=== PATIENT | female | born 1945 | race Hispanic/Latino ===

== ENCOUNTER 2017-07-01 13:34 | Inpatient (IN) | payer BC, MEDICARE ==
--- NOTE | 2017-07-01 13:55 | ED PDOC ---
Arrival/HPI - General Chief Complaint: Shortness Of Breath Time Seen by Provider: 07/01/17 13:47 Historian: Patient - History of Present Illness Narrative History of Present Illness (Text): 07/01/17 13:45 Iman Mckinney is a 71 year old female who presents to the emergency department sent in by PMD Dr. Fraser after abnormal EKG reading. Patient reports that she went to her PMD because she has had a cold with productive cough and congestion x 1 week. At her PMD's office, her EKG reading was afib at 150 BPM and she was sent to Emergency department (EKG sent with patient shows afib at 150bpm). Patient notes having intermittent episodes of palpitations for many months. She had follow up with Dr. Guzman and had normal stress. She notes being scheduled for echocardiogram but never got it done. No other complaints were made. On plavix every other day PMD: Dr. Fraser Time/Duration: 1 week Symptom Onset: Sudden Symptom Course: Unchanged, Intermittent Past Medical History - Provider Review Nursing Documentation Reviewed: Yes - Infectious Disease Hx of Infectious Diseases: None - Reproductive Menopause: Yes - Cardiac Hx Pacemaker: No - Neurological Hx Paralysis: No - Hematological/Oncological Hx Blood Transfusions: No Hx Blood Transfusion Reaction: No - Musculoskeletal/Rheumatological Hx Musculoskeletal Disorders: Yes - Psychiatric Hx Emotional Abuse: No Hx Physical Abuse: No Hx Substance Use: No - Anesthesia Hx Anesthesia Reactions: Yes (HOARSE VOICE X 2 WEEKS) - Suicidal Assessment Feels Threatened In Home Enviroment: No Family/Social History - Physician Review Nursing Documentation Reviewed: Yes Family/Social History: Unknown Family HX Smoking Status: Unknown If Ever Smoked Hx Alcohol Use: No Hx Substance Use: No Allergies/Home Meds Allergies/Adverse Reactions: Allergies Penicillins Allergy (Severe, Verified 07/01/17 13:52) RASH aspirin Allergy (Verified 07/01/17 13:52) DIARRHEA propoxyphene [From Darvon] Allergy (Verified 07/01/17 13:52) RASH DARVON Allergy (Severe, Uncoded 09/17/12 09:49) "TOTALLY OUT OF IT" Home Medications: Home Meds Medication Instructions Recorded Confirmed Clopidogrel [Plavix] 75 mg PO Q48H 01/03/12 07/01/17 Sucralfate [Carafate] 1 gm PO TID PRN 01/03/12 07/01/17 Clonazepam [Klonopin] 0.5 mg PO DAILY 07/01/17 07/01/17 Dexlansoprazole [Dexilant] 60 mg PO DAILY 07/01/17 07/01/17 Gabapentin [Neurontin] 100 mg PO HS 07/01/17 07/01/17 Levothyroxine [Synthroid] 0.088 mg PO DAILY 07/01/17 07/01/17 buPROPion SR [Wellbutrin SR] 150 mg PO DAILY 07/01/17 07/01/17 cycloSPORINE [Restasis] 1 drop PO BID 07/01/17 07/01/17 traMADol [Ultram] 50 mg PO PRN PRN 07/01/17 07/01/17 Review of Systems - Review of Systems Constitutional: absent: Fevers ENT: Sinus Congestion Respiratory: Cough. absent: SOB Cardiovascular: Palpitations. absent: Chest Pain Gastrointestinal: absent: Abdominal Pain, Diarrhea, Nausea, Vomiting Genitourinary Female: absent: Dysuria, Frequency Musculoskeletal: absent: Back Pain Skin: absent: Rash Neurological: absent: Headache, Dizziness Endocrine: absent: Diaphoresis Hemo/Lymphatic: absent: Easy Bleeding Physical Exam Vital Signs Reviewed: Yes Vital Signs Temp Pulse Resp BP Pulse Ox 07/01/17 17:11 88 18 102/77 92 L 07/01/17 16:41 146/69 07/01/17 15:02 22 93 L 07/01/17 13:50 98.2 F 100 H 18 133/74 99 Temperature: Afebrile Blood Pressure: Normal Pulse: Tachycardic Respiratory Rate: Normal Appearance: Positive for: Well-Appearing, Non-Toxic, Comfortable Pain Distress: None Mental Status: Positive for: Alert and Oriented X 3 - Systems Exam Head: Present: Atraumatic, Normocephalic Pupils: Present: PERRL Extroacular Muscles: Present: EOMI Conjunctiva: Present: Normal Neck: Present: Normal Range of Motion Respiratory/Chest: Present: Wheezes (bilateral wheezing). No: Clear to Auscultation, Respiratory Distress, Accessory Muscle Use, Rales, Rhonchi Cardiovascular: Present: Tachycardic. No: Regular Rate and Rhythm, Murmurs Abdomen: Present: Normal Bowel Sounds. No: Tenderness, Distention, Peritoneal Signs, Rebound, Guarding Upper Extremity: Present: Normal Inspection, Normal ROM, NORMAL PULSES, Neurovascularly Intact. No: Cyanosis, Edema, Tenderness, Swelling, Erythema Lower Extremity: Present: Normal Inspection, NORMAL PULSES, Normal ROM, Capillary Refill < 2 s. No: Edema, CALF TENDERNESS, Cyanosis, Tenderness, Swelling, Erythema, Deformity Neurological: Present: GCS=15, CN II-XII Intact, Speech Normal Skin: Present: Warm, Dry, Normal Color. No: Rashes Psychiatric: Present: Alert, Oriented x 3, Normal Insight, Normal Concentration Medical Decision Making ED Course and Treatment: 07/01/17 Impression: 71 year old female with bilateral wheezing in lungs and tachycardia. Plan: -- Reassess and disposition Progress Notes: 07/01/17 14:01 EKG on arrival shows sinus tachycardia at 107bpm with LAD. No acute ST changes. EKG from Dr. Fraser shows atrial fibrillation at 150bpm. 07/01/17 14:27 Allergic to aspirin 07/01/17 15:57 Chest PA and lateral cxray FINDINGS: LUNGS: Mild vascular and interstitial congestion PLEURA: No significant pleural effusion identified. No pneumothorax apparent. CARDIOVASCULAR: Normal. OSSEOUS STRUCTURES: No significant abnormalities. VISUALIZED UPPER ABDOMEN: Normal. OTHER FINDINGS: None. 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 Guzman. Dr. Burnett to admit for new onset afib. Lasix ordered due to vascular congestion. Nebulizer given due to wheezing. - Lab Interpretations Lab Results: 07/01/17 14:10 07/01/17 14:10 Lab Results 07/01/17 14:10: NT-Pro-B Natriuret Pep 421 07/01/17 14:10: WBC 8.3, RBC 4.74, Hgb 12.4, Hct 40.5, MCV 85.4, MCH 26.2, MCHC 30.6 L, RDW 16.0 H, Plt Count 351, MPV 9.6, Gran % 68.5 H, Lymph % (Auto) 16.4 L , Bland % (Auto) 12.5 H, Eos % (Auto) 2.2, Baso % (Auto) 0.4, Gran # 5.70, Lymph # 1.4, Bland # 1.0 H, Eos # 0.2, Baso # 0.03 07/01/17 14:10: Sodium 142, Potassium 4.1, Chloride 102, Carbon Dioxide 32, Anion Gap 12, BUN 21, Creatinine 1.1, Est GFR ( Amer) 59, Est GFR (Non- Af Amer) 49, Random Glucose 92, Calcium 9.3, Phosphorus 3.5, Magnesium 2.1, Total Bilirubin 0.7, AST 60 H, ALT 52, Alkaline Phosphatase 108, Total Creatine Kinase 129, Troponin I 0.03, Total Protein 7.2, Albumin 3.7, Globulin 3.5, Albumin/Globulin Ratio 1.1 07/01/17 14:10: PT 13.6 H, INR 1.24 H, APTT 61.1 H - RAD Interpretation Radiology Orders: 07/01/17 13:58 CHEST TWO VIEWS (PA/LAT) [RAD] Stat - Medication Orders Current Medication Orders: Albuterol/Ipratropium (Duoneb 3 Mg/0.5 Mg (3 Ml) Ud) 3 ml IH [id number] COLT Aspirin (Aspirin Chewable) 81 mg PO DAILY COLT Bupropion HCl (Wellbutrin Sr 150 Mg) 150 mg PO DAILY COLT Clonazepam (Klonopin) 0.5 mg PO DAILY COLT PRN Reason: Protocol Clopidogrel Bisulfate (Plavix) 75 mg PO Q48H COLT Furosemide (Lasix) 40 mg IVP Q12 COLT Gabapentin (Neurontin) 100 mg PO HS COLT PRN Reason: Protocol Levothyroxine Sodium (Synthroid) 88 mcg PO DAILY COLT Pantoprazole Sodium (Protonix Ec Tab) 40 mg PO ACB COLT Sucralfate (Carafate Tab) 1 gm PO TID PRN PRN Reason: GI DISTRESS Discontinued Medications Albuterol/Ipratropium (Duoneb 3 Mg/0.5 Mg (3 Ml) Ud) 3 ml IH STAT STA Stop: 07/01/17 14:01 Last Admin: 07/01/17 14:24 Dose: 3 ml Aspirin (Aspirin Chewable) 324 mg PO STAT STA Stop: 07/01/17 14:01 Last Admin: 07/01/17 14:25 Dose: Not Given Non-Admin Reason: Allergy Furosemide (Lasix) 20 mg IVP STAT STA Stop: 07/01/17 15:58 Last Admin: 07/01/17 16:41 Dose: 20 mg MAR Blood Pressure Document 07/01/17 16:41 [facility] (Rec: 07/01/17 16:41 [facility]-[id number]) Blood Pressure Blood Pressure (100/60-150/90) 146/69 IVP Administration Document 07/01/17 16:41 [facility] (Rec: 07/01/17 16:41 [facility]-[id number]) Charges for Administration # of IVP Administrations 1 - Scribe Statement The provider has reviewed the documentation as recorded by the Tatyanaibe Sharlene West Provider Scribe Attestation: All medical record entries made by the Scribe were at my direction and personally dictated by me. I have reviewed the chart and agree that the record accurately reflects my personal performance of the history, physical exam, medical decision making, and the department course for this patient. I have also personally directed, reviewed, and agree with the discharge instructions and disposition. Disposition/Present on Arrival - Present on Arrival Any Indicators Present on Arrival: No History of DVT/PE: No History of Uncontrolled Diabetes: No Urinary Catheter: No History of Decub. Ulcer: No History Surgical Site Infection Following: None - Disposition Have Diagnosis and Disposition been Completed?: Yes Diagnosis: New onset atrial fibrillation Disposition: HOSPITALIZED Disposition Time: 16:00 Patient Plan: Admission Patient Problems: Current Active Problems Problem Status Onset New onset atrial fibrillation Acute Condition: FAIR
[2017-07-01] MEDS ORDERED: Albuterol-Ipratrop 3 mg / 0.5 (3 ml) UD IH STA (14:00)
[2017-07-01 14:27] LABS: BASO # 0.03 K/mm3 (0.0-2.0); BASO % 0.4 % (0.0-3.0); EOS # 0.2 (0.0-0.7); EOS % 2.2 % (1.5-5.0); GRAN # 5.7 (1.4-6.5); GRAN % 68.5 % (50.0-68.0); HEMATOCRIT 40.5 % (36.0-48.0); LYMPH # 1.4 (1.2-3.4); LYMPH % 16.4 % (22.0-35.0); MEAN CELL VOLUME 85.4 fl (80.0-105.0); MEAN CORPUSCULAR HEMOGLOBIN 26.2 pg (25.0-35.0); MEAN CORPUSCULAR HGB CONC 30.6 g/dl (31.0-37.0); MEAN PLATELET VOLUME 9.6 fl (7.0-11.0); MONO % 12.5 % (1.0-6.0); WHITE BLOOD COUNT 8.3 10^3/ul (4.5-11.0)
[2017-07-01 14:36] LABS: ALB/GLOB RATIO 1.1 (1.1-1.8); BILIRUBIN,TOTAL 0.7 mg/dL (0.2-1.3); CALCIUM 9.3 mg/dL (8.4-10.5); MAGNESIUM 2.1 mg/dL (1.7-2.2); PHOSPHOROUS 3.5 mg/dL (2.5-4.5); POTASSIUM 4.1 mmol/L (3.6-5.0); TOTAL PROTEIN 7.2 g/dL (5.8-8.3)
[2017-07-01 14:47] LABS: TROPONIN I 0.03 ng/mL
[2017-07-01 14:49] LABS: INR 1.24 (0.93-1.08); PARTIAL THROMBOPLASTIN TIME 61.1 Seconds (25.1-36.5)
--- NOTE | 2017-07-01 15:57 | RAD ---
HISTORY: cough, chest pain COMPARISON: No prior. TECHNIQUE: Chest PA and lateral FINDINGS: LUNGS: Mild vascular and interstitial congestion PLEURA: No significant pleural effusion identified. No pneumothorax apparent. CARDIOVASCULAR: Normal. OSSEOUS STRUCTURES: No significant abnormalities. VISUALIZED UPPER ABDOMEN: Normal. OTHER FINDINGS: None. IMPRESSION: Mild vascular and interstitial congestion
[2017-07-01] MEDS ORDERED: SUCRALFATE 1 GM PO PRN (17:09)
--- NOTE | 2017-07-01 18:56 | CARD ---
APPROVED REPORT EKG Measurement Heart [id number] [id number] <Conclusion> Sinus tachycardia with fusion complexes Left axis deviation Septal infarct, age undetermined Abnormal ECG
[2017-07-01] MEDS: Albuterol-Ipratrop 3 mg / 0.5 (3 ml) UD IH SCH (21:00)
[2017-07-01 22:59] VITALS: BMI 37.5
[2017-07-01] MEDS ORDERED: Pneumococcal 23-Valent Vaccine IM ONE (22:59)
[2017-07-01] MEDS ORDERED: Influenza Vaccine 60 mcg/0.5 mL SYR (4YR UP) IM ONE (22:59)
[2017-07-02] MEDS: Albuterol-Ipratrop 3 mg / 0.5 (3 ml) UD IH SCH ×4 (02:03→19:45)
[2017-07-02 06:58] LABS: BLOOD UREA NITROGEN 20 mg/dL (7-21); CALCIUM 8.8 mg/dL (8.4-10.5); CARBON DIOXIDE 35 mmol/L (21-33); CHLORIDE 102 mmol/L (98-107); CHOLESTEROL 150 mg/dL (130-200); GFR AFRICAN-AMERICAN 53; GLUCOSE,RANDOM 98 mg/dL (70-110); SODIUM 144 mmol/L (132-148)
[2017-07-02 07:01] LABS: HEMATOCRIT 39.7 % (36.0-48.0); MEAN CELL VOLUME 86.9 fl (80.0-105.0); MEAN CORPUSCULAR HEMOGLOBIN 25.6 pg (25.0-35.0); MEAN CORPUSCULAR HGB CONC 29.5 g/dl (31.0-37.0); MEAN PLATELET VOLUME 9.2 fl (7.0-11.0); RED CELL DISTRIBUTION WIDTH 16.2 % (11.5-14.5); WHITE BLOOD COUNT 6.4 10^3/ul (4.5-11.0)
[2017-07-02] MEDS: Levothyroxine 88 MCG TAB PO SCH (07:01)
[2017-07-02 07:09] LABS: TROPONIN I 0.03 ng/mL
--- NOTE | 2017-07-02 08:21 | HP ---
CHIEF COMPLAINT: Shortness of breath, palpitations. HISTORY OF PRESENT ILLNESS: Ms. Iman Mckinney is a 71-year-old female that came to the Emergency Department send by her primary doctor, Dr. Fraser after abnormal EKG reading. The patient report that she went to see primary care physician because she has had cold with productive cough and congestion one week ago. At her PMD office, her EKG reading was atrial fibrillation at the rate of 150 bpm and she was sent to the Emergency Department. EKG came with the patient showed atrial fibrillation at the rate of 150. The patient noticed having intermittent episode of palpitation for many months. She had followup with Dr. Hanson and had a normal stress test. She noticed that being scheduled for echocardiography, but never got it done. No other complaints were at the time of admission. I saw the patient in the telemetry, still complaining about coughing and shortness of breath. PAST MEDICAL HISTORY: As above. History of abnormal EKG, history of bronchitis. FAMILY HISTORY: Father and mother noncontributory. SOCIAL HISTORY: No smoking. No drugs. No ethanol. ALLERGIES: THE PATIENT IS ALLERGIC TO PENICILLIN, ASPIRIN, AND DARVON. MEDICATIONS: Plavix, Carafate, Klonopin, DEXILANT, Neurontin, Synthroid, Wellbutrin, eyedrops, tramadol. REVIEW OF SYSTEMS: The patient is examined at bedside in the telemetry, complaining about shortness of breath, palpitation, and coughing. No nausea, vomiting, or diarrhea. No fever. No chills. No headache. No dizziness. No swelling of the leg. No diaphoresis. No easy bleeding. No back pain. No dysuria or frequency. No abdominal pain, diarrhea, hematuria, or hematochezia. PHYSICAL EXAMINATION VITAL SIGNS: Temperature 98.2, pulse 100, respiratory 18, blood pressure 134/74, pulse oximetry 99. HEENT: Head: Normocephalic and atraumatic. Eyes: PERRLA. Extraocular muscles intact. Conjunctivae clear. Nose patent. Mucous membrane moist. NECK: Supple. No carotid bruits, JVD, or thyromegaly. HEART: S1 and S2 positive. CHEST: Bilaterally symmetrical. Lungs are clear to auscultation. ABDOMEN: Soft. Bowel sounds positive. No organomegaly. EXTREMITIES: No edema, no cyanosis. NEUROLOGIC: The patient is awake and alert. Moving all 4 extremities. No focal deficit. LABORATORY DATA: White blood cell count is 8.3, hemoglobin 12.4, hematocrit 40.5, platelets 361. Sodium 142, potassium 4.1, BUN 30, creatinine 1.1, glucose 92. ASSESSMENT AND PLAN: Ms. Iman Mckinney is a 71-year-old lady with history of hypothyroidism, came with new onset atrial fibrillation, history of depression . gerd , dyspepsia , ch. neck pain , came with new onset at . fib . i admitted the pt . cardiology consult called . looks like pt had bronchitis , started on doxy . r/o pul . congestion , will f/u gi dvt prophylaxis, Lucy Burnett MD MTDD
[2017-07-02] MEDS: Pantoprazole 40 mg EC Tab PO SCH (08:32)
[2017-07-02] MEDS: buPROPion SR 150 MG TABLET PO SCH (09:12)
[2017-07-02] MEDS ORDERED: Non Formulary Medication (Dexlansoprazole [Dexilant] 60 MG) PO SCH (10:00)
[2017-07-02] MEDS ORDERED: Enoxaparin 40 mg Syringe SC SCH (12:00)
--- NOTE | 2017-07-02 12:15 | CARD ---
APPROVED REPORT EXAM: Two-dimensional and M-mode echocardiogram with Doppler and color Doppler. INDICATION Atrial Fibrillation 2D DIMENSIONS Left Atrium (2D)4.3 (1.6-4.0cm)IVSd1.4 (0.7-1.1cm) LVDd4.0 (3.9-5.9cm)LVOT Diameter1.9 (1.8-2.4cm) PWd1.3 (0.7-1.1cm)LVDs2.8 (2.5-4.0cm) FS (%) 31.1 %LVEF (%)59.3 (>50%) M-Mode DIMENSIONS Aortic Root3.10 (2.2-3.7cm)Aortic Cusp Exc.1.00 (1.5-2.0cm) Aortic Valve AoV Peak Xqlobwdv275.0cm/sAoV VTI64.4cmAO Peak GR.32mmHg LVOT Peak Bnfyjlfe392.0cm/sLVOT VTI29.60cmAO Mean GR.18mmHg LIANNA (VMAX)1.15as0OQQ (VTI)1.31cm2 Mitral Valve MV E Oblywryc66.2cm/sMV A Xdihiztw590.0cm/sE/A ratio0.8 TDI Lateral E' Peak V8.77cm/sMedial E' Peak V6.82cm/sE/Lateral E'10.6 E/Medial E'13.7 Pulmonary Valve PV Peak Veehgwtu542.0cm/sPV Peak Grad.4mmHg Tricuspid Valve TR Peak Ypkbemgq717hn/sRAP NLOGTKON82okAbDW Peak Gr.29mmHg URQY43ubTv LEFT VENTRICLE The left ventricle is normal size. There is mild concentric left ventricular hypertrophy. The left ventricular function is normal. The left ventricular ejection fraction is within the normal range. There is normal LV segmental wall motion. RIGHT VENTRICLE The right ventricle is normal size. The right ventricular systolic function is normal. ATRIA The left atrium is mildly dilated. The right atrium size is normal. The interatrial septum is intact with no evidence for an atrial septal defect. AORTIC VALVE The aortic valve is moderately calcified. There is mild valvular aortic stenosis. MITRAL VALVE The mitral valve is normal in structure. Mitral regurgitation is mild. TRICUSPID VALVE The tricuspid valve is normal in structure. PULMONIC VALVE The pulmonary valve is normal in structure. GREAT VESSELS The aortic root is normal in size. The IVC is normal in size and collapses >50% with inspiration. PERICARDIAL EFFUSION There is no pleural effusion. There is no pericardial effusion. <Conclusion> Dilated LA. Mild concentric LVH. Normal LV size and systolic function. Mild . Mild MR.
[2017-07-02 13:43] LABS: FOLATE > 20.0 ng/mL
--- NOTE | 2017-07-02 23:41 | CON ---
DATE: 07/02/2017 REQUESTING PHYSICIAN: Lucy Burnett MD REASON FOR CONSULTATION: Atrial fibrillation. HISTORY OF PRESENT ILLNESS: The patient is a 71-year-old woman known to me with a history of hypertension and valvular heart disease, who was seen in her primary care physician's office earlier today. She complained of four to five days of exertional dyspnea and palpitations. She is found to be in atrial fibrillation with a rapid ventricular response. She has also had symptoms of bronchitis for the past several days. She denies any chest pain. She has had a productive cough. PAST MEDICAL HISTORY: Notable to problems mentioned above. She does have a history of gastroesophageal reflux disease, hypothyroidism, and anxiety disorder. MEDICATIONS: Her medications at home included Plavix, Carafate, Klonopin, DEXILANT, Neurontin, Synthroid, Wellbutrin, Restasis eye drops, and Ultram. ALLERGIES: SHE HAS HAD REACTION TO PENICILLIN IN THE PAST. SHE HAS ALSO HAD REACTION TO ASPIRIN AND DARVON. SOCIAL HISTORY: She does not smoke or drink. She is and lives with her . FAMILY HISTORY: Unremarkable for premature heart disease. REVIEW OF SYSTEMS: A 10-point review of systems is notable mainly for problems as mentioned above. PHYSICAL EXAMINATION GENERAL: She is an overweight middle-aged woman. VITAL SIGNS: Her blood pressure is 160/82, pulse of 78 in sinus, respirations are 16. She is currently afebrile. HEENT: Normocephalic atraumatic. NECK: Supple. No JVD noted. CHEST: Bilateral coarse rhonchi and scattered wheezing heard. No rales noted. HEART: PMI displaced laterally with systolic murmur at the base and left sternal border. ABDOMEN: Soft and nontender. Obese with normoactive bowel sounds. EXTREMITIES: No clubbing, cyanosis, or edema. SKIN: Warm and dry. PSYCHIATRIC: Normal mood and affect. NEUROLOGIC: Alert and oriented x3. No gross motor or sensory is appreciated. DIAGNOSTIC DATA: White count is 8.3, hemoglobin and hematocrit 12.4, and 40.5, with a platelet count of 351,000. PT/PTT 13.6 and 61.1. Potassium 4.1, BUN and creatinine 21 and 1.1. Two sets of cardiac enzymes are negative. BNP is 421. Electrocardiogram reveal sinus rhythm with nonspecific ST-T abnormalities. Chest x-ray reveals normal cardiac silhouette with possible mild increased interstitial markings. IMPRESSION: 1. Paroxysmal atrial fibrillation currently in sinus rhythm likely secondary to recent acute bronchitis and underlying valvular heart disease. 2. Probable mild aortic stenosis. 3. Elevated PTT, etiology uncertain. 4. Mildly decompensating congestive heart failure acute likely secondary to respiratory stress of illness and underlying valvular heart disease. RECOMMENDATIONS: Bronchodilator therapy, should continue for now, as she has some active wheezing, beta misha therapy will be avoided. Low dose diltiazem will be added for heart rate control should atrial fibrillation recur. Repeat PTT is pending. She was started on Lovenox and this will be withheld for now. Given her recent atrial fibrillation, which appeared to be of at least several days in duration, short course of anticoagulant therapy would be advisable. If she has no recurrence of atrial fibrillation consideration be given to discontinuation of this at some point in time. While on anticoagulant therapy, Plavix will be withheld as well. Thank you for this consultation. We will be happy to follow along for rest of the hospital course. Her echocardiogram will be reviewed and further recommendations made as needed. Jose Enrique Hanson MD
[2017-07-03] MEDS: Albuterol-Ipratrop 3 mg / 0.5 (3 ml) UD IH SCH ×4 (01:37→19:46)
--- NOTE | 2017-07-03 03:38 | CON ---
DATE: 07/02/2017 REFERRING PHYSICIAN: Lucy Burnett MD REASON FOR CONSULTATION: New onset of atrial fibrillation with rapid ventricular response may have sleep apnea syndrome, cough and shortness of breath. HISTORY OF PRESENT ILLNESS: This is a 71-year-old female with past medical history significant for hypothyroid, been on Plavix, also has a history of GERD, chronic pain syndrome, depression, seen at the PMD office and found to have a fair which is no new onset with rapid ventricular response. The patient had palpitation and some shortness of breath, came to emergency room where she is admitted on telemetry. Does not know if she snores, daytime sleepy and tired, has some rhinitis and cough. No sputum production. No hemoptysis and no hematemesis, hematuria or diarrhea reported. In the past, has a stress test done which was according to the patient been negative. PAST MEDICAL HISTORY: Hypothyroid, gastritis, anxiety/depression, and chronic pain syndrome. ALLERGIES: TO PENICILLIN, ASPIRIN AND DARVON. FAMILY HISTORY: Significant cardiopulmonary disease reported. MEDICATIONS: She is on Carafate 1 g three times a day p.r.n., doxycycline 100 mg twice a day, DuoNeb q. 6 hours., Eliquis 5 mg twice a day, Klonopin 0.5 mg daily, Lasix 40 mg twice a day, gabapentin 100 mg at bedtime, Protonix 40 mg daily, Synthroid 88 mcg daily, Tylenol p.r.n. and Wellbutrin SR 150 mg daily will. REVIEW OF SYSTEMS: No headache. Has some rhinitis, postnasal drip, cough, and clear sputum production. Palpitation is better. No nausea. History of gastroesophageal reflux disease. No abdominal pain. No dysuria. No leg pain or leg swelling. Does have a history of sleepiness and tiredness during the daytime. Does not know if snores. PHYSICAL EXAMINATION: GENERAL: No acute distress. VITAL SIGNS: Temperature is 98, heart rate is 80, respiratory rate is 20, blood pressure is 132/64, and pulse oximetry is 97% on nasal cannula. HEENT: Moist mucous membranes. Crowded airway. Mallampati score is 4. NECK: Supple. JVD. LUNGS: Has a few scattered rhonchi. HEART: Irregularly irregular. GASTROINTESTINAL: Abdomen is soft and nontender. No organomegaly. EXTREMITIES: No edema. NEUROLOGIC: Awake and alert. Follows simple command. LABORATORY DATA: Shows hemoglobin of 11.7, hematocrit of 39.7, WBC of 6.4, and platelets of 319. INR is 1.24 and PTT is 61. Sodium is 144, potassium is 4.0, chloride is 102, bicarbonate is 35, BUN is 20, creatinine is 1.2, glucose is 98, and hemoglobin A1c is 6.7. Iron is 36 and total iron binding capacity is 255. AST is 60, ALT is 52, and alkaline phosphatase is 108. Troponin is less than 0.03. Albumin is 3.7, cholesterol is 150, and triglycerides of 121. Folate more than 20 and vitamin B12 is 696. TSH is 2.72. DIAGNOSTIC DATA: Echocardiogram shows mild pulmonary hypertension, PA pressure of 39, mild valvular heart disease. IMPRESSION AND PLAN: New onset of atrial fibrillation with rapid ventricular response, hypothyroid, gastritis, depression, and may have a sleep apnea syndrome. Spoke to the patient in detail about sleep apnea syndrome and its relation to cardiac arrhythmia. Keep head elevated to 45 degrees. Gastric prophylaxis and sequential compression device to lower extremity. Continue anticoagulation. May start beta-misha. Outpatient sleep study and pulmonary function tests. Continue doxycycline and nebulizer treatment. Thank you and we will follow with you. Natali Masterson MD
[2017-07-03] MEDS ORDERED: Lidocaine 2% Inj (20ml) ONE (06:28)
[2017-07-03] MEDS ORDERED: Iodixanol 320 MG/ML 200 ML BOTTLE IV ONE (06:29)
[2017-07-03] MEDS ORDERED: Nitroglycerin 50mg in D5W 0 MG/0 ML BOTTLE IV ONE (06:29)
[2017-07-03] MEDS ORDERED: Heparin 0 ML IV ONE (06:29)
[2017-07-03] MEDS ORDERED: Iodixanol 320 MG/ML 100 ML BOTTLE IV ONE (06:29)
[2017-07-03 06:57] LABS: BILIRUBIN,TOTAL 0.8 mg/dL (0.2-1.3); CALCIUM 8.6 mg/dL (8.4-10.5); POTASSIUM 3.9 mmol/L (3.6-5.0); TOTAL PROTEIN 7.3 g/dL (5.8-8.3)
[2017-07-03] MEDS: Levothyroxine 88 MCG TAB PO SCH (07:49)
[2017-07-03] MEDS: Pantoprazole 40 mg EC Tab PO SCH (07:49)
[2017-07-03] MEDS: buPROPion SR 150 MG TABLET PO SCH (09:55)
--- NOTE | 2017-07-03 11:59 | PN ---
DATE: 07/02/2017 SUBJECTIVE: The patient is a 71-year-old female. The patient was see and examined at the bedside, looking comfortable, still coughing, and having shortness of breath with cough. No fever and no chills. was sitting on the bedside. The patient was going for echocardiography. REVIEW OF SYSTEMS: No nausea, vomiting or diarrhea. No fever and no chills. No hematuria or hematochezia. PHYSICAL EXAMINATION: VITAL SIGNS: Temperature of 98.5, pulse of 78, blood pressure of 159/83, respiratory rate of 16, and oxygenation of 97%. HEENT: Head is normocephalic and atraumatic. Eyes, PERRLA. Extraocular muscles intact. Conjunctivae are clear. Nose is patent. Mucous membranes are moist. NECK: Supple. No carotid bruits. No JVD or thyromegaly. CHEST: Bilaterally symmetrical. HEART: S1 and S2 positive. LUNGS: Clear to auscultation. ABDOMEN: Soft. Bowel sounds present. No organomegaly. EXTREMITIES: No edema. No cyanosis. NEUROLOGICAL: The patient is awake and alert. Moving all 4 extremities. No focal deficit. LABORATORY DATA: White blood cell is 6.4, hemoglobin is 11.7, hematocrit is 39.7, and platelets are 319. Sodium is 144, potassium is 4.0, BUN is 20, and creatinine is 1.2. Glucose is 98. Iron is 36. MEDICATIONS: Carafate, doxycycline, Klonopin, Lasix, Neurontin, Plavix, Wellbutrin, Tylenol, and Synthroid. ASSESSMENT AND PLAN: Ms. Iman Dior is a 71-year-old lady with abnormal liver function test and iron deficiency anemia who came with shortness of breath and palpitation. The patient has abnormal electrocardiogram done in her primary care physician, with heart rate of 150. The patient has history of hypothyroidism, atrial fibrillation, depression, gastroesophageal reflux disease, dyspepsia, neck pain, rule out bronchitis, and rule out congestive heart failure. The patient's correction officer head is Dr. Gustafson and pulmonary consult called. The patient underwent echocardiography, we will wait for the result. Results are pending. We will continue aspirin, sucralfate, and doxycycline started. The patient was taking Klonopin, I will continue that and Lasix. Continue Plavix, pantoprazole for gastrointestinal prophylaxis. levothyroxine for hypothyroidism. Gastrointestinal and deep venous thrombosis prophylaxis. Repeat laboratories. We will follow up. Lucy Burnett MD
[2017-07-03] MEDS: Potassium Chloride 10 mEq ER Tab PO SCH (12:30)
--- NOTE | 2017-07-03 17:09 | PN ---
SUBJECTIVE: The patient was seen and examined at the bedside, looking comfortable. No nausea, vomiting or diarrhea. No hematuria or hematochezia. No swelling of the legs. No chest pain, no palpitation. No headache, no dizziness. Cough is getting better. Shortness of breath is getting better. PHYSICAL EXAMINATION: VITAL SIGNS: Temperature of 97.9, pulse of 87, blood pressure of 126/57, respiratory rate 20. HEENT: Head is normocephalic and atraumatic. Eyes, PERRLA. Extraocular muscles intact. Conjunctivae are clear. Nose is patent. Mucous membranes are moist. NECK: Supple. No carotid bruits. No JVD or thyromegaly. CHEST: Bilaterally symmetrical. HEART: S1 and S2 positive. LUNGS: Clear to auscultation. ABDOMEN: Soft. Bowel sounds positive. No organomegaly. EXTREMITIES: No edema. No cyanosis. NEUROLOGIC: The patient is awake and alert. Moving all 4 extremities. No focal deficit. MEDICATIONS: Sucralfate, doxycycline, albuterol, DuoNeb, Eliquis, potassium, gabapentin, Protonix, levofloxacin, Tylenol, and Wellbutrin. LABORATORY DATA: We do not have CBC today but sodium is 141, potassium is 3.9, BUN is 21, and creatinine 1.1. AST 54, ALT 59. ASSESSMENT AND PLAN: Ms. Hank Valerio is a 71-year-old lady with uncontrolled diabetes mellitus, hemoglobin A1c is 6.7, iron deficiency, abnormal liver function test, anemia, obesity, hypothyroidism, gastritis, anxiety, depression, chronic pain syndrome, new-onset atrial fibrillation with rapid ventricular response, sleep apnea syndrome. Length of time discussion with the patient's and the patient's daughter. Started on beta-blockers, GI and DVT prophylaxis, and repeat labs. We will follow. Lucy Burnett MD
--- NOTE | 2017-07-03 19:36 | PN ---
DATE: 07/03/2017 SUBJECTIVE: The patient is seen lying in bed on telemetry. She continues to have intermittent wheezing and dyspnea. She remains in sinus rhythm. Her current medications include Carafate, doxycycline, DuoNeb inhaler, Eliquis 5 mg b.i.d., Klonopin, potassium, Lasix 40 mg daily, Neurontin, Protonix, Singulair, Synthroid and Wellbutrin. OBJECTIVE: GENERAL: She is a overweight middle-aged woman. VITAL SIGNS: Blood pressure 126/66 with pulse of 86 and sinus respirations are 14. She is currently afebrile. HEENT: No JVD. CHEST: Reveals bilateral scattered rhonchi with scattered wheezing noted. HEART: PMI is displaced laterally as a systolic murmur noted at the base vein to the carotids. . No is planned. EXTREMITIES: Revealed no edema. DIAGNOSTIC DATA: Potassium is 3.9, BUN and creatinine 21 and 1.1. AST and ALT are 54 and 59, repeat PTT is 75.1. IMPRESSION: 1. Paroxysmal atrial fibrillation remains in sinus rhythm. 2. Acute bronchitis slow to improve. 3. Mild aortic stenosis. 4. Elevated PTT. RECOMMENDATIONS: Diltiazem will be continued for now. The patient remains on Eliquis given her recent episodes of atrial fibrillation; however, if she does have an elevated PTT, which needs to be evaluated. Hematologic evaluation would be advised a factor deficiency or Willebrand factor may be playing a role. As long there is no contraindication to Eliquis use of this should be continued for the next several weeks. If she has no evidence of recurrent atrial fibrillation at that time, this can be discontinued. We will continue to follow and make further recommendations as appropriate. Jose Enrique Hanson MD
--- NOTE | 2017-07-03 19:56 | PN ---
PULMONARY PROGRESS NOTE DATE: 07/03/2017 REFERRING PHYSICIAN: Dr. Burnett. SUBJECTIVE: She is lying in the bed. Head at 45 degrees. Has little bleed from the nose. Getting humidified O2. No headache. No chest pain. No nausea. No vomiting. No diarrhea. No leg pain or leg swelling. OBJECTIVE: GENERAL: In no acute distress. VITAL SIGNS: Temperature is 98, heart rate is 87, respiratory rate is 20, blood pressure is 126/67, and pulse ox is 92% on 3 L nasal cannula. HEENT: Moist mucous membranes. Crowded airway. Mallampati score is 4. NECK: Supple. No JVD. LUNGS: Has fair air flow with few rhonchi. HEART: Irregularly irregular. ABDOMEN: Soft and nontender. No organomegaly. EXTREMITIES: No edema. NEUROLOGIC: Awake and alert. Follow simple commands. MEDICATIONS: She is on Carafate 1 g t.i.d., doxycycline 100 mg twice a day, DuoNeb q. 6 hours, Eliquis 5 mg twice a day, Klonopin 0.5 mg daily, potassium 10 mEq daily, Lasix 40 mg twice a day, Neurontin 200 mg h.s., Protonix 40 mg daily, Singulair 10 mg daily, Synthroid 88 mcg a.c.b., Tylenol p.r.n. basis, and Wellbutrin SR 150 mg daily. LABORATORY DATA: Shows PTT today is 75, sodium 141, potassium 3.9, chloride 98, bicarbonate 37, BUN 21, creatinine 1.1, glucose 103, calcium is 8.6, iron is 36, AST 54, ALT 59, alkaline phosphatase is 100, albumin is 3.7, and TSH 2.72. ASSESSMENT AND PLAN: Atrial fibrillation with rapid ventricular response, hypothyroid, gastritis, depression, may have a sleep apnea syndrome. Has echocardiogram done which shows right ventricular systolic pressure of 39, left atrium is enlarged, mild concentric left ventricular hypertrophy. May use supplemental oxygen through the mouth if there is nasal dryness and continue humidification. Cardiology followup. Gastric prophylaxis. Sequential compression devices to lower extremities. On anticoagulation. Sleep apnea precaution. Outpatient sleep study. Out of bed to chair. Thank you and we will follow with you. Natali Masterson MD [facility] # [id number]
[2017-07-04] MEDS: Albuterol-Ipratrop 3 mg / 0.5 (3 ml) UD IH SCH ×4 (01:27→20:55)
[2017-07-04] MEDS: Pantoprazole 40 mg EC Tab PO SCH (08:05)
[2017-07-04] MEDS: Levothyroxine 88 MCG TAB PO SCH (08:05)
[2017-07-04] MEDS: Potassium Chloride 10 mEq ER Tab PO SCH (08:05)
[2017-07-04] MEDS: buPROPion SR 150 MG TABLET PO SCH (09:43)
--- NOTE | 2017-07-04 12:31 | PN ---
DATE: 07/04/2017 PULMONARY PROGRESS NOTE REFERRING PHYSICIAN: Lucy Burnett MD SUBJECTIVE: The patient is sitting side of the bed, going to the bathroom. Night was unremarkable. Had some cough and sputum production. No nausea and no vomiting. No diarrhea. No leg pain or leg swelling. OBJECTIVE: GENERAL: In no acute distress. VITAL SIGNS: Temperature is 98, heart rate is 77, respiratory rate is 20, blood pressure is 159/79, and pulse oximetry is 92% on 3 liters nasal cannula. HEENT: Moist mucous membranes. Crowded airway. Mallampati score of 4. NECK: Supple. No JVD. LUNGS: Scattered rhonchi. HEART: Irregularly irregular. ABDOMEN: Soft and nontender. No organomegaly. EXTREMITIES: There is no edema. NEUROLOGIC: Awake, alert, and follow simple commands. LABORATORY DATA: Reviewed. Sodium of 141 yesterday. MEDICATIONS: She is on Carafate 1 g three times a day p.r.n., doxycycline 100 mg twice a day, DuoNeb q. 6 hours, Eliquis 5 mg twice a day, Klonopin 0.5 mg daily, also on potassium 10 mEq daily, Lasix 40 mg twice a day, Neurontin 100 mg at bedtime, Protonix 40 mg daily, Singulair 10 mg daily, Synthroid 88 mcg daily, Tylenol p.r.n. basis, and Wellbutrin SR 150 mg daily. IMPRESSION AND PLAN: Atrial fibrillation with rapid ventricular response, hypothyroid, gastritis, depression, may have component of sleep apnea syndrome, presently has sinusitis and acute bronchitis. From pulmonary point of view, she is doing okay. She does have mild pulmonary hypertension and mild concentric left ventricular hypertrophy. We will add Solu-Medrol 20 mg q. 8 hours. Continue doxycycline, anticoagulation, and sleep apnea precaution. Keep head at 45 degrees. Avoid sedation. Thank you and we will follow with you. Natali Masterson MD
[2017-07-04] MEDS: MethylPREDNISolone 40 mg Vial IVP SCH ×2 (13:38→22:10)
--- NOTE | 2017-07-04 19:12 | PN ---
DATE: SUBJECTIVE: The patient is a 71-year-old female. The patient was seen and examined at the bedside. is sitting at the bedside also. Looking comfortable. No nausea, vomiting, or diarrhea. No hematuria or hematochezia. No swelling of the legs. No chest pain. No palpitation. No headache. No dizziness. PHYSICAL EXAMINATION: VITAL SIGNS: Temperature is 98, heart rate is 77, respiratory rate is 20, blood pressure is 150/70, and pulse oximetry is 92% on 3 L nasal cannula. HEENT: Head; normocephalic, atraumatic. Eyes; PERRLA. Extraocular muscles are intact. Conjunctivae clear. Nose patent. Mucous membranes moist. NECK: Supple. No carotid bruits. No JVD or thyromegaly. CHEST: Bilaterally symmetrical. HEART: S1 and S2 positive. LUNGS: Clear to auscultation. ABDOMEN: Soft. Bowel sounds present. No organomegaly. EXTREMITIES: No edema. No cyanosis. NEUROLOGIC: The patient is awake and alert, moving all 4 extremities. No focal deficits. MEDICATIONS: Carafate, doxycycline, albuterol, Eliquis, Klonopin, potassium, Lasix, Neurontin, Protonix, Singulair, Solu-Medrol, levothyroxine, Tylenol, and Wellbutrin. LABORATORY DATA: We do not have recent labs today, but reviewed old labs. ASSESSMENT AND PLAN: Ms. Iman Mckinney is a 71-year-old lady with uncontrolled diabetes mellitus, hemoglobin A1c 6.7, iron deficiency, abnormal liver function test, anemia. Seen by Dr. Masterson, marketing associate, critical care, sleep specialist. Atrial fibrillation with rapid ventricular response. Hypothyroidism, gastritis, depression, sleep apnea syndrome, sinusitis, acute bronchitis, pulmonary hypertension, mild concentric left ventricular hypertrophy. Dr. Masterosn added Solu-Medrol. Continue doxycycline, anticoagulation, sleep apnea precautions, sedation, physical therapy. Discussion done with the patient's , physical therapy, nursing staff, Dr. Masterson. Continue present treatment. Repeat labs. We will follow up. Lucy Burnett MD [facility] # [id number] MTDD
[2017-07-05] MEDS: Albuterol-Ipratrop 3 mg / 0.5 (3 ml) UD IH SCH ×3 (02:05→13:39)
[2017-07-05 06:21] LABS: HEMATOCRIT 42.5 % (36.0-48.0); MEAN CELL VOLUME 85.9 fl (80.0-105.0); MEAN CORPUSCULAR HEMOGLOBIN 25.9 pg (25.0-35.0); MEAN CORPUSCULAR HGB CONC 30.1 g/dl (31.0-37.0); MEAN PLATELET VOLUME 9.1 fl (7.0-11.0); RED CELL DISTRIBUTION WIDTH 15.7 % (11.5-14.5); WHITE BLOOD COUNT 10.1 10^3/ul (4.5-11.0)
[2017-07-05 06:45] VITALS: O2SAT 92
--- NOTE | 2017-07-05 06:55 | CP.PCM.CON ---
History of Present Illness - History of Present Illness History of Present Illness: Heme/Onc consult note for Dr Beltre's service Reason for consult: High APTT Patient is a 71 y/o Female with pmh of hypothyroidism, h/o left breast cancer s/ p lumpectomy, morbidly obese, diabetes, iron deficiency anemia whom went to her PMD's office complaining of flue like symptoms, and was found to have new onset afib on ekg. Upon obtaining blood work, patient was found to have elevated APTT and Dr Beltre is being consulted to evaluate. Patient interviewing patient, patient denies history of any bleeding or clotting disorders. States she was placed on plavix for few months by a neurologist for possible TIA however the plavix was recently discontinued. Patient denies history of autoimmune or cancers. Denies history of DVT or PEs. Patient denies history of gi bleeding, black tarry stool. Denies history of hepatitis or alcohol. Patient is complaining of left sided chest pain, non radiating constant, pressure like, reproducible which she contributes to constant cough. ROS: Denies dizziness, headache, fatigue. Admits to occasional sob, chest pain, denies palpitations Denies abdominal pain, n/v/d, or dyurea. Admits to cough Denies easy bleeding or bruising. Denies history of blood clots. PMH: hypothyroidism, morbidly obese, diabetes, iron deficiency anemia, left breast cancer s/p lumpectomy PSH: D&C , lumpectomy, appendectomy FMH: denies family of coagulopathies, denies history of cancers. Social: lives with , denies tobacco, or illicit drug use. Allergy: penicillins, asa, egg, darvon, propoxyphene. Home medications: plavix, synthroid, dexilant, wellbutrin, klonopin, restasis, carafate, ultram, neurontin. Review of Systems - Review of Systems All systems: reviewed and no additional remarkable complaints except Review of Systems: As per HPI. Past Patient History - Infectious Disease Hx of Infectious Diseases: None - Past Social History Smoking Status: Former Smoker Alcohol: None Drugs: Denies Home Situation {Lives}: With Family - CARDIAC Hx Cardiac Disorders: Yes Hx Cardia Arrhythmia: Yes (NEW ONSET AFIB 07-01-17) Hx Pacemaker: No - PULMONARY Hx Respiratory Disorders: Yes (USED TO SMOKE 10 CIG A DAY. QUIT 2001) - NEUROLOGICAL Hx Neurological Disorder: No - HEENT Hx HEENT Problems: Yes Hx Cataracts: Yes (BILATERAL SX) - RENAL Hx Chronic Kidney Disease: Yes Hx Kidney Stones: Yes - ENDOCRINE/METABOLIC Hx Endocrine Disorders: No - HEMATOLOGICAL/ONCOLOGICAL Hx Blood Disorders: No - INTEGUMENTARY Hx Dermatological Problems: No - MUSCULOSKELETAL/RHEUMATOLOGICAL Hx Musculoskeletal Disorders: Yes (TMJ,ROTATOR CUFF SX,) Hx Falls: No - GASTROINTESTINAL Hx Gastrointestinal Disorders: Yes (LAP APPENDECTOMY) Hx Gastroesophageal Reflux: Yes - GENITOURINARY/GYNECOLOGICAL Hx Genitourinary Disorders: Yes (LEFT BREAST MASTECTOMY.L BREAST CA.) Other/Comment: HAS PAP SMEAR DONE -PRE-CANCEROUS CELLS IN HER UTERUS.NEED FUP. 07-01-17 - PSYCHIATRIC Hx Psychophysiologic Disorder: Yes Hx Anxiety: Yes Hx Depression: Yes Hx Emotional Abuse: No Hx Physical Abuse: No Hx Substance Use: No - SURGICAL HISTORY Hx Surgeries: Yes (LAPAROTOMY/APPENDECTOMY 2001) Other/Comment: LEFT BREAST MASTECTOOMY,CATARACT AMEYA SX. - ANESTHESIA Hx Anesthesia Reactions: Yes (HOARSE VOICE X 2 WEEKS) Meds Allergies/Adverse Reactions: Allergies Allergy/AdvReac Type Severity Reaction Status Date / Time Penicillins Allergy Severe RASH Verified 07/01/17 21:13 aspirin Allergy DIARRHEA Verified 07/01/17 21:13 Egg Derived Allergy RASH Verified 07/01/17 23:02 propoxyphene [From Darvon] Allergy RASH Verified 07/01/17 21:13 DARVON Allergy Severe "TOTALLY Uncoded 07/01/17 21:13 OUT OF IT" - Medications Medications: Current Medications Acetaminophen (Tylenol 325mg Tab) 650 mg PO TID PRN PRN Reason: pain Albuterol/Ipratropium (Duoneb 3 Mg/0.5 Mg (3 Ml) Ud) 3 ml IH [id number] [facility] Last Admin: 07/05/17 02:05 Dose: Not Given Apixaban (Eliquis) 5 mg PO BID [facility] PRN Reason: Protocol Last Admin: 07/04/17 18:20 Dose: 5 mg Bupropion HCl (Wellbutrin Sr 150 Mg) 150 mg PO DAILY [facility] Last Admin: 07/04/17 09:43 Dose: 150 mg Clonazepam (Klonopin) 0.5 mg PO DAILY [facility] PRN Reason: Protocol Last Admin: 07/04/17 09:43 Dose: 0.5 mg Doxycycline Hyclate (Doryx) 100 mg PO BID COLT PRN Reason: Protocol Last Admin: 07/04/17 18:20 Dose: 100 mg Furosemide (Lasix) 40 mg IVP 0600,1800 [facility] Last Admin: 07/05/17 05:50 Dose: 40 mg Gabapentin (Neurontin) 100 mg PO HS [facility] PRN Reason: Protocol Last Admin: 07/04/17 22:10 Dose: 100 mg Levothyroxine Sodium (Synthroid) 88 mcg PO ACB [facility] Last Admin: 07/04/17 08:05 Dose: 88 mcg Methylprednisolone (Solu-Medrol) 30 mg IVP Q12 [facility] Last Admin: 07/04/17 22:10 Dose: 30 mg Montelukast Sodium (Singulair) 10 mg PO HS [facility] Last Admin: 07/04/17 22:11 Dose: 10 mg Pantoprazole Sodium (Protonix Ec Tab) 40 mg PO ACB [facility] Last Admin: 07/04/17 08:05 Dose: 40 mg Potassium Chloride (Klor-Con 10) 10 meq PO BRK [facility] Last Admin: 07/04/17 08:05 Dose: 10 meq Sucralfate (Carafate Tab) 1 gm PO TID PRN PRN Reason: GI DISTRESS Last Admin: 07/02/17 17:45 Dose: 1 gm Physical Exam - Constitutional Appears: No Acute Distress, Chronically Ill - Head Exam Head Exam: ATRAUMATIC, NORMAL INSPECTION, NORMOCEPHALIC - Eye Exam Eye Exam: EOMI, Normal appearance, PERRL - ENT Exam ENT Exam: Mucous Membranes Moist - Neck Exam Neck exam: Positive for: Normal Inspection - Respiratory Exam Respiratory Exam: Clear to Auscultation Bilateral, NORMAL BREATHING PATTERN. absent: Rales, Rhonchi, Wheezes, Respiratory Distress, Stridor - Cardiovascular Exam Cardiovascular Exam: Irregular Rhythm, +S1, +S2 - GI/Abdominal Exam GI & Abdominal Exam: Normal Bowel Sounds, Soft. absent: Distended, Firm, Guarding, Rigid, Tenderness Additional comments: Obese abdomen. - Extremities Exam Extremities exam: Positive for: pedal edema, tenderness - Back Exam Back exam: NORMAL INSPECTION - Neurological Exam Neurological exam: Alert, Oriented x3 Additional comments: waxing and waning mental status. - Psychiatric Exam Psychiatric exam: Normal Affect, Normal Mood - Skin Skin Exam: Dry, Intact, Warm Additional comments: No petechial rash. Results - Vital Signs Recent Vital Signs: Last Vital Signs Temp 98.0 F 07/05/17 06:00 Pulse 80 07/05/17 06:00 Resp 20 07/05/17 06:00 BP 120/68 07/05/17 06:00 Pulse Ox 92 L 07/05/17 06:00 - Labs Result Diagrams: 07/05/17 05:15 07/05/17 05:15 Labs: Laboratory Results - last 24 hr 07/04/17 07/05/17 18:46 05:15 WBC 10.1 D RBC 4.95 Hgb 12.8 Hct 42.5 MCV 85.9 MCH 25.9 MCHC 30.1 L RDW 15.7 H Plt Count 346 MPV 9.1 APTT 85.4 H Assessment & Plan - Assessment and Plan (Free Text) Assessment: 71 y/o Female with pmh of hypothyroidism, morbidly obese, left breast cancer s/ p lumpectomy, diabetes, iron deficiency anemia whom went to her PMD's office complaining of flue like symptoms, and was found to have new onset afib on ekg. Heme/onc is being consulted for elevated APPT. Upon reviewing patient's medical record, patient has baseline of mildly elevated APTT which goes back to 2011. Patient received a dose of Lovenox on admission, and patient is currently on eliquis. One possibility of APPT trending up is the fact that since patient already has baseline elevated APTT, adding eliquis contributed to worsening APTT. In addition, PT and APTT has been showed to be elevated with factor Xa inhibitors. Will obtain antiphospholipid antibodies and DRVVT assay to assess for falsely elevated APTT. Will also send for factor VIII activity to assess for acquired hemophilia. PT appears somewhat normal, thus less likely liver disease. Can continue with eliquis since patient needs anticoagulation for afib and no active bleeding. Patient seen, examined and case discussed with Dr Beltre. - Date & Time Date: 07/05/17 Time: 07:30
[2017-07-05] MEDS: Potassium Chloride 10 mEq ER Tab PO SCH (07:33)
[2017-07-05] MEDS: Pantoprazole 40 mg EC Tab PO SCH (07:33)
[2017-07-05] MEDS: Levothyroxine 88 MCG TAB PO SCH (07:33)
[2017-07-05 08:37] LABS: BILIRUBIN,TOTAL 0.8 mg/dL (0.2-1.3); CALCIUM 9.4 mg/dL (8.4-10.5); POTASSIUM 4.2 mmol/L (3.6-5.0); TOTAL PROTEIN 7.9 g/dL (5.8-8.3)
[2017-07-05] MEDS: MethylPREDNISolone 40 mg Vial IVP SCH (10:58)
[2017-07-05] MEDS: buPROPion SR 150 MG TABLET PO SCH (11:38)
[2017-07-05 11:52] VITALS: BP 131/66; RESP 16; TEMP 98.7
[2017-07-05 14:59] VITALS: PULSE 84
--- NOTE | 2017-07-05 17:28 | CARD ---
APPROVED REPORT EKG Measurement Heart [id number] <Conclusion> Normal sinus rhythm Normal ECG
--- NOTE | 2017-07-06 22:29 | DS ---
CHIEF COMPLAINT: Shortness of breath, palpitations. HISTORY OF PRESENT ILLNESS: Ms. Iman Mckinney is a 71-year-old female came to the Emergency Room of [facility] on 07/01/2017 from primary care, Dr. Fraser, after abnormal EKG reading. The patient reported that she went to see primary care physician because she has cold with productive cough and congestion 1 week ago. At her PMD office, EKG reading was atrial fibrillation at the rate of 150 bpm and she was sent to the emergency room. Emergency room doctor found that patient had atrial fibrillation at the rate of 150, patient having episodes of palpitation. Her bookstore clerk is Dr. Hanson who did a stress test and told her stress test is negative and scheduled echocardiography, but never done. We admitted the patient and called consult with Dr. Hanson, seen by Dr. Masterson for bronchitis and shortness of breath and congestion. Given Lasix, improved. Transferred to Transitional Care Unit for rehab and continuity of care. PAST MEDICAL HISTORY: Abnormal EKG, history of bronchitis, obesity. FAMILY HISTORY: Family history of father and mother noncontributory. HABITS: No smoking. No drugs. No ethanol. ALLERGIES: THE PATIENT IS ALLERGIC TO PENICILLIN, ASPIRIN, AND DARVON. HOME MEDICATIONS: Reviewed by me. REVIEW OF SYSTEMS: Patient was seen and examined on the bedside, looking comfortable. was sitting on the bedside also. No nausea, vomiting, or diarrhea. No hematuria or hematochezia. Swelling of the leg is getting better. No headache. No dizziness. PHYSICAL EXAMINATION: VITAL SIGNS: Temperature 98.7, pulse 84, respiratory rate 16, blood pressure 131/66. HEENT: Head: Normocephalic and atraumatic. Eyes: PERRLA. Extraocular muscles intact. Conjunctivae clear. Nose patent. Mucous membrane moist. NECK: Supple. No carotid bruits, JVD, or thyromegaly. CHEST: Bilaterally symmetrical. HEART: S1 and S2 positive. LUNGS: Clear to auscultation. ABDOMEN: Soft. Bowel sounds positive. EXTREMITIES: No edema, no cyanosis. NEUROLOGIC: Awake, alert. Moving all 4 extremities. No focal deficit. MEDICATIONS: Carafate, doxycycline, DuoNeb, Eliquis, Klonopin, K-Zoey, Lasix, gabapentin, Protonix, Singulair, Solu-Medrol, Synthroid, Tylenol, Wellbutrin. LABORATORY DATA: White blood cell is 10.1, hemoglobin 12.8, hematocrit 42.5, platelets 346. Sodium 142, potassium 4.2, BUN 27, creatinine 1.1, glucose 156, hemoglobin A1c 6.4, AST 61, ALT 60. ASSESSMENT AND PLAN: Ms. Iman Mckinney is a 71-year-old lady with history of anemia, hyperchloremia, hyperglycemia, hemoglobin A1c 6.7, abnormal liver function test. for hepatitis is negative. Patient's APTT was high. Hematology consult called and seen by the welding machine operator arc. Patient has history of hypothyroidism, obesity, iron deficiency, left breast cancer status post lumpectomy, appendectomy, new-onset atrial fibrillation. Patient received dose of Lovenox on admission, currently is on Eliquis. One possibility of APPT trending up is the fact that since the patient already has baseline elevated APTT high, adding Eliquis is contributing to worsening of APTT. PT and APTT has been shown to be elevated with factor Xa inhibitors. Blood workup ordered by the Hematology. Obtain antiphospholipid antibodies and dilute Elia's viper venom time assay to assess for fast elevated APTT. hemophilia. Lucy Burnett MD
== END 2017-07-05 16:39 | DRG 309 ==
LOC: ED 13:34 → ERH 15:58 → 2RSO 18:00
PROVIDERS: ADMIT Internal Medicine; ATTEND Internal Medicine
DX: I48.0 Paroxysmal atrial fibrillation (principal); I13.0 Hypertensive heart and chronic kidney disease with heart failure and stage 1 through stage 4 chronic kidney disease, or unspecified chronic kidney disease; E11.22 Type 2 diabetes mellitus with diabetic chronic kidney disease; E11.65 Type 2 diabetes mellitus with hyperglycemia; I27.20 Pulmonary hypertension, unspecified; E66.01 Morbid (severe) obesity due to excess calories; I38 Endocarditis, valve unspecified; I50.9 Heart failure, unspecified; I35.0 Nonrheumatic aortic (valve) stenosis; J20.9 Acute bronchitis, unspecified; D50.9 Iron deficiency anemia, unspecified; E03.9 Hypothyroidism, unspecified; F41.9 Anxiety disorder, unspecified; F32.89 Other specified depressive episodes; G47.30 Sleep apnea, unspecified; G89.4 Chronic pain syndrome; K21.9 Gastro-esophageal reflux disease without esophagitis; K29.70 Gastritis, unspecified, without bleeding; N18.9 Chronic kidney disease, unspecified; R79.1 Abnormal coagulation profile; Z79.01 Long term (current) use of anticoagulants; Z79.899 Other long term (current) drug therapy; Z85.3 Personal history of malignant neoplasm of breast; Z87.442 Personal history of urinary calculi; Z87.891 Personal history of nicotine dependence; Z90.12 Acquired absence of left breast and nipple; Z90.49 Acquired absence of other specified parts of digestive tract; Z98.42 Cataract extraction status, left eye; Z98.41 Cataract extraction status, right eye; Z88.5 Allergy status to narcotic agent; Z88.0 Allergy status to penicillin; Z88.8 Allergy status to other drugs, medicaments and biological substances; Z88.6 Allergy status to analgesic agent; Z91.012 Allergy to eggs

== ENCOUNTER 2017-07-05 16:14 | Inpatient (IN) | payer BC, OTHER ==
[2017-07-05 16:51] VITALS: BMI 36.6
[2017-07-05] MEDS: MethylPREDNISolone 40 mg Vial IVP SCH (18:57)
[2017-07-05] MEDS: Albuterol-Ipratrop 3 mg / 0.5 (3 ml) UD IH SCH (20:46)
[2017-07-05] MEDS ORDERED: Influenza Vaccine 60 mcg/0.5 mL SYR (4YR UP) IM ONE (21:31)
[2017-07-05] MEDS ORDERED: Pneumococcal 23-Valent Vaccine IM ONE (21:31)
[2017-07-05] MEDS ORDERED: MethylPREDNISolone 40 mg Vial IVP SCH (22:00)
[2017-07-06] MEDS: Albuterol-Ipratrop 3 mg / 0.5 (3 ml) UD IH SCH ×4 (01:53→20:08)
--- NOTE | 2017-07-06 03:40 | CON ---
DATE: 07/05/2017 REFERRING PHYSICIAN: Lucy Burnett MD REASON FOR CONSULTATION: Cough, shortness of breath. HISTORY OF PRESENT ILLNESS: This is a 71-year-old female with new onset of atrial fibrillation, may have a component of sleep apnea syndrome, hypothyroid, gastritis, anxiety disorder, chronic pain syndrome, was admitted to acute side of the hospital, started on anticoagulation and beta blockers, also developed symptom of rhinitis, postnasal drip, cough and shortness of breath, started steroids yesterday, feels little better, presently transferred to [facility] for continued care. She is lying in the bed, head at 45 degrees, complaining of cough and shortness of breath. No nausea, no vomiting. PAST MEDICAL HISTORY: New onset of atrial fibrillation, hypothyroid, gastritis, anxiety disorder, and chronic pain syndrome. ALLERGIES: ASPIRIN AND DARVON. ALSO ALLERGIC TO PENICILLIN. FAMILY HISTORY: No significant cardiopulmonary disease reported. MEDICATIONS: She is on Carafate 1 g 3 times a day p.r.n., doxycycline 100 mg twice a day, DuoNeb q. 6 hours, Eliquis 5 mg twice a day, Klonopin 0.5 mg daily, potassium 10 mEq daily, Lasix 40 mg twice a day, gabapentin 100 mg at bedtime, Protonix 40 mg daily, Singulair 10 mg daily, Solu-Medrol 30 mg q. 12 hours, Synthroid 88 mcg daily, Tylenol p.r.n., and Wellbutrin SR 150 mg daily. REVIEW OF SYSTEMS: No headache. Has rhinitis, cough, and shortness of breath. No chest pain. No nausea, no vomiting, no diarrhea, no dysuria. Does have leg swelling. PHYSICAL EXAMINATION: GENERAL: Lying in the bed, no acute distress. VITAL SIGNS: Temperature is 99, heart rate 85, respiratory rate is 16, blood pressure 118/67, pulse ox 92% on nasal cannula. HEENT: Moist mucous membranes. Crowded airway. Mallampati score is 4. NECK: Supple. No JVD. LUNGS: Has few scattered rhonchi and few wheezing. HEART: S1 and S2. ABDOMEN: Soft, nontender, no organomegaly. EXTREMITIES: edema. NEUROLOGICAL: Awake, alert, follows simple commands. LABORATORY DATA: Shows hemoglobin 12.8, hematocrit 42.8, WBC 10.1, platelet is 346. PTT yesterday was 85. Sodium 142, potassium 4.2, chloride 95, bicarbonate 36, BUN 27, creatinine 1.1, glucose 156, calcium 9.4, AST 61, ALT 60, and alk phos is 123. Troponin less than 0.01. EKG shows normal sinus rhythm, rate is 94. IMPRESSION AND PLAN: Atrial fibrillation with rapid ventricular response on admission, presently in sinus rhythm, hypothyroid, gastritis, depression, may have sleep apnea syndrome, acute bronchitis with sinusitis. Continue antibiotics, inhaled and IV bronchodilator, anticoagulation, gastric prophylaxis. Also mild pulmonary hypertension with left ventricular hypertrophy, will benefit as outpatient from sleep study, weight loss, continue therapy. Thank you, and we will follow with you. Natali Masterson MD
[2017-07-06] MEDS: Pantoprazole 40 mg EC Tab PO SCH (06:01)
[2017-07-06] MEDS: Levothyroxine 88 MCG TAB PO SCH (06:01)
[2017-07-06] MEDS: MethylPREDNISolone 40 mg Vial IVP SCH ×2 (06:03→17:50)
[2017-07-06 07:46] LABS: BASO # 0.02 K/mm3 (0.0-2.0); BASO % 0.1 % (0.0-3.0); EOS % 0.1 % (1.5-5.0); GRAN # 15.11 (1.4-6.5); GRAN % 86.8 % (50.0-68.0); HEMATOCRIT 42.6 % (36.0-48.0); LYMPH # 1.4 (1.2-3.4); LYMPH % 8.1 % (22.0-35.0); MEAN CELL VOLUME 85.5 fl (80.0-105.0); MEAN CORPUSCULAR HEMOGLOBIN 25.7 pg (25.0-35.0); MEAN PLATELET VOLUME 9.5 fl (7.0-11.0); MONO # 0.9 (0.1-0.6); MONO % 4.9 % (1.0-6.0); RED CELL DISTRIBUTION WIDTH 15.8 % (11.5-14.5); WHITE BLOOD COUNT 17.4 10^3/ul (4.5-11.0)
[2017-07-06] MEDS: Potassium Chloride 10 mEq ER Tab PO SCH (07:52)
[2017-07-06 08:17] LABS: ALB/GLOB RATIO 1.1 (1.1-1.8); BILIRUBIN,TOTAL 0.6 mg/dL (0.2-1.3); CALCIUM 9.4 mg/dL (8.4-10.5); POTASSIUM 4.1 mmol/L (3.6-5.0); TOTAL PROTEIN 7.9 g/dL (5.8-8.3)
[2017-07-06] MEDS: buPROPion SR 150 MG TABLET PO SCH (11:00)
--- NOTE | 2017-07-06 14:26 | PN ---
DATE: 07/06/2017 SUBJECTIVE: The patient is seen lying in bed in Transitional Care Unit. She remains unhappy. She states that her exertional dyspnea persists and she still has a cough. CURRENT MEDICATIONS: Include Carafate, doxycycline, DuoNeb inhaler, Eliquis 5 mg b.i.d., Klonopin, Lasix 40 mg b.i.d., potassium 10 mEq daily, Neurontin, Protonix, Singulair, Solu-Medrol 30 mg b.i.d., Synthroid, and Wellbutrin. PHYSICAL EXAMINATION: GENERAL: She is an anxious-appearing middle-aged woman. VITAL SIGNS: Her blood pressure is 132/72 with a pulse of 80, respirations are 14. She is afebrile. HEENT: No JVD. CHEST: Bilateral scattered rhonchi with less wheezing noted. HEART: PMI displaced laterally with systolic murmur at the base. ABDOMEN: Soft and nontender with normoactive bowel sounds. EXTREMITIES: A 1+ leg edema. DIAGNOSTIC DATA: Potassium is 4.1, BUN and creatinine 37 and 1.3. White count is 17.4, hemoglobin and hematocrit 12.8 and 42.6 with platelet count of 403,000. AST and ALT of 53 and 87. IMPRESSION: 1. Recent acute tracheobronchitis, slowly improved. 2. Mild aortic stenosis. 3. Paroxysmal atrial fibrillation, currently appears to be in sinus rhythm, maintained on diltiazem and Eliquis. 4. Elevated PTT, workup in progress. RECOMMENDATIONS: Her current cardiac medications should continue. Anticoagulation will be continued for now. If she has no evidence of recurrence of atrial fibrillation, consideration can be given to discontinue this in a later date. Continued aggressive respiratory treatment is recommended. We will continue to follow and make further recommendations as appropriate. Jose Enrique Hanson MD
--- NOTE | 2017-07-07 00:28 | PN ---
DATE: 07/06/2017 SUBJECTIVE: She is lying in the bed, head at 45 degrees. Night was unremarkable. Feels little better. Decreased cough, decreased shortness of breath. No nausea, vomiting, or diarrhea. No leg pain or swelling. OBJECTIVE: GENERAL: No acute distress. VITAL SIGNS: Temperature 98, heart rate is 91, respiratory rate is 15, blood pressure 124/73, pulse ox 96% on 3 liters nasal cannula. HEENT: Moist mucous membrane. Crowded airway. NECK: Supple. No JVD. LUNGS: Scattered rhonchi and a few wheezing. Heart: S1 and S2. ABDOMEN: Soft, nontender. No organomegaly. EXTREMITIES: There is no edema. NEUROLOGIC: Awake and alert. Follows simple command. MEDICATIONS: She is on Carafate 1 g three times a day p.r.n., doxycycline 100 mg twice a day, albuterol q.6 hours, Eliquis 5 mg twice a day, clonazepam 0.5 mg daily, potassium 10 mEq daily, Lasix 40 mg twice a day, Neurontin is 100 mg at bedtime, Protonix 40 mg daily, Singulair 10 mg daily, Solu-Medrol 30 mg q.12 hours., Synthroid 88 mcg daily, Tylenol p.r.n., Wellbutrin SR 150 mg daily. LABORATORY DATA: Shows hemoglobin 12.8, hematocrit 42.6, WBC 17,000, platelet is 403. Sodium 140, potassium 4.1, chloride 93, bicarbonate 37, BUN 37, creatinine 1.3, glucose 127, calcium is 9.4, AST 53, ALT 87, albumin is 4.1. IMPRESSION AND PLAN: Atrial fibrillation with rapid ventricular response on admission, hypothyroid, gastritis, depression, may have sleep apnea syndrome, acute bronchitis, sinusitis, activities of daily living dysfunction, may have a component of sleep apnea syndrome. Pulmonary point of view, she is doing okay. Continue intravenous and inhaled bronchodilator, antibiotics, diuretics, anticoagulation, gastric prophylaxis. She will benefit from outpatient sleep study and pulmonary function test. Thank you and we will follow with you. Natali Masterson MD
[2017-07-07] MEDS: Albuterol-Ipratrop 3 mg / 0.5 (3 ml) UD IH SCH ×4 (01:55→19:38)
--- NOTE | 2017-07-07 02:49 | HP ---
CHIEF COMPLAINT: Coughing and shortness of breath. HISTORY OF PRESENT ILLNESS: Ms. Iman Mckinney is a 71-year-old female with a new onset of atrial fibrillation, may be component of sleep apnea syndrome, hypothyroidism, gastritis, anxiety disorder, chronic pain syndrome, obesity, was admitted in the [facility] on the acute side for coughing, shortness of breath, bronchitis, got antibiotics, was seen by the exterior work helper, transferred to TCU for continuity of care and for deconditioning because the patient is not able to do her ADL. Now, she is getting physical therapy, antibiotics. She is sitting on the chair comfortably. Family was around, all questions answered. PAST MEDICAL HISTORY: New-onset atrial fibrillation, hypothyroidism, gastritis, anxiety disorder, chronic pain syndrome, and obesity. ALLERGIES: THE PATIENT IS ALLERGIC TO DARVON, ALSO ALLERGIC TO PENICILLIN. FAMILY HISTORY: Father and mother, noncontributory. HABITS: No smoking. No drugs. No ethanol. HOME MEDICATIONS: Reviewed by me. REVIEW OF SYSTEMS: The patient was seen and examined at the bedside, sitting on the chair, looking comfortable. Daughter and son-in-law were at the bedside. Length of time discussion done, all questions answered. Feeling a little bit better fatigue and tired. Cough is better. Shortness of breath is better, No fevers. No chills. PHYSICAL EXAMINATION: VITAL SIGNS: Temperature 98.8, pulse 91, blood pressure 124/73, respiratory rate 15. HEENT: Head, normocephalic, atraumatic. Eyes; PERRLA. Extraocular muscles are intact. Conjunctivae are clear. Nose is patent. Mucous membranes are moist. NECK: Supple. No carotid bruits. No JVD or thyromegaly. CHEST: Bilaterally symmetrical. HEART: S1 and S2 positive. LUNGS: Clear to auscultation. ABDOMEN: Soft. Bowel sounds present. No organomegaly. EXTREMITIES: No edema and no cyanosis. NEUROLOGIC: Awake and alert. Moving all four extremities. No focal deficits. MEDICATIONS: Carafate, doxycycline, Eliquis, clonazepam, potassium , Lasix, Neurontin, Protonix, Singulair, Solu-Medrol, and levothyroxine. LABORATORY DATA: White blood cells 17.4, hemoglobin 12.8, hematocrit 42.6, platelets 403. Sodium 140, potassium 4.1, BUN 37, creatinine 1.3, glucose 127. AST 53, ALT 87. ASSESSMENT AND PLAN: Ms. Iman Mckinney is a 71-year-old lady with hyperchloremia, renal insufficiency, hyperglycemia, abnormal liver function tests, leukocytosis, obesity, hypothyroidism, history of new onset atrial fibrillation, gastritis, anxiety disorder, chronic pain syndrome, now has sinus rhythm, sleep apnea syndrome, bronchitis with sinusitis, getting antibiotics. We will continue antibiotics and inhaled and IV bronchodilators. Gastric and deep venous thrombosis prophylaxis. Mild pulmonary hypertension with left ventricular hypertrophy. According to sleep specialist will get benefit of sleep study. Seen by exterior work helper and by human resources assistant, Jose Enrique Hanson. Tracheobronchitis is slowly improving, mild aortic stenosis. Elevated PTT, workup is in the progress. Customer Equipment Engineer is on the case. Continue cardiac medications, anticoagulation. Getting blood thinner. We will follow up. Physical therapy. Lucy Burnett MD MTDD
[2017-07-07] MEDS: MethylPREDNISolone 40 mg Vial IVP SCH ×2 (05:33→17:48)
[2017-07-07] MEDS: Pantoprazole 40 mg EC Tab PO SCH (05:34)
[2017-07-07] MEDS: Levothyroxine 88 MCG TAB PO SCH (05:34)
[2017-07-07] MEDS: Potassium Chloride 10 mEq ER Tab PO SCH (07:57)
[2017-07-07] MEDS: buPROPion SR 150 MG TABLET PO SCH (10:01)
--- NOTE | 2017-07-08 01:03 | PN ---
PULMONARY PROGRESS NOTE DATE: 07/07/2017 REFERRING PHYSICIAN: Lucy Burnett MD SUBJECTIVE: She is out of bed to chair. Family at the bedside. Feels better today. Decreased cough. Decreased shortness breath. No nausea. No vomiting. No diarrhea. No leg pain or leg swelling. OBJECTIVE: GENERAL: In no acute distress. VITAL SIGNS: Temperature is 98, heart is 80, respiratory rate is 16, blood pressure 129/68, pulse ox 91%, 2 liters nasal cannula. HEENT: Moist mucous membrane. Crowded airway. Mallampati score is IV. NECK: Supple. No JVD. LUNGS: Has a few scattered rhonchi and wheezing. HEART: S1 and S2. ABDOMEN: Soft, nontender, no organomegaly. EXTREMITIES: No edema. NEUROLOGICALLY: Awake, alert and follows simple command. MEDICATIONS: She is on Carafate 1 g p.o. three times a day, doxycycline 100 mg twice a day, DuoNeb q. 6 hours, Eliquis 5 mg twice a day, Klonopin 0.5 mg daily, potassium 10 mEq daily, Lasix 40 mg twice a day, Neurontin 10 mg at bedtime, Protonix 40 mg daily, Singulair 10 mg daily, Solu-Medrol 30 mg twice a day, levothyroxine 88 mcg daily, Tylenol p.r.n. basis, Wellbutrin 50 mg daily. LABORATORY DATA: Reviewed and noted. No new lab is available since yesterday. IMPRESSION AND PLAN: Atrial fibrillation with rapid ventricular response, hypothyroid, gastritis, depression, may have sleep apnea syndrome, acute bronchitis, sinusitis, activities of daily living dysfunction. Spoke to family at bedside. All the questions answered. Continue IV and inhaled bronchodilator, gastric prophylaxis, anticoagulation, deep venous thrombosis prophylaxis. Fall precaution, sleep apnea precaution, avoid sedation. Outpatient sleep study and PFT. Thank you and we will follow with you. Natali Masterson MD
[2017-07-08] MEDS: Albuterol-Ipratrop 3 mg / 0.5 (3 ml) UD IH SCH ×4 (01:22→20:05)
[2017-07-08] MEDS: Levothyroxine 88 MCG TAB PO SCH (05:14)
[2017-07-08] MEDS: Pantoprazole 40 mg EC Tab PO SCH (05:14)
[2017-07-08] MEDS: MethylPREDNISolone 40 mg Vial IVP SCH ×2 (05:14→18:05)
--- NOTE | 2017-07-08 05:18 | PN ---
DATE: 07/07/2017 SUBJECTIVE: The patient is examined at the bedside on 07/07/2017. The patient is looking comfortable. Her is sitting at the bedside. Night was unremarkable. Cough and shortness of breath is better. Swelling of the leg is better. No nausea, vomiting, or diarrhea. As per nursing staff, the patient has expressed some depression, wants to see a psychiatrist, and preferred to see Dr. Brewer, but the patient is now depressed, asking for somebody else. PHYSICAL EXAMINATION: VITAL SIGNS: Temperature 98, heart rate 91, respiratory rate 15, blood pressure 124/73, and pulse oximetry 96% on 3 liters nasal cannula. HEENT: Head: Normocephalic, atraumatic. Eyes: PERRLA. Extraocular movements are intact. Conjunctivae clear. Nose patent. Mucous membranes are moist. NECK: Supple. No carotid bruits, JVD, or thyromegaly. CHEST: Bilaterally symmetrical. HEART: S1 and S2 positive. LUNGS: Clear to auscultation. ABDOMEN: Soft. Bowel sounds are present. No organomegaly. EXTREMITIES: No edema. No cyanosis. NEUROLOGIC: The patient is awake and alert. Moving all four extremities. No focal deficits. MEDICATIONS: Carafate, doxycycline, atenolol, Eliquis, clonazepam, potassium, Lasix, Neurontin, Protonix, Singulair, Solu-Medrol, Synthroid, Tylenol, and Wellbutrin. LABORATORY DATA: Hemoglobin 12.8, hematocrit 32.6, white blood cells 17,000, and platelets 403. Sodium 140, potassium 4.1, BUN 7, and creatinine 1.3. AST 53, ALT 87. ASSESSMENT AND PLAN: Mrs. Iman Mckinney is a 71-year-old lady with atrial fibrillation with rapid ventricular response on admission, hypothyroidism, gastritis, and depression, may have sleep apnea syndrome, acute bronchitis, sinusitis, cannot do her activities of daily living; that is why transferred to Transitional Care Unit. Maybe component of sleep apnea syndrome. Now the patient is depressed as per ns . Called Psychiatric consult with Dr. Cinda Brewer. Physical Therapy. We will follow. Lucy Lex, MD [facility] # [id number] MTDD
[2017-07-08] MEDS: Potassium Chloride 10 mEq ER Tab PO SCH (08:23)
[2017-07-08] MEDS: buPROPion SR 150 MG TABLET PO SCH (10:29)
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
--- NOTE | 2017-07-08 18:00 | CP.PCM.PN ---
<Ermelinda Diaz - Last Filed: 07/09/17 02:13> Subjective - Date & Time of Evaluation Date of Evaluation: 07/08/17 Time of Evaluation: 10:30 - Subjective Subjective: 71 yr female w/ afib w. RVR, hypothyroidism, gastritis, depression, acute bronchitis, sinusitis. She is in TRCU for afib, IV steroid titration, and PT. She is seen at OOB to chair with bilateral lower extremities elevated. She denies any headaches, vision changes, dizziness/lightheadedness, numbness/ tingling, SOB, chest pain, diarrhea, constipation or urinary frequency. No distress noted. Objective - Vital Signs/Intake and Output Vital Signs (last 24 hours): Temp Pulse Resp BP Pulse Ox 98.3 F 86 20 103/64 93 L 07/08/17 16:56 07/08/17 16:56 07/08/17 16:56 07/08/17 16:56 07/08/17 16:56 Intake and Output: 07/08/17 07/08/17 06:59 18:59 Intake Total 420 Balance 420 - Medications Medications: Current Medications Acetaminophen (Tylenol 325mg Tab) 650 mg PO TID PRN; Protocol PRN Reason: Pain, moderate (4-7) Albuterol/Ipratropium (Duoneb 3 Mg/0.5 Mg (3 Ml) Ud) 3 ml IH [id number] COLT PRN Reason: Protocol Last Admin: 07/08/17 13:29 Dose: 3 ml Apixaban (Eliquis) 5 mg PO BID COLT PRN Reason: Protocol Last Admin: 07/08/17 10:30 Dose: 5 mg Bupropion HCl (Wellbutrin Sr 150 Mg) 150 mg PO DAILY COLT PRN Reason: Protocol Last Admin: 07/08/17 10:29 Dose: 150 mg Clonazepam (Klonopin) 0.5 mg PO DAILY COLT PRN Reason: Protocol Last Admin: 07/08/17 10:29 Dose: 0.5 mg Doxycycline Hyclate (Doryx) 100 mg PO BID COLT PRN Reason: Protocol Last Admin: 07/08/17 10:30 Dose: 100 mg Furosemide (Lasix) 40 mg IVP 0600,1800 COLT PRN Reason: Protocol Last Admin: 07/08/17 05:13 Dose: 40 mg Gabapentin (Neurontin) 100 mg PO HS COLT PRN Reason: Protocol Last Admin: 07/07/17 21:27 Dose: 100 mg Levothyroxine Sodium (Synthroid) 88 mcg PO 0600 COLT PRN Reason: Protocol Last Admin: 07/08/17 05:14 Dose: 88 mcg Methylprednisolone (Solu-Medrol) 30 mg IVP 0600,1800 COLT PRN Reason: Protocol Last Admin: 07/08/17 05:14 Dose: 30 mg Montelukast Sodium (Singulair) 10 mg PO HS COLT PRN Reason: Protocol Last Admin: 07/07/17 21:27 Dose: 10 mg Pantoprazole Sodium (Protonix Ec Tab) 40 mg PO 0600 COLT PRN Reason: Protocol Last Admin: 07/08/17 05:14 Dose: 40 mg Potassium Chloride (Klor-Con 10) 10 meq PO 0800 COLT PRN Reason: Protocol Last Admin: 07/08/17 08:23 Dose: 10 meq Sucralfate (Carafate Tab) 1 gm PO TID PRN; Protocol PRN Reason: GI distress - Labs Labs: 07/06/17 07:10 07/06/17 07:10 - Constitutional Appears: Well - Head Exam Head Exam: ATRAUMATIC, NORMAL INSPECTION, NORMOCEPHALIC - Eye Exam Eye Exam: EOMI, Normal appearance, PERRL Pupil Exam: NORMAL ACCOMODATION, PERRL - ENT Exam ENT Exam: Mucous Membranes Moist, Normal Exam - Neck Exam Neck Exam: Full ROM, Normal Inspection. absent: Lymphadenopathy - Respiratory Exam Respiratory Exam: Decreased Breath Sounds, Clear to Ausculation Bilateral, NORMAL BREATHING PATTERN - Cardiovascular Exam Cardiovascular Exam: REGULAR RHYTHM, +S1, +S2, Murmur - GI/Abdominal Exam GI & Abdominal Exam: Soft, Normal Bowel Sounds. absent: Tenderness - Extremities Exam Extremities Exam: Full ROM, Normal Capillary Refill, Normal Inspection. absent : Joint Swelling, Pedal Edema - Back Exam Back Exam: NORMAL INSPECTION - Neurological Exam Neurological Exam: Alert, Awake, CN II-XII Intact, Normal Gait, Oriented x3 - Psychiatric Exam Psychiatric exam: Flat Affect, Normal Mood - Skin Skin Exam: Dry, Intact, Normal Color, Warm Assessment and Plan (1) Bronchitis Status: Acute (2) New onset atrial fibrillation Status: Acute - Assessment and Plan (Free Text) Plan: Continue prescribed meds. Responding well to PT. Consults: Pulmonary = Dr. Masterson = continue IV and inhaled bronchodilator, GI prophlaxis, anticaogulation, DVT anticaogulation,outpt sleep study & PFT Cardio = Dr. Hanson- no evidence of reccurence of afib (eliquis, diltiazem), continue aggressive respiratory treatment <Lucy Burnett - Last Filed: 07/09/17 12:27> Objective - Vital Signs/Intake and Output Vital Signs (last 24 hours): Temp Pulse Resp BP Pulse Ox 98.4 F 82 18 134/64 94 L 07/09/17 10:00 07/09/17 10:00 07/09/17 10:00 07/09/17 10:00 07/09/17 10:00 - Medications Medications: Current Medications Acetaminophen (Tylenol 325mg Tab) 650 mg PO TID PRN; Protocol PRN Reason: Pain, moderate (4-7) Albuterol/Ipratropium (Duoneb 3 Mg/0.5 Mg (3 Ml) Ud) 3 ml IH [id number] COLT PRN Reason: Protocol Last Admin: 07/09/17 07:34 Dose: 3 ml Apixaban (Eliquis) 5 mg PO BID COLT PRN Reason: Protocol Last Admin: 07/09/17 10:20 Dose: 5 mg Bupropion HCl (Wellbutrin Sr 150 Mg) 150 mg PO DAILY COLT PRN Reason: Protocol Last Admin: 07/09/17 10:20 Dose: 150 mg Clonazepam (Klonopin) 0.5 mg PO DAILY COLT PRN Reason: Protocol Last Admin: 07/09/17 10:19 Dose: 0.5 mg Doxycycline Hyclate (Doryx) 100 mg PO BID COLT PRN Reason: Protocol Last Admin: 07/09/17 10:15 Dose: 100 mg Furosemide (Lasix) 40 mg IVP 0600,1800 COLT PRN Reason: Protocol Last Admin: 07/09/17 06:08 Dose: 40 mg Gabapentin (Neurontin) 100 mg PO HS COLT PRN Reason: Protocol Last Admin: 07/08/17 22:20 Dose: 100 mg Levothyroxine Sodium (Synthroid) 88 mcg PO 0600 COLT PRN Reason: Protocol Last Admin: 07/09/17 06:07 Dose: 88 mcg Methylprednisolone (Solu-Medrol) 30 mg IVP 0600,1800 COLT PRN Reason: Protocol Last Admin: 07/09/17 06:07 Dose: 30 mg Montelukast Sodium (Singulair) 10 mg PO HS COLT PRN Reason: Protocol Last Admin: 07/08/17 22:20 Dose: 10 mg Pantoprazole Sodium (Protonix Ec Tab) 40 mg PO 0600 COLT PRN Reason: Protocol Last Admin: 07/09/17 06:07 Dose: 40 mg Potassium Chloride (Klor-Con 10) 10 meq PO 0800 [facility] PRN Reason: Protocol Last Admin: 07/09/17 08:05 Dose: 10 meq Sucralfate (Carafate Tab) 1 gm PO TID PRN; Protocol PRN Reason: GI distress - Labs Labs: 07/06/17 07:10 07/06/17 07:10 Assessment and Plan - Assessment and Plan (Free Text) Plan: pt is seen and examined at bed side at 07/08/17 ,looking comfortable , agreed all above , getting pt .
--- NOTE | 2017-07-08 21:45 | PN ---
PULMONARY PROGRESS NOTE DATE: 07/08/2017 REFERRING PHYSICIAN: Lucy Burnett MD SUBJECTIVE: She is out of bed to chair. Night was unremarkable. Feels a little bit better. Cough and shortness of breath is better. No nausea. No vomiting. No diarrhea. No leg pain or leg swelling. OBJECTIVE: GENERAL: In no acute distress. VITAL SIGNS: Temperature is 98, heart rate is 86, blood pressure 103/64, and pulse ox 93% on nasal cannula. HEENT: Moist mucous membrane. Crowded airway. Mallampati score is 4. NECK: Supple. No JVD. LUNGS: Has a fair airflow with few rhonchi. HEART: S1 and S2. ABDOMEN: Soft and nontender. No organomegaly. EXTREMITIES: No edema. NEUROLOGIC: Awake, alert, and follows simple commands. MEDICATIONS: She is on Carafate 1 g three times a day p.r.n., doxycycline 100 mg twice a day, DuoNeb q.6 hours [id number], Eliquis 5 mg twice a day, Klonopin 0.5 mg daily, also potassium 10 mEq daily, Lasix 40 mg twice a day, gabapentin 100 mg at bedtime, Protonix 40 mg daily, Singulair 10 mg daily, Solu-Medrol 30 mg q.12 hours, Synthroid 88 mcg daily, Tylenol p.r.n. basis, and Wellbutrin XL 150 mg daily. LABORATORY DATA: Reviewed and noted. No new lab is available since yesterday. IMPRESSION AND PLAN: Atrial fibrillation with rapid ventricular response, hypothyroid, gastritis, depression, may have sleep apnea syndrome, acute bronchitis, sinusitis, and activities of daily living dysfunction. Pulmonary point of view, doing okay. Continue p.o. and inhaled bronchodilator, incentive spirometry, sleep apnea precaution, gastric prophylaxis, anticoagulation, and continue therapy. Thank you and we will follow with you. Natali Masterson MD
[2017-07-09] MEDS: Pantoprazole 40 mg EC Tab PO SCH (06:07)
[2017-07-09] MEDS: MethylPREDNISolone 40 mg Vial IVP SCH ×2 (06:07→17:30)
[2017-07-09] MEDS: Levothyroxine 88 MCG TAB PO SCH (06:07)
[2017-07-09] MEDS: Albuterol-Ipratrop 3 mg / 0.5 (3 ml) UD IH SCH ×3 (07:34→21:00)
[2017-07-09] MEDS: Potassium Chloride 10 mEq ER Tab PO SCH (08:05)
[2017-07-09] MEDS: buPROPion SR 150 MG TABLET PO SCH (10:20)
[2017-07-10] MEDS: Albuterol-Ipratrop 3 mg / 0.5 (3 ml) UD IH SCH ×4 (02:00→20:52)
--- NOTE | 2017-07-10 02:28 | PN ---
DATE: 07/09/2017 PULMONARY PROGRESS NOTE REFERRING PHYSICIAN: Lucy Burnett MD SUBJECTIVE: She is on the reclining chair. Night was unremarkable. Feels better. Decreased cough. Decreased shortness of breath. No nausea. No vomiting. No diarrhea. Decreased leg swelling. PHYSICAL EXAMINATION: GENERAL: No acute distress. VITAL SIGNS: Temperature is 98, heart rate is 74, respiratory rate is 15, blood pressure 118/62 and pulse oximetry 94% on nasal cannula. HEENT: Moist mucous membrane. Crowded airway. Mallampati score is 4. NECK: Supple. No JVD. LUNGS: Has a few scattered rhonchi. HEART: S1 and S2. ABDOMEN: Soft and nontender. No organomegaly. EXTREMITIES: There is a decreased edema. NEUROLOGIC: Awake, alert and follows simple commands. MEDICATIONS: She is on Carafate 1 g p.o. 3 times a day p.r.n., doxycycline 100 mg twice a day, DuoNeb q. 6 hours, Eliquis 5 mg twice a day, Klonopin 0.5 mg daily, potassium 10 mEq daily, Lasix 40 mg twice a day, gabapentin 100 mg at bedtime, Protonix 40 mg daily, Singulair 10 mg daily, Solu-Medrol 30 mg q. 12 hours, Synthroid 88 mcg daily, Tylenol p.r.n. and Wellbutrin XL 150 mg daily. LABORATORY DATA: Reviewed and noted. No new changes in medication reported since yesterday. IMPRESSION AND PLAN: Atrial fibrillation with rapid ventricular response, hypothyroid, gastritis, depression, sleep apnea syndrome, acute bronchitis, sinusitis, and activities of daily living dysfunction. Decrease Solu-Medrol to 20 mg q. 12 hours. Continue inhaled bronchodilator, anticoagulation, continue therapy. Fall precaution. Outpatient sleep study and pulmonary function test. Thank you and we will follow with you. Natali Masterson MD
[2017-07-10] MEDS: MethylPREDNISolone 40 mg Vial IVP SCH ×2 (05:32→17:51)
[2017-07-10] MEDS: Pantoprazole 40 mg EC Tab PO SCH (05:33)
[2017-07-10] MEDS: Levothyroxine 88 MCG TAB PO SCH (05:33)
--- NOTE | 2017-07-10 08:21 | PN ---
DATE: 07/09/2017 SUBJECTIVE: The patient is 71-year-old female. The patient seen and examined on the bedside. Looking comfortable. Complaining about cannot control urination, but no fever. No chills. No nausea. No vomiting. No diarrhea. No headache or dizziness. PHYSICAL EXAMINATION VITAL SIGNS: Temperature 98.4, pulse 52, blood pressure 135/64 and respiratory rate 18. HEENT: Head is normocephalic and atraumatic. Eyes; PERRLA. Extraocular movements intact. Conjunctivae clear. Nose patent. Mucous membranes moist. NECK: Supple. No carotid bruits, JVD, or thyromegaly. CHEST: Bilaterally symmetrical. HEART: S1 and S2 positive. LUNGS: Clear to auscultation. ABDOMEN: Soft. Bowel sounds are present. No organomegaly. EXTREMITIES: No edema. No cyanosis. NEUROLOGIC: Awake and alert. Moving all four extremities. No focal deficits. MEDICATIONS: Carafate, doxycycline, DuoNeb, Eliquis, Klonopin, potassium, Lasix, K-Dur, Neurontin, Protonix, Singulair, Solu-Medrol tapering dose and Synthroid. LABORATORY DATA: We do not have recent labs today, but I reviewed old labs. ASSESSMENT AND PLAN: Ms. Iman Fontaine is a 72-year-old with leukocytosis, hyperchloremia, renal insufficiency, hyperglycemia, abnormal liver function test, obesity, atrial fibrillation with rapid ventricular response, hypothyroidism, gastritis, depression, sleep apnea syndrome, acute bronchitis with sinusitis and activities of daily living dysfunction. We will continue bronchodilator, incentive spirometry, sleep apnea precautions. Gastric and deep venous thrombosis prophylaxis. Continue present treatment. Discussion done with the patient's nurse and social workers. We will followup. Lucy Burnett MD
[2017-07-10] MEDS: Potassium Chloride 10 mEq ER Tab PO SCH (08:25)
[2017-07-10 08:31] LABS: CALCIUM 9.5 mg/dL (8.4-10.5); POTASSIUM 3.8 mmol/L (3.6-5.0)
[2017-07-10] MEDS: buPROPion SR 150 MG TABLET PO SCH (10:15)
--- NOTE | 2017-07-10 13:13 | PN ---
DATE: 07/10/2017 SUBJECTIVE: The patient is seen lying in bed on telemetry. She feels somewhat better, but still feels that she needs nasal oxygen. She is unaware of any palpitations. MEDICATIONS: Her current medications remain Carafate, doxycycline, DuoNeb inhaler, Eliquis 5 mg b.i.d., Klonopin, potassium, Lasix 40 mg b.i.d., Neurontin, Protonix 40 mg daily, Singulair, Solu-Medrol 20 mg b.i.d., Synthroid 88 mcg daily, and Wellbutrin. OBJECTIVE: GENERAL: She is a middle-aged woman who appears comfortable at rest. VITAL SIGNS: Her blood pressure is 132/60 with pulse 66, respirations are 14. She is afebrile. HEENT: No JVD. CHEST: Few scattered rhonchi. HEART: PMI normal position. No pathological gallops noted. ABDOMEN: Soft and nontender. Normoactive bowel sounds. EXTREMITIES: No edema. DIAGNOSTIC DATA: Potassium is 3.8, BUN and creatinine are 46 and 1.1. IMPRESSION: 1. Resolving tracheobronchitis. 2. Paroxysmal atrial fibrillation. 3. Mild aortic stenosis. RECOMMENDATIONS: Her current medications should continue at the present time. A repeat electrocardiogram has been ordered. Once her steroids have been discontinued, Lasix can be switched to once daily dosing via oral route. We will continue to follow as needed. Jose Enrique Hanson MD
--- NOTE | 2017-07-10 13:35 | CARD ---
APPROVED REPORT EKG Measurement Heart [id number] <Conclusion> Normal sinus rhythm Left axis deviation
--- NOTE | 2017-07-10 14:48 | CP.PCM.PN ---
<Ermelinda Diaz - Last Filed: 07/10/17 22:42> Subjective - Date & Time of Evaluation Date of Evaluation: 07/10/17 Time of Evaluation: 11:00 - Subjective Subjective: 71 yr female w/ afib w. RVR, hypothyroidism, gastritis, depression, acute bronchitis, sinusitis. She is in TRCU for afib, IV steroid titration, and PT. She is seen at OOB to chair with bilateral lower extremities elevated. at bedside. Discussion held about patient disability papers. She denies any headaches, vision changes, dizziness/lightheadedness, numbness/tingling, SOB , chest pain, diarrhea, constipation or urinary frequency. No distress noted. Objective - Vital Signs/Intake and Output Vital Signs (last 24 hours): Temp Pulse Resp BP Pulse Ox 98.5 F 67 18 132/58 L 96 07/10/17 05:58 07/10/17 05:58 07/10/17 05:58 07/10/17 05:58 07/10/17 05:58 - Medications Medications: Current Medications Acetaminophen (Tylenol 325mg Tab) 650 mg PO TID PRN; Protocol PRN Reason: Pain, moderate (4-7) Albuterol/Ipratropium (Duoneb 3 Mg/0.5 Mg (3 Ml) Ud) 3 ml IH [id number] COLT PRN Reason: Protocol Last Admin: 07/10/17 13:53 Dose: 3 ml Apixaban (Eliquis) 5 mg PO BID COLT PRN Reason: Protocol Last Admin: 07/10/17 10:16 Dose: 5 mg Bupropion HCl (Wellbutrin Sr 150 Mg) 150 mg PO DAILY COLT PRN Reason: Protocol Last Admin: 07/10/17 10:15 Dose: 150 mg Clonazepam (Klonopin) 0.5 mg PO DAILY COLT PRN Reason: Protocol Last Admin: 07/10/17 10:13 Dose: 0.5 mg Doxycycline Hyclate (Doryx) 100 mg PO BID COLT PRN Reason: Protocol Last Admin: 07/10/17 10:16 Dose: 100 mg Furosemide (Lasix) 40 mg IVP 0600,1600 COLT PRN Reason: Protocol Last Admin: 07/10/17 05:34 Dose: 40 mg Gabapentin (Neurontin) 100 mg PO HS COLT PRN Reason: Protocol Last Admin: 07/09/17 21:55 Dose: 100 mg Levothyroxine Sodium (Synthroid) 88 mcg PO 0600 COLT PRN Reason: Protocol Last Admin: 07/10/17 05:33 Dose: 88 mcg Methylprednisolone (Solu-Medrol) 20 mg IVP 0600,1800 COLT PRN Reason: Protocol Last Admin: 07/10/17 05:32 Dose: 20 mg Montelukast Sodium (Singulair) 10 mg PO HS COLT PRN Reason: Protocol Last Admin: 07/09/17 21:55 Dose: 10 mg Pantoprazole Sodium (Protonix Ec Tab) 40 mg PO 0600 COLT PRN Reason: Protocol Last Admin: 07/10/17 05:33 Dose: 40 mg Potassium Chloride (Klor-Con 10) 10 meq PO 0800 COLT PRN Reason: Protocol Last Admin: 07/10/17 08:25 Dose: 10 meq Sucralfate (Carafate Tab) 1 gm PO TID PRN; Protocol PRN Reason: GI distress - Labs Labs: 07/06/17 07:10 07/10/17 07:10 - Constitutional Appears: Well - Head Exam Head Exam: ATRAUMATIC, NORMAL INSPECTION, NORMOCEPHALIC - Eye Exam Eye Exam: EOMI, Normal appearance, PERRL - Neck Exam Neck Exam: Full ROM, Normal Inspection. absent: Lymphadenopathy - Respiratory Exam Respiratory Exam: Clear to Ausculation Bilateral, NORMAL BREATHING PATTERN - Cardiovascular Exam Cardiovascular Exam: +S1, +S2, Murmur - GI/Abdominal Exam GI & Abdominal Exam: Soft, Normal Bowel Sounds. absent: Tenderness - Back Exam Back Exam: NORMAL INSPECTION - Neurological Exam Neurological Exam: Alert, Awake, CN II-XII Intact, Normal Gait, Oriented x3 - Psychiatric Exam Psychiatric exam: Anxious - Skin Skin Exam: Dry, Intact, Normal Color, Warm Assessment and Plan (1) Bronchitis Status: Acute (2) New onset atrial fibrillation Status: Acute (3) Anxiety Status: Acute - Assessment and Plan (Free Text) Plan: Continue prescribed meds. Responding well to PT. Consults: Pulmonary = Dr. Masterson = continue IV and inhaled bronchodilator, GI prophlaxis, anticaogulation, DVT anticaogulation,outpt sleep study & PFT Cardio = Dr. Hanson- no evidence of reccurence of afib (eliquis, diltiazem), continue aggressive respiratory treatment <Lucy Burnett - Last Filed: 07/12/17 16:18> Objective - Vital Signs/Intake and Output Vital Signs (last 24 hours): Temp Pulse Resp BP Pulse Ox 98.1 F 75 16 113/63 97 07/12/17 11:34 07/12/17 11:34 07/12/17 11:34 07/12/17 11:34 07/12/17 11:34 Intake and Output: 07/12/17 07/12/17 06:59 18:59 Intake Total 420 Balance 420 - Medications Medications: Current Medications Acetaminophen (Tylenol 325mg Tab) 650 mg PO TID PRN; Protocol PRN Reason: Pain, moderate (4-7) Albuterol/Ipratropium (Duoneb 3 Mg/0.5 Mg (3 Ml) Ud) 3 ml IH [id number] COLT PRN Reason: Protocol Last Admin: 07/12/17 13:15 Dose: 3 ml Apixaban (Eliquis) 5 mg PO BID COLT PRN Reason: Protocol Last Admin: 07/12/17 10:36 Dose: 5 mg Bupropion HCl (Wellbutrin Sr 150 Mg) 150 mg PO DAILY COLT PRN Reason: Protocol Last Admin: 07/12/17 10:39 Dose: 150 mg Clonazepam (Klonopin) 0.5 mg PO DAILY COLT PRN Reason: Protocol Last Admin: 07/12/17 10:36 Dose: 0.5 mg Doxycycline Hyclate (Doryx) 100 mg PO BID COLT PRN Reason: Protocol Last Admin: 07/12/17 10:36 Dose: 100 mg Furosemide (Lasix) 40 mg IVP 0600,1600 COLT PRN Reason: Protocol Last Admin: 07/12/17 06:02 Dose: 40 mg Gabapentin (Neurontin) 100 mg PO HS COLT PRN Reason: Protocol Last Admin: 07/11/17 22:04 Dose: 100 mg Levothyroxine Sodium (Synthroid) 88 mcg PO 0600 COLT PRN Reason: Protocol Last Admin: 07/12/17 06:01 Dose: 88 mcg Methylprednisolone (Solu-Medrol) 20 mg IVP DAILY COLT PRN Reason: Protocol Last Admin: 07/12/17 10:37 Dose: 20 mg Montelukast Sodium (Singulair) 10 mg PO HS COLT PRN Reason: Protocol Last Admin: 07/11/17 22:04 Dose: 10 mg Pantoprazole Sodium (Protonix Ec Tab) 40 mg PO 0600 COLT PRN Reason: Protocol Last Admin: 07/12/17 06:02 Dose: 40 mg Polyethylene Glycol (Miralax) 17 gm PO DAILY COLT Last Admin: 07/12/17 10:37 Dose: Not Given Potassium Chloride (Klor-Con 10) 10 meq PO 0800 COLT PRN Reason: Protocol Last Admin: 07/12/17 08:24 Dose: 10 meq Sucralfate (Carafate Tab) 1 gm PO TID PRN; Protocol PRN Reason: GI distress - Labs Labs: 07/06/17 07:10 07/10/17 07:10 Assessment and Plan - Assessment and Plan (Free Text) Plan: pt is seen and examined at bed side , agreed all above , no n,v,d or kidd , is sitting on the bed side , all qs answered , will f/u
[2017-07-11] MEDS: Albuterol-Ipratrop 3 mg / 0.5 (3 ml) UD IH SCH ×4 (03:23→20:55)
[2017-07-11] MEDS: Pantoprazole 40 mg EC Tab PO SCH (05:25)
[2017-07-11] MEDS: Levothyroxine 88 MCG TAB PO SCH (05:25)
--- NOTE | 2017-07-11 05:42 | PN ---
DATE: 07/10/2017 SUBJECTIVE: The patient is ambulating with the help of therapist. Night was unremarkable. Feels better. Decreased cough. Decreased shortness of breath. No nausea. No vomiting. No diarrhea. No leg pain. No leg swelling. OBJECTIVE: GENERAL: No acute distress. VITAL SIGNS: Temperature is 98, heart rate is 67, respiratory rate 18, blood pressure 118/66, and pulse oximetry 96% on 3 L nasal cannula. HEENT: Moist mucous membrane. Crowded airway. NECK: Supple. No JVD. LUNGS: Have a fair airflow with few rhonchi. HEART: S1 and S2. ABDOMEN: Soft and nontender. No organomegaly. EXTREMITIES: No edema. NEUROLOGIC: Awake, alert, follows simple commands. MEDICATIONS: She is on Carafate 1 g three times a day p.r.n., doxycycline 100 mg twice a day, DuoNeb q. 6 hours, Eliquis 5 mg twice a day, clonazepam 0.5 mg daily, potassium 10 mEq daily, Lasix 40 mg twice a day, Neurontin 100 mg at bedtime, Protonix 40 mg daily, Singulair 10 mg daily, Solu-Medrol 20 q. 12 hours, Synthroid mcg daily, Tylenol p.r.n., and Wellbutrin XL 150 mg daily. LABORATORY DATA: Reviewed and noted. Sodium 139, potassium 3.8, chloride 93, bicarbonate 36, BUN 46, creatinine 1.1, glucose 132, and calcium 9.5. ASSESSMENT AND PLAN: Atrial fibrillation with rapid ventricular response, hypothyroid, gastritis, depression, sleep apnea syndrome, acute bronchitis, activities of daily living dysfunction. From a pulmonary point of view, she is doing okay. Continue bronchodilators, keep head at 45 degrees . Anticoagulation. Decrease Solu-Medrol to 20 mg daily. Thank you and we will follow with you. Natali Masterson MD
[2017-07-11] MEDS: Potassium Chloride 10 mEq ER Tab PO SCH (08:35)
[2017-07-11] MEDS: MethylPREDNISolone 40 mg Vial IVP SCH (09:57)
[2017-07-11] MEDS: buPROPion SR 150 MG TABLET PO SCH (09:58)
[2017-07-11] MEDS ORDERED: POLYETHYLENE GLYCOL 3350 17 GM/Dose PACKET PO ONE (15:15)
--- NOTE | 2017-07-11 23:47 | PN ---
PULMONARY PROGRESS NOTE DATE: 07/11/2017 REFERRING PHYSICIAN: Lucy Burnett MD SUBJECTIVE: She is sitting up in the reclining chair. Day was unremarkable. Participated in therapy. Still hypoxemic, need supplemental oxygen. Cough is better. No nausea. No vomiting. No diarrhea. No leg pain or leg swelling. PHYSICAL EXAMINATION: GENERAL: In no acute distress. VITAL SIGNS: Temperature is 98, heart rate is 88, respiratory rate is 20, blood pressure is 115/77, and pulse oximetry is 100% on 3 L nasal cannula. HEENT: Moist mucous membrane. Crowded airway. Mallampati score is IV. NECK: Supple. No JVD. LUNGS: Has a fair airflow with rhonchi. HEART: S1 and S2. ABDOMEN: Soft and nontender. No organomegaly. EXTREMITIES: There is not much edema. NEUROLOGIC: Awake and alert. Follows simple commands. MEDICATIONS: She is on Carafate 1 g three times a day p.r.n., doxycycline 100 mg twice a day, DuoNeb q.6 hours, Eliquis 5 mg twice a day, Klonopin 0.5 mg daily, potassium 10 mEq daily, Lasix 40 mg twice a day, Miralax 17 g daily, gabapentin 100 mg daily, Protonix 40 mg daily, Singulair 10 mg daily, Synthroid 88 mcg daily, Tylenol p.r.n., and Wellbutrin SR 150 mg daily. LABORATORY DATA: Shows no new lab is available since yesterday. IMPRESSION AND PLAN: Atrial fibrillation with rapid ventricular response, presently rate controlled; hypothyroid; gastritis; depression; sleep apnea syndrome; acute bronchitis; hypoxemic, activities of daily living dysfunction, and sleep apnea percussion. Keep head at 45 degrees. Avoid sedation. PO and inhaled bronchodilator and diuretics. Continue therapy. Should get a outpatient attended sleep study and pulmonary function test. Thank you and we will follow with you. Natali Masterson MD
[2017-07-12] MEDS: Albuterol-Ipratrop 3 mg / 0.5 (3 ml) UD IH SCH ×4 (02:51→21:07)
[2017-07-12] MEDS: Levothyroxine 88 MCG TAB PO SCH (06:01)
[2017-07-12] MEDS: Pantoprazole 40 mg EC Tab PO SCH (06:02)
--- NOTE | 2017-07-12 07:36 | PN ---
ADDENDUM DATE: 07/11/2017 The patient was seen and examined on the bedside on 07/11/2017. ASSESSMENT AND PLAN: Ms. Iman Mckinney is a 71-year-old lady with hypochloremia, looks like dehydration, hypoglycemia, abnormal liver function tests, has multiple medical problems, atrial fibrillation with rapid ventricular response right now rate is controlled, hypothyroidism, gastritis, depression, sleep apnea syndrome, acute bronchitis, hypoxemia, she is not able to do her activities of daily livings, sleep apnea syndrome, avoid sedation, p.o. and inhaled bronchodilators, history of constipation, MiraLax given, history of black stool. We will order stool guaiac. Discussion done with the patient and the patient's . Gastrointestinal and deep venous thrombosis prophylaxis. Repeat labs. We will follow with you. Lucy Burnett MD
--- NOTE | 2017-07-12 07:36 | PN ---
DATE: SUBJECTIVE: The patient is a 71-year-old female. The patient seen and examined on the bedside. Sitting on the chair on the recliner, elevating legs, feels a little bit better. is sitting at the bedside also. No nausea or vomiting. No diarrhea. No hematuria or hematochezia. No swelling of the legs. No chest pain or palpitation. No headache or dizziness. PHYSICAL EXAMINATION VITAL SIGNS: Temperature 98.1, pulse 58, blood pressure 150/77 and respiratory rate 16. HEENT: Head; normocephalic and atraumatic. Eyes; PERRLA. Extraocular muscles are intact. Conjunctivae clear. Nose patent. Mucous membranes moist. NECK: Supple. No carotid bruits, JVD or thyromegaly. CHEST: Bilaterally symmetrical. HEART: S1 and S2 positive. LUNGS: Clear to auscultation. ABDOMEN: Soft. Bowel sounds present. No organomegaly. EXTREMITIES: No edema. No cyanosis. NEUROLOGIC: The patient is awake and alert. Moving all four extremities. No focal deficits. According to her, she is having a little bit problem with bowel movement. I spoke to the nurse, gave her MiraLax and stool is black as per the patient. MEDICATIONS: Carafate, doxycycline, DuoNeb, Eliquis, Klonopin, potassium, Lasix, MiraLax, Neurontin, Protonix, Singulair, Solu-Medrol, Synthroid, Tylenol and Wellbutrin. LABORATORY DATA: We do not have recent labs today, but I reviewed old labs. ASSESSMENT AND PLAN:see attach Lucy Burnett MD MTDD
[2017-07-12] MEDS: Potassium Chloride 10 mEq ER Tab PO SCH (08:24)
[2017-07-12] MEDS: POLYETHYLENE GLYCOL 3350 17 GM/Dose PACKET PO SCH (10:37)
[2017-07-12] MEDS: MethylPREDNISolone 40 mg Vial IVP SCH (10:37)
[2017-07-12] MEDS: buPROPion SR 150 MG TABLET PO SCH (10:39)
[2017-07-13] MEDS: Albuterol-Ipratrop 3 mg / 0.5 (3 ml) UD IH SCH ×4 (01:56→20:00)
--- NOTE | 2017-07-13 02:02 | PN ---
DATE: 07/12/2017 SUBJECTIVE: The patient is a 71-year-old female. The patient was seen and examined at the bedside on 07/12/2017, looking comfortable, sitting on the recliner. Swelling of the legs is better. Went for physical therapy 2 times. According to her, she is feeling exhausted and tired too much. No fever. No chills. No nausea, vomiting, or diarrhea. PHYSICAL EXAMINATION VITAL SIGNS: Temperature 98, pulse 72, blood pressure 114/65 and respiratory rate 15. HEENT: Head: Normocephalic and atraumatic. Eyes: PERRLA. Extraocular muscles intact. Conjunctivae clear. Nose patent. NECK: Supple. No carotid bruits, JVD or thyromegaly. CHEST: Bilaterally symmetrical. HEART: S1 and S2 positive. LUNGS: Clear to auscultation. ABDOMEN: Soft. Bowel sounds positive. No organomegaly. EXTREMITIES: No edema. No cyanosis. NEUROLOGIC: Awake and alert. Moving all 4 extremities. No focal deficit. LABORATORY DATA: We do not have recent labs today, but I reviewed old labs. ASSESSMENT AND PLAN: Ms. Iman Mckinney is a 71-year-old lady with leukocytosis, hypochloremia, renal insufficiency, hyperglycemia, abnormal liver function test, stool occult is negative, obesity, atrial fibrillation with rapid ventricular response, presently controlled, hypothyroidism, gastritis, depression, sleep apnea syndrome, acute bronchitis, hypoxemia. She is not able to do her activities of daily living. Sleep apnea precautions. Avoid sedation. Continue p.o. and inhaled bronchodilators. Discussion done with the patient at this time. Physical therapy. We will follow up. Lucy Burnett MD PRIYANKA
--- NOTE | 2017-07-13 05:00 | PN ---
PULMONARY PROGRESS NOTE DATE: 07/12/2017 REFERRING PHYSICIAN: Dr. Burnett. SUBJECTIVE: She is out of bed to chair, sleepy, arousable. No headache. No rhinitis. Cough is better. No nausea. No vomiting. No diarrhea. No leg pain or leg swelling. OBJECTIVE: GENERAL: In no acute distress. VITAL SIGNS: Temperature 98, heart rate is 72, respiratory rate is 20, blood pressure 114/65, and pulse oximetry 94% on room air. HEENT: Moist mucous membranes. Has oral thrush. NECK: Supple. No JVD. LUNGS: Have a few scattered rhonchi. HEART: S1 and S2. ABDOMEN: Soft and nontender. No organomegaly. EXTREMITIES: There is no edema. NEUROLOGIC: Awake, alert. Follows simple commands. MEDICATIONS: She is on Carafate 1 gm four times daily p.r.n., doxycycline 100 mg twice a day; DuoNeb q.6 hours; Eliquis 5 mg twice a day; Klonopin 0.5 mg daily; potassium 10 mEq daily; Lasix 40 mg twice a day; MiraLAX 17 gm daily; gabapentin 100 mg at bedtime; Protonix 40 mg daily; Singulair 10 mg daily; Solu-Medrol 20 mg daily; Synthroid 88 mcg daily; Tylenol p.r.n., Wellbutrin XL 150 mg daily. LABORATORY DATA: Reviewed and noted. No new lab is available since yesterday. IMPRESSION AND PLAN: Atrial fibrillation with rapid ventricular response, presently under controlled rate; hypothyroid; gastritis; depression; sleep apnea syndrome; acute bronchitis; chronic lung disease; hypoxemia, requiring supplemental oxygen; oral thrush; activities of daily living dysfunction. We will discontinue doxycycline. Add Diflucan 200 mg daily for 5 days or so. Sleep apnea precaution. Outpatient pulmonary function test and sleep study. Continue therapy. Thank you and we will follow with you. Natali Masterson MD
[2017-07-13 06:23] LABS: HEMATOCRIT 42.5 % (36.0-48.0); MEAN CELL VOLUME 85.2 fl (80.0-105.0); MEAN CORPUSCULAR HEMOGLOBIN 25.9 pg (25.0-35.0); MEAN CORPUSCULAR HGB CONC 30.4 g/dl (31.0-37.0); MEAN PLATELET VOLUME 10.3 fl (7.0-11.0); RED CELL DISTRIBUTION WIDTH 15.9 % (11.5-14.5)
[2017-07-13] MEDS: Pantoprazole 40 mg EC Tab PO SCH (06:39)
[2017-07-13] MEDS: Levothyroxine 88 MCG TAB PO SCH (06:39)
[2017-07-13 06:43] LABS: CALCIUM 9.5 mg/dL (8.4-10.5); POTASSIUM 3.7 mmol/L (3.6-5.0)
[2017-07-13] MEDS: Potassium Chloride 10 mEq ER Tab PO SCH (08:21)
[2017-07-13] MEDS: MethylPREDNISolone 40 mg Vial IVP SCH (11:00)
[2017-07-13] MEDS: POLYETHYLENE GLYCOL 3350 17 GM/Dose PACKET PO SCH (11:00)
[2017-07-13] MEDS: buPROPion SR 150 MG TABLET PO SCH (11:00)
--- NOTE | 2017-07-13 19:59 | PN ---
PULMONARY PROGRESS NOTE DATE: 07/13/2017 REFERRING PHYSICIAN: Lucy Burnett MD SUBJECTIVE: She is participating in therapy, ambulating with the help of the therapist. No headache. No rhinitis. Has a postnasal drip. No nausea. No vomiting or diarrhea. No leg pain or leg swelling. OBJECTIVE: GENERAL: In no acute distress. VITAL SIGNS: Temperature is 98, heart rate is 78, respiratory rate is 20, blood pressure is 132/71, and pulse oximetry is 97% on room air. HEENT: Moist mucous membranes. Has some thrush. NECK: Supple. No JVD. LUNGS: Has a scattered rhonchi. HEART: S1 and S2. ABDOMEN: Soft and nontender. No organomegaly. EXTREMITIES: No edema. NEUROLOGIC: Awake and alert. Follows simple commands. MEDICATIONS: She is on Carafate 1 g 3 times a day p.r.n., Diflucan 200 mg daily, DuoNeb q.6 hours, Eliquis 5 mg twice a day, Klonopin 0.5 mg daily, Lasix 40 mg twice a day, MiraLax 17 g daily, Neurontin 100 mg at bedtime, Protonix 40 mg daily, Singulair 10 mg daily, Solu-Medrol 20 mg daily, Synthroid 88 mcg daily, Tylenol p.r.n., and Wellbutrin SR 150 mg daily. LABORATORY DATA: Shows hemoglobin 12.9, hematocrit 42.5, WBC 11.0, and platelet is 303. Sodium 139, potassium , chloride 95, bicarbonate 36, BUN 44, creatinine 1.2, glucose 103, and calcium is 9.5. IMPRESSION AND PLAN: Atrial fibrillation with rapid ventricular response, presently rate is under control; hypothyroid; gastritis; depression; sleep apnea syndrome; acute bronchitis; chronic lung disease; hypoxemia, requiring supplemental oxygen; and has oral thrush. Pulmonary point of view, doing okay. May discontinue supplemental oxygen if pulse ox is better than 90%. Continue Diflucan total 5 days. Fall precaution. Continue therapy. Sleep apnea precaution. The patient advised that she should have a sleep study upon discharge as an outpatient. Thank you and we will follow with you. Natali Masterson MD [facility] # [id number]
--- NOTE | 2017-07-13 23:51 | PN ---
DATE: 07/13/2017 SUBJECTIVE: The patient is a 71-year-old female. The patient was seen and examined at the bedside, looking better. is sitting at the bedside also. No nausea or vomiting. No diarrhea. No hematuria or hematochezia. No swelling of the legs. No chest pain or palpitation. No headache. No dizziness. No fever. No chills. PHYSICAL EXAMINATION VITAL SIGNS: Temperature 98.2, pulse 74, blood pressure 114/63, and respiratory rate 20. HEENT: Head: Normocephalic and atraumatic. Eyes: PERRLA. Extraocular muscles intact. Conjunctivae clear. Nose patent. Mucous membranes are moist. NECK: Supple. No carotid bruits, JVD, or thyromegaly. CHEST: Bilaterally symmetrical. HEART: S1 and S2 positive. LUNGS: Clear to auscultation. ABDOMEN: Soft. Bowel sounds positive. No organomegaly. EXTREMITIES: No edema. No cyanosis. NEUROLOGIC: The patient is awake and alert. Moving all 4 extremities. No focal deficit. MEDICATIONS: Carafate, Diflucan, DuoNeb, Eliquis, Klonopin, potassium, Lasix, MiraLax, Neurontin, Protonix, Singulair, Solu-Medrol, Synthroid, Tylenol, and Wellbutrin. LABORATORY DATA: White blood cell 11.0, hemoglobin 12.9, hematocrit 42.5, and platelets of 303. Sodium 139, potassium 3.7, BUN 44, and creatinine 1.1. ASSESSMENT AND PLAN: Ms. Hank Valerio is a 71-year-old lady with history of leukocytosis, improved; hypochloremia; renal insufficiency, improving; abnormal liver function test; obesity; atrial fibrillation with rapid ventricular response, presently under control; hypothyroidism; gastritis; depression, sleep apnea syndrome; acute bronchitis; chronic lung disease; hypoxemia requiring supplemental oxygen; oral thrush; activities of daily living dysfunction. Dr. Masterson discontinued the doxycycline and added Diflucan 200 mg p.o. q. daily for 5 days for oral candidiasis. Sleep apnea precautions. Getting physical therapy. Gastrointestinal and deep venous thrombosis prophylaxis. Repeat labs. Lucy Burnett MD
[2017-07-14] MEDS: Albuterol-Ipratrop 3 mg / 0.5 (3 ml) UD IH SCH ×4 (03:39→19:25)
[2017-07-14] MEDS: Pantoprazole 40 mg EC Tab PO SCH (05:46)
[2017-07-14] MEDS: Levothyroxine 88 MCG TAB PO SCH (05:46)
[2017-07-14 06:09] LABS: HEMATOCRIT 43.2 % (36.0-48.0); MEAN CELL VOLUME 84.4 fl (80.0-105.0); MEAN CORPUSCULAR HGB CONC 30.8 g/dl (31.0-37.0); MEAN PLATELET VOLUME 10.4 fl (7.0-11.0); RED CELL DISTRIBUTION WIDTH 15.7 % (11.5-14.5); WHITE BLOOD COUNT 13.2 10^3/ul (4.5-11.0)
[2017-07-14 06:20] LABS: CALCIUM 9.5 mg/dL (8.4-10.5)
[2017-07-14] MEDS: Potassium Chloride 10 mEq ER Tab PO SCH (08:41)
[2017-07-14] MEDS: POLYETHYLENE GLYCOL 3350 17 GM/Dose PACKET PO SCH (10:00)
[2017-07-14] MEDS: MethylPREDNISolone 40 mg Vial IVP SCH (10:00)
[2017-07-14] MEDS: buPROPion SR 150 MG TABLET PO SCH (10:02)
--- NOTE | 2017-07-14 21:26 | PN ---
PULMONARY PROGRESS NOTE DATE: 07/14/2017 REFERRING PHYSICIAN: Dr. Burnett. SUBJECTIVE: The patient is out of bed to reclining chair. Night was unremarkable. Slept well. Sore throat is better. No nausea. No vomiting or diarrhea. No leg pain or leg swelling. OBJECTIVE: GENERAL: In no acute distress. VITAL SIGNS: Temperature is 98, heart rate is 74, respiratory rate is 18, blood pressure is 115/60, and pulse oximetry is 93% on room air. HEENT: Moist mucous membranes. Crowded airway. Mallampati score is 4. NECK: Supple. No JVD. LUNGS: Have a fair airflow with few rhonchi. HEART: S1 and S2. ABDOMEN: Soft and nontender. No organomegaly. EXTREMITIES: No edema. NEUROLOGICAL: Awake and alert. Follows simple commands. MEDICATIONS: She is on Carafate 1 g three times a day; Diflucan 200 mg daily; albuterol/Atrovent nebulizer q.6 hours; Eliquis 5 mg twice a day; Klonopin 0.5 mg daily; potassium 10 mEq daily; Lasix 40 mg twice a day; MiraLax 17 g p.o. daily; Neurontin 100 mg at bedtime; Protonix 40 mg daily; Singulair 10 mg daily; Solu-Medrol 20 mg daily; Synthroid 88 mcg daily; Tylenol p.r.n.; and Wellbutrin SR 150 mg daily. LABORATORY DATA: Shows hemoglobin 13.3, hematocrit 43.2, WBC 13.2, and platelet is 311. Sodium 138, potassium 4.0, chloride 94, bicarbonate 35, BUN 39, creatinine 1.2, glucose 128, and calcium is 9.5. IMPRESSION AND PLAN: Atrial fibrillation with rapid ventricular response, presently rate controlled; hypothyroid; gastritis; depression; sleep apnea syndrome; acute bronchitis; chronic lung disease; hypoxemia, requiring supplemental oxygen. Pulmonary point of view, doing okay. May discontinue Solu-Medrol upon discharge. Recommended sleep study as an outpatient. Recommended PFT as an outpatient. Taper of steroids in next 2 to 3 days. Thank you and we will follow with you. Natali Masterson MD
[2017-07-14 22:54] LABS: ALB/GLOB RATIO 1.2 (1.1-1.8); BILIRUBIN,DIRECT 0.5 mg/dL (0.0-0.4); BILIRUBIN,TOTAL 0.6 mg/dL (0.2-1.3); TOTAL PROTEIN 6.9 g/dL (5.8-8.3)
[2017-07-15] MEDS: Albuterol-Ipratrop 3 mg / 0.5 (3 ml) UD IH SCH ×4 (01:10→19:49)
--- NOTE | 2017-07-15 02:17 | PN ---
DATE: SUBJECTIVE: The patient is seen and examined at bedside, looking comfortable. is sitting at the bedside also, sitting on the recliner. Did physical therapy, feeling better. No nausea or vomiting. No diarrhea. No hematuria or hematochezia. No swelling of the legs. No chest pain or palpitation. No headache or dizziness. PHYSICAL EXAMINATION VITAL SIGNS: Temperature 98.6, pulse 74, blood pressure 115/60, respiratory rate 20. HEENT: Head normocephalic, atraumatic. Eyes, PERRLA. Extraocular muscles intact. Conjunctivae clear. Nose patent. Mucous membranes moist. NECK: Supple. No carotid bruit. No JVD or thyromegaly. CHEST: Bilaterally symmetrical. HEART: S1 and S2 positive. LUNGS: Clear to auscultation. ABDOMEN: Soft. Bowel sounds present. No organomegaly. EXTREMITIES: No edema. No cyanosis. NEUROLOGIC: The patient is awake and alert. Moving all 4 extremities. No focal deficits. MEDICATIONS: Carafate, Diflucan, DuoNeb, Eliquis, Klonopin, K-Zoey, Lasix, MiraLax, Neurontin, Protonix, Singulair, Solu-Medrol, Synthroid, acetaminophen, Wellbutrin. LABORATORY DATA: White blood cell is 13.2, hemoglobin 13.2, hematocrit 43.2, platelets 319. Sodium 138, potassium 4.0, BUN 39, creatinine 1.2. Glucose 128. ASSESSMENT AND PLAN: Ms. Iman Dior is a 71-year-old female with leukocytosis; hyperglycemia; abnormal liver function test; obesity; chronic obstructive pulmonary disease; obstructive sleep apnea syndrome; atrial fibrillation with rapid ventricular response; hypothyroidism; gastritis; depression; acute bronchitis with chronic lung disease; hypoxemia, requiring supplemental oxygen with oral thrush, getting Diflucan. According to Dr. Masterson, we can discontinue the supplemental oxygen if pulse oximetry is better than 90s. Continue Diflucan for 5 days. Fall precautions. Sleep apnea precautions. GI and DVT prophylaxis. Repeat labs. Lucy Burnett MD cc:
[2017-07-15 06:13] VITALS: BP 132/75; PULSE 65; RESP 16; TEMP 98.3; O2SAT 92
[2017-07-15] MEDS: Pantoprazole 40 mg EC Tab PO SCH (06:27)
[2017-07-15] MEDS: Levothyroxine 88 MCG TAB PO SCH (06:27)
[2017-07-15] MEDS: Potassium Chloride 10 mEq ER Tab PO SCH (08:04)
[2017-07-15] MEDS: POLYETHYLENE GLYCOL 3350 17 GM/Dose PACKET PO SCH (10:07)
[2017-07-15] MEDS: MethylPREDNISolone 40 mg Vial IVP SCH (10:07)
[2017-07-15] MEDS: buPROPion SR 150 MG TABLET PO SCH (10:08)
--- NOTE | 2017-07-16 01:55 | PN ---
PULMONARY PROGRESS NOTE DATE: 07/15/2017 SUBJECTIVE: She is out of bed to chair. is at bedside. Deny any headache. No rhinitis. Cough is much better. No nausea. No vomiting, diarrhea, leg pain or leg swelling. OBJECTIVE: GENERAL: In no acute distress. VITAL SIGNS: Temperature is 98, heart rate is 65, respiratory rate is 16, blood pressure is 132/75, and pulse oximetry 92% on 3 L nasal cannula. HEENT: Moist mucous membrane. Crowded airway. NECK: Supple. No JVD. LUNGS: Has a fair airflow with rhonchi. HEART: S1 and S2. ABDOMEN: Soft and nontender. No organomegaly. EXTREMITIES: No edema. NEUROLOGIC: Awake and alert. Follows simple commands. MEDICATIONS: Reviewed. No new change in medications reported. LABORATORY DATA: Reviewed and noted. No new lab data available since yesterday. IMPRESSION AND PLAN: Atrial fibrillation with rapid ventricular response, presently rate controlled, hypothyroid, gastritis, depression, sleep apnea syndrome, acute bronchitis, chronic lung disease, and hypoxemia. Pulmonary point of view, she is doing well. Spoke to at the bedside. All the questions answered. The patient should have sleep study on discharge as an outpatient. Should have pulmonary function tests. Fall precaution. Thank you and we will follow with you. Natali Masterson MD
== END 2017-07-15 20:20 | disposition home or self-care (01) | DRG 202 ==
LOC: TRCU 16:14
PROVIDERS: ADMIT Internal Medicine; ATTEND Internal Medicine
PROC: 3E0F7GC Introduction of Other Therapeutic Substance into Respiratory Tract, Via Natural or Artificial Opening (ICD-10-PCS; 2017-07-05)
PROC: F07Z9FZ Gait Training/Functional Ambulation Treatment using Assistive, Adaptive, Supportive or Protective Equipment (ICD-10-PCS; principal; 2017-07-06)
PROC: F08Z4FZ Home Management Treatment using Assistive, Adaptive, Supportive or Protective Equipment (ICD-10-PCS; 2017-07-07)
DX: J20.9 Acute bronchitis, unspecified (principal); B37.0 Candidal stomatitis; I48.0 Paroxysmal atrial fibrillation; Z79.2 Long term (current) use of antibiotics; I27.20 Pulmonary hypertension, unspecified; F33.2 Major depressive disorder, recurrent severe without psychotic features; E86.0 Dehydration; E03.9 Hypothyroidism, unspecified; E66.9 Obesity, unspecified; F41.9 Anxiety disorder, unspecified; G89.4 Chronic pain syndrome; K29.70 Gastritis, unspecified, without bleeding; I35.0 Nonrheumatic aortic (valve) stenosis; R09.02 Hypoxemia; R73.9 Hyperglycemia, unspecified; G47.33 Obstructive sleep apnea (adult) (pediatric); Z87.891 Personal history of nicotine dependence; Z88.0 Allergy status to penicillin

== ENCOUNTER 2017-11-01 13:12 | Emergency (ER) | payer BC ==
[2017-11-01 13:21] VITALS: BMI 38.0
[2017-11-01 13:26] VITALS: RESP 18; TEMP 98.8
--- NOTE | 2017-11-01 14:18 | ED PDOC ---
Arrival/HPI - General Chief Complaint: Trauma Time Seen by Provider: 11/01/17 13:37 Historian: Patient - History of Present Illness Narrative History of Present Illness (Text): 11/01/17 13:46 72 year old female, with past medical history of A-fib and history of falls, was referred to the Emergency department by her PMD after trip and fall last night. Patient informs left knee, right hand and right sided facial discomfort. Patient denies hitting her head or loss of consciousness. Patient denies any symptoms prior to fall. Patient denies any fever, chills, nausea, vomiting, diarrhea, abdominal pain, chest pain, shortness of breath or any other complaints. PMD: Dr. Burnett Time/Duration: 24 hours Symptom Onset: Sudden Symptom Course: Unchanged Quality: Aching Activities at Onset: Light Context: Home Past Medical History - Provider Review Nursing Documentation Reviewed: Yes - Infectious Disease Hx of Infectious Diseases: None - Cardiac Hx Cardiac Disorders: Yes (new onset Afib) Hx Atrial Fibrillation: Yes - Pulmonary Hx Respiratory Disorders: Yes (USED TO SMOKE 10 CIG A DAY. QUIT 2001) - Neurological Hx Neurological Disorder: No - HEENT Hx HEENT Disorder: Yes Hx Cataracts: Yes (BILATERAL SX) - Renal Hx Renal Disorder: Yes Hx Kidney Stones: Yes - Endocrine/Metabolic Hx Hypothyroidism: Yes - Hematological/Oncological Hx Blood Disorders: No - Integumentary Hx Dermatological Disorder: No - Musculoskeletal/Rheumatological Hx Falls: Yes (9 yrs ago) - Gastrointestinal Hx Gastrointestinal Disorders: Yes (LAP APPENDECTOMY) Hx Gastroesophageal Reflux: Yes - Genitourinary/Gynecological Hx Genitourinary Disorders: (inc from lasix/was not inc prior to admission) Hx Reproductive Disorders: Yes (left mastectomy 1999 no chemo) - Psychiatric Hx Psychophysiologic Disorder: Yes Hx Anxiety: Yes Hx Depression: Yes Hx Emotional Abuse: No Hx Physical Abuse: No Hx Substance Use: No - Surgical History Other/Comment: LEFT BREAST MASTECTOOMY,CATARACT AMEYA SX. - Anesthesia Hx Anesthesia Reactions: Yes (HOARSE VOICE X 2 WEEKS) - Suicidal Assessment Feels Threatened In Home Enviroment: No Family/Social History - Physician Review Nursing Documentation Reviewed: Yes Family/Social History: No Known Family HX Smoking Status: Former Smoker Hx Alcohol Use: No Hx Substance Use: No Allergies/Home Meds Allergies/Adverse Reactions: Allergies Penicillins Allergy (Severe, Verified 07/01/17 21:13) RASH aspirin Allergy (Verified 07/01/17 21:13) DIARRHEA propoxyphene [From Darvon] Allergy (Verified 07/01/17 21:13) RASH DARVON Allergy (Severe, Uncoded 07/01/17 21:13) "TOTALLY OUT OF IT" Home Medications: Home Meds Medication Instructions Recorded Confirmed Atorvastatin [Lipitor] 1 tab PO HS 11/01/17 11/01/17 Budesonide/Formoterol Fumarate 1 puff IH DAILY 11/01/17 11/01/17 [Symbicort 160-4.5 Mcg Inhaler] Dexlansoprazole [Dexilant] 1 cap PO DAILY 11/01/17 11/01/17 Docusate [Colace] 1 tab PO BID 11/01/17 11/01/17 Ergocalciferol [Drisdol 50,000 1 cap PO Q7D 11/01/17 11/01/17 Intl Units Cap] Ferrous Sulfate [Feosol] 1 tab PO DAILY 11/01/17 11/01/17 Furosemide [Lasix] 1 tab PO DAILY 11/01/17 11/01/17 Levothyroxine [Synthroid] 88 mcg PO DAILY 11/01/17 11/01/17 traMADol [Ultram] 1 tab PO DAILY PRN 11/01/17 11/01/17 Review of Systems - Physician Review All systems were reviewed & negative as marked: Yes - Review of Systems Constitutional: Normal. absent: Fevers Eyes: Normal ENT: Normal Respiratory: Normal. absent: SOB Cardiovascular: Normal. absent: Chest Pain Gastrointestinal: Normal. absent: Abdominal Pain, Diarrhea, Nausea, Vomiting Genitourinary Female: Normal Musculoskeletal: Other (right hand, left knee and right sided facial discomfort) Skin: Normal Neurological: Normal Endocrine: Normal Hemo/Lymphatic: Normal Psychiatric: Normal Physical Exam Vital Signs Reviewed: Yes Vital Signs Temp Pulse Resp BP Pulse Ox 11/01/17 16:31 74 18 130/71 97 11/01/17 15:27 78 18 128/69 96 11/01/17 13:25 98.8 F 80 18 132/72 96 Temperature: Afebrile Blood Pressure: Normal Pulse: Regular Respiratory Rate: Normal Appearance: Positive for: Well-Appearing, Non-Toxic, Comfortable Pain Distress: None Mental Status: Positive for: Alert and Oriented X 3 - Systems Exam Head: Present: Atraumatic, Normocephalic Pupils: Present: PERRL Extroacular Muscles: Present: EOMI Conjunctiva: Present: Normal Ears: Present: Normal Mouth: Present: Moist Mucous Membranes Nose (External): Present: Atraumatic Nose (Internal): Present: Normal Inspection Neck: Present: Normal Range of Motion Respiratory/Chest: Present: Clear to Auscultation, Good Air Exchange. No: Respiratory Distress, Accessory Muscle Use Cardiovascular: Present: Regular Rate and Rhythm, Normal S1, S2. No: Murmurs Abdomen: Present: Normal Bowel Sounds. No: Tenderness, Distention, Peritoneal Signs Back: Present: Normal Inspection Upper Extremity: Present: Tenderness (tenderness to 1 and 2 digit on right hand) . No: Cyanosis, Edema Lower Extremity: Present: Tenderness (point tenderness over patella and abrasion.). No: Edema Neurological: Present: GCS=15, CN II-XII Intact, Speech Normal Skin: Present: Warm, Dry, Normal Color. No: Rashes Psychiatric: Present: Alert, Oriented x 3, Normal Insight, Normal Concentration Medical Decision Making ED Course and Treatment: 11/01/17 13:46 Impression: 72 year old female presents to the Emergency department s/p trip and fall last night. Plan: -- CT of Head w/o contrast -- CT of Orbits/Facials -- X-ray of Right Hand -- X-ray of Left Knee -- X-ray of Right Wrist -- Reassess and disposition Progress Notes: 11/01/17 15:46 Ct of Orbitals/ Facial was reviewed by radiologist, shows no acute findings related to/accounting for the clinical presentation. 11/01/17 15:48 CT of head reviewed by radiologist, shows no acute intracranial abnormalities. No significant findings to account for the clinical presentation. 11/01/17 16:04 X-ray of wrist reviewed by radiologist, shows soft tissue swelling without acute articular or osseous abnormality. X-ray of knee reviewed by radiologist, shows no acute findings related to/ accounting for the clinical presentation. X-ray of hand reviewed by radiologist, shows no acute findings related to/ accounting for the clinical presentation. 11/01/17 16:27 [address]iscuss[address] results [address] Dr[address] Burnett, who is aware and agrees with plan to discharge patient with instructions. - RAD Interpretation Radiology Orders: 11/01/17 13:46 HEAD W/O CONTRAST [CT] Stat ORBITS/ FACIALS W/O CONTRAST [CT] Stat HAND RIGHT 3 VIEWS [RAD] Stat KNEE LEFT 2 VIEWS (AP & LAT) [RAD] Stat WRIST, RIGHT 3 VIEWS [RAD] Stat Agile Qa Tester: Radiologist - Medication Orders Current Medication Orders: Discontinued Medications Tetanus/Reduced Diphtheria/Acell Pertussis (Boostrix Vaccine Inj) 0.5 ml IM .ONCE ONE Stop: 11/01/17 16:22 Last Admin: 11/01/17 16:49 Dose: 0.5 ml Immunization Registry Document 11/01/17 16:49 EQ (Rec: 11/01/17 16:49 EQ [id number]) Immunization Registry Consent Date 11/01/17 - Scribe Statement The provider has reviewed the documentation as recorded by the Scribe Gavin Goddard. All medical record entries made by the Scribe were at my direction and personally dictated by me. I have reviewed the chart and agree that the record accurately reflects my personal performance of the history, physical exam, medical decision making, and the department course for this patient. I have also personally directed, reviewed, and agree with the discharge instructions and disposition. Disposition/Present on Arrival - Present on Arrival Any Indicators Present on Arrival: No History of DVT/PE: No History of Uncontrolled Diabetes: No Urinary Catheter: No History of Decub. Ulcer: No History Surgical Site Infection Following: None - Disposition Have Diagnosis and Disposition been Completed?: Yes Diagnosis: Hand contusion, Knee contusion Disposition: HOME/ ROUTINE Disposition Time: 16:00 Condition: GOOD Discharge Instructions (ExitCare): Contusion (DC) Additional Instructions: Thank you for letting us take care of you today. The emergency medical care you received today was directed at your acute symptoms. If you were prescribed any medication, please fill it and take as directed. It may take several days for your symptoms to resolve. Return to the Emergency Department if your symptoms worsen, do not improve, or if you have any other problems. Please contact your doctor or call one of the physicians/clinics you have been referred to that are listed on the Patient Visit Information form that is included in your discharge packet. Bring any paperwork you were given at discharge with you along with any medications you are taking to your follow up visit. Our treatment cannot replace ongoing medical care by a primary care provider (PCP) outside of the emergency department. Thank you for allowing the [facility] team to be part of your care today. Follow up with your primary doctor this week for re-evaluation and further management. Referrals: Lucy Burnett MD [Primary Care Provider] - Follow up with primary Forms: [employer] (Jordanian), WORK NOTE
--- NOTE | 2017-11-01 15:18 | CT ---
PROCEDURE: CT HEAD WITHOUT CONTRAST. HISTORY: s/p fall - r/o fx and ICH COMPARISON: None available. TECHNIQUE: Axial computed tomography images were obtained through the head/brain without intravenous contrast. Coronal and sagittal reconstructed images. Radiation dose: Total exam DLP = 770.60 mGy-cm. This CT exam was performed using one or more of the following dose reduction techniques: Automated exposure control, adjustment of the mA and/or kV according to patient size, and/or use of iterative reconstruction technique. FINDINGS: HEMORRHAGE: No intracranial hemorrhage. BRAIN: No mass effect or edema. Cortical atrophy, periventricular small vessel disease. VENTRICLES: Unremarkable. No hydrocephalus. CALVARIUM: Unremarkable. PARANASAL SINUSES: Unremarkable as visualized. No significant inflammatory changes. MASTOID AIR CELLS: Unremarkable as visualized. No inflammatory changes. OTHER FINDINGS: None. IMPRESSION: No acute intracranial abnormalities. No significant findings to account for the clinical presentation.
--- NOTE | 2017-11-01 15:34 | CT ---
PROCEDURE: CT ORBITS WITHOUT CONTRAST. HISTORY: s/p fall - r/o fx COMPARISON: None available. TECHNIQUE: Axial CT images of the orbits were obtained. Coronal and sagittal reformats were generated. Radiation dose: Total exam DLP = 721.31 mGy-cm. This CT exam was performed using one or more of the following dose reduction techniques: Automated exposure control, adjustment of the mA and/or kV according to patient size, and/or use of iterative reconstruction technique. FINDINGS: RIGHT ORBIT: RIGHT BONY ORBIT: Normal. RIGHT INTRAORBITAL STRUCTURES: Globe: Normal. Extraocular muscles: Normal. Post septal space: Normal. Optic Nerve: Normal. Lacrimal Apparatus: Normal. RIGHT PRESEPTAL SOFT TISSUES: Normal. LEFT ORBIT: LEFT BONY ORBIT: Normal. LEFT INTRAORBITAL STRUCTURES: Globe: Normal. Extraocular muscles: Normal. Post septal space: Normal Optic Nerve: Normal. . Lacrimal Apparatus: Normal. LEFT PRESEPTAL SOFT TISSUES: Normal. OTHER: Multilevel cervical degenerative change. IMPRESSION: No acute findings related to/accounting for the clinical presentation.
--- NOTE | 2017-11-01 15:55 | RAD ---
PROCEDURE: Right Wrist Radiographs. HISTORY: s/p fall - r/o fx COMPARISON: None. FINDINGS: BONES: Normal. No fracture. JOINTS: Osteoarthritic changes carpal 1st metacarpal joint. SOFT TISSUES: Soft tissue swelling about the right wrist. OTHER FINDINGS: None. IMPRESSION: Soft tissue swelling without acute articular or osseous abnormality.
--- NOTE | 2017-11-01 15:57 | RAD ---
PROCEDURE: Right Hand Radiographs. HISTORY: s/p fall - r/o fx COMPARISON: None. FINDINGS: BONES: Normal. No fracturePrint osteoarthritic changes proximal and distal interphalangeal joint distribution as well as carpal 1st metacarpal joint. . JOINTS: Normal. No osteoarthritic changes. SOFT TISSUES: Normal. OTHER FINDINGS: None. IMPRESSION: No acute findings related to/accounting for the clinical presentation.
--- NOTE | 2017-11-01 15:59 | RAD ---
PROCEDURE: Left Knee Radiographs. HISTORY: Pain. COMPARISON: None. FINDINGS: BONES: Normal. No fracture. JOINTS: Normal. No osteoarthritis. JOINT EFFUSION: None. OTHER FINDINGS: None. IMPRESSION: No acute findings related to/accounting for the clinical presentation.
[2017-11-01] MEDS ORDERED: TDAP Vaccine 0.5 mL Syr IM ONE (16:21)
[2017-11-01 16:31] VITALS: BP 130/71; PULSE 74; O2SAT 97
== END 2017-11-01 17:08 | disposition home or self-care (01) ==
LOC: ED 13:12
DX: S80.02XA Contusion of left knee, initial encounter (principal); S60.221A Contusion of right hand, initial encounter; W01.0XXA Fall on same level from slipping, tripping and stumbling without subsequent striking against object, initial encounter; I48.91 Unspecified atrial fibrillation; E03.9 Hypothyroidism, unspecified; Z87.891 Personal history of nicotine dependence; Z23 Encounter for immunization

== ENCOUNTER 2018-09-14 07:03 | Inpatient (IN) | payer BC, MEDICARE ==
[2018-09-14] MEDS ORDERED: cefTRIAXone 1 gm 1 GM/100 ML BAG IVPB STA (07:32)
[2018-09-14] MEDS ORDERED: Azithromycin 250 MG in Sodium Chloride 0.9% 250 ML IVPB STA (07:32)
--- NOTE | 2018-09-14 07:59 | ED PDOC ---
Arrival/HPI - General Chief Complaint: Shortness Of Breath Time Seen by Provider: 09/14/18 07:19 Historian: Patient - History of Present Illness Narrative History of Present Illness (Text): 09/14/18 08:00 72 year old female, with past medical history of A-fib and history of falls, presents to emergency department complaining of shortness of breath, cough, chest pain, and intermittent fever since Saturday. Patient reports that she was diagnosed with pneumonia several days ago, and that she was given antibiotics and was fine for a while before these symptoms developed. Patient notes taking Eloquis. Patient denies any headache, dizziness, abdominal pain, nausea, vomiting, diarrhea, back pain, neck pain, or any other complaints. PMD: Time/Duration: < week (past Saturday ) Symptom Onset: Gradual Symptom Course: Unchanged Activities at Onset: Light Context: Home Past Medical History - Provider Review Nursing Documentation Reviewed: Yes - Infectious Disease Hx of Infectious Diseases: None - Cardiac Hx Cardiac Disorders: Yes (new onset Afib) Hx Atrial Fibrillation: Yes - Pulmonary Hx Respiratory Disorders: Yes (USED TO SMOKE 10 CIG A DAY. QUIT 2001) - Neurological Hx Neurological Disorder: No - HEENT Hx HEENT Disorder: Yes Hx Cataracts: Yes (BILATERAL SX) - Renal Hx Renal Disorder: Yes Hx Kidney Stones: Yes - Endocrine/Metabolic Hx Hypothyroidism: Yes - Hematological/Oncological Hx Blood Disorders: No - Integumentary Hx Dermatological Disorder: No - Musculoskeletal/Rheumatological Hx Falls: Yes (9 yrs ago) - Gastrointestinal Hx Gastrointestinal Disorders: Yes (LAP APPENDECTOMY) Hx Gastroesophageal Reflux: Yes - Genitourinary/Gynecological Hx Genitourinary Disorders: (inc from lasix/was not inc prior to admission) Hx Reproductive Disorders: Yes (left mastectomy 1999 no chemo) - Psychiatric Hx Psychophysiologic Disorder: Yes Hx Anxiety: Yes Hx Depression: Yes Hx Emotional Abuse: No Hx Physical Abuse: No Hx Substance Use: No - Surgical History Other/Comment: LEFT BREAST MASTECTOOMY,CATARACT AMEYA SX. - Anesthesia Hx Anesthesia: Yes Hx Anesthesia Reactions: Yes (HOARSE VOICE X 2 WEEKS) Hx Malignant Hyperthermia: No - Suicidal Assessment Feels Threatened In Home Enviroment: No Family/Social History - Physician Review Nursing Documentation Reviewed: Yes Family/Social History: Unknown Family HX Smoking Status: Former Smoker Hx Alcohol Use: No Hx Substance Use: No Allergies/Home Meds Allergies/Adverse Reactions: Allergies Penicillins Allergy (Severe, Verified 07/01/17 21:13) RASH aspirin Allergy (Verified 07/01/17 21:13) DIARRHEA propoxyphene [From Darvon] Allergy (Verified 07/01/17 21:13) RASH DARVON Allergy (Severe, Uncoded 07/01/17 21:13) "TOTALLY OUT OF IT" Home Medications: Home Meds Medication Instructions Recorded Confirmed Budesonide/Formoterol Fumarate 1 puff IH DAILY 11/01/17 09/14/18 [Symbicort 160-4.5 Mcg Inhaler] Furosemide [Lasix] 1 tab PO DAILY 11/01/17 09/14/18 RX: Atorvastatin [Lipitor] 1 tab PO HS 11/01/17 09/14/18 RX: Levothyroxine [Synthroid] 88 mcg PO DAILY 11/01/17 09/14/18 RX: traMADol [Ultram] 1 tab PO DAILY PRN 11/01/17 09/14/18 Review of Systems - Physician Review All systems were reviewed & negative as marked: Yes - Review of Systems Constitutional: Fevers (intermittent) Respiratory: SOB, Cough Cardiovascular: Chest Pain Gastrointestinal: absent: Diarrhea, Nausea, Vomiting Genitourinary Female: absent: Frequency, Hematuria, Urine Output Changes Musculoskeletal: absent: Back Pain, Neck Pain Skin: absent: Rash Neurological: absent: Headache, Dizziness Physical Exam Vital Signs Reviewed: Yes Vital Signs Temp Pulse Resp BP Pulse Ox 09/14/18 07:23 98.9 F 86 18 136/66 86 L Temperature: Afebrile Blood Pressure: Normal Pulse: Regular Respiratory Rate: Normal Appearance: Positive for: Well-Appearing, Non-Toxic, Comfortable Pain Distress: None Mental Status: Positive for: Alert and Oriented X 3 - Systems Exam Head: Present: Atraumatic, Normocephalic Pupils: Present: PERRL Extroacular Muscles: Present: EOMI Conjunctiva: Present: Normal Mouth: Present: Moist Mucous Membranes Neck: Present: Normal Range of Motion Respiratory/Chest: Present: Rales (bilaterally). No: Respiratory Distress, Accessory Muscle Use Cardiovascular: Present: Regular Rate and Rhythm, Normal S1, S2. No: Murmurs Abdomen: No: Tenderness, Distention, Peritoneal Signs Back: Present: Normal Inspection Upper Extremity: Present: Normal Inspection. No: Cyanosis, Edema Lower Extremity: Present: Normal Inspection. No: Edema Neurological: Present: GCS=15, CN II-XII Intact, Speech Normal Skin: Present: Warm, Dry, Normal Color. No: Rashes Psychiatric: Present: Alert, Oriented x 3, Normal Insight, Normal Concentration Medical Decision Making ED Course and Treatment: 09/14/18 08:09 Impression: 72 year old female presents to emergency department complaining of shortness of breath, cough, chest pain, and intermittent fever for the past few days. ro chf pna Plan: -- VBG -- EKG -- Labs -- Chest X-ray -- Rocephin -- Zithromax -- Urinalysis -- Reassess and disposition Prior Visits: Notes and results from previous visits were reviewed. Progress Notes: 09/14/18 13:10 antibiotics lasix dosed. initial blood gas acute resp acidosis, subsequent abg minimal change. accepted icu. - RAD Interpretation Narrative RAD Interpretations (Text): 09/14/18 09:12 Chest X-ray, reviewed by radiologist: IMPRESSION: Right lower lobe infiltrate Radiology Orders: 09/14/18 07:23 CXR [CHEST PORTABLE] [RAD] [employer]: Radiologist - EKG Interpretation EKG Interpretation (Text): 09/14/18 08:11 EKG: Ordered, reviewed, and independently interpreted the EKG. Rate : 88 BPM Rhythm : NSR Interpretation : No ST-segment elevations or depressions, no T-wave changes Interpreted by ED Physician: Yes Type: 12 lead EKG - Medication Orders Current Medication Orders: Ceftriaxone Sodium (Rocephin 1 Gram Ivpb) 1 gm in 100 mls @ 100 mls/hr IVPB STAT STA; Protocol Stop: 09/14/18 08:31 Azithromycin 250 mg/ Sodium (Chloride) 250 mls @ 167 mls/hr IVPB STAT STA; Protocol Stop: 09/14/18 09:01 - Scribe Statement The provider has reviewed the documentation as recorded by the Scribe Yovanny Harding All medical record entries made by the Scribe were at my direction and persona lly dictated by me. I have reviewed the chart and agree that the record accurately reflects my personal performance of the history, physical exam, medical decision making, and the department course for this patient. I have also personally directed, reviewed, and agree with the discharge instructions and disposition. Disposition/Present on Arrival - Present on Arrival Any Indicators Present on Arrival: No History of DVT/PE: No History of Uncontrolled Diabetes: No Urinary Catheter: No History of Decub. Ulcer: No History Surgical Site Infection Following: None - Disposition Have Diagnosis and Disposition been Completed?: Yes Diagnosis: Pneumonia, CHF (congestive heart failure) Disposition: HOSPITALIZED Disposition Time: 10:00 Condition: CRITICAL Critical Care Time - Critical Care Note Total Time (in mins): 40 Documented critical care: time excludes all time spent performing seperately billable procedures.
[2018-09-14 08:01] LABS: BASO # 0.04 K/mm3 (0.0-2.0); BASO % 0.2 % (0.0-3.0); EOS # 0.1 (0.0-0.7); EOS % 0.6 % (1.5-5.0); HEMOGLOBIN 12.6 g/dL (12.0-16.0); LYMPH % 5.7 % (22.0-35.0); MEAN CELL VOLUME 88.7 fl (80.0-105.0); MEAN CORPUSCULAR HEMOGLOBIN 25.8 pg (25.0-35.0); MEAN CORPUSCULAR HGB CONC 29.1 g/dl (31.0-37.0); MEAN PLATELET VOLUME 9.5 fl (7.0-11.0); MONO # 0.5 (0.1-0.6); MONO % 3.1 % (1.0-6.0); PLATELET COUNT 423 10^3/uL (120.0-450.0); RBC 4.88 10^6/uL (3.5-6.1); RED CELL DISTRIBUTION WIDTH 16.9 % (11.5-14.5); WHITE BLOOD COUNT 16.7 10^3/uL (4.5-11.0)
[2018-09-14 08:10] LABS: INR 2.1; PARTIAL THROMBOPLASTIN TIME 73.4 Seconds (26.9-38.3); PROTHROMBIN TIME 23.7 SECONDS (9.4-12.5)
[2018-09-14 08:14] LABS: ALBUMIN 3.9 g/dL (3.0-4.8); CALCIUM 9.1 mg/dL (8.4-10.5)
[2018-09-14 08:26] LABS: TROPONIN I 0.08 ng/mL
[2018-09-14 08:31] LABS: VENOUS BLOOD GAS BASE EXCESS 3.6 mmol/L (0.0-2.0); VENOUS BLOOD GAS PO2 80 mm/Hg (30-55); VENOUS BLOOD PH 7.25 (7.32-7.43)
--- NOTE | 2018-09-14 09:07 | RAD ---
Date of service: 09/14/2018 HISTORY: sob COMPARISON: 07/01/2017 FINDINGS: LUNGS: There is an infiltrate in the right lower lobe PLEURA: Probable small right-sided effusion CARDIOVASCULAR: No aortic atherosclerotic calcification present. Mild cardiomegaly no pulmonary vascular congestion. OSSEOUS STRUCTURES: No significant abnormalities. VISUALIZED UPPER ABDOMEN: Normal. OTHER FINDINGS: None. IMPRESSION: Right lower lobe infiltrate
[2018-09-14 09:16] LABS: LYMPHOCYTE 4 % (22.0-35.0); MONOCYTE 3 % (1.0-6.0); MYELOCYTE 1 %; NEUTROPHIL 92 % (50.0-70.0)
[2018-09-14 09:17] LABS: PLATELET ESTIMATE NORMAL (NORMAL)
[2018-09-14 09:29] LABS: ARTERIAL BLOOD GAS HCO3 33.4 mmol/L (21-28); ARTERIAL BLOOD GAS O2 SAT 97.2 % (95-98); ARTERIAL BLOOD GAS PCO2 78 mm/Hg (35-45); ARTERIAL BLOOD GAS PH 7.24 (7.35-7.45); ARTERIAL BLOOD GAS TCO2 35.8 mmol.L (22-28)
[2018-09-14] MEDS: Levothyroxine 88 MCG TAB PO SCH (12:26)
[2018-09-14 13:04] LABS: URINE BILIRUBIN NEGATIVE (NEGATIVE); URINE BLOOD NEGATIVE (NEGATIVE); URINE GLUCOSE (UA) NEGATIVE (NEGATIVE); URINE LEUKOCYTE ESTERASE NEGATIVE Leu/uL (NEGATIVE); URINE PROTEIN TRACE mg/dL (<30 mg/dL); URINE UROBILINOGEN 0.2 E.U./dL (<1 E.U./dL)
[2018-09-14 13:06] LABS: URINE APPEARANCE CLEAR (CLEAR); URINE COLOR YELLOW (YELLOW)
[2018-09-14 13:14] LABS: URINE BACTERIA TRACE /hpf; URINE EPITHELIAL CELLS 0 - 2 /hpf (0-5)
[2018-09-14] MEDS: buPROPion SR 150 MG TABLET PO SCH (13:21)
[2018-09-14 13:32] VITALS: BMI 38.9
--- NOTE | 2018-09-14 13:41 | CON ---
DATE OF CONSULTATION: 09/14/2018 INTENSIVE CARE CONSULTATION REQUESTING PHYSICIAN: Dr. Horta. CHIEF COMPLAINT: The patient presented with shortness of breath, cough, and lethargy. HISTORY OF PRESENT ILLNESS: Ms. Mckinney, she is a 72-year-old female with a history of atrial fibrillation and has had falls at home. The patient presented with shortness of breath, cough, chest pain, intermittent fever at home as well. She states that these symptoms have been since Saturday. The patient presented to the emergency room and chest x-ray revealed that she has a right lower lobe pneumonia. She is obese, and I feel that there is a component of obesity hypoventilation syndrome. The patient at this time is on BiPAP. She is awake and alert and no problems with respiratory distress while on the BiPAP. No fever or chills at this time. No nausea or vomiting. She does have continued chest discomfort. Cardiology consult has been called. PAST MEDICAL HISTORY: Significant for anxiety and depression, GERD, kidney stones, hypothyroidism, atrial fibrillation, COPD. ALLERGIES: THE PATIENT HAS ALLERGIES TO PENICILLIN, ASPIRIN, PROPOXYPHENE, AND DARVON. SOCIAL HISTORY: She is a former smoker. No EtOH. No substance abuse. FAMILY HISTORY: Noncontributory. REVIEW OF SYSTEMS: CONSTITUTIONAL: She stated that she had fever at home. HEENT: Within normal limits. CARDIOVASCULAR: Does have the chest pain. RESPIRATORY: Has the shortness of breath and cough. GASTROINTESTINAL: All negative. GENITOURINARY: All negative. MUSCULOSKELETAL: All negative. NEUROPSYCHIATRIC: The patient is all negative. IMMUNOLOGIC: All negative. HEMATOLOGIC: All negative. INTEGRITY: All negative. PHYSICAL EXAMINATION: VITAL SIGNS: Note that her temperature is 98.9, her pulse is 86, respirations are 18, and BP is 136/66. HEENT: Head is atraumatic, normocephalic. Eyes reactive to light. Ears, nose, and throat seemed to be within normal limits. NECK: Her neck is supple. No JVD. No thyroid enlargement. No lymph nodes. HEART: Has a regular rate and rhythm. Normal S1, S2. LUNGS: Reveal decreased breath sounds at the bases with occasional rhonchi and crackles. ABDOMEN: Obese with decreased bowel sounds. Nontender to palpation. GENITALIA AND RECTAL: Deferred. MUSCULOSKELETAL: No joint deformities. EXTREMITIES: Reveal 1+ lower extremity edema. NEUROLOGICALLY: She seemed to be grossly intact. LABORATORY DATA: As far as her laboratories, the patient's white count is 16.7, hemoglobin is 12.6, hematocrit 43.3 with platelets of 423,000. PT is 23.7, INR is 2.1 and PTT is 73.4. Arterial blood gas reveals pH of 7.24, pCO2 of 78, pO2 of 78. Sodium is 141, potassium 5.2, chloride 102, CO2 of 34 with a BUN of 32, creatinine of 1.4, and a glucose of 190. The patient's BNP is 1560. Chest x-ray reveals left lower lobe infiltrate. IMPRESSION: This patient has right lower lobe pneumonia. She has hypercapnic respiratory failure, obesity hypoventilation syndrome, chronic obstructive pulmonary disease, renal insufficiency, atrial fibrillation, hypothyroidism, obesity, gastroesophageal reflux disease, and anxiety and depression. The patient has hypercapnia as well. There may be a mild component of congestive failure. She also complains of chest pain. PLAN: The patient is getting an ID consult, Cardiology consult and possibly a Pulmonary consult. She is on BiPAP with O2 support, and we will follow her chest x-ray and arterial blood gas closely. The patient is getting antibiotics of Zithromax as well as Rocephin and will be placed back on her medications of Wellbutrin, her Synthroid, Pulmicort, Neurontin, Lipitor, Lasix, Klonopin, Eliquis, Carafate, and Brovana. We will continue to treat aggressively along with the other consultants and the primary care doctor. Farooq Rios MD
[2018-09-14 14:32] LABS: ARTERIAL BLOOD GAS HCO3 33.4 mmol/L (21-28); ARTERIAL BLOOD GAS HEMOGLOBIN 11.4 g/dL (11.7-17.4); ARTERIAL BLOOD GAS O2 CAPACITY 15.6 mL/dl (16-24); ARTERIAL BLOOD GAS O2 CONTENT 15.1 ML/dl (15-23); ARTERIAL BLOOD GAS O2 SAT 97.1 % (95-98); ARTERIAL BLOOD GAS PCO2 71 mm/Hg (35-45); ARTERIAL BLOOD GAS PH 7.28 (7.35-7.45); ARTERIAL BLOOD GAS TCO2 35.6 mmol.L (22-28)
[2018-09-14] MEDS ORDERED: Albuterol-Ipratrop 3 mg / 0.5 (3 ml) UD IH PRN (14:36)
[2018-09-14] MEDS: MethylPREDNISolone 40 mg Vial IVP SCH ×3 (15:01→23:02)
[2018-09-14] MEDS ORDERED: MethylPREDNISolone 40 mg Vial IVP SCH (18:00)
[2018-09-14] MEDS ORDERED: Arformoterol 15 mcg/2 ml Inh Sol IH SCH (20:00)
[2018-09-14] MEDS: Budesonide 0.5 mg/2 ml Inhal Susp UD IH SCH (20:00)
[2018-09-14] MEDS ORDERED: Budesonide 0.5 mg/2 ml Inhal Susp UD IH SCH (20:00)
[2018-09-14] MEDS: Albuterol-Ipratrop 3 mg / 0.5 (3 ml) UD IH SCH (20:12)
--- NOTE | 2018-09-14 20:51 | CARD ---
APPROVED REPORT Date of service: 09/14/2018 EKG Measurement Heart [id number] <Conclusion> Normal sinus rhythm Poor R wave progression V1-3 CCR Otherwise Normal ECG
[2018-09-15] MEDS: Albuterol-Ipratrop 3 mg / 0.5 (3 ml) UD IH SCH ×4 (01:25→20:00)
[2018-09-15] MEDS: MethylPREDNISolone 40 mg Vial IVP SCH ×3 (06:04→17:20)
[2018-09-15] MEDS: Aztreonam 1 Gm in NS 100mL 100 ML IVPB SCH ×3 (06:57→22:10)
[2018-09-15 07:17] LABS: BASO # 0.02 K/mm3 (0.0-2.0); BASO % 0.2 % (0.0-3.0); HEMOGLOBIN 11.7 g/dL (12.0-16.0); LYMPH # 0.8 (1.2-3.4); LYMPH % 6.5 % (22.0-35.0); MEAN CELL VOLUME 89.7 fl (80.0-105.0); MEAN CORPUSCULAR HEMOGLOBIN 25.2 pg (25.0-35.0); MEAN CORPUSCULAR HGB CONC 28.1 g/dl (31.0-37.0); MEAN PLATELET VOLUME 9.1 fl (7.0-11.0); MONO # 0.5 (0.1-0.6); MONO % 3.7 % (1.0-6.0); RBC 4.64 10^6/uL (3.5-6.1); RED CELL DISTRIBUTION WIDTH 16.9 % (11.5-14.5); WHITE BLOOD COUNT 12.5 10^3/uL (4.5-11.0)
[2018-09-15] MEDS ORDERED: Vancomycin 2.5 GM in Sodium Chloride 0.9% 500 ML IVPB ONE (07:30)
[2018-09-15 07:32] LABS: ALBUMIN 3.6 g/dL (3.0-4.8); CALCIUM 8.8 mg/dL (8.4-10.5)
[2018-09-15] MEDS: Budesonide 0.5 mg/2 ml Inhal Susp UD IH SCH ×2 (07:50→20:00)
--- NOTE | 2018-09-15 08:21 | HP ---
DATE OF EXAM: 09/14/2018 CHIEF COMPLAINT: A 72-year-old female came in to the hospital because of dyspnea and short of breath. HISTORY OF PRESENT ILLNESS: This is a 72-year-old female history of chronic atrial fibrillation and chronic anxiety. She has been seen by private doctor a few days ago diagnosed with pneumonia, came in with short of breath, cough getting worse, and not feeling well. She also has some upper respiratory symptoms plus dyspnea, fever on and off, and upper chest discomfort. She has been on Eliquis for atrial fibrillation. She has been on antibiotic that seems not helping, came to the ER for evaluation, and found to be in significant respiratory distress. PAST MEDICAL HISTORY: As I mentioned, the patient had chronic atrial fibrillation, chronic arthritis, depression, anxiety, hypothyroidism, hypercholesterolemia, and COPD. ALLERGIES: SHE DOES HAVE ALLERGY TO PENICILLIN, ASPIRIN, AND DARVON. SOCIAL HISTORY: No smoking. She last time smoked in 2001. She lives with her . She does not drink any alcohol and she does not use any drugs. FAMILY HISTORY: Noncontributory. REVIEW OF SYSTEMS: Difficult to include because the patient seems a little bit lethargic. HOME MEDICATIONS: Tramadol one a day, Klonopin 0.5 one a day, Wellbutrin SR 150 once a day, Carafate 1 g t.i.d., potassium 10 p.o. daily, Synthroid 88 mcg one a day, Neurontin 100 p.o. daily, Lasix once a day, Symbicort 160/4.5 daily, Lipitor one daily, and Eliquis 5 mg b.i.d. PHYSICAL EXAMINATION: GENERAL: The patient was seen in ICU. VITAL SIGNS: Temperature is 97.6, heart rate is 84, blood pressure 122/65, saturating is 94% on BiPAP machine 20/8. HEAD AND NECK: Normal. No JVD. No thyromegaly. CHEST: Few rhonchi and diminished breath sounds. CARDIAC: First sound and second sound normal. There is systolic murmur in mitral area. ABDOMEN: Soft and nontender. EXTREMITIES: No edema. NEUROLOGIC: The patient seems lethargic. She just received Klonopin, but otherwise she has been arousable and responding properly and giving good history prior to my exam. LABORATORY DATA: White count 16.7, hemoglobin 12.6, hematocrit 43.3, and platelets 423. Chemistry; sodium 141, potassium 5.2, chloride 102, bicarb 34, BUN 32, and creatinine 1.4. Blood sugar 190. Magnesium 2.3. Total bili is 0.4, AST 57, ALT 49, and alkaline phosphatase is normal. There is also proBNP 1560. Total protein 7.6. Albumin is 3.9. Globulin is 3.7. Chest x-ray shows right-sided effusion, there is infiltrate in the right lower lobe pneumonia. Also, the patient had electrocardiogram, not yet read, but it looks like heart rate of 88. There is no any ST elevation or any evidence of significant ischemia and it is a sinus rhythm, normal axis, no significant ischemia, and normal EKG. The patient also had laboratory study including blood gas, which shows initially pH of 7.25, pCO2 of 76, bicarb 33, pO2 was 80, and oxygen saturation was 96.7. IMPRESSION AND PLAN: This is a 72-year-old female came in with dyspnea, respiratory symptoms, and chest discomfort, and found to have right lower lobe pneumonia. She also noted CO2 elevation with respiratory acidosis with elevated bicarbonate, which could be chronic CO2 elevation with acute worsening with her respiratory infections. We will admit the patient. The patient is currently on IV antibiotics. She is on azithromycin. She is on Solu-Medrol IV and inhaled bronchodilators. We will continue current antibiotics. We will get a Pulmonary consult with Dr. Masterson and we will follow clinically. Continue bilevel positive airway pressure machine. Continue monitoring in Intensive Care Unit. History of chronic atrial fibrillation and hypothyroidism. Plan is to continue current medications including levothyroxine 88, Lipitor 10, Lasix 40 p.o. daily, and potassium chloride 10 mEq once a day. We will continue also Protonix 40 mg once a day and Wellbutrin SR 150. Continue current therapy. Followup clinically. We will repeat labs in the morning and we will follow up with other consultants. We will hold off on Klonopin for now since the patient may have problem with addition from the effect of Klonopin; however, she has been taking it for a long time. Continue current therapy. Discussed with resident on the case in the ICU. Patricio Saleeb, MD
[2018-09-15 08:54] LABS: INR 1.49; PARTIAL THROMBOPLASTIN TIME 77.2 Seconds (26.9-38.3); PROTHROMBIN TIME 16.8 SECONDS (9.4-12.5)
[2018-09-15] MEDS: Levothyroxine 88 MCG TAB PO SCH (08:59)
[2018-09-15] MEDS: buPROPion SR 150 MG TABLET PO SCH (09:00)
[2018-09-15] MEDS: Potassium Chloride 10 mEq ER Tab PO SCH (09:00)
[2018-09-15] MEDS: levoFLOXacin 750 MG TAB PO SCH (09:03)
[2018-09-15] MEDS ORDERED: Azithromycin 250 MG in Sodium Chloride 0.9% 250 ML IVPB ONE (10:00)
[2018-09-15] MEDS ORDERED: Non Formulary Medication (Budesonide/Formoterol Fumarate [Symbicort 160-4.5 Mcg Inhaler] 1 IH SCH (10:00)
[2018-09-15] MEDS ORDERED: Azithromycin 500MG/NS 250ml 500 MG/250 ML BAG IVPB SCH (10:00)
[2018-09-15 11:42] LABS: ARTERIAL BLOOD GAS HCO3 32.2 mmol/L (21-28); ARTERIAL BLOOD GAS HEMOGLOBIN 11.7 g/dL (11.7-17.4); ARTERIAL BLOOD GAS O2 CONTENT 15.1 ML/dl (15-23); ARTERIAL BLOOD GAS O2 SAT 94.5 % (95-98); ARTERIAL BLOOD GAS PCO2 61 mm/Hg (35-45); ARTERIAL BLOOD GAS PH 7.33 (7.35-7.45); ARTERIAL BLOOD GAS TCO2 34.1 mmol.L (22-28)
--- NOTE | 2018-09-15 12:55 | CP.CCUPN ---
<Armando Riddle - Last Filed: 09/15/18 14:26> CCU Subjective - Physician Review Subjective (Free Text): 09/15/18 12:53 CRITICAL CARE PROGRESS NOTE FOR DR. JT Riddle PGY1 Pt seen and examined at bedside in ICU today. Resting comfortably, in no respiratory distress on 2L NC, tolerating diet. Denies 12 point ROS CCU Objective - Vital Signs / Intake & Output Vital Signs (Last 4 hours): Vital Signs BP 09/15/18 09:02 132/59 L Intake and Output (Last 8hrs): Intake & Output 09/14/18 09/15/18 09/15/18 22:59 06:59 14:59 Intake Total 180 Output Total 500 Balance -320 Intake: Oral 180 Output: Urine 500 Condom 0 Straight 500 Other: # Bowel Movements 0 - Physical Exam Head: Positive for: Atraumatic, Normocephalic Pupils: Positive for: PERRL Extroacular Muscles: Positive for: EOMI Conjunctiva: Positive for: Normal Mouth: Positive for: Moist Mucous Membranes Neck: Positive for: Normal Range of Motion Respiratory/Chest: Positive for: Rales (bilaterally). Negative for: Respiratory Distress, Accessory Muscle Use Cardiovascular: Positive for: Regular Rate and Rhythm, Normal S1, S2. Negative for: Murmurs Abdomen: Negative for: Tenderness, Distention, Peritoneal Signs Back: Positive for: Normal Inspection Upper Extremity: Positive for: Normal Inspection. Negative for: Cyanosis, Edema Lower Extremity: Positive for: Normal Inspection. Negative for: Edema Neurological: Positive for: GCS=15, CN II-XII Intact, Speech Normal Skin: Positive for: Warm, Dry, Normal Color. Negative for: Rashes Psychiatric: Positive for: Alert, Oriented x 3, Normal Insight, Normal Concentration - Medications Active Medications: Active Medications Generic Name Dose Route Start Last Admin Trade Name Freq PRN Reason Stop Dose Admin Albuterol/Ipratropium 3 ml 09/14/18 20:00 09/15/18 07:50 Duoneb 3 Mg/0.5 Mg (3 Ml) Ud IH 3 ml [id number] DOMINICK Administration Albuterol/Ipratropium 3 ml 09/14/18 14:36 Duoneb 3 Mg/0.5 Mg (3 Ml) Ud IH [id number] PRN Shortness of Breath Apixaban 5 mg 09/14/18 18:00 09/15/18 09:02 Eliquis PO 5 mg BID DOMINICK Administration Protocol Atorvastatin Calcium 10 mg 09/14/18 22:00 09/14/18 22:25 Lipitor PO 10 mg HS DOMINICK Administration Budesonide 0.5 mg 09/14/18 20:00 09/15/18 07:50 Pulmicort Respules IH 0.5 mg [id number] DOMINICK Administration Bupropion HCl 150 mg 09/14/18 12:15 09/15/18 09:00 Wellbutrin Sr 150 Mg PO 150 mg DAILY DOMINICK Administration Clonazepam 0.5 mg 09/14/18 12:15 09/14/18 13:20 Klonopin PO 0.5 mg DAILY DOMINICK Administration Protocol Furosemide 40 mg 09/14/18 12:15 09/15/18 09:02 Lasix PO 40 mg DAILY DOMINICK Administration Gabapentin 100 mg 09/14/18 12:15 09/15/18 09:00 Neurontin PO 100 mg DAILY DOMINICK Administration Protocol Aztreonam 100 mls @ 100 mls/hr 09/15/18 06:15 09/15/18 06:57 Azactam 1 Gm IVPB 09/22/18 06:16 100 mls/hr Q8 DOMINICK Administration Protocol Levofloxacin 750 mg 09/15/18 10:00 09/15/18 09:03 Levaquin PO 750 mg QOTHERDAY DOMINICK Administration Protocol Levothyroxine Sodium 88 mcg 09/14/18 12:15 09/15/18 08:59 Synthroid PO 88 mcg DAILY DOMINICK Administration Methylprednisolone 40 mg 09/14/18 14:49 09/15/18 06:04 Solu-Medrol IVP 40 mg Q6 DOMINICK Administration Pantoprazole Sodium 40 mg 09/15/18 10:00 09/15/18 09:03 Protonix Inj IVP 40 mg DAILY DOMINICK Administration Potassium Chloride 10 meq 09/15/18 08:00 09/15/18 09:00 Klor-Con 10 PO 10 meq 0800 DOMINICK Administration Sucralfate 1 gm 09/14/18 14:00 09/15/18 09:00 Carafate Tab PO 1 gm TID DOMINICK Administration - Patient Studies Lab Studies: Microbiology Studies 09/14/18 08:00 Blood Culture - Preliminary Blood NO GROWTH AFTER 24 HOURS 02/10/19 12:55 Urine Culture - Final Urine Random No Growth (<1,000 CFU/ML) 09/14/18 07:45 Blood Culture - Preliminary Blood NO GROWTH AFTER 24 HOURS Lab Studies 09/15/18 09/15/18 09/15/18 Range/Units 11:34 08:30 07:21 WBC (4.5-11.0) 10^3/uL RBC (3.5-6.1) 10^6/uL Hgb (12.0-16.0) g/dL Hct (36.0-48.0) % MCV (80.0-105.0) fl MCH (25.0-35.0) pg MCHC (31.0-37.0) g/dl RDW (11.5-14.5) % Plt Count (120.0-450.0) 10^3/uL MPV (7.0-11.0) fl Neut % (Auto) (50.0-68.0) % Lymph % (Auto) (22.0-35.0) % Morrison % (Auto) (1.0-6.0) % Eos % (Auto) (1.5-5.0) % Baso % (Auto) (0.0-3.0) % Lymph # (Auto) (1.2-3.4) Morrison # (Auto) (0.1-0.6) Eos # (Auto) (0.0-0.7) Baso # (Auto) (0.0-2.0) K/mm3 Absolute Neuts (auto) (1.4-6.5) PT 16.8 H (9.4-12.5) SECONDS INR 1.49 APTT 77.2 H (26.9-38.3) Seconds pCO2 61 H (35-45) mm/Hg pO2 60.0 L (80-100) mm/Hg HCO3 32.2 H (21-28) mmol/L ABG pH 7.33 L (7.35-7.45) ABG Total CO2 34.1 H (22-28) mmol.L ABG O2 Saturation 94.5 L (95-98) % ABG O2 Content 15.1 (15-23) ML/dl ABG Base Excess 4.8 H (-2.0-3.0) mmol/L ABG Hemoglobin 11.7 (11.7-17.4) g/dL ABG Carboxyhemoglobin 2.1 H (0.5-1.5) % POC ABG HHb (Measured) 5.3 H (0-5) % ABG Methemoglobin 1.1 (0.0-3.0) % ABG O2 Capacity 16.0 (16-24) mL/dl Hgb O2 Saturation 91.4 L (95.0-98.0) % FiO2 36.0 % Crit Value Called To [place] escobar Crit Value Called By Thomas appiah Blood Gas Notified Time 1140 Sodium (132-148) mmol/L Potassium (3.6-5.0) mmol/L Chloride (98-107) mmol/L Carbon Dioxide (21-33) mmol/L Anion Gap (10-20) BUN (7-21) mg/dL Creatinine (0.7-1.2) mg/dl Est GFR ( Amer) Est GFR (Non-Af Amer) Random Glucose (70-110) mg/dL Calcium (8.4-10.5) mg/dL Phosphorus (2.5-4.5) mg/dL Magnesium (1.7-2.2) mg/dL Total Bilirubin (0.2-1.3) mg/dL AST (14-36) U/L ALT (7-56) U/L Alkaline Phosphatase (38-126) U/L Troponin I 0.06 D ng/mL Total Protein (5.8-8.3) g/dL Albumin (3.0-4.8) g/dL Globulin gm/dL Albumin/Globulin Ratio (1.1-1.8) Procalcitonin (0.19-0.49) NG/ML Urine Color (YELLOW) Urine Appearance (CLEAR) Urine pH (4.7-8.0) Ur Specific [place] (1.005-1.035) Urine Protein (<30 mg/dL) mg/dL Urine Glucose (UA) (NEGATIVE) mg/dL Urine Ketones (NEGATIVE) mg/dL Urine Blood (NEGATIVE) Urine Nitrate (NEGATIVE) Urine Bilirubin (NEGATIVE) Urine Urobilinogen (<1 E.U./dL) E.U./dL Ur Leukocyte Esterase (NEGATIVE) Sushil/uL Urine RBC (0-2) /hpf Urine WBC (0-6) /hpf Ur Epithelial Cells (0-5) /hpf Urine Bacteria (NONE) /hpf 09/15/18 09/15/18 09/15/18 Range/Units 07:20 06:30 06:30 WBC 12.5 H D (4.5-11.0) 10^3/uL RBC 4.64 (3.5-6.1) 10^6/uL Hgb 11.7 L (12.0-16.0) g/dL Hct 41.6 (36.0-48.0) % MCV 89.7 (80.0-105.0) fl MCH 25.2 (25.0-35.0) pg MCHC 28.1 L (31.0-37.0) g/dl RDW 16.9 H (11.5-14.5) % Plt Count 385 (120.0-450.0) 10^3/uL MPV 9.1 (7.0-11.0) fl Neut % (Auto) 89.6 H (50.0-68.0) % Lymph % (Auto) 6.5 L (22.0-35.0) % Morrison % (Auto) 3.7 (1.0-6.0) % Eos % (Auto) 0.0 L (1.5-5.0) % Baso % (Auto) 0.2 (0.0-3.0) % Lymph # (Auto) 0.8 L (1.2-3.4) Morrison # (Auto) 0.5 (0.1-0.6) Eos # (Auto) 0.0 (0.0-0.7) Baso # (Auto) 0.02 (0.0-2.0) K/mm3 Absolute Neuts (auto) 11.17 H (1.4-6.5) PT (9.4-12.5) SECONDS INR APTT (26.9-38.3) Seconds pCO2 (35-45) mm/Hg pO2 (80-100) mm/Hg HCO3 (21-28) mmol/L ABG pH (7.35-7.45) ABG Total CO2 (22-28) mmol.L ABG O2 Saturation (95-98) % ABG O2 Content (15-23) ML/dl ABG Base Excess (-2.0-3.0) mmol/L ABG Hemoglobin (11.7-17.4) g/dL ABG Carboxyhemoglobin (0.5-1.5) % POC ABG HHb (Measured) (0-5) % ABG Methemoglobin (0.0-3.0) % ABG O2 Capacity (16-24) mL/dl Hgb O2 Saturation (95.0-98.0) % FiO2 % Crit Value Called To Crit Value Called By Blood Gas Notified Time Sodium 141 (132-148) mmol/L Potassium 4.9 (3.6-5.0) mmol/L Chloride 102 (98-107) mmol/L Carbon Dioxide 34 H (21-33) mmol/L Anion Gap 10 (10-20) BUN 30 H (7-21) mg/dL Creatinine 1.1 (0.7-1.2) mg/dl Est GFR ( Amer) 59 Est GFR (Non-Af Amer) 49 Random Glucose 186 H (70-110) mg/dL Calcium 8.8 (8.4-10.5) mg/dL Phosphorus 3.5 (2.5-4.5) mg/dL Magnesium 2.5 H (1.7-2.2) mg/dL Total Bilirubin 0.2 (0.2-1.3) mg/dL AST 35 (14-36) U/L ALT 36 (7-56) U/L Alkaline Phosphatase 101 (38-126) U/L Troponin I ng/mL Total Protein 7.1 (5.8-8.3) g/dL Albumin 3.6 (3.0-4.8) g/dL Globulin 3.5 gm/dL Albumin/Globulin Ratio 1.0 L (1.1-1.8) Procalcitonin 0.09 L (0.19-0.49) NG/ML Urine Color (YELLOW) Urine Appearance (CLEAR) Urine pH (4.7-8.0) Ur Specific [place] (1.005-1.035) Urine Protein (<30 mg/dL) mg/dL Urine Glucose (UA) (NEGATIVE) mg/dL Urine Ketones (NEGATIVE) mg/dL Urine Blood (NEGATIVE) Urine Nitrate (NEGATIVE) Urine Bilirubin (NEGATIVE) Urine Urobilinogen (<1 E.U./dL) E.U./dL Ur Leukocyte Esterase (NEGATIVE) Sushil/uL Urine RBC (0-2) /hpf Urine WBC (0-6) /hpf Ur Epithelial Cells (0-5) /hpf Urine Bacteria (NONE) /hpf 09/14/18 09/14/18 Range/Units 14:20 12:55 WBC (4.5-11.0) 10^3/uL RBC (3.5-6.1) 10^6/uL Hgb (12.0-16.0) g/dL Hct (36.0-48.0) % MCV (80.0-105.0) fl MCH (25.0-35.0) pg MCHC (31.0-37.0) g/dl RDW (11.5-14.5) % Plt Count (120.0-450.0) 10^3/uL MPV (7.0-11.0) fl Neut % (Auto) (50.0-68.0) % Lymph % (Auto) (22.0-35.0) % Morrison % (Auto) (1.0-6.0) % Eos % (Auto) (1.5-5.0) % Baso % (Auto) (0.0-3.0) % Lymph # (Auto) (1.2-3.4) Morrison # (Auto) (0.1-0.6) Eos # (Auto) (0.0-0.7) Baso # (Auto) (0.0-2.0) K/mm3 Absolute Neuts (auto) (1.4-6.5) PT (9.4-12.5) SECONDS INR APTT (26.9-38.3) Seconds pCO2 71 H* (35-45) mm/Hg pO2 75.0 L (80-100) mm/Hg HCO3 33.4 H (21-28) mmol/L ABG pH 7.28 L (7.35-7.45) ABG Total CO2 35.6 H (22-28) mmol.L ABG O2 Saturation 97.1 (95-98) % ABG O2 Content 15.1 (15-23) ML/dl ABG Base Excess 4.8 H (-2.0-3.0) mmol/L ABG Hemoglobin 11.4 L (11.7-17.4) g/dL ABG Carboxyhemoglobin 2.6 H (0.5-1.5) % POC ABG HHb (Measured) 2.8 (0-5) % ABG Methemoglobin 0.9 (0.0-3.0) % ABG O2 Capacity 15.6 L (16-24) mL/dl Hgb O2 Saturation 93.7 L (95.0-98.0) % FiO2 50.0 % Crit Value Called To Dr. swain,0mar Crit Value Called By 4315 Blood Gas Notified Time 1430 Sodium (132-148) mmol/L Potassium (3.6-5.0) mmol/L Chloride (98-107) mmol/L Carbon Dioxide (21-33) mmol/L Anion Gap (10-20) BUN (7-21) mg/dL Creatinine (0.7-1.2) mg/dl Est GFR ( Amer) Est GFR (Non-Af Amer) Random Glucose (70-110) mg/dL Calcium (8.4-10.5) mg/dL Phosphorus (2.5-4.5) mg/dL Magnesium (1.7-2.2) mg/dL Total Bilirubin (0.2-1.3) mg/dL AST (14-36) U/L ALT (7-56) U/L Alkaline Phosphatase (38-126) U/L Troponin I ng/mL Total Protein (5.8-8.3) g/dL Albumin (3.0-4.8) g/dL Globulin gm/dL Albumin/Globulin Ratio (1.1-1.8) Procalcitonin (0.19-0.49) NG/ML Urine Color Yellow (YELLOW) Urine Appearance Clear (CLEAR) Urine pH 6.0 (4.7-8.0) Ur Specific [place] 1.025 (1.005-1.035) Urine Protein Trace H (<30 mg/dL) mg/dL Urine Glucose (UA) Negative (NEGATIVE) mg/dL Urine Ketones Negative (NEGATIVE) mg/dL Urine Blood Negative (NEGATIVE) Urine Nitrate Negative (NEGATIVE) Urine Bilirubin Negative (NEGATIVE) Urine Urobilinogen 0.2 (<1 E.U./dL) E.U./dL Ur Leukocyte Esterase Negative (NEGATIVE) Sushil/uL Urine RBC None (0-2) /hpf Urine WBC None (0-6) /hpf Ur Epithelial Cells 0 - 2 (0-5) /hpf Urine Bacteria Trace (NONE) /hpf Laboratory Results - last 24 hr 09/14/18 09/14/18 09/15/18 12:55 14:20 06:30 WBC 12.5 H D RBC 4.64 Hgb 11.7 L Hct 41.6 MCV 89.7 MCH 25.2 MCHC 28.1 L RDW 16.9 H Plt Count 385 MPV 9.1 Neut % (Auto) 89.6 H Lymph % (Auto) 6.5 L Morrison % (Auto) 3.7 Eos % (Auto) 0.0 L Baso % (Auto) 0.2 Lymph # (Auto) 0.8 L Morrison # (Auto) 0.5 Eos # (Auto) 0.0 Baso # (Auto) 0.02 Absolute Neuts (auto) 11.17 H PT INR APTT pCO2 71 H* pO2 75.0 L HCO3 33.4 H ABG pH 7.28 L ABG Total CO2 35.6 H ABG O2 Saturation 97.1 ABG O2 Content 15.1 ABG Base Excess 4.8 H ABG Hemoglobin 11.4 L ABG Carboxyhemoglobin 2.6 H POC ABG HHb (Measured) 2.8 ABG Methemoglobin 0.9 ABG O2 Capacity 15.6 L Hgb O2 Saturation 93.7 L FiO2 50.0 Crit Value Called To Dr. swain,0mar Crit Value Called By 4315 Blood Gas Notified Time 1430 Sodium Potassium Chloride Carbon Dioxide Anion Gap BUN Creatinine Est GFR ( Amer) Est GFR (Non-Af Amer) Random Glucose Calcium Phosphorus Magnesium Total Bilirubin AST ALT Alkaline Phosphatase Troponin I Total Protein Albumin Globulin Albumin/Globulin Ratio Procalcitonin Urine Color Yellow Urine Appearance Clear Urine pH 6.0 Ur Specific [place] 1.025 Urine Protein Trace H Urine Glucose (UA) Negative Urine Ketones Negative Urine Blood Negative Urine Nitrate Negative Urine Bilirubin Negative Urine Urobilinogen 0.2 Ur Leukocyte Esterase Negative Urine RBC None Urine WBC None Ur Epithelial Cells 0 - 2 Urine Bacteria Trace 09/15/18 09/15/18 09/15/18 06:30 07:20 07:21 WBC RBC Hgb Hct MCV MCH MCHC RDW Plt Count MPV Neut % (Auto) Lymph % (Auto) Morrison % (Auto) Eos % (Auto) Baso % (Auto) Lymph # (Auto) Morrison # (Auto) Eos # (Auto) Baso # (Auto) Absolute Neuts (auto) PT INR APTT pCO2 pO2 HCO3 ABG pH ABG Total CO2 ABG O2 Saturation ABG O2 Content ABG Base Excess ABG Hemoglobin ABG Carboxyhemoglobin POC ABG HHb (Measured) ABG Methemoglobin ABG O2 Capacity Hgb O2 Saturation FiO2 Crit Value Called To Crit Value Called By Blood Gas Notified Time Sodium 141 Potassium 4.9 Chloride 102 Carbon Dioxide 34 H Anion Gap 10 BUN 30 H Creatinine 1.1 Est GFR ( Amer) 59 Est GFR (Non-Af Amer) 49 Random Glucose 186 H Calcium 8.8 Phosphorus 3.5 Magnesium 2.5 H Total Bilirubin 0.2 AST 35 ALT 36 Alkaline Phosphatase 101 Troponin I 0.06 D Total Protein 7.1 Albumin 3.6 Globulin 3.5 Albumin/Globulin Ratio 1.0 L Procalcitonin 0.09 L Urine Color Urine Appearance Urine pH Ur Specific [place] Urine Protein Urine Glucose (UA) Urine Ketones Urine Blood Urine Nitrate Urine Bilirubin Urine Urobilinogen Ur Leukocyte Esterase Urine RBC Urine WBC Ur Epithelial Cells Urine Bacteria 09/15/18 09/15/18 08:30 11:34 WBC RBC Hgb Hct MCV MCH MCHC RDW Plt Count MPV Neut % (Auto) Lymph % (Auto) Morrison % (Auto) Eos % (Auto) Baso % (Auto) Lymph # (Auto) Morrison # (Auto) Eos # (Auto) Baso # (Auto) Absolute Neuts (auto) PT 16.8 H INR 1.49 APTT 77.2 H pCO2 61 H pO2 60.0 L HCO3 32.2 H ABG pH 7.33 L ABG Total CO2 34.1 H ABG O2 Saturation 94.5 L ABG O2 Content 15.1 ABG Base Excess 4.8 H ABG Hemoglobin 11.7 ABG Carboxyhemoglobin 2.1 H POC ABG HHb (Measured) 5.3 H ABG Methemoglobin 1.1 ABG O2 Capacity 16.0 Hgb O2 Saturation 91.4 L FiO2 36.0 Crit Value Called To [place] escobar Crit Value Called By Thomas appiah Blood Gas Notified Time 1140 Sodium Potassium Chloride Carbon Dioxide Anion Gap BUN Creatinine Est GFR ( Amer) Est GFR (Non-Af Amer) Random Glucose Calcium Phosphorus Magnesium Total Bilirubin AST ALT Alkaline Phosphatase Troponin I Total Protein Albumin Globulin Albumin/Globulin Ratio Procalcitonin Urine Color Urine Appearance Urine pH Ur Specific [place] Urine Protein Urine Glucose (UA) Urine Ketones Urine Blood Urine Nitrate Urine Bilirubin Urine Urobilinogen Ur Leukocyte Esterase Urine RBC Urine WBC Ur Epithelial Cells Urine Bacteria Review of Systems - Review of Systems Review of Systems: per HPI Critical Care Progress Note - Nutrition Nutrition: Nutrition Category Date Time Status Heart Healthy Diet [DIET] Diets 09/14/18 Breakfast Active Assessment/Plan - Assessment and Plan (Free Text) Assessment: 72 y/o F with PMH of atrial fibrillation on Eliquis, COPD, obesity, renal insufficiency, hypothyroidism transferred to ICU for acute respiratory distress requiring BiPAP ventilation in the setting of RLL pneumonia, COPD, obesity hypoventilation syndrome Plan: Neuro GCS 15 AxO x 3 No acute neuro deficits Cardiovascular Atrial fibrillation Currently NSR with HR @88 continue home rate control with diltiazem continue home eliquis Echo results pending Maintain MAP>65 Chest Pain EKG reveals no ST/T wave changes troponins in indeterminate range cardiology following Congestive Heart Failure Echo report pending continue home lasix Pulmonology Hypercapnic Hypoxic Respiratory Failure Likely 2/2 RLL pneumonia Not in acute respiratory distress 7.33/61/60/34. CO2 retention improving continue aztreonam/ levofloxacin continue BiPAP at night continue pulmonary toilet COPD Exacerbation continue solumedrol 40Q6 continue duonebs dominick & prn continue budesonide continue acetylcysteine GI Protonix for GI ppx /Renal SONAM on CKD3a Creatinine improving appropriate urine output discontinue so Endocrine Maintain euglycemia <180 per NICE-SUGAR trial ID RLL Pneumonia continue aztreonam/levofloxacin DVT/GI: Eliquis/Protonix Dispo: Pt is feeling much better. Her respiratory status has improved. She is resting comfortably on NC. She no longer requires ICU care. She will be transferred to med/surg. Please reconsult if necessary Case seen, examined and discussed with attending physician, Dr. Jt Riddle PGY1 <Nancy Waters - Last Filed: 09/15/18 15:30> CCU Objective - Vital Signs / Intake & Output Vital Signs (Last 4 hours): Vital Signs Temp Pulse Resp BP Pulse Ox 09/15/18 14:00 90 09/15/18 13:31 90 125/66 09/15/18 12:00 98.2 F 82 20 95 - Medications Active Medications: Active Medications Generic Name Dose Route Start Last Admin Trade Name Freq PRN Reason Stop Dose Admin Acetylcysteine 4 ml 09/15/18 20:00 Acetylcysteine 20% IH BIDRESP DOMINICK Albuterol/Ipratropium 3 ml 09/14/18 20:00 09/15/18 14:14 Duoneb 3 Mg/0.5 Mg (3 Ml) Ud IH 3 ml [id number] DOMINICK Administration Albuterol/Ipratropium 3 ml 09/14/18 14:36 Duoneb 3 Mg/0.5 Mg (3 Ml) Ud IH [id number] PRN Shortness of Breath Apixaban 5 mg 09/14/18 18:00 09/15/18 09:02 Eliquis PO 5 mg BID DOMINICK Administration Protocol Atorvastatin Calcium 10 mg 09/14/18 22:00 09/14/18 22:25 Lipitor PO 10 mg HS DOMINICK Administration Budesonide 0.5 mg 09/14/18 20:00 09/15/18 07:50 Pulmicort Respules IH 0.5 mg [id number] DOMINICK Administration Bupropion HCl 150 mg 09/14/18 12:15 09/15/18 09:00 Wellbutrin Sr 150 Mg PO 150 mg DAILY DOMINICK Administration Clonazepam 0.5 mg 09/14/18 12:15 09/14/18 13:20 Klonopin PO 0.5 mg DAILY DOMINICK Administration Protocol Diltiazem HCl 60 mg 09/15/18 14:00 09/15/18 13:31 Cardizem PO 60 mg TID DOMINICK Administration Furosemide 40 mg 09/14/18 12:15 09/15/18 09:02 Lasix PO 40 mg DAILY DOMINICK Administration Gabapentin 100 mg 09/14/18 12:15 09/15/18 09:00 Neurontin PO 100 mg DAILY DOMINICK Administration Protocol Aztreonam 100 mls @ 100 mls/hr 09/15/18 06:15 09/15/18 13:27 Azactam 1 Gm IVPB 09/22/18 06:16 100 mls/hr Q8 DOMINICK Administration Protocol Levofloxacin 750 mg 09/15/18 10:00 09/15/18 09:03 Levaquin PO 750 mg QOTHERDAY DOMINICK Administration Protocol Levothyroxine Sodium 88 mcg 09/14/18 12:15 09/15/18 08:59 Synthroid PO 88 mcg DAILY DOMINICK Administration Methylprednisolone 40 mg 09/14/18 14:49 09/15/18 13:00 Solu-Medrol IVP 40 mg Q6 DOMINICK Administration Pantoprazole Sodium 40 mg 09/15/18 10:00 09/15/18 09:03 Protonix Inj IVP 40 mg DAILY DOMINICK Administration Potassium Chloride 10 meq 09/15/18 08:00 09/15/18 09:00 Klor-Con 10 PO 10 meq 0800 DOMINICK Administration Sucralfate 1 gm 09/14/18 14:00 09/15/18 13:28 Carafate Tab PO 1 gm TID DOMINICK Administration - Patient Studies Lab Studies: Microbiology Studies 09/14/18 08:00 Blood Culture - Preliminary Blood NO GROWTH AFTER 24 HOURS 09/14/18 12:55 Urine Culture - Final Urine Random No Growth (<1,000 CFU/ML) 09/14/18 07:45 Blood Culture - Preliminary Blood NO GROWTH AFTER 24 HOURS Lab Studies 09/15/18 09/15/18 09/15/18 Range/Units 14:05 11:34 08:30 WBC (4.5-11.0) 10^3/uL RBC (3.5-6.1) 10^6/uL Hgb (12.0-16.0) g/dL Hct (36.0-48.0) % MCV (80.0-105.0) fl MCH (25.0-35.0) pg MCHC (31.0-37.0) g/dl RDW (11.5-14.5) % Plt Count (120.0-450.0) 10^3/uL MPV (7.0-11.0) fl Neut % (Auto) (50.0-68.0) % Lymph % (Auto) (22.0-35.0) % Morrison % (Auto) (1.0-6.0) % Eos % (Auto) (1.5-5.0) % Baso % (Auto) (0.0-3.0) % Lymph # (Auto) (1.2-3.4) Morrison # (Auto) (0.1-0.6) Eos # (Auto) (0.0-0.7) Baso # (Auto) (0.0-2.0) K/mm3 Absolute Neuts (auto) (1.4-6.5) PT 16.8 H (9.4-12.5) SECONDS INR 1.49 APTT 77.2 H (26.9-38.3) Seconds pCO2 61 H (35-45) mm/Hg pO2 60.0 L (80-100) mm/Hg HCO3 32.2 H (21-28) mmol/L ABG pH 7.33 L (7.35-7.45) ABG Total CO2 34.1 H (22-28) mmol.L ABG O2 Saturation 94.5 L (95-98) % ABG O2 Content 15.1 (15-23) ML/dl ABG Base Excess 4.8 H (-2.0-3.0) mmol/L ABG Hemoglobin 11.7 (11.7-17.4) g/dL ABG Carboxyhemoglobin 2.1 H (0.5-1.5) % POC ABG HHb (Measured) 5.3 H (0-5) % ABG Methemoglobin 1.1 (0.0-3.0) % ABG O2 Capacity 16.0 (16-24) mL/dl Hgb O2 Saturation 91.4 L (95.0-98.0) % FiO2 36.0 % Crit Value Called To [place] escobar Crit Value Called By Thomas appiah Blood Gas Notified Time 1140 Sodium (132-148) mmol/L Potassium (3.6-5.0) mmol/L Chloride (98-107) mmol/L Carbon Dioxide (21-33) mmol/L Anion Gap (10-20) BUN (7-21) mg/dL Creatinine (0.7-1.2) mg/dl Est GFR ( Amer) Est GFR (Non-Af Amer) Random Glucose (70-110) mg/dL Calcium (8.4-10.5) mg/dL Phosphorus (2.5-4.5) mg/dL Magnesium (1.7-2.2) mg/dL Total Bilirubin (0.2-1.3) mg/dL AST (14-36) U/L ALT (7-56) U/L Alkaline Phosphatase (38-126) U/L Troponin I 0.05 ng/mL Total Protein (5.8-8.3) g/dL Albumin (3.0-4.8) g/dL Globulin gm/dL Albumin/Globulin Ratio (1.1-1.8) Procalcitonin (0.19-0.49) NG/ML 09/15/18 09/15/18 09/15/18 Range/Units 07:21 07:20 06:30 WBC (4.5-11.0) 10^3/uL RBC (3.5-6.1) 10^6/uL Hgb (12.0-16.0) g/dL Hct (36.0-48.0) % MCV (80.0-105.0) fl MCH (25.0-35.0) pg MCHC (31.0-37.0) g/dl RDW (11.5-14.5) % Plt Count (120.0-450.0) 10^3/uL MPV (7.0-11.0) fl Neut % (Auto) (50.0-68.0) % Lymph % (Auto) (22.0-35.0) % Morrison % (Auto) (1.0-6.0) % Eos % (Auto) (1.5-5.0) % Baso % (Auto) (0.0-3.0) % Lymph # (Auto) (1.2-3.4) Morrison # (Auto) (0.1-0.6) Eos # (Auto) (0.0-0.7) Baso # (Auto) (0.0-2.0) K/mm3 Absolute Neuts (auto) (1.4-6.5) PT (9.4-12.5) SECONDS INR APTT (26.9-38.3) Seconds pCO2 (35-45) mm/Hg pO2 (80-100) mm/Hg HCO3 (21-28) mmol/L ABG pH (7.35-7.45) ABG Total CO2 (22-28) mmol.L ABG O2 Saturation (95-98) % ABG O2 Content (15-23) ML/dl ABG Base Excess (-2.0-3.0) mmol/L ABG Hemoglobin (11.7-17.4) g/dL ABG Carboxyhemoglobin (0.5-1.5) % POC ABG HHb (Measured) (0-5) % ABG Methemoglobin (0.0-3.0) % ABG O2 Capacity (16-24) mL/dl Hgb O2 Saturation (95.0-98.0) % FiO2 % Crit Value Called To Crit Value Called By Blood Gas Notified Time Sodium 141 (132-148) mmol/L Potassium 4.9 (3.6-5.0) mmol/L Chloride 102 (98-107) mmol/L Carbon Dioxide 34 H (21-33) mmol/L Anion Gap 10 (10-20) BUN 30 H (7-21) mg/dL Creatinine 1.1 (0.7-1.2) mg/dl Est GFR ( Amer) 59 Est GFR (Non-Af Amer) 49 Random Glucose 186 H (70-110) mg/dL Calcium 8.8 (8.4-10.5) mg/dL Phosphorus 3.5 (2.5-4.5) mg/dL Magnesium 2.5 H (1.7-2.2) mg/dL Total Bilirubin 0.2 (0.2-1.3) mg/dL AST 35 (14-36) U/L ALT 36 (7-56) U/L Alkaline Phosphatase 101 (38-126) U/L Troponin I 0.06 D ng/mL Total Protein 7.1 (5.8-8.3) g/dL Albumin 3.6 (3.0-4.8) g/dL Globulin 3.5 gm/dL Albumin/Globulin Ratio 1.0 L (1.1-1.8) Procalcitonin 0.09 L (0.19-0.49) NG/ML 09/15/18 Range/Units 06:30 WBC 12.5 H D (4.5-11.0) 10^3/uL RBC 4.64 (3.5-6.1) 10^6/uL Hgb 11.7 L (12.0-16.0) g/dL Hct 41.6 (36.0-48.0) % MCV 89.7 (80.0-105.0) fl MCH 25.2 (25.0-35.0) pg MCHC 28.1 L (31.0-37.0) g/dl RDW 16.9 H (11.5-14.5) % Plt Count 385 (120.0-450.0) 10^3/uL MPV 9.1 (7.0-11.0) fl Neut % (Auto) 89.6 H (50.0-68.0) % Lymph % (Auto) 6.5 L (22.0-35.0) % Morrison % (Auto) 3.7 (1.0-6.0) % Eos % (Auto) 0.0 L (1.5-5.0) % Baso % (Auto) 0.2 (0.0-3.0) % Lymph # (Auto) 0.8 L (1.2-3.4) Morrison # (Auto) 0.5 (0.1-0.6) Eos # (Auto) 0.0 (0.0-0.7) Baso # (Auto) 0.02 (0.0-2.0) K/mm3 Absolute Neuts (auto) 11.17 H (1.4-6.5) PT (9.4-12.5) SECONDS INR APTT (26.9-38.3) Seconds pCO2 (35-45) mm/Hg pO2 (80-100) mm/Hg HCO3 (21-28) mmol/L ABG pH (7.35-7.45) ABG Total CO2 (22-28) mmol.L ABG O2 Saturation (95-98) % ABG O2 Content (15-23) ML/dl ABG Base Excess (-2.0-3.0) mmol/L ABG Hemoglobin (11.7-17.4) g/dL ABG Carboxyhemoglobin (0.5-1.5) % POC ABG HHb (Measured) (0-5) % ABG Methemoglobin (0.0-3.0) % ABG O2 Capacity (16-24) mL/dl Hgb O2 Saturation (95.0-98.0) % FiO2 % Crit Value Called To Crit Value Called By Blood Gas Notified Time Sodium (132-148) mmol/L Potassium (3.6-5.0) mmol/L Chloride (98-107) mmol/L Carbon Dioxide (21-33) mmol/L Anion Gap (10-20) BUN (7-21) mg/dL Creatinine (0.7-1.2) mg/dl Est GFR ( Amer) Est GFR (Non-Af Amer) Random Glucose (70-110) mg/dL Calcium (8.4-10.5) mg/dL Phosphorus (2.5-4.5) mg/dL Magnesium (1.7-2.2) mg/dL Total Bilirubin (0.2-1.3) mg/dL AST (14-36) U/L ALT (7-56) U/L Alkaline Phosphatase (38-126) U/L Troponin I ng/mL Total Protein (5.8-8.3) g/dL Albumin (3.0-4.8) g/dL Globulin gm/dL Albumin/Globulin Ratio (1.1-1.8) Procalcitonin (0.19-0.49) NG/ML Laboratory Results - last 24 hr 09/15/18 09/15/18 09/15/18 06:30 06:30 07:20 WBC 12.5 H D RBC 4.64 Hgb 11.7 L Hct 41.6 MCV 89.7 MCH 25.2 MCHC 28.1 L RDW 16.9 H Plt Count 385 MPV 9.1 Neut % (Auto) 89.6 H Lymph % (Auto) 6.5 L Morrison % (Auto) 3.7 Eos % (Auto) 0.0 L Baso % (Auto) 0.2 Lymph # (Auto) 0.8 L [place] # (Auto) 0.5 Eos # (Auto) 0.0 Baso # (Auto) 0.02 Absolute Neuts (auto) 11.17 H PT INR APTT pCO2 pO2 HCO3 ABG pH ABG Total CO2 ABG O2 Saturation ABG O2 Content ABG Base Excess ABG Hemoglobin ABG Carboxyhemoglobin POC ABG HHb (Measured) ABG Methemoglobin ABG O2 Capacity Hgb O2 Saturation FiO2 Crit Value Called To Crit Value Called By Blood Gas Notified Time Sodium 141 Potassium 4.9 Chloride 102 Carbon Dioxide 34 H Anion Gap 10 BUN 30 H Creatinine 1.1 Est GFR ( Amer) 59 Est GFR (Non-Af Amer) 49 Random Glucose 186 H Calcium 8.8 Phosphorus 3.5 Magnesium 2.5 H Total Bilirubin 0.2 AST 35 ALT 36 Alkaline Phosphatase 101 Troponin I Total Protein 7.1 Albumin 3.6 Globulin 3.5 Albumin/Globulin Ratio 1.0 L Procalcitonin 0.09 L 09/15/18 09/15/18 09/15/18 07:21 08:30 11:34 WBC RBC Hgb Hct MCV MCH MCHC RDW Plt Count MPV Neut % (Auto) Lymph % (Auto) [place] % (Auto) Eos % (Auto) Baso % (Auto) Lymph # (Auto) [place] # (Auto) Eos # (Auto) Baso # (Auto) Absolute Neuts (auto) PT 16.8 H INR 1.49 APTT 77.2 H pCO2 61 H pO2 60.0 L HCO3 32.2 H ABG pH 7.33 L ABG Total CO2 34.1 H ABG O2 Saturation 94.5 L ABG O2 Content 15.1 ABG Base Excess 4.8 H ABG Hemoglobin 11.7 ABG Carboxyhemoglobin 2.1 H POC ABG HHb (Measured) 5.3 H ABG Methemoglobin 1.1 ABG O2 Capacity 16.0 Hgb O2 Saturation 91.4 L FiO2 36.0 Crit Value Called To [place] escobar Crit Value Called By Thomas appiah Blood Gas Notified Time 1140 Sodium Potassium Chloride Carbon Dioxide Anion Gap BUN Creatinine Est GFR ( Amer) Est GFR (Non-Af Amer) Random Glucose Calcium Phosphorus Magnesium Total Bilirubin AST ALT Alkaline Phosphatase Troponin I 0.06 D Total Protein Albumin Globulin Albumin/Globulin Ratio Procalcitonin 09/15/18 14:05 WBC RBC Hgb Hct MCV MCH MCHC RDW Plt Count MPV Neut % (Auto) Lymph % (Auto) Morrison % (Auto) Eos % (Auto) Baso % (Auto) Lymph # (Auto) [place] # (Auto) Eos # (Auto) Baso # (Auto) Absolute Neuts (auto) PT INR APTT pCO2 pO2 HCO3 ABG pH ABG Total CO2 ABG O2 Saturation ABG O2 Content ABG Base Excess ABG Hemoglobin ABG Carboxyhemoglobin POC ABG HHb (Measured) ABG Methemoglobin ABG O2 Capacity Hgb O2 Saturation FiO2 Crit Value Called To Crit Value Called By Blood Gas Notified Time Sodium Potassium Chloride Carbon Dioxide Anion Gap BUN Creatinine Est GFR ( Amer) Est GFR (Non-Af Amer) Random Glucose Calcium Phosphorus Magnesium Total Bilirubin AST ALT Alkaline Phosphatase Troponin I 0.05 Total Protein Albumin Globulin Albumin/Globulin Ratio Procalcitonin Critical Care Progress Note - Nutrition Nutrition: Nutrition Category Date Time Status Heart Healthy Diet [DIET] Diets 09/14/18 Breakfast Active Addendum Addendum: 09/15/18 15:30 ICU Attending Addendum Patient seen and examined. Case reviewed on round with housestaff. Agree with resident note above with the following additions/exceptions 72 F with PMH of atrial fibrillation on Eliquis, COPD, obesity, renal insufficiency, hypothyroidism admitted to ICU for acute respiratory distress requiring BiPAP in the setting of RLL pneumonia. Patient's mentation much improved today initial decline likely from hypercapnea with underlying COPD and OHS possibly exasc by usage of Klonopin as well ABG improved today d/w pulm Dr Masterson, cont nebs as is with Bipap QHS steroids as per pulm abx as per ID would de-escalate to HCAP coverage SONAM improved 1.4 to 1.1 ok to transfer out of ICU rest of care as above Nancy Waters MD Pulmonary Critical Care Attending
--- NOTE | 2018-09-15 12:58 | CP.PCM.CON ---
History of Present Illness - History of Present Illness History of Present Illness: 72 year old female with PMH of chronic atrial fibrillation, bilateral cataracts S/P surgery, history of nephrolithiasis, hypothyroidism, S/P laparoscopic appendectomy, GERD, S/P left mastectomy, came in to [facility] because of shortness of breath, worsening dyspnea on exertion since a week ago, associated with intermittent feeling of being febrile as well as cough with occasional whitish sputum. She denies rhinorrhea, no sore throat, no muscle aches, no headache or dizziness, had chest discomfort which was mild and brief. She denies nausea or vomiting, no abdominal pain, no diarrhea, no dysuria, no dysphagia. CXR was done in the ED which showed right lower lobe infiltrate. She is placed in the ICU for closer observation because of hypercapnea and hypoxia. Infectious Diseases consult is requested to further evaluate and manage. Review of Systems - Review of Systems All systems: reviewed and no additional remarkable complaints except (as per HPI) Past Patient History - Infectious Disease Hx of Infectious Diseases: None - Past Social History Smoking Status: Never Smoked - CARDIAC Hx Cardiac Disorders: Yes (new onset Afib) - PULMONARY Hx Respiratory Disorders: Yes (USED TO SMOKE 10 CIG A DAY. QUIT 2001) - NEUROLOGICAL Hx Neurological Disorder: No - HEENT Hx HEENT Problems: Yes Hx Cataracts: Yes (BILATERAL SX) - RENAL Hx Chronic Kidney Disease: Yes Hx Kidney Stones: Yes - ENDOCRINE/METABOLIC Hx Hypothyroidism: Yes - HEMATOLOGICAL/ONCOLOGICAL Hx Blood Disorders: No - INTEGUMENTARY Hx Dermatological Problems: No - MUSCULOSKELETAL/RHEUMATOLOGICAL Hx Falls: No - GASTROINTESTINAL Hx Gastrointestinal Disorders: Yes (LAP APPENDECTOMY) Hx Gastroesophageal Reflux: Yes - GENITOURINARY/GYNECOLOGICAL Hx Genitourinary Disorders: (inc from lasix/was not inc prior to admission) - PSYCHIATRIC Hx Psychophysiologic Disorder: Yes Hx Anxiety: Yes Hx Depression: Yes Hx Emotional Abuse: No Hx Physical Abuse: No - SURGICAL HISTORY Other/Comment: LEFT BREAST MASTECTOOMY,CATARACT AMEYA SX. - ANESTHESIA Hx Anesthesia: Yes Hx Anesthesia Reactions: Yes (HOARSE VOICE X 2 WEEKS) Hx Malignant Hyperthermia: No Meds Allergies/Adverse Reactions: Allergies Allergy/AdvReac Type Severity Reaction Status Date / Time Penicillins Allergy Severe RASH Verified 07/01/17 21:13 aspirin Allergy DIARRHEA Verified 07/01/17 21:13 propoxyphene [From Darvon] Allergy RASH Verified 07/01/17 21:13 DARVON Allergy Severe "TOTALLY Uncoded 07/01/17 21:13 OUT OF IT" - Medications Medications: Current Medications Albuterol/Ipratropium (Duoneb 3 Mg/0.5 Mg (3 Ml) Ud) 3 ml IH [id number] COLT Last Admin: 09/15/18 01:25 Dose: 3 ml Albuterol/Ipratropium (Duoneb 3 Mg/0.5 Mg (3 Ml) Ud) 3 ml IH [id number] PRN PRN Reason: Shortness of Breath Apixaban (Eliquis) 5 mg PO BID COLT; Protocol Last Admin: 09/14/18 17:32 Dose: 5 mg Atorvastatin Calcium (Lipitor) 10 mg PO HS COLT Last Admin: 09/14/18 22:25 Dose: 10 mg Budesonide (Pulmicort Respules) 0.5 mg IH [id number] COLT Last Admin: 09/14/18 20:00 Dose: 0.5 mg Bupropion HCl (Wellbutrin Sr 150 Mg) 150 mg PO DAILY COLT Last Admin: 09/14/18 13:21 Dose: 150 mg Clonazepam (Klonopin) 0.5 mg PO DAILY COLT; Protocol Last Admin: 09/14/18 13:20 Dose: 0.5 mg Furosemide (Lasix) 40 mg PO DAILY COLT Last Admin: 09/14/18 13:22 Dose: Not Given Gabapentin (Neurontin) 100 mg PO DAILY COLT; Protocol Last Admin: 09/14/18 13:21 Dose: 100 mg Azithromycin 250 mg/ Sodium (Chloride) 250 mls @ 167 mls/hr IVPB ONCE ONE; Protocol Stop: 09/15/18 11:29 Vancomycin HCl 2.5 gm/ Sodium (Chloride) 500 mls @ 170 mls/hr IVPB ONCE ONE; Protocol Stop: 09/15/18 09:01 Aztreonam (Azactam 1 Gm) 100 mls @ 100 mls/hr IVPB Q8 COLT; Protocol Stop: 09/22/18 06:16 Levofloxacin (Levaquin) 750 mg PO QOTHERDAY COLT; Protocol Levothyroxine Sodium (Synthroid) 88 mcg PO DAILY COLT Last Admin: 09/14/18 12:26 Dose: 88 mcg Methylprednisolone (Solu-Medrol) 40 mg IVP Q6 COLT Last Admin: 09/14/18 23:02 Dose: 40 mg Pantoprazole Sodium (Protonix Inj) 40 mg IVP DAILY [facility] Potassium Chloride (Klor-Con 10) 10 meq PO 0800 [facility] Sucralfate (Carafate Tab) 1 gm PO TID [facility] Last Admin: 09/14/18 17:33 Dose: 1 gm Physical Exam - Constitutional Appears: No Acute Distress, Chronically Ill - Head Exam Head Exam: NORMAL INSPECTION - ENT Exam ENT Exam: Mucous Membranes Moist - Neck Exam Neck exam: Negative for: Meningismus - Respiratory Exam Respiratory Exam: Decreased Breath Sounds, Rales (on the right lower lung field) - Cardiovascular Exam Cardiovascular Exam: +S1, +S2 - GI/Abdominal Exam GI & Abdominal Exam: Soft. absent: Tenderness Results - Vital Signs Recent Vital Signs: Last Vital Signs Temp 98.2 F 09/15/18 00:00 Pulse 89 09/15/18 00:00 Resp 18 09/15/18 00:00 BP 149/69 09/15/18 00:00 Pulse Ox 96 09/14/18 19:00 - Labs Result Diagrams: 09/15/18 06:30 09/15/18 06:30 Labs: Laboratory Results - last 24 hr 09/14/18 09/14/18 09/14/18 07:45 07:45 07:45 WBC 16.7 H RBC 4.88 Hgb 12.6 Hct 43.3 MCV 88.7 D MCH 25.8 MCHC 29.1 L RDW 16.9 H Plt Count 423 MPV 9.5 Neut % (Auto) 90.4 H Lymph % (Auto) 5.7 L [place] % (Auto) 3.1 Eos % (Auto) 0.6 L Baso % (Auto) 0.2 Lymph # (Auto) 1.0 L [place] # (Auto) 0.5 Eos # (Auto) 0.1 Baso # (Auto) 0.04 Absolute Neuts (auto) 15.07 H Neutrophils % (Manual) 92 H Lymphocytes % (Manual) 4 L Monocytes % (Manual) 3 Myelocytes % 1 Platelet Evaluation Normal PT 23.7 H INR 2.10 APTT 73.4 H pCO2 pO2 HCO3 ABG pH ABG Total CO2 ABG O2 Saturation ABG O2 Content ABG Base Excess ABG Hemoglobin ABG Carboxyhemoglobin POC ABG HHb (Measured) ABG Methemoglobin ABG O2 Capacity ABG Potassium VBG pH VBG pCO2 VBG HCO3 VBG Total CO2 VBG O2 Sat (Calc) VBG Base Excess VBG Potassium Hgb O2 Saturation Sodium Chloride Glucose Lactate FiO2 Pressure Support Inspiratory BiPAP Crit Value Called To Crit Value Called By Blood Gas Notified Time Potassium Carbon Dioxide Anion Gap BUN Creatinine Est GFR ( Amer) Est GFR (Non-Af Amer) Random Glucose Calcium Magnesium Total Bilirubin AST ALT Alkaline Phosphatase Lactate Dehydrogenase Total Creatine Kinase Troponin I NT-Pro-B Natriuret Pep Total Protein Albumin Globulin Albumin/Globulin Ratio Arterial Blood Potassium Venous Blood Potassium Urine Color Urine Appearance Urine pH Ur Specific [place] Urine Protein Urine Glucose (UA) Urine Ketones Urine Blood Urine Nitrate Urine Bilirubin Urine Urobilinogen Ur Leukocyte Esterase Urine RBC Urine WBC Ur Epithelial Cells Urine Bacteria Influenza Typ A,B (EIA) Negative for flu a/b 09/14/18 09/14/18 09/14/18 07:45 07:45 09:22 WBC RBC Hgb Hct MCV MCH MCHC RDW Plt Count MPV Neut % (Auto) Lymph % (Auto) [place] % (Auto) Eos % (Auto) Baso % (Auto) Lymph # (Auto) [place] # (Auto) Eos # (Auto) Baso # (Auto) Absolute Neuts (auto) Neutrophils % (Manual) Lymphocytes % (Manual) Monocytes % (Manual) Myelocytes % Platelet Evaluation PT INR APTT pCO2 78 H* pO2 80 H 78.0 L HCO3 33.4 H ABG pH 7.24 L ABG Total CO2 35.8 H ABG O2 Saturation 97.2 ABG O2 Content ABG Base Excess 3.4 H ABG Hemoglobin ABG Carboxyhemoglobin POC ABG HHb (Measured) ABG Methemoglobin ABG O2 Capacity ABG Potassium 4.9 VBG pH 7.25 L VBG pCO2 76.0 H* VBG HCO3 33.3 H VBG Total CO2 35.6 H VBG O2 Sat (Calc) 96.7 H VBG Base Excess 3.6 H VBG Potassium 5.2 Hgb O2 Saturation Sodium 141 138.0 140.0 Chloride 102 103.0 105.0 Glucose 190 H 148 H Lactate 1.4 0.8 FiO2 21.0 60.0 Pressure Support 7 Inspiratory BiPAP 12 Crit Value Called To Nitza torres Crit Value Called By Ab Mrp Blood Gas Notified Time 831 928 Potassium 5.2 H Carbon Dioxide 34 H Anion Gap 11 BUN 32 H Creatinine 1.4 H Est GFR ( Amer) 45 Est GFR (Non-Af Amer) 37 Random Glucose 190 H Calcium 9.1 Magnesium 2.3 H Total Bilirubin 0.4 AST 57 H D ALT 49 Alkaline Phosphatase 116 Lactate Dehydrogenase 527 Total Creatine Kinase 40 Troponin I 0.08 D NT-Pro-B Natriuret Pep 1560 H Total Protein 7.6 Albumin 3.9 Globulin 3.7 Albumin/Globulin Ratio 1.0 L Arterial Blood Potassium 4.9 Venous Blood Potassium 5.2 Urine Color Urine Appearance Urine pH Ur Specific [place] Urine Protein Urine Glucose (UA) Urine Ketones Urine Blood Urine Nitrate Urine Bilirubin Urine Urobilinogen Ur Leukocyte Esterase Urine RBC Urine WBC Ur Epithelial Cells Urine Bacteria Influenza Typ A,B (EIA) 09/14/18 09/14/18 12:55 14:20 WBC RBC Hgb Hct MCV MCH MCHC RDW Plt Count MPV Neut % (Auto) Lymph % (Auto) [place] % (Auto) Eos % (Auto) Baso % (Auto) Lymph # (Auto) [place] # (Auto) Eos # (Auto) Baso # (Auto) Absolute Neuts (auto) Neutrophils % (Manual) Lymphocytes % (Manual) Monocytes % (Manual) Myelocytes % Platelet Evaluation PT INR APTT pCO2 71 H* pO2 75.0 L HCO3 33.4 H ABG pH 7.28 L ABG Total CO2 35.6 H ABG O2 Saturation 97.1 ABG O2 Content 15.1 ABG Base Excess 4.8 H ABG Hemoglobin 11.4 L ABG Carboxyhemoglobin 2.6 H POC ABG HHb (Measured) 2.8 ABG Methemoglobin 0.9 ABG O2 Capacity 15.6 L ABG Potassium VBG pH VBG pCO2 VBG HCO3 VBG Total CO2 VBG O2 Sat (Calc) VBG Base Excess VBG Potassium Hgb O2 Saturation 93.7 L Sodium Chloride Glucose Lactate FiO2 50.0 Pressure Support Inspiratory BiPAP Crit Value Called [facility] Crit Value Called By 4315 Blood Gas Notified Time 1430 Potassium Carbon Dioxide Anion Gap BUN Creatinine Est GFR ( Amer) Est GFR (Non-Af Amer) Random Glucose Calcium Magnesium Total Bilirubin AST ALT Alkaline Phosphatase Lactate Dehydrogenase Total Creatine Kinase Troponin I NT-Pro-B Natriuret Pep Total Protein Albumin Globulin Albumin/Globulin Ratio Arterial Blood Potassium Venous Blood Potassium Urine Color Yellow Urine Appearance Clear Urine pH 6.0 Ur Specific [place] 1.025 Urine Protein Trace H Urine Glucose (UA) Negative Urine Ketones Negative Urine Blood Negative Urine Nitrate Negative Urine Bilirubin Negative Urine Urobilinogen 0.2 Ur Leukocyte Esterase Negative Urine RBC None Urine WBC None Ur Epithelial Cells 0 - 2 Urine Bacteria Trace Influenza Typ A,B (EIA) Assessment & Plan - Assessment and Plan (Free Text) Plan: Assessment Severe sepsis with hypoxic and hypercapneic respiratory failure and acute renal failure due to right lower lobe severe community-acquired pneumonia chronic atrial fibrillation bilateral cataracts S/P surgery history of nephrolithiasis hypothyroidism S/P laparoscopic appendectomy GERD S/P left mastectomy Plan Started with a loading dose of IV Vancomycin 25 mg/kg and will get a Vanco random level tomorrow; started Azactam and Levaquin pending blood, sputum cx, PCT, urine Legionella Ag; reviewed CXR will monitor clinically discussed with family at bedside
--- NOTE | 2018-09-15 15:26 | CON ---
DATE: 09/15/2018 PULMONARY CONSULT NOTE REFERRING PHYSICIAN: Dr. Patricio Horta. REASON FOR CONSULT: Shortness of breath, dyspnea and obstructive sleep apnea syndrome. HISTORY OF PRESENT ILLNESS: This is a 72-year-old female with past medical history significant for chronic atrial fibrillation, chronic anxiety, hypothyroidism, sleep apnea syndrome, gastritis and chronic pain syndrome. The patient and family report that she was dealing with upper respiratory infection symptoms for about two months until recently when she was seen by her primary care physician who diagnosed her with pneumonia. The patient was given antibiotics and was feeling okay until symptoms started to worsen and she started to experience dyspnea and shortness of breath, increasingly worsening cough. The patient in emergency room was found to be in significant respiratory distress, presently in ICU. PAST MEDICAL HISTORY: As per HPI. ALLERGIES: PENICILLIN, ASPIRIN, DARVON AND PROPOXYPHENE. FAMILY HISTORY: No significant cardiopulmonary disease reported. SOCIAL HISTORY: Former smoker, quit in 2001. No EtOH abuse. No illicit drug use. MEDICATIONS: Reviewed. DuoNeb 3 mL inhalation every 4 hours p.r.n., DuoNeb 3 mL inhalation every 6 hours, Eliquis 5 mg twice a day, Lipitor 10 mg at bedtime, Azactam 1 g every 8 hours, Pulmicort 0.5 mg every 12 hours, Wellbutrin 150 mg daily, clonazepam 0.5 mg daily, Cardizem 60 mg three times a day, Lasix 40 mg daily, Neurontin 100 mg daily, Levaquin 750 mg every other day, Synthroid 88 mcg daily, Solu-Medrol 40 mg every 6 hours, Protonix 40 mg daily, potassium chloride 10 mEq daily and Carafate 1 g three times a day. REVIEW OF SYSTEMS: No headache, rhinitis, chest pain, abdominal pain, nausea, vomiting, diarrhea, leg pain, or leg swelling reported. The patient does report having shortness of breath, does report having some nonproductive cough. PHYSICAL EXAMINATION: GENERAL: No acute distress. VITAL SIGNS: Blood pressure 125/66, pulse 90, temperature 98.1 and oxygen 96% which is on BiPAP. HEENT: Moist mucous membranes. Mallampati score of 4. Crowded airway. NECK: Supple. No JVD. LUNGS: Decreased breath sounds; few rhonchi. CARDIOVASCULAR: S1 and S2. ABDOMEN: Soft and nontender. No distension. No organomegaly. EXTREMITIES: No bilateral lower extremity edema. NEUROLOGIC: The patient is awake, alert, verbal, and able to follow commands. LABORATORY DATA: Reviewed. WBC 12.5, RBC 4.64, hemoglobin 11.7, hematocrit 41.6, and platelets 385. PT 16.8, INR 1.49, and APTT 77.2. PCO2 of 61, pO2 of 68, HCO3 of 32 and, ABG pH 7.33 it is on FiO2 of 36. Sodium 141, potassium 4.9, chloride 102, carbon dioxide 34, anion gap 10, BUN 30, creatinine 1.1, GFR 49, and random glucose 186. Calcium 8.8, phosphorus 3.5, magnesium 2.5, total bilirubin 0.2, AST 35, ALT 36, alkaline phosphatase 101, troponin 0.06, proBNP 1560, total protein 7.1, albumin 3.6, globulin 3.5, albumin-globulin ratio 1.0 and procalcitonin 0.09. Urinalysis shows urine protein trace. Influenza type A and B negative. Blood cultures preliminary, no growth after 24 hours. Urine culture final, no growth. Chest x-ray shows right lower lobe infiltrate. Electrocardiogram showed normal sinus rhythm. Echocardiogram report pending. IMPRESSION AND PLAN: Respiratory failure, acute renal failure, community-acquired pneumonia, chronic atrial fibrillation, hypothyroidism, gastroesophageal reflux disease and sleep apnea syndrome. In the past, the patient has been noncompliant with treatment for sleep apnea and followup in the office. Case discussed at length with the patient and family who were present in the room today. Continue antibiotic therapy and inhaled bronchodilators. The patient is on anticoagulation therapy and gastric prophylaxis. The patient also has diagnoses of mild pulmonary hypertension and left ventricular hypertrophy in the past. We will follow up with echocardiogram, as report is pending. Gastric prophylaxis; continue steroids at this time. We will add Mucomyst nebulizer treatment. Case discussed with sales vendor, Dr. Waters. Follow up labs in the morning and ABGs. Continue bilevel positive airway pressure use at bedtime, sleep apnea precautions and head of bed elevated at 45 degrees. Critical care time spent more than 35 minutes. This patient was seen and examined with Dr. Masterson. Discussed assessment and plan as described above. This patient was seen and examined with Kaylie Jha, nurse practitioner. Discussed assessment and plan as described above. Thank you for this consult. We will follow with you. Abhijeet Lott APN Natali Masterson MD [facility] # [id number]
[2018-09-15] MEDS: Acetylcysteine 20% Inhal Soln (4ml) IH SCH (20:00)
--- NOTE | 2018-09-15 22:56 | CON ---
DATE: 09/15/2018 REQUESTING PHYSICIAN: Dr. Horta REASON FOR CONSULTATION: Dyspnea. HISTORY: This is a 72-year-old woman known to me with a history of paroxysmal atrial fibrillation, who was admitted with complaints of worsening cough and dyspnea. She was seen by her primary care physician Dr. Fraser and was treated with oral antibiotics. Chest x-ray suggested an infiltrate, and as her symptoms worsened, she was advised evaluation and admission. She is seen lying in bed in the ICU and continues to have some exertional dyspnea. PAST HISTORY: Notable for the problems mentioned above. She does have chronic anxiety and depression as well as hypothyroidism, hyperlipidemia and COPD. She has a history of arthritis as well. ALLERGIES: SHE HAS HAD A REACTION TO PENICILLIN, ASPIRIN AND DARVON IN THE PAST. CURRENT MEDICATIONS: Include Azactam, Carafate, Cardizem 60 mg t.i.d., DuoNeb inhaler, Eliquis 5 mg b.i.d., Klonopin, potassium, Lasix 40 mg daily, Levaquin, Lipitor, Neurontin, Protonix, Pulmicort, Solu-Medrol, Synthroid and Wellbutrin. SOCIAL HISTORY: She quit smoking nearly 20 years ago. She lives at home with her . She denies alcohol use. FAMILY HISTORY: Both parents are from age-related illness. REVIEW OF SYSTEMS: Ten-point review of systems is otherwise unremarkable. PHYSICAL EXAMINATION: GENERAL: She is a middle-aged woman who appears comfortable at rest. VITAL SIGNS: Her blood pressure is 138/70 with pulse of 90 and sinus, respirations are 16. She is afebrile. HEENT: Normocephalic, atraumatic. NECK: Supple. No JVD noted. CHEST: Bilateral scattered rhonchi heard. HEART: PMI displaced laterally with systolic murmur at the lower left sternal border as well as at the apex. ABDOMEN: Soft, nontender, obese, with normoactive bowel sounds. EXTREMITIES: No clubbing, cyanosis or edema. SKIN: Warm and dry. PSYCHIATRIC: Normal mood and affect. NEUROLOGIC: Alert and oriented x3. No gross motor or sensory deficits notable. DIAGNOSTIC DATA: Potassium 4.9. BUN and creatinine of 30 and 1.1. White count 12.5, hemoglobin and hematocrit of 11.7 and 41.6 with platelet count of 385,000. Chest x-ray reveals mildly increased cardiac silhouette with right lower lobe infiltrate. Electrocardiogram reveals sinus rhythm with poor R-wave progression and nonspecific ST-T abnormalities. IMPRESSION: 1. Apparent community-acquired pneumonia, currently on IV antibiotics. 2. Paroxysmal atrial fibrillation, currently in sinus rhythm. 3. Chronic obstructive pulmonary disease. 4. Anxiety and depression. 5. Mitral and tricuspid regurgitation. RECOMMENDATIONS: Her current medications should continue for now. Antibiotics will continue. Cultures are pending. Repeat echocardiogram will be obtained to reevaluate her valvular heart disease as well as left ventricular function. Thank you for this consultation. We will be happy to follow along through her hospital course as needed. Jose Enrique Hanson MD
[2018-09-16] MEDS: MethylPREDNISolone 40 mg Vial IVP SCH ×4 (00:28→18:45)
--- NOTE | 2018-09-16 00:51 | PN ---
DATE: 09/15/2018 SUBJECTIVE: A 72-year-old female in ICU, patient seems comfortable, better, less short of breath, more alert, awake, and oriented. Has no chest pain and seems doing better. PHYSICAL EXAMINATION: VITAL SIGNS: Temperature 98, heart rate 70, blood pressure 124/64, respirations 14, and saturation 96%. HEAD AND NECK: Normal. No JVD. No thyromegaly. CHEST: There is basal bilateral rales and few rhonchi. CARDIAC: First sound and second sound normal. There is systolic murmur. ABDOMEN: Soft, obese, and nontender. EXTREMITIES: No edema. NEUROLOGIC: Normal. LABORATORY DATA: White count 12.5, hemoglobin 11.7, hematocrit 41.6, and platelets 385. Chemistry; sodium 141, potassium 4.9, chloride 102, bicarbonate 34, BUN 30, creatinine 1.1, blood sugar 186, and magnesium 2.5. Liver function test is normal. Procalcitonin is 0.09. Troponin is negative. IMPRESSION: A 72-year-old female came in with; 1. Acute chronic obstructive pulmonary disease exacerbation. 2. Community acquired pneumonia. 3. Obstructive sleep apnea. 4. Congestive heart failure. PLAN: 1. To continue current medications. We will continue current medications including Mucomyst, DuoNeb, IV Solu-Medrol 40 mg IV every 6 hours, Pulmicort, Brovana, and Lasix 40 mg p.o. daily. Continue current antibiotic including Azactam and Levaquin. Continue current therapy. 2. The patient does have also history of chronic atrial fibrillation, continue Cardizem t.i.d. plus Eliquis 5 mg b.i.d. 3. Continue Lipitor and other cardiac medications. We will follow up clinically with the performance consultant. The patient will be seen by molded goods operator. Echo was ordered. Results still not available. We will follow up clinically. 4.moderate pulmonary hypertension.etiology aortic stenosis,obstructive lung disease or sleep pnea. Patricio Horta MD MTDNessa
[2018-09-16] MEDS: Albuterol-Ipratrop 3 mg / 0.5 (3 ml) UD IH SCH ×4 (01:11→19:41)
[2018-09-16] MEDS: Aztreonam 1 Gm in NS 100mL 100 ML IVPB SCH ×3 (05:35→21:33)
[2018-09-16 05:45] LABS: ARTERIAL BLOOD GAS HCO3 31.2 mmol/L (21-28); ARTERIAL BLOOD GAS HEMOGLOBIN 11.5 g/dL (11.7-17.4); ARTERIAL BLOOD GAS O2 CAPACITY 15.8 mL/dl (16-24); ARTERIAL BLOOD GAS O2 CONTENT 15.6 ML/dl (15-23); ARTERIAL BLOOD GAS O2 SAT 98.7 % (95-98); ARTERIAL BLOOD GAS PCO2 62 mm/Hg (35-45); ARTERIAL BLOOD GAS PH 7.31 (7.35-7.45); ARTERIAL BLOOD GAS TCO2 33.1 mmol.L (22-28)
[2018-09-16 07:05] LABS: BASO # 0.01 K/mm3 (0.0-2.0); BASO % 0.1 % (0.0-3.0); HEMOGLOBIN 12.2 g/dL (12.0-16.0); LYMPH # 0.7 (1.2-3.4); LYMPH % 4.6 % (22.0-35.0); MEAN CELL VOLUME 88.9 fl (80.0-105.0); MEAN CORPUSCULAR HEMOGLOBIN 26.1 pg (25.0-35.0); MEAN CORPUSCULAR HGB CONC 29.3 g/dl (31.0-37.0); MONO # 0.4 (0.1-0.6); MONO % 2.7 % (1.0-6.0); RBC 4.68 10^6/uL (3.5-6.1); WHITE BLOOD COUNT 15.6 10^3/uL (4.5-11.0)
[2018-09-16 07:12] LABS: ALB/GLOB RATIO 1.1 (1.1-1.8); ALBUMIN 3.7 g/dL (3.0-4.8)
[2018-09-16] MEDS: Acetylcysteine 20% Inhal Soln (4ml) IH SCH ×2 (07:15→19:41)
[2018-09-16] MEDS: Budesonide 0.5 mg/2 ml Inhal Susp UD IH SCH ×2 (07:15→19:42)
[2018-09-16] MEDS: Potassium Chloride 10 mEq ER Tab PO SCH (08:38)
--- NOTE | 2018-09-16 09:56 | CARD ---
APPROVED REPORT Date of service: 09/15/2018 EXAM: Two-dimensional and M-mode echocardiogram with Doppler and color Doppler. INDICATION PULMONARY HTN 2D DIMENSIONS Left Atrium (2D)4.0 (1.6-4.0cm)IVSd1.2 (0.7-1.1cm) LVDd3.7 (3.9-5.9cm)LVOT Diameter1.9 (1.8-2.4cm) PWd1.2 (0.7-1.1cm)LVDs2.6 (2.5-4.0cm) FS (%) 28.6 %LVEF (%)56.0 (>50%) M-Mode DIMENSIONS Aortic Root2.00 (2.2-3.7cm)Aortic Cusp Exc.0.90 (1.5-2.0cm) Aortic Valve AoV Peak Fnbcwfqs177.0cm/sAoV VTI68.0cmAO Peak GR.42mmHg LVOT Peak Ymoqkuiz018.0cm/sLVOT VTI27.50cmAO Mean GR.21mmHg LIANNA (VMAX)1.89se2XBE (VTI)1.15cm2 Mitral Valve MV E Xradyjrf124.0cm/sMV A Shcbmqvm793.0cm/sMV GQJ10hg E/A ratio1.0MVA (PHT)2.53cm2 TDI Lateral E' Peak V5.85cm/sMedial E' Peak V5.95cm/sE/Lateral E'24.6 E/Medial E'24.2 Pulmonary Valve PV Peak Iqomuhgf37.7cm/sPV Peak Grad.4mmHg Tricuspid Valve TR Peak Tlrblasp781iz/sRAP MARADENV62dlYnVY Peak Gr.50mmHg [id number] LEFT VENTRICLE The left ventricle is normal size. There is mild concentric left ventricular hypertrophy. The left ventricular function is normal. The left ventricular ejection fraction is within the normal range. There is normal LV segmental wall motion. RIGHT VENTRICLE The right ventricle is normal size. The right ventricular systolic function is normal. ATRIA The left atrium is mildly dilated. The right atrium is moderately dilated. The interatrial septum is intact with no evidence for an atrial septal defect. AORTIC VALVE The aortic valve is moderately calcified. No aortic regurgitation is present. There is moderate valvular aortic stenosis. MITRAL VALVE Mitral annular calcification is moderate. Mitral regurgitation is mild. TRICUSPID VALVE The tricuspid valve is normal in structure. There is moderate tricuspid regurgitation. There is moderate to severe pulmonary hypertension. PULMONIC VALVE The pulmonary valve is normal in structure. GREAT VESSELS The aortic root is normal in size. The IVC is normal in size and collapses >50% with inspiration. PERICARDIAL EFFUSION There is small left pleural effusion. There is no pericardial effusion. <Conclusion> Biatrial enlargement. Normal LV size and systolic function. Mild concentric LVH. Moderate . Mild MR. Moderate TR with RVSP of 60 mm Hg recorded suggestive of moderate to severe pulmonary HTN.
[2018-09-16] MEDS: Levothyroxine 88 MCG TAB PO SCH (11:20)
[2018-09-16] MEDS: buPROPion SR 150 MG TABLET PO SCH (11:27)
--- NOTE | 2018-09-16 11:41 | PN ---
DATE: 09/16/2018 REFERRING PHYSICIAN: Patricio Horta MD SUBJECTIVE: The patient is sitting up in bed. No acute distress. No overnight events reported. Reports wearing BiPAP last night. States that she feels tired this morning. She was transferred late last night and did not get much sleep. Coughing and shortness of breath have improved. No headache, rhinitis, chest pain, abdominal pain, nausea, vomiting, diarrhea, leg pain, or leg swelling at this time reported. OBJECTIVE: VITAL SIGNS: Blood pressure 119/70, pulse 80, temperature 98, oxygen saturation 97% on nasal cannula. GENERAL: No acute distress. HEENT: Moist mucous membranes. Crowded airway. Mallampati score 4. NECK: Supple. No JVD. LUNGS: Decreased breath sounds bilaterally. CARDIOVASCULAR: S1, S2. Positive murmur. ABDOMEN: Soft, nontender. No distention. No organomegaly. EXTREMITIES: No bilateral lower extremity edema. NEUROLOGIC: Awake, alert, verbal. Able to follow commands. MEDICATIONS: Reviewed. Mucomyst 4 mL inhalation twice a day, DuoNeb 3 mL inhalation every 4 hours p.r.n., DuoNeb 3 mL inhalation every 6 hours, Eliquis 5 mg twice a day, Lipitor 10 mg h.s., Azactam 100 mg every 8 hours, Pulmicort 0.5 mg every 12 hours, Wellbutrin 150 mg daily, Klonopin 0.5 mg daily, Cardizem 60 mg 3 times a day, Lasix 40 mg daily, Neurontin 100 mg daily, Levaquin 750 mg every other day, Synthroid 88 mcg daily, Solu-Medrol 40 mg every 6 hours, Protonix 40 mg daily, potassium chloride 10 mEq, Carafate 1 g 3 times a day. LABORATORY DATA: Reviewed. WBC 15.6, RBC 4.69, hemoglobin 12.2, hematocrit 41.6, platelets 356. PCO2 of 62, pO2 of 91, HCO3 of 31.2. ABG: pH 7.31, FIO2 of 50. Sodium 141, potassium 5, chloride 104, carbon dioxide 32, anion gap 11, BUN 35, creatinine 1.1, GFR 49, random glucose 171, calcium 9, phosphorus 3.9, magnesium 2.6, total bilirubin 0.3. AST 26, ALT 33, alkaline phosphatase 101, troponin 0.05, total protein 7.2, albumin 3.7, globulin 3.5, and albumin-globulin ratio 1.1. Procalcitonin 0.09. Random vancomycin 9. Blood cultures preliminary, no growth after 48 hours. Echocardiogram report pending. IMPRESSION AND PLAN: Respiratory failure, acute renal failure, community-acquired pneumonia, chronic atrial fibrillation, hypothyroidism, gastroesophageal reflux disease, sleep apnea syndrome. Continue antibiotic therapy, inhaled bronchodilators. The patient is currently on anticoagulation therapy. Continue gastric prophylaxis. Echocardiogram pending. We will review when available. We will order CT of the chest without contrast to follow up on infiltrate, rule out malignancy. Continue BiPAP use at bedtime, sleep apnea precaution, head of bed elevated 45 degrees. This patient was seen and examined with Dr. Masterson. Discussed assessment and plan as described above. This patient was seen and examined with Abhijeet Lott, nurse practitioner. Discussed assessment and plan as described above. Thank you for this consult. We will follow with you. Abhijeet Lott APN Natali Masterson MD
--- NOTE | 2018-09-16 14:48 | PN ---
DATE: 09/16/2018 LOCATION: The patient is seen sitting in bed on 5R SUBJECTIVE: She feels somewhat better, but continues to have some cough and dyspnea. She is scheduled for a CT scan this morning. MEDICATIONS: Her current medications include Mucomyst, Azactam, Carafate, diltiazem 60 mg t.i.d., DuoNeb inhalers, Eliquis 5 mg b.i.d., Klonopin, Lasix 40 mg daily, potassium 10 mEq daily, Levaquin, Lipitor 10 mg daily, Neurontin, Protonix, Pulmicort, Solu-Medrol 40 mg every 6 hours and Wellbutrin as well as Synthroid. OBJECTIVE: GENERAL: She is a middle-aged woman who appears somewhat anxious, but in no distress. VITAL SIGNS: Blood pressure is 120/70 with pulse of 80, respirations 16. She is afebrile. HEENT: No JVD. CHEST: Bilateral scattered rhonchi. HEART: A systolic murmur is noted at the base as well as at the lower left sternal border. ABDOMEN: Soft, obese, protuberant with normoactive bowel sounds. EXTREMITIES: No edema. LABORATORY DATA: Potassium 5, BUN and creatinine 35 and 1.1, glucose is 171. White count 15.6, hemoglobin 12.2 and hematocrit 41.6 with platelet count 356,000. Recent blood gas showed pH 7.31, pCO2 of 62 and pO2 of 91. DIAGNOSTIC DATA: Echocardiogram reveals evidence of biatrial enlargement with normal left ventricular size and systolic function, mild concentric left ventricular hypertrophy is present. Moderate aortic stenosis is noted with mild mitral regurgitation, moderate tricuspid regurgitation is present with right ventricle systolic pressure of 60 mmHg suggestive of moderately severe pulmonary hypertension. IMPRESSION: 1. Community-acquired pneumonia, on intravenous antibiotic therapy. 2. Paroxysmal atrial fibrillation, currently in sinus rhythm. 3. Moderate aortic stenosis. 5. Significant chronic obstructive pulmonary disease. 6. Anxiety/depression. 7. Pulmonary hypertension, unclear if this is acute or chronic. RECOMMENDATIONS: Current medications will continue for now. Her CT of the chest results are pending. After resolution of her pneumonia, consideration may need to be given to a cardiac catheterization to document her right heart pressures and better assess her aortic valve and screen for significant coronary artery disease. We will continue to follow and make further recommendation as appropriate. Jose Enrique Hanson MD [facility] # [id number]
--- NOTE | 2018-09-16 15:17 | CT ---
Date of service: 09/16/2018 PROCEDURE: CT Chest without contrast HISTORY: follow up infiltrate; r/o malignancy COMPARISON: None available. TECHNIQUE: Contiguous axial images were obtained through the chest without intravenous contrast enhancement. Sagittal and coronal reconstructions were performed. Radiation dose: Total exam DLP = 633.26 mGy-cm. This CT exam was performed using one or more of the following dose reduction techniques: Automated exposure control, adjustment of the mA and/or kV according to patient size, and/or use of iterative reconstruction technique. FINDINGS: LUNGS: Focal areas of consolidation are seen in the right lung apex the left upper lobe and at both lung bases. The findings are most consistent with multi focal pneumonia. Follow-up after treatment is recommended to rule out an underlying mass. MEDIASTINUM: Unremarkable thoracic aorta. No aneurysm. Mild cardiomegaly main pulmonary artery unremarkable. No vascular congestion. No lymphadenopathy. Aortic calcification PLEURA: Small bilateral pleural effusions BONES: No fracture. No destructive lesion. UPPER ABDOMEN: Grossly unremarkable. OTHER FINDINGS: None. IMPRESSION: Focal areas of consolidation are seen in the right lung apex the left upper lobe and at both lung bases. The findings are most consistent with multi focal pneumonia. Follow-up after treatment is recommended to rule out an underlying mass.
--- NOTE | 2018-09-16 15:26 | CP.PCM.PN ---
Subjective - Date & Time of Evaluation Date of Evaluation: 09/16/18 Time of Evaluation: 10:55 - Subjective Subjective: Afebrile, comfortable. Objective - Vital Signs/Intake and Output Vital Signs (last 24 hours): Temp Pulse Resp BP Pulse Ox 98.1 F 90 18 132/59 L 96 09/15/18 08:00 09/15/18 08:00 09/15/18 08:00 09/15/18 09:02 09/15/18 08:00 - Medications Medications: Current Medications Albuterol/Ipratropium (Duoneb 3 Mg/0.5 Mg (3 Ml) Ud) 3 ml IH [id number] COLT Last Admin: 09/15/18 07:50 Dose: 3 ml Albuterol/Ipratropium (Duoneb 3 Mg/0.5 Mg (3 Ml) Ud) 3 ml IH [id number] PRN PRN Reason: Shortness of Breath Apixaban (Eliquis) 5 mg PO BID COLT; Protocol Last Admin: 09/15/18 09:02 Dose: 5 mg Atorvastatin Calcium (Lipitor) 10 mg PO HS COLT Last Admin: 09/14/18 22:25 Dose: 10 mg Budesonide (Pulmicort Respules) 0.5 mg IH [id number] COLT Last Admin: 09/15/18 07:50 Dose: 0.5 mg Bupropion HCl (Wellbutrin Sr 150 Mg) 150 mg PO DAILY COLT Last Admin: 09/15/18 09:00 Dose: 150 mg Clonazepam (Klonopin) 0.5 mg PO DAILY COLT; Protocol Last Admin: 09/14/18 13:20 Dose: 0.5 mg Furosemide (Lasix) 40 mg PO DAILY COLT Last Admin: 09/15/18 09:02 Dose: 40 mg Gabapentin (Neurontin) 100 mg PO DAILY COLT; Protocol Last Admin: 09/15/18 09:00 Dose: 100 mg Aztreonam (Azactam 1 Gm) 100 mls @ 100 mls/hr IVPB Q8 COLT; Protocol Stop: 09/22/18 06:16 Last Admin: 09/15/18 06:57 Dose: 100 mls/hr Levofloxacin (Levaquin) 750 mg PO QOTHERDAY COLT; Protocol Last Admin: 09/15/18 09:03 Dose: 750 mg Levothyroxine Sodium (Synthroid) 88 mcg PO DAILY [facility] Last Admin: 09/15/18 08:59 Dose: 88 mcg Methylprednisolone (Solu-Medrol) 40 mg IVP Q6 [facility] Last Admin: 09/15/18 06:04 Dose: 40 mg Pantoprazole Sodium (Protonix Inj) 40 mg IVP DAILY [facility] Last Admin: 09/15/18 09:03 Dose: 40 mg Potassium Chloride (Klor-Con 10) 10 meq PO 0800 [facility] Last Admin: 09/15/18 09:00 Dose: 10 meq Sucralfate (Carafate Tab) 1 gm PO TID [facility] Last Admin: 09/15/18 09:00 Dose: 1 gm - Labs Labs: 09/15/18 06:30 09/15/18 06:30 PT 16.8 SECONDS (9.4-12.5) H 09/15/18 08:30 INR 1.49 09/15/18 08:30 APTT 77.2 Seconds (26.9-38.3) H 09/15/18 08:30 - Constitutional Appears: Chronically Ill - Head Exam Head Exam: NORMAL INSPECTION - Respiratory Exam Respiratory Exam: Decreased Breath Sounds - Cardiovascular Exam Cardiovascular Exam: +S1, +S2 - GI/Abdominal Exam GI & Abdominal Exam: Soft. absent: Tenderness Assessment and Plan - Assessment and Plan (Free Text) Plan: Assessment Severe sepsis with hypoxic and hypercapneic respiratory failure and acute renal failure due to right lower lobe severe community-acquired pneumonia chronic atrial fibrillation bilateral cataracts S/P surgery history of nephrolithiasis hypothyroidism S/P laparoscopic appendectomy GERD S/P left mastectomy Plan gave a loading dose of IV Vancomycin yesterday but we need not continue this since blood cx and MRSA screen are negative; continue Azactam and Levaquin day 2 final culture results; PCT is 0.09; follow up urine Legionella Ag; reviewed CXR will continue to monitor clinically
--- NOTE | 2018-09-16 22:59 | PN ---
DATE: 09/16/2018 SUBJECTIVE: A 72-year-old female. She is in regular floor. She seems feeling better, doing better, less short of breath. She has no fever, no chest pain. PHYSICAL EXAMINATION: VITAL SIGNS: Temperature 98.3, heart rate 85, blood pressure 131/63, respirations 20, and saturation 100% of 5 L nasal cannula. HEAD AND NECK: Normal. No JVD. No thyromegaly. CHEST: Diminished breath sounds bilaterally. There is few rales at the bases. CARDIAC: First sound and second sound normal. There is systolic murmur in the aortic area. ABDOMEN: Obese and nontender. EXTREMITIES: No edema. NEUROLOGIC: Normal. LABORATORY DATA: White count 15.6, hemoglobin 12.2, hematocrit 41.6, and platelets 356. Sodium 141, potassium 5, chloride 104, bicarbonate 32, BUN 35, creatinine 1.1, and blood sugar 171. Liver function test is normal. Magnesium 2.6, troponin is negative. IMPRESSION AND PLAN: 1. Community acquired pneumonia. Continue current IV antibiotics. The patient had Azactam 1 g IV and she has Levaquin 750 mg p.o. daily. 2. Chronic obstructive pulmonary disease exacerbation. Continue steroids. She is on Solu-Medrol, inhaled bronchodilators, DuoNeb. Continue current therapy. 3. Chronic atrial fibrillations. Continue Eliquis. Continue Cardizem. 4. Hypothyroidism. Continue levothyroxine. 5. History of depression. Continue Wellbutrin. We will continue gastrointestinal prophylaxis. Follow up clinically. We will do physical therapy, TCU evaluation. The patient also noted she has an echo which shows moderate pulmonary hypertension. Patricio Horta MD [facility]
[2018-09-17] MEDS: MethylPREDNISolone 40 mg Vial IVP SCH ×4 (01:10→18:07)
[2018-09-17] MEDS: Albuterol-Ipratrop 3 mg / 0.5 (3 ml) UD IH SCH ×4 (02:00→19:55)
[2018-09-17] MEDS: Aztreonam 1 Gm in NS 100mL 100 ML IVPB SCH ×3 (05:01→22:26)
[2018-09-17 07:01] LABS: HEMOGLOBIN 12.6 g/dL (12.0-16.0); LYMPH # 0.7 (1.2-3.4); LYMPH % 3.7 % (22.0-35.0); MEAN CELL VOLUME 88.2 fl (80.0-105.0); MEAN CORPUSCULAR HEMOGLOBIN 25.1 pg (25.0-35.0); MEAN CORPUSCULAR HGB CONC 28.4 g/dl (31.0-37.0); MEAN PLATELET VOLUME 9.2 fl (7.0-11.0); MONO # 0.4 (0.1-0.6); MONO % 2.1 % (1.0-6.0); RBC 5.02 10^6/uL (3.5-6.1)
[2018-09-17 07:34] LABS: ALB/GLOB RATIO 1.1 (1.1-1.8); ALBUMIN 3.6 g/dL (3.0-4.8)
[2018-09-17] MEDS: Acetylcysteine 20% Inhal Soln (4ml) IH SCH ×2 (07:43→19:55)
[2018-09-17] MEDS: Budesonide 0.5 mg/2 ml Inhal Susp UD IH SCH ×2 (07:43→19:55)
[2018-09-17] MEDS: levoFLOXacin 750 MG TAB PO SCH (09:37)
[2018-09-17] MEDS: buPROPion SR 150 MG TABLET PO SCH (09:37)
[2018-09-17] MEDS: Pantoprazole 40 mg EC Tab PO SCH (09:37)
[2018-09-17] MEDS: Potassium Chloride 10 mEq ER Tab PO SCH (09:37)
[2018-09-17] MEDS: Levothyroxine 88 MCG TAB PO SCH (09:37)
--- NOTE | 2018-09-17 12:41 | PN ---
DATE: 09/17/2018 PULMONARY PROGRESS NOTE REFERRING PHYSICIAN: Patricio Horta MD. SUBJECTIVE: The patient is sitting up in bed. No acute distress. Reports wearing BiPAP last night. Has periods of shortness of breath and coughing. No headache, rhinitis, chest pain, abdominal pain, nausea, vomiting, diarrhea, leg pain, or leg swelling reported. OBJECTIVE: GENERAL: In no acute distress. VITAL SIGNS: Blood pressure 128/65, pulse 81, temperature 98.1, oxygen saturation 94% on nasal cannula. HEENT: Moist mucous membranes. Crowded airway. Mallampati score 4. NECK: Supple. No JVD. LUNGS: Rhonchi bilaterally. Decreased breath sounds. CARDIOVASCULAR: S1, S2. Positive murmur. ABDOMEN: Soft, nontender. No distention. No organomegaly. EXTREMITIES: No bilateral lower extremity edema. NEUROLOGIC: Awake, alert, verbal, follows commands. MEDICATIONS: Reviewed. Mucomyst 4 mL inhalation twice a day, DuoNeb 3 mL inhalation every 4 hours p.r.n., DuoNeb 3 mL inhalation every 6 hours, Eliquis 5 mg twice a day, Lipitor 10 mg at bedtime, Azactam 1 g every 8 hours, Pulmicort 0.5 mg every 12 hours, Wellbutrin 150 mg daily, Klonopin 0.5 mg daily, Cardizem 60 mg 3 times a day, Lasix 40 mg daily, Neurontin 100 mg daily, Levaquin 750 every other day, Synthroid 88 mcg daily, Solu-Medrol 40 mg every 6 hours, Protonix 40 mg in the morning, potassium chloride 10 mEq daily, Carafate 1 g three times a day. LABORATORY DATA: Reviewed. WBC 18, RBC 5.02, hemoglobin 12.6, hematocrit 44.3, platelets 392. Sodium 143, potassium 4.6, chloride 104, carbon dioxide 35, anion gap 8, BUN 39, creatinine 1.1, GFR 49, random glucose 175, calcium 9, phosphorus 4.4, magnesium 2.6, total bilirubin 0.4. AST 37, ALT 36, alkaline phosphatase 105, total protein 7, albumin 3.6, albumin-globulin ratio 1.1. Procalcitonin 0.09. Blood cultures preliminary, no growth after three days. DIAGNOSTIC DATA: Chest CT shows focal areas of consolidation seen in the right lung apex, the left upper lobe and at both lung bases. The findings are most consistent with multifocal pneumonia. IMPRESSION AND PLAN: Respiratory failure, acute renal failure, community-acquired pneumonia, chronic atrial fibrillation, hypothyroidism, gastroesophageal reflux disease, sleep apnea syndrome. The patient with negative procalcitonin, partially treated for pneumonia in the community before coming to the hospital. The patient will need followup CT scan to show stability of infiltrates. Continue antibiotic therapy, inhaled bronchodilators. The patient is currently on anticoagulation therapy. Continue gastric prophylaxis. Echocardiogram showed right ventricular systolic pressure is 60, [id number] pulmonary hypertension. Continue to encourage and use bilevel positive airway pressure at bedtime. Sleep apnea precaution, head of bed elevated at 45 degrees. The patient will need sleep study as outpatient, will need full pulmonary function tests as outpatient. This patient was seen and examined with Dr. Masterson. Discussed assessment and plan as described above. This patient was seen and examined with Abhijeet Lott, nurse practitioner. Discussed assessment and plan as described above. Thank you for this consult. We will follow with you. Abhijeet Lott APN Natali Masterson MD
--- NOTE | 2018-09-17 14:01 | CP.PCM.PN ---
Subjective - Date & Time of Evaluation Date of Evaluation: 09/17/18 Time of Evaluation: 11:25 - Subjective Subjective: No fevers, not in distress on a chair but at times anxious, states her breathing is a bit better, no nausea, no diarrhea. Objective - Vital Signs/Intake and Output Vital Signs (last 24 hours): Temp Pulse Resp BP Pulse Ox 98.3 F 85 20 130/63 100 09/16/18 14:00 09/16/18 15:23 09/16/18 14:00 09/16/18 15:23 09/16/18 14:00 Intake and Output: 09/16/18 09/16/18 06:59 18:59 Output Total 300 2100 Balance -300 -2100 - Medications Medications: Current Medications Acetylcysteine (Acetylcysteine 20%) 4 ml IH BIDRESP COLT Last Admin: 09/16/18 07:15 Dose: 4 ml Albuterol/Ipratropium (Duoneb 3 Mg/0.5 Mg (3 Ml) Ud) 3 ml IH [id number] COLT Last Admin: 09/16/18 13:25 Dose: 3 ml Albuterol/Ipratropium (Duoneb 3 Mg/0.5 Mg (3 Ml) Ud) 3 ml IH [id number] PRN PRN Reason: Shortness of Breath Apixaban (Eliquis) 5 mg PO BID COLT; Protocol Last Admin: 09/16/18 11:27 Dose: 5 mg Atorvastatin Calcium (Lipitor) 10 mg PO HS [facility] Last Admin: 09/15/18 22:09 Dose: 10 mg Budesonide (Pulmicort Respules) 0.5 mg IH [id number] COLT Last Admin: 09/16/18 07:15 Dose: 0.5 mg Bupropion HCl (Wellbutrin Sr 150 Mg) 150 mg PO DAILY COLT Last Admin: 09/16/18 11:27 Dose: 150 mg Clonazepam (Klonopin) 0.5 mg PO DAILY [facility]; Protocol Last Admin: 09/14/18 13:20 Dose: 0.5 mg Diltiazem HCl (Cardizem) 60 mg PO TID [facility] Last Admin: 09/16/18 15:23 Dose: 60 mg Furosemide (Lasix) 40 mg PO DAILY COLT Last Admin: 09/16/18 11:27 Dose: 40 mg Gabapentin (Neurontin) 100 mg PO DAILY [facility]; Protocol Last Admin: 09/16/18 11:19 Dose: 100 mg Aztreonam (Azactam 1 Gm) 100 mls @ 100 mls/hr IVPB Q8 [facility]; Protocol Stop: 09/22/18 06:16 Last Admin: 09/16/18 13:48 Dose: 100 mls/hr Levofloxacin (Levaquin) 750 mg PO QOTHERDAY [facility]; Protocol Last Admin: 09/15/18 09:03 Dose: 750 mg Levothyroxine Sodium (Synthroid) 88 mcg PO DAILY [facility] Last Admin: 09/16/18 11:20 Dose: 88 mcg Methylprednisolone (Solu-Medrol) 40 mg IVP Q6 [facility] Last Admin: 09/16/18 13:50 Dose: 40 mg Pantoprazole Sodium (Protonix Ec Tab) 40 mg PO ACB [facility] Potassium Chloride (Klor-Con 10) 10 meq PO 0800 [facility] Last Admin: 09/16/18 08:38 Dose: 10 meq Sucralfate (Carafate Tab) 1 gm PO TID [facility] Last Admin: 09/16/18 13:51 Dose: 1 gm - Labs Labs: 09/16/18 06:45 09/16/18 06:45 PT 16.8 SECONDS (9.4-12.5) H 09/15/18 08:30 INR 1.49 09/15/18 08:30 APTT 77.2 Seconds (26.9-38.3) H 09/15/18 08:30 - Constitutional Appears: No Acute Distress, Chronically Ill - Head Exam Head Exam: NORMAL INSPECTION - Respiratory Exam Respiratory Exam: Decreased Breath Sounds - Cardiovascular Exam Cardiovascular Exam: +S1, +S2 - GI/Abdominal Exam GI & Abdominal Exam: Soft. absent: Tenderness Assessment and Plan - Assessment and Plan (Free Text) Plan: Assessment Severe sepsis with hypoxic and hypercapneic respiratory failure and acute renal failure due to multifocal severe community-acquired pneumonia chronic atrial fibrillation bilateral cataracts S/P surgery history of nephrolithiasis hypothyroidism S/P laparoscopic appendectomy GERD S/P left mastectomy Plan gave a loading dose of IV Vancomycin but we need not continue this since blood cx and MRSA screen are negative; continue Azactam and Levaquin day 3 pending final culture results; PCT is 0.09; follow up urine Legionella Ag; reviewed CXR and CT chest - target 4-7 days of antibiotics will continue to monitor clinically
[2018-09-17] MEDS: Fluticasone Nasal 50 mcg/Spray NS SCH (15:24)
--- NOTE | 2018-09-17 17:38 | PN ---
DATE: 09/17/2018 SUBJECTIVE: The patient is seen sitting in a chair on telemetry. She states she continues to feel weak and tired, is not sleeping well. Her dyspnea is improved. She denies any cough or chest pain. CURRENT MEDICATIONS: Include Mucomyst, Azactam, Carafate, diltiazem 60 mg t.i.d, DuoNeb inhaler, Eliquis 5 mg b.i.d., Klonopin, potassium, Lasix 40 mg daily, Levaquin, Lipitor, Neurontin, Protonix, Pulmicort, Solu-Medrol, Synthroid and Wellbutrin. OBJECTIVE: GENERAL: She is overweight middle-aged woman. VITAL SIGNS: Blood pressures 146/60 with pulse of 90, respirations are 16, she is afebrile. HEENT: No JVD. LUNGS: Few scattered rhonchi noted. Diminished breath sounds at the right base. CARDIOPULMONARY: PMI displaced laterally with a systolic murmur at the bases as well as left sternal border. ABDOMEN: Soft, obese with normoactive bowel sounds. EXTREMITIES: No edema. LABORATORY DATA: Potassium 4.6, BUN and creatinine 39 and 1.1, glucose is 175. White count 18, hemoglobin and hematocrit 12.6 and 44.3 with platelet count of 392,000. CT of the chest revealed evidence of multifocal pneumonia involving the right apex, left upper lobe and both lung bases. ASSESSMENT: 1. Multilobar pneumonia, on IV antibiotic therapy. 2. Paroxysmal atrial fibrillation, currently in sinus rhythm. 3. Moderate aortic stenosis. 4. Chronic obstructive pulmonary disease. 5. Anxiety and depression. 6. Pulmonary hypertension of moderate to severe severity. RECOMMENDATIONS: Current treatment to continue for now. If her dyspnea persists after resolution of her pneumonia, further cardiac evaluation would be advised including right and left heart catheterization to document her pulmonary artery pressures and assess her coronary artery disease and better assess her aortic valve disease. We will continue to follow and make further recommendations as appropriate. Jose Enrique Hanson MD
[2018-09-17] MEDS: cycloSPORINE 0.05 % Opth Emulsion UD OD SCH (22:29)
[2018-09-17] MEDS: MethylPREDNISolone 40 mg Vial IV SCH (22:31)
--- NOTE | 2018-09-18 01:12 | PN ---
DATE: 09/14/2018 SUBJECTIVE: The patient in medical floor, she is comfortable. No distress. She does complain of postnasal drip. She does complain of dry eyes and general weakness. Otherwise, she feel better, afebrile. PHYSICAL EXAMINATION: VITAL SIGNS: Temperature 98.4, heart rate 75, blood pressure 129/61, respirations 18, saturation 90% on 2 liters, she was usually 94% to 98%. HEAD AND NECK: Normal. No JVD. No thyromegaly. CHEST: Diminished breath sounds bilaterally. No wheezing. CARDIAC: First sound and second sound normal. There is systolic ejection murmur in the aortic area. ABDOMEN: Obese and nontender. EXTREMITIES: There is bilateral lower extremity edema. NEUROLOGIC: Normal. DIAGNOSTIC STUDY: CT chest shows multilobar pneumonia. LABORATORY DATA: White count 18.0, hemoglobin 12.6, hematocrit 44.3, and platelets 392. Chemistry shows sodium 143, potassium 4.6, chloride 104, bicarb 35, BUN 39, creatinine 1.1 and blood sugar 175, magnesium 2.6. Liver function test within normal range. IMPRESSION AND PLAN: 1. Bilateral pneumonia, multifocal pneumonia. Continue current IV antibiotic. The patient getting Azactam and IV Levaquin 750 mg p.o daily. We will continue Solu-Medrol IV, we will reduce it every 8 hours. 2. Chronic atrial fibrillation. Continue Eliquis and Cardizem. 3. Generalized weakness. The patient getting physical therapy, PT evaluation. 4. The patient has leukocytosis probably secondary to underlying infection. 5. Hypertension, hypercholesterolemia, morbid obesity, obstructive sleep apnea, hypothyroidism, depression. Continue current therapy. Followup clinically. Continue Mucomyst and chest PT, physical therapy. Patricio Horta MD
[2018-09-18] MEDS: Albuterol-Ipratrop 3 mg / 0.5 (3 ml) UD IH SCH ×4 (01:55→19:30)
[2018-09-18] MEDS: Aztreonam 1 Gm in NS 100mL 100 ML IVPB SCH ×2 (05:37→14:50)
[2018-09-18] MEDS: MethylPREDNISolone 40 mg Vial IV SCH ×2 (05:45→14:50)
[2018-09-18 06:51] LABS: BASO # 0.01 K/mm3 (0.0-2.0); BASO % 0.1 % (0.0-3.0); HEMOGLOBIN 13.1 g/dL (12.0-16.0); LYMPH # 0.6 (1.2-3.4); LYMPH % 4.4 % (22.0-35.0); MEAN CELL VOLUME 87.2 fl (80.0-105.0); MEAN CORPUSCULAR HEMOGLOBIN 25.3 pg (25.0-35.0); MEAN PLATELET VOLUME 8.9 fl (7.0-11.0); MONO # 0.3 (0.1-0.6); PLATELET COUNT 336 10^3/uL (120.0-450.0); RBC 5.17 10^6/uL (3.5-6.1); WHITE BLOOD COUNT 13.8 10^3/uL (4.5-11.0)
[2018-09-18] MEDS: Budesonide 0.5 mg/2 ml Inhal Susp UD IH SCH ×2 (07:22→19:30)
[2018-09-18] MEDS: Acetylcysteine 20% Inhal Soln (4ml) IH SCH ×2 (07:22→19:29)
[2018-09-18 07:31] LABS: ALB/GLOB RATIO 1.1 (1.1-1.8); ALBUMIN 3.6 g/dL (3.0-4.8); ALT/SGPT 39 U/L (7-56); AST/SGOT 39 U/L (14-36); BLOOD UREA NITROGEN 41 mg/dL (7-21); CALCIUM 8.6 mg/dL (8.4-10.5); GFR NON-AFRICAN AMERICAN 54
[2018-09-18 08:24] LABS: LYMPHOCYTE 6 % (22.0-35.0); MONOCYTE 2 % (1.0-6.0); NEUTROPHIL 92 % (50.0-70.0)
[2018-09-18] MEDS: Potassium Chloride 10 mEq ER Tab PO SCH (08:36)
[2018-09-18] MEDS: Levothyroxine 88 MCG TAB PO SCH (10:47)
[2018-09-18] MEDS: buPROPion SR 150 MG TABLET PO SCH (10:47)
[2018-09-18] MEDS: Fluticasone Nasal 50 mcg/Spray NS SCH (10:48)
[2018-09-18] MEDS: Pantoprazole 40 mg EC Tab PO SCH (10:50)
[2018-09-18] MEDS: cycloSPORINE 0.05 % Opth Emulsion UD OD SCH (10:50)
--- NOTE | 2018-09-18 12:10 | PN ---
DATE: 09/18/2018 PULMONARY PROGRESS NOTE REFERRING PHYSICIAN: Patricio Horta MD. SUBJECTIVE: The patient is sitting up in armchair in room. Reports feeling okay today. Wore CPAP last night for about 3-4 hours. Still has some shortness of breath and coughing, but it has improved. No headache, rhinitis, chest pain, abdominal pain, nausea, vomiting, diarrhea, leg pain or leg swelling reported. OBJECTIVE: GENERAL: No acute distress. VITAL SIGNS: Blood pressure 130/70, pulse 72, temperature 97.9, oxygen saturation 93% on room air. HEENT: Moist mucous membranes. Mallampati score 4. Crowded airway. NECK: Supple. No JVD. LUNGS: Decreased breath sounds. Rhonchi. CARDIOVASCULAR: S1, S2. Positive murmur. ABDOMEN: Soft, nontender. No distention. No organomegaly. EXTREMITIES: No bilateral lower extremity edema. NEUROLOGIC: Awake, alert, verbal, follows commands. MEDICATIONS: Reviewed. Mucomyst 4 mL inhalation twice a day, DuoNeb 3 mL inhalation every 4 hours p.r.n., DuoNeb 3 mL inhalation every 6 hours, Eliquis 5 mg twice a day, Lipitor 10 mg at bedtime, Azactam 1 g every 8 hours, Pulmicort 0.5 mg every 12 hours, Wellbutrin 150 mg daily, Klonopin 0.5 mg daily, Restasis every 12 hours each eye, Cardizem 60 mg three times a day, Flonase nasal spray daily, Lasix 40 mg daily, Neurontin 100 mg daily, Levaquin 750 mg daily, Synthroid 88 mcg daily, Solu-Medrol 40 mg every 8 hours, Protonix 40 mg in the morning, potassium chloride 10 mEq daily, Carafate 1 g three times a day. LABORATORY DATA: Reviewed. WBC 13.8, RBC 5.17, hemoglobin 13.1, hematocrit 45.1, platelets 336. Sodium 142, potassium 4.3, chloride 102, carbon dioxide 34, anion gap 10, BUN 41, creatinine 1, GFR 54, random glucose 167, calcium 8.6, phosphorus 4.8, magnesium 3.7, total bilirubin 0.5. AST 39, ALT 39, alkaline phosphatase 92, total protein 6.9, albumin 3.6, globulin 3.3, albumin-globulin ratio 1.1. IMPRESSION AND PLAN: Respiratory failure, acute renal failure, community-acquired pneumonia, chronic atrial fibrillation, hypothyroidism, gastroesophageal reflux disease, sleep apnea syndrome. It is possible the patient has viral pneumonia, aspiration pneumonia, less likely bacterial pneumonia as procalcitonin is negative. We will order chest x-ray, PA and lateral to be done today to follow up on infiltrates. Continue antibiotic therapy, inhaled bronchodilators. Currently on anticoagulation therapy, gastric prophylaxis. Sleep apnea precaution. Continue to encourage bilevel positive airway pressure use at bedtime, head of bed elevated at 45 degrees. The patient will also need followup CT scan as outpatient to assure stability of infiltrates. The patient will need sleep study as outpatient as well as full pulmonary function test as outpatient. This patient was seen and examined with Dr. Masterson. Discussed assessment and plan as described above. This patient was seen and examined with Abhijeet Lott, nurse practitioner. Discussed assessment and plan as described above. Thank you for this consult. We will follow with you. Abhijeet Lott APN Natali Masterson MD
--- NOTE | 2018-09-18 12:54 | RAD ---
Date of service: 09/18/2018 HISTORY: follow up infiltrate COMPARISON: 09/14/2018 TECHNIQUE: Chest PA and lateral FINDINGS: LUNGS: Bibasilar infiltrates and small effusions. Platelike atelectasis in the right upper lobe. PLEURA: Small effusions CARDIOVASCULAR: No aortic atherosclerotic calcification present. Moderate cardiomegaly no pulmonary vascular congestion. OSSEOUS STRUCTURES: No significant abnormalities. VISUALIZED UPPER ABDOMEN: Normal. OTHER FINDINGS: None. IMPRESSION: Bibasilar infiltrates and small effusions. Platelike atelectasis in the right upper lobe.
--- NOTE | 2018-09-18 15:02 | CP.PCM.PN ---
Subjective - Date & Time of Evaluation Date of Evaluation: 09/18/18 Time of Evaluation: 12:15 - Subjective Subjective: Comfortable on a chair, no fevers, not in distress. Objective - Vital Signs/Intake and Output Vital Signs (last 24 hours): Temp Pulse Resp BP Pulse Ox 98.1 F 95 H 18 145/63 94 L 09/17/18 06:00 09/17/18 09:42 09/17/18 06:00 09/17/18 09:42 09/17/18 06:00 Intake and Output: 09/17/18 09/17/18 06:59 18:59 Intake Total 620 Balance 620 - Medications Medications: Current Medications Acetylcysteine (Acetylcysteine 20%) 4 ml IH BIDRESP [facility] Last Admin: 09/17/18 07:43 Dose: 4 ml Albuterol/Ipratropium (Duoneb 3 Mg/0.5 Mg (3 Ml) Ud) 3 ml IH [id number] COLT Last Admin: 09/17/18 13:09 Dose: 3 ml Albuterol/Ipratropium (Duoneb 3 Mg/0.5 Mg (3 Ml) Ud) 3 ml IH [id number] PRN PRN Reason: Shortness of Breath Apixaban (Eliquis) 5 mg PO BID [facility]; Protocol Last Admin: 09/17/18 09:37 Dose: 5 mg Atorvastatin Calcium (Lipitor) 10 mg PO HS [facility] Last Admin: 09/16/18 21:33 Dose: 10 mg Budesonide (Pulmicort Respules) 0.5 mg IH [id number] [facility] Last Admin: 09/17/18 07:43 Dose: 0.5 mg Bupropion HCl (Wellbutrin Sr 150 Mg) 150 mg PO DAILY [facility] Last Admin: 09/17/18 09:37 Dose: 150 mg Clonazepam (Klonopin) 0.5 mg PO DAILY [facility]; Protocol Last Admin: 09/14/18 13:20 Dose: 0.5 mg Cyclosporine (Restasis) 1 ea OD Q12 COLT Diltiazem HCl (Cardizem) 60 mg PO TID [facility] Last Admin: 09/17/18 09:42 Dose: 60 mg Fluticasone Propionate (Flonase) 1 actuation NS DAILY [facility] Furosemide (Lasix) 40 mg IV DAILY [facility] Gabapentin (Neurontin) 100 mg PO DAILY [facility]; Protocol Last Admin: 09/17/18 09:37 Dose: 100 mg Aztreonam (Azactam 1 Gm) 100 mls @ 100 mls/hr IVPB Q8 [facility]; Protocol Stop: 09/22/18 06:16 Last Admin: 09/17/18 05:01 Dose: 100 mls/hr Levofloxacin (Levaquin) 750 mg PO QOTHERDAY [facility]; Protocol Last Admin: 09/17/18 09:37 Dose: 750 mg Levothyroxine Sodium (Synthroid) 88 mcg PO DAILY [facility]T Last Admin: 09/17/18 09:37 Dose: 88 mcg Methylprednisolone (Solu-Medrol) 40 mg IVP Q6 [facility] Last Admin: 09/17/18 11:45 Dose: 40 mg Pantoprazole Sodium (Protonix Ec Tab) 40 mg PO ACB [facility] Last Admin: 09/17/18 09:37 Dose: 40 mg Potassium Chloride (Klor-Con 10) 10 meq PO 0800 [facility] Last Admin: 09/17/18 09:37 Dose: 10 meq Sucralfate (Carafate Tab) 1 gm PO TID [facility] Last Admin: 09/17/18 09:37 Dose: 1 gm - Labs Labs: 09/17/18 06:35 09/17/18 06:35 PT 16.8 SECONDS (9.4-12.5) H 09/15/18 08:30 INR 1.49 09/15/18 08:30 APTT 77.2 Seconds (26.9-38.3) H 09/15/18 08:30 - Constitutional Appears: Chronically Ill - Head Exam Head Exam: NORMAL INSPECTION - Respiratory Exam Respiratory Exam: Decreased Breath Sounds - Cardiovascular Exam Cardiovascular Exam: +S1, +S2 - GI/Abdominal Exam GI & Abdominal Exam: Soft. absent: Tenderness Assessment and Plan - Assessment and Plan (Free Text) Plan: Assessment Severe sepsis with hypoxic and hypercapneic respiratory failure and acute renal failure due to multifocal severe community-acquired pneumonia, slowly improving chronic atrial fibrillation bilateral cataracts S/P surgery history of nephrolithiasis hypothyroidism S/P laparoscopic appendectomy GERD S/P left mastectomy Plan gave a loading dose of IV Vancomycin but we need not continue this since blood cx and MRSA screen are negative; continue Azactam and Levaquin day 4 pending final culture results; PCT is 0.09; follow up urine Legionella Ag; reviewed CXR and CT chest - target 4-7 days of antibiotics will continue to monitor clinically
--- NOTE | 2018-09-18 15:42 | PN ---
DATE: 09/18/2018 SUBJECTIVE: The patient seen sitting in chair on 5R. She continues to feel weak and tired. She remains afebrile. Current medications include Mucomyst, Azactam, Cardizem 60 mg t.i.d., DuoNeb inhaler, Eliquis 5 mg b.i.d., Flonase, Klonopin, Lasix 40 mg daily, potassium, Levaquin, Lipitor, Neurontin, Protonix, Pulmicort, Solu-Medrol, Synthroid and Wellbutrin. PHYSICAL EXAMINATION: GENERAL: She is an overweight middle-aged woman. VITAL SIGNS: Blood pressure is 130/70 with pulse of 70 and regular, respirations are 16. She is afebrile. HEENT: No JVD. CHEST: Bilateral scattered rhonchi heard. HEART: PMI normal position with a systolic murmur at the base as well as lower left sternal border. ABDOMEN: Soft, obese, nontender with normoactive bowel sounds. EXTREMITIES: No edema. DIAGNOSTIC DATA: White count 13.8, hemoglobin and hematocrit 13.1 and 45.1 with platelet count of 336,000, potassium 4.3, BUN and creatinine [address] of the chest reportedly showed evidence of multifocal pneumonia involving the right apex, left upper lobe, and both lung bases. IMPRESSION: 1. Multilobar pneumonia, on intravenous antibiotic therapy. 2. Moderate aortic stenosis. 3. Paroxysmal atrial fibrillation, remains in sinus rhythm. 4. Chronic obstructive pulmonary disease. 5. Pulmonary hypertension and moderate to severe degree. 6. Anxiety/depression. RECOMMENDATIONS: Current antibiotic therapy should continue for now. Further cardiac evaluation will be planned after resolution of her pulmonary issues. Reassessment of her pulmonary hypertension, once her acute respiratory illness is resolved, will be needed. Her current medications should continue for now. We will follow along as needed. Jose Enrique Hanson MD
[2018-09-18 16:49] VITALS: RESP 20; TEMP 99; O2SAT 92
[2018-09-18 19:07] VITALS: BP 127/72; PULSE 71
[2018-09-19] MEDS ORDERED: levoFLOXacin 750 MG TAB PO SCH (10:00)
--- NOTE | 2018-09-19 11:37 | DS ---
HISTORY OF PRESENT ILLNESS: A 72-year-old female admitted with acute respiratory distress initially admitted to ICU because of severity of symptoms and respiratory failure and also the patient has multifocal pneumonia. The patient was stayed in ICU for 2 days. She becomes more alert, feeling better, transferred to medical floor where she maintained the medications, seen by pulmonary consult Dr. Masterson, Cardiology consult Dr. Hanson and Art [employer], and the patient was doing very well. She was given Azactam 1 g IV every 8 and also Levaquin 750 p.o. daily and was given IV steroid which is gradually has been lowered down. She was maintained on Lasix and Eliquis. The patient did well, improved with medication nebulizer treatment Mucomyst, chest CT and she was improving slowly everyday and was discharged to TCU for continuation of therapy, continuation of medications and physical therapy. She has no chest pain. She seems a lot better. No respiratory distress and afebrile. PHYSICAL EXAMINATIONS: VITAL SIGNS: On discharge, temperature on 09/18/2018, temperature is 99, heart rate 72, blood pressure 130/70, respiration 20 and saturation 93% on room air. HEAD AND NECK: Normal. No JVD. No thyromegaly. CHEST: Air entry on the right. LUNGS: Still diminished breath sounds. No wheezing. CARDIAC: First sound and second sound normal with systolic murmur in the aortic area, with normal second sound. ABDOMEN: Obese and nontender. EXTREMITY: Edema bilateral left more than right. NEUROLOGIC: Normal. LABORATORY DATA: Shows white count 13.8, hemoglobin 15.1, hematocrit 45.1 and platelets 336. Chemistry; sodium 142, potassium 4.3, chloride 102, bicarb 34, BUN 41, creatinine 1 and blood sugar 167, phosphorous 4.8, magnesium 2.7. Liver functions test seems normal except AST slightly elevated. The patient's troponin was negative. She has procalcitonin and repeat was 0.09. She also had a urine test which is negative. She had a toxicology of vancomycin and was 9. She also had Legionella pneumonia which is negative and influenza A and B which was negative. She had a chest x-ray and CT chest shows multilobar pneumonia in the . She also had blood cultures and urine cultures which is negative. The patient also had echocardiogram which shows good LV functions with mild aortic stenosis and pulmonary hypertension moderate. DISCHARGE DIAGNOSES: 1. Multilobar pneumonia community acquired. 2. Chronic obstructive pulmonary disease. 3. Obstructive sleep apnea, need to be evaluated and treated. 4. Hypertension. 5. History of congestive heart failure. Continue Lasix and potassium. 6. Hypothyroidism. 7. Pulmonary hypertension. 8. Morbid obesity. 9. Generalized weakness and deconditioning. 10. Chronic atrial fibrillation. PLAN: Continue current medication at TCU level and with physical therapy. Continue p.o. Levaquin. Continue Azactam, Lipitor, Neurontin, Protonix, Pulmicort, DuoNeb, Mucomyst, Synthroid, Wellbutrin, Brovana, Cardizem, Eliquis 5 mg b.i.d. Patricio Horta MD
== END 2018-09-18 20:28 | DRG 871 ==
LOC: ED 07:03 → ERH 09:05 → ICU 11:38 → 5RNO 09-15 20:23
PROVIDERS: ADMIT Internal Medicine; ATTEND Internal Medicine
PROC: 5A09457 Assistance with Respiratory Ventilation, 24-96 Consecutive Hours, Continuous Positive Airway Pressure (ICD-10-PCS; principal; 2018-09-14)
PROC: 3E0F7GC Introduction of Other Therapeutic Substance into Respiratory Tract, Via Natural or Artificial Opening (ICD-10-PCS; 2018-09-14)
DX: A41.9 Sepsis, unspecified organism (principal); J18.1 Lobar pneumonia, unspecified organism; J96.92 Respiratory failure, unspecified with hypercapnia; J96.91 Respiratory failure, unspecified with hypoxia; N17.9 Acute kidney failure, unspecified; E66.2 Morbid (severe) obesity with alveolar hypoventilation; J44.1 Chronic obstructive pulmonary disease with (acute) exacerbation; J44.0 Chronic obstructive pulmonary disease with (acute) lower respiratory infection; E87.2 Acidosis; R65.20 Severe sepsis without septic shock; I48.2 Chronic atrial fibrillation; I48.0 Paroxysmal atrial fibrillation; I27.20 Pulmonary hypertension, unspecified; G89.4 Chronic pain syndrome; I11.0 Hypertensive heart disease with heart failure; I50.9 Heart failure, unspecified; E78.00 Pure hypercholesterolemia, unspecified; E03.9 Hypothyroidism, unspecified; I08.3 Combined rheumatic disorders of mitral, aortic and tricuspid valves; K21.9 Gastro-esophageal reflux disease without esophagitis; F32.9 Major depressive disorder, single episode, unspecified; F41.9 Anxiety disorder, unspecified; Z68.38 Body mass index [BMI] 38.0-38.9, adult; Z91.19 Patient's noncompliance with other medical treatment and regimen; Z79.01 Long term (current) use of anticoagulants; Z79.51 Long term (current) use of inhaled steroids; Z91.81 History of falling; Z87.891 Personal history of nicotine dependence

== ENCOUNTER 2018-09-18 20:31 | Inpatient (IN) | payer BC, OTHER ==
[2018-09-18] MEDS: Aztreonam 1 Gm in NS 100mL 100 ML IVPB SCH (21:47)
[2018-09-18] MEDS: MethylPREDNISolone 40 mg Vial IV SCH (21:48)
[2018-09-18] MEDS: cycloSPORINE 0.05 % Opth Emulsion UD OD SCH (21:50)
[2018-09-19] MEDS: Albuterol-Ipratrop 3 mg / 0.5 (3 ml) UD IH SCH ×3 (02:15→13:05)
[2018-09-19] MEDS: Aztreonam 1 Gm in NS 100mL 100 ML IVPB SCH ×3 (05:07→21:05)
[2018-09-19] MEDS: Levothyroxine 88 MCG TAB PO SCH (05:08)
[2018-09-19] MEDS: MethylPREDNISolone 40 mg Vial IV SCH (05:08)
[2018-09-19] MEDS: Pantoprazole 40 mg EC Tab PO SCH (05:34)
[2018-09-19] MEDS: Acetylcysteine 20% Inhal Soln (4ml) IH SCH ×2 (07:22→20:11)
[2018-09-19] MEDS: Budesonide 0.5 mg/2 ml Inhal Susp UD IH SCH ×2 (07:23→20:11)
[2018-09-19] MEDS: Arformoterol 15 mcg/2 ml Inh Sol IH SCH ×2 (07:23→20:11)
[2018-09-19] MEDS: Potassium Chloride 10 mEq ER Tab PO SCH (08:46)
[2018-09-19 09:12] LABS: BLOOD UREA NITROGEN 44 mg/dL (7-21); CALCIUM 8.7 mg/dL (8.4-10.5); GFR NON-AFRICAN AMERICAN 54
[2018-09-19] MEDS ORDERED: levoFLOXacin 750 MG TAB PO SCH (10:00)
[2018-09-19] MEDS: Fluticasone Nasal 50 mcg/Spray NS SCH (10:28)
[2018-09-19] MEDS: buPROPion SR 150 MG TABLET PO SCH (10:30)
[2018-09-19] MEDS: levoFLOXacin 750 MG TAB PO SCH (10:30)
--- NOTE | 2018-09-19 11:06 | PN ---
DATE: 09/19/2018 PULMONARY NOTE SUBJECTIVE: The patient is seen lying in bed on Transitional Care Unit. She is unhappy with her care as she feels her respiratory treatments were ordered for strange hours and awaking her frequently in the middle of night for nebulizer therapy. She continues to be fatigued with some cough and dyspnea. CURRENT MEDICATIONS: Include Mucomyst, Azactam, Brovana, Carafate, diltiazem 60 mg three times a day, DuoNeb inhaler, Eliquis 5 mg twice a day, Flonase, Klonopin, Lasix 40 mg IV daily, potassium, Levaquin, Lipitor, Neurontin, Protonix, Pulmicort, Solu-Medrol 40 mg every 8 hours, Synthroid and Wellbutrin. OBJECTIVE: GENERAL: She is an obese middle-aged woman. VITAL SIGNS: Blood pressure is 126/70 with a pulse of 76 and regular, respirations are 16. She is afebrile. HEENT: No JVD. CHEST: Bilateral scattered rhonchi heard. HEART: PMI displaced laterally with systolic murmur at the base as well as at the lower left sternal border. ABDOMEN: Soft protrude obese, normoactive bowel sounds. EXTREMITIES: No edema. DIAGNOSTIC DATA: No blood work pending from this morning. IMPRESSION: 1. Multilobar pneumonia, on IV antibiotic therapy. 2. Moderate aortic stenosis. 3. Paroxysmal atrial fibrillation. 4. Significant chronic obstructive pulmonary disease. 5. Pulmonary hypertension. 6. Anxiety/depression. RECOMMENDATIONS: Current treatment should continue for now. Following resolution of her pneumonia. The patient will be reassessed for possible right and left heart catheterization that documented pulmonary artery pressures and evaluate for the presence of coronary artery disease and obtain more information regarding her valvular heart disease. This workup will be deferred until her pulmonary status is stabilized. She was encouraged to participate for rehabilitation efforts to the best of her capabilities. We will follow along as needed. Jose Enrique Hanson MD
--- NOTE | 2018-09-19 12:49 | CP.PCM.CON ---
History of Present Illness - History of Present Illness History of Present Illness: 72 year old female with PMH of chronic atrial fibrillation, bilateral cataracts S/P surgery, history of nephrolithiasis, hypothyroidism, S/P laparoscopic appendectomy, GERD, S/P left mastectomy [place] [facility] [place] of [place]B, worsening dyspnea on exertion for one week and was found to have multifocal pneumonia on CXR and CT chest. She has been doing well with medical therapy and is now transferred to [facility] for continued medical therapy and physical rehab. Infectious diseases consult is requested to continue her antibiotic therapy. She denies fevers, no chills, no headache, no chest pain, not short of breath at rest, still with some anxiety, no abdominal pain, no diarrhea, no dysuria. Review of Systems - Review of Systems All systems: reviewed and no additional remarkable complaints except (as per HPI) Past Patient History - Infectious Disease Hx of Infectious Diseases: None - Past Social History Smoking Status: Never Smoked - CARDIAC Hx Cardiac Disorders: Yes (new onset Afib) - PULMONARY Hx Respiratory Disorders: Yes (USED TO SMOKE 10 CIG A DAY. QUIT 2001) - NEUROLOGICAL Hx Neurological Disorder: No - HEENT Hx HEENT Problems: Yes Hx Cataracts: Yes (BILATERAL SX) - RENAL Hx Chronic Kidney Disease: Yes Hx Kidney Stones: Yes - ENDOCRINE/METABOLIC Hx Hypothyroidism: Yes - HEMATOLOGICAL/ONCOLOGICAL Hx Blood Disorders: No - INTEGUMENTARY Hx Dermatological Problems: No - MUSCULOSKELETAL/RHEUMATOLOGICAL Hx Falls: No - GASTROINTESTINAL Hx Gastrointestinal Disorders: Yes (LAP APPENDECTOMY) Hx Gastroesophageal Reflux: Yes - GENITOURINARY/GYNECOLOGICAL Hx Genitourinary Disorders: (inc from lasix/was not inc prior to admission) - PSYCHIATRIC Hx Psychophysiologic Disorder: Yes Hx Anxiety: Yes Hx Depression: Yes Hx Emotional Abuse: No Hx Physical Abuse: No - SURGICAL HISTORY Other/Comment: LEFT BREAST MASTECTOOMY,CATARACT AMEYA SX. - ANESTHESIA Hx Anesthesia: Yes Hx Anesthesia Reactions: Yes (HOARSE VOICE X 2 WEEKS) Hx Malignant Hyperthermia: No Meds Allergies/Adverse Reactions: Allergies Allergy/AdvReac Type Severity Reaction Status Date / Time Penicillins Allergy Severe RASH Verified 09/18/18 20:37 aspirin Allergy DIARRHEA Verified 09/18/18 20:37 propoxyphene [From Darvon] Allergy RASH Verified 09/18/18 20:37 DARVON Allergy Severe "TOTALLY Uncoded 09/18/18 20:37 OUT OF IT" - Medications Medications: Current Medications Acetylcysteine (Acetylcysteine 20%) 4 ml IH BIDRESP COLT Albuterol/Ipratropium (Duoneb 3 Mg/0.5 Mg (3 Ml) Ud) 3 ml IH [id number] COLT; Protocol Albuterol/Ipratropium (Duoneb 3 Mg/0.5 Mg (3 Ml) Ud) 3 ml IH [id number] PRN; Protocol PRN Reason: sob Apixaban (Eliquis) 5 mg PO BID [facility]; Protocol Arformoterol Tartrate (Brovana) 15 mcg IH [id number] COLT Atorvastatin Calcium (Lipitor) 10 mg PO HS [facility]; Protocol Last Admin: 09/18/18 21:47 Dose: 10 mg Budesonide (Pulmicort Respules) 0.5 mg IH [id number] [facility]; Protocol Bupropion HCl (Wellbutrin Sr 150 Mg) 150 mg PO DAILY [facility]; Protocol Clonazepam (Klonopin) 0.5 mg PO DAILY [facility]; Protocol Cyclosporine (Restasis) 1 ea OD Q12 [facility]; Protocol Last Admin: 09/18/18 21:50 Dose: 1 ea Diltiazem HCl (Cardizem) 60 mg PO TID [facility]; Protocol Fluticasone Propionate (Flonase) 1 actuation NS DAILY [facility]; Protocol Furosemide (Lasix) 40 mg IV DAILY [facility]; Protocol Gabapentin (Neurontin) 100 mg PO DAILY [facility]; Protocol Aztreonam (Azactam 1 Gm) 100 mls @ 100 mls/hr IVPB Q8 [facility]; Protocol Stop: 09/23/18 22:01 Last Admin: 09/18/18 21:47 Dose: 100 mls/hr Levofloxacin (Levaquin) 750 mg PO DAILY [facility]; Protocol Levothyroxine Sodium (Synthroid) 88 mcg PO 0600 [facility]; Protocol Methylprednisolone (Solu-Medrol) 40 mg IV Q8H [facility]; Protocol Last Admin: 09/18/18 21:48 Dose: 40 mg Pantoprazole Sodium (Protonix Ec Tab) 40 mg PO 0630 [facility]; Protocol Potassium Chloride (Klor-Con 10) 10 meq PO 0800 [facility]; Protocol Sucralfate (Carafate Tab) 1 gm PO TID [facility]; Protocol Physical Exam - Constitutional Appears: Chronically Ill - Head Exam Head Exam: NORMAL INSPECTION - ENT Exam ENT Exam: Mucous Membranes Moist - Respiratory Exam Respiratory Exam: Decreased Breath Sounds - Cardiovascular Exam Cardiovascular Exam: +S1, +S2 - GI/Abdominal Exam GI & Abdominal Exam: Soft. absent: Tenderness Results - Labs Result Diagrams: 09/19/18 08:50 Assessment & Plan - Assessment and Plan (Free Text) Plan: Assessment Severe sepsis with hypoxic and hypercapneic respiratory failure and acute renal failure due to multifocal severe community-acquired pneumonia, slowly improving chronic atrial fibrillation bilateral cataracts S/P surgery history of nephrolithiasis hypothyroidism S/P laparoscopic appendectomy GERD S/P left mastectomy Plan gave a loading dose of IV Vancomycin but we need not continue this since blood cx and MRSA screen are negative; continue Azactam and Levaquin day 5 pending final culture results; PCT is 0.09; follow up urine Legionella Ag; reviewed CXR and CT chest - target up to 7 days of antibiotics will continue to monitor clinically
--- NOTE | 2018-09-19 13:08 | CON ---
DATE: 09/19/2018 PULMONARY CONSULT NOTE REFERRING PHYSICIAN: Patricio Horta MD REASON FOR CONSULT: Obstructive sleep apnea syndrome, shortness of breath, dyspnea. HISTORY OF PRESENT ILLNESS: This is a 72-year-old female with past medical history significant for chronic atrial fibrillation, chronic anxiety, hypothyroidism, sleep apnea syndrome, gastritis, chronic pain syndrome. The patient was treated on acute side of the hospital for community-acquired pneumonia. The patient was given antibiotics in the community, but reported that symptoms continued to worsen, so she came into the emergency room with dyspnea and shortness of breath and increasingly worsening cough. The patient was treated on acute side of the hospital and is now in [facility] for rehabilitation. The patient reports feeling well today. No coughing, no shortness of breath at this time. The patient just reports not being able to get enough sleep last night as BiPAP machine was placed on her around 2 o'clock in the morning, waking her up from sleep. PAST MEDICAL HISTORY: As per history of present illness. ALLERGIES: PENICILLIN, ASPIRIN, DARVON, PROPOXYPHENE. FAMILY HISTORY: No significant cardiopulmonary disease reported. SOCIAL HISTORY: Former smoker, quit in 2001. No EtOH abuse. No illicit drug use. MEDICATIONS: Reviewed. Mucomyst 4 mL inhalation twice a day, DuoNeb 3 mL inhalation every 4 hours p.r.n., DuoNeb 3 mL inhalation every 6 hours, Eliquis 5 mg twice a day, Brovana 15 mcg every 12 hours, Lipitor 10 mg at bedtime, Azactam 1 g every 8 hours, Pulmicort 0.5 mg inhalation every 12 hours, Wellbutrin 150 mg daily, Klonopin 0.5 mg daily, Restasis every 12 hours, Cardizem 60 mg 3 times a day, Flonase nasal spray daily, Lasix 40 mg daily, Neurontin 100 mg daily, Levaquin 750 mg daily, Synthroid 88 mcg daily, Solu-Medrol 40 mg IV push 3 times a day, Protonix 40 mg daily, potassium chloride 10 mEq daily, Carafate 1 g 3 times a day. REVIEW OF SYSTEMS: No headache, rhinitis, chest pain, abdominal pain, nausea, vomiting, diarrhea, leg pain, or leg swelling reported. The patient reports feeling tired this morning. Has periods of shortness of breath and cough, but it has improved. PHYSICAL EXAMINATION: GENERAL: No acute distress. VITAL SIGNS: Blood pressure 127/68, pulse 82, temperature 98.3. HEENT: Moist mucous membranes. Mallampati score of 4. Crowded airway. NECK: Supple. No JVD. LUNGS: Decreased breath sounds bilaterally. Few rhonchi. CARDIOVASCULAR: S1, S2. ABDOMEN: Soft. Nontender. No distention. No organomegaly. EXTREMITIES: Trace bilateral lower extremity edema. NEUROLOGIC: Awake, alert. Verbal. Follows commands. LABORATORY DATA: Reviewed. Sodium 143, potassium 4.2, chloride 101, carbon dioxide 34, anion gap 11, BUN 44, creatinine 1, GFR 54, random glucose 212, calcium 8.7. Chest x-ray showed bibasilar infiltrates and small effusions, plate-like atelectasis in the right upper lobe. IMPRESSION AND PLAN: Respiratory failure, acute renal failure, community-acquired pneumonia, chronic atrial fibrillation, hypothyroidism, gastroesophageal reflux disease, sleep apnea syndrome. The patient has a history of being noncompliant with treatment for sleep apnea in the past. Continue antibiotic therapy, inhaled bronchodilators. Continue gastric prophylaxis. The patient is on anticoagulation therapy. Continue steroids. Continue bilevel positive airway pressure at bedtime, sleep apnea precaution, head of bed elevated at 45 degrees. The patient is clinically stable at this time, will order procalcitonin, proBNP levels in the morning as followup. Continue physical therapy. This patient was seen and examined with Dr. Masterson. Discussed assessment and plan as described above. This patient was seen and examined with Abhijeet Lott, nurse practitioner. Discussed assessment and plan as described above. Thank you for this consult. We will follow with you. Abhijeet Lott APN Natali Masterson MD
[2018-09-19] MEDS: MethylPREDNISolone 40 mg Vial IVP SCH ×2 (13:27→21:05)
[2018-09-19] MEDS: cycloSPORINE 0.05 % Opth Emulsion UD OD SCH ×2 (13:27→21:06)
[2018-09-20] MEDS: Aztreonam 1 Gm in NS 100mL 100 ML IVPB SCH ×3 (05:05→21:19)
[2018-09-20] MEDS: Levothyroxine 88 MCG TAB PO SCH (05:05)
[2018-09-20] MEDS: MethylPREDNISolone 40 mg Vial IVP SCH ×3 (05:05→21:20)
[2018-09-20] MEDS: Pantoprazole 40 mg EC Tab PO SCH (05:34)
[2018-09-20] MEDS: Acetylcysteine 20% Inhal Soln (4ml) IH SCH ×2 (07:20→21:09)
[2018-09-20] MEDS: Budesonide 0.5 mg/2 ml Inhal Susp UD IH SCH ×2 (07:21→21:09)
[2018-09-20] MEDS: Arformoterol 15 mcg/2 ml Inh Sol IH SCH ×2 (07:21→21:09)
[2018-09-20] MEDS: Potassium Chloride 10 mEq ER Tab PO SCH (08:19)
[2018-09-20] MEDS: cycloSPORINE 0.05 % Opth Emulsion UD OD SCH ×2 (09:08→21:20)
[2018-09-20] MEDS: buPROPion SR 150 MG TABLET PO SCH (09:08)
[2018-09-20] MEDS: levoFLOXacin 750 MG TAB PO SCH (09:08)
[2018-09-20] MEDS: Fluticasone Nasal 50 mcg/Spray NS SCH (09:09)
--- NOTE | 2018-09-20 14:01 | CP.PCM.PN ---
Subjective - Date & Time of Evaluation Date of Evaluation: 09/19/18 Time of Evaluation: 10:30 - Subjective Subjective: Comfortable in bed, afebrile. Objective - Vital Signs/Intake and Output Vital Signs (last 24 hours): Temp Pulse Resp BP Pulse Ox 98.3 F 76 18 121/78 09/19/18 00:02 09/19/18 02:20 09/19/18 00:02 09/19/18 10:29 - Medications Medications: Current Medications Acetylcysteine (Acetylcysteine 20%) 4 ml IH BIDRESP COLT Last Admin: 09/19/18 07:22 Dose: 4 ml Albuterol/Ipratropium (Duoneb 3 Mg/0.5 Mg (3 Ml) Ud) 3 ml IH [id number] COLT; Protocol Last Admin: 09/19/18 07:23 Dose: 3 ml Albuterol/Ipratropium (Duoneb 3 Mg/0.5 Mg (3 Ml) Ud) 3 ml IH [id number] PRN; Protocol PRN Reason: sob Apixaban (Eliquis) 5 mg PO BID COLT; Protocol Last Admin: 09/19/18 10:29 Dose: 5 mg Arformoterol Tartrate (Brovana) 15 mcg IH [id number] COLT Last Admin: 09/19/18 07:23 Dose: 15 mcg Atorvastatin Calcium (Lipitor) 10 mg PO HS COLT; Protocol Last Admin: 09/18/18 21:47 Dose: 10 mg Budesonide (Pulmicort Respules) 0.5 mg IH [id number] COLT; Protocol Last Admin: 09/19/18 07:23 Dose: 0.5 mg Bupropion HCl (Wellbutrin Sr 150 Mg) 150 mg PO DAILY COLT; Protocol Last Admin: 09/19/18 10:30 Dose: 150 mg Clonazepam (Klonopin) 0.5 mg PO DAILY COLT; Protocol Last Admin: 09/19/18 10:29 Dose: 0.5 mg Cyclosporine (Restasis) 1 ea OD Q12 COLT; Protocol Last Admin: 09/18/18 21:50 Dose: 1 ea Diltiazem HCl (Cardizem) 60 mg PO TID COLT; Protocol Last Admin: 09/19/18 10:29 Dose: 60 mg Fluticasone Propionate (Flonase) 1 actuation NS DAILY COLT; Protocol Last Admin: 09/19/18 10:28 Dose: 1 spr Furosemide (Lasix) 40 mg IV DAILY COLT; Protocol Last Admin: 09/19/18 10:29 Dose: 40 mg Gabapentin (Neurontin) 100 mg PO DAILY COLT; Protocol Last Admin: 09/19/18 10:30 Dose: 100 mg Aztreonam (Azactam 1 Gm) 100 mls @ 100 mls/hr IVPB Q8 COLT; Protocol Stop: 09/23/18 22:01 Last Admin: 09/19/18 05:07 Dose: 100 mls/hr Levofloxacin (Levaquin) 750 mg PO DAILY COLT; Protocol Last Admin: 09/19/18 10:30 Dose: 750 mg Levothyroxine Sodium (Synthroid) 88 mcg PO 0600 COLT; Protocol Last Admin: 09/19/18 05:08 Dose: 88 mcg Methylprednisolone (Solu-Medrol) 40 mg IVP 0600,1400,2200 COLT; Protocol Pantoprazole Sodium (Protonix Ec Tab) 40 mg PO 0630 COLT; Protocol Last Admin: 09/19/18 05:34 Dose: 40 mg Potassium Chloride (Klor-Con 10) 10 meq PO 0800 COLT; Protocol Last Admin: 09/19/18 08:46 Dose: 10 meq Sucralfate (Carafate Tab) 1 gm PO TID COLT; Protocol Last Admin: 09/19/18 10:29 Dose: 1 gm - Labs Labs: 09/19/18 08:50 - Constitutional Appears: Chronically Ill - Head Exam Head Exam: NORMAL INSPECTION - Respiratory Exam Respiratory Exam: Decreased Breath Sounds - Cardiovascular Exam Cardiovascular Exam: +S1, +S2 - GI/Abdominal Exam GI & Abdominal Exam: Soft. absent: Tenderness Assessment and Plan - Assessment and Plan (Free Text) Plan: Assessment Severe sepsis with hypoxic and hypercapneic respiratory failure and acute renal failure due to multifocal severe community-acquired pneumonia, slowly improving chronic atrial fibrillation bilateral cataracts S/P surgery history of nephrolithiasis hypothyroidism S/P laparoscopic appendectomy GERD S/P left mastectomy Plan gave a loading dose of IV Vancomycin but we need not continue this since blood cx and MRSA screen are negative; continue Azactam and Levaquin day 6; PCT is 0.09; follow up urine Legionella Ag; reviewed CXR and CT chest - target up to 7 days of antibiotics will continue to monitor clinically
--- NOTE | 2018-09-20 21:03 | HP ---
DATE OF EXAM: 09/19/2018 MAIN REASON FOR ADMISSION: Continuation of pneumonia and COPD exacerbation, treatment and physical therapy. HISTORY OF PRESENT ILLNESS: A 72-year-old female has multilobar pneumonia, multifocal pneumonia. She was admitted initial in the ICU, kept on BiPAP. She seems improved on IV antibiotics. Levaquin, Azactam and also she received BiPAP machine. No intubations. The patient did well, improved and was transferred to telemetry floor. The patient improved slowly. Seen by cardiology Dr. Hanson and pulmonary Dr. Masterson and also ID consult Dr. Sunshine and Dr. Simmons. The patient will and they eventually transfer to TCU for evaluation, physical therapy and continuation of her medical treatment. PAST MEDICAL HISTORY: As above. She has multifocal pneumonia, COPD, possibly obstructive sleep apnea, atrial fibrillations chronic, on Eliquis. She also morbid obesity, hypothyroidism, left mastectomy for breast cancer and chronic arthritis. ALLERGIES: SHE IS ALLERGIC TO PENICILLIN, ASPIRIN AND DARVON. SOCIAL HISTORY: She smoked cigarettes in the past. She stopped in 2001. No alcohol use and no substance use. IMMUNIZATION: According to her, she is up-to-date in her vaccination. REVIEW OF SYSTEMS: As in the present illness. She does have arthritis, weakness, but she is active, she go to work and stable. No incontinence, no bleeding periods and rest of the review of systems is negative. MEDICATIONS AT HOME: She takes multiple medications, which include gabapentin 100 p.o. daily, Lasix 40 p.o. daily and she also has Flonase. She take inhaler, Symbicort, Pulmicort, Lipitor 10, Eliquis 5 b.i.d., Klonopin 0.5 p.o. daily, Wellbutrin 150 daily, Carafate t.i.d., Potassium once a day 10 mEq, Protonix 40, Synthroid 88, also she was taking Tramadol 1 a day, Cardizem 60 t.i.d., Restasis for her eye drops for dry eyes. PHYSICAL EXAMINATION: GENERAL: In TCU, the patient seems comfortable. No distress. She still have problem sleeping because of interruption with her up for medications, but otherwise she feels much better. Please be advised that history and physical I am dictating in TCU admission is for September 19, 2018. VITAL SIGNS: Temperature 98, heart rate 82, blood pressure 127/68, respirations 18, saturating 93% on 4 liters nasal cannula. HEAD AND NECK: Normal. No JVD. No thyromegaly. CHEST: Bilaterally diminished, but there is better aeration in the right lung base. CARDIOPULMONARY: First sound and second sound normal and regular. ABDOMEN: Soft, obese, nontender. EXTREMITIES: Mild edema bilateral. NEUROLOGIC: Normal. LABORATORY STUDIES: Sodium 142, potassium 4.2, chloride 101, bicarb 34, BUN 44 and creatinine 1. Blood sugar 212. Calcium 8.7, troponin T is 490, procalcitonin 0.05. IMPRESSION AND PLAN: 1. Acute community acquired pneumonia multifocal pneumonia, continue IV Azactam plus Levaquin. 2. Chronic obstructive pulmonary disease plus underlying obstructive pulmonary obstructive sleep apnea. The patient will need to evaluated as outpatient. Continue IV steroids. Continue current medicine. 3. Edema lower extremity regular, Lasix IV, we are going to switch it to p.o. 4. Hypertension. 5. Hypercholesterolemia. 6. Chronic atria fibrillation. Continue current medications. 7. Generalized weakness and deconditioning. Continue physical therapy. Continue current treatment tapering the steroids and maintaining therapy. We will followup clinically on daily basis. Patricio Horta MD
--- NOTE | 2018-09-20 22:33 | PN ---
DATE: 09/20/2018 PULMONARY PROGRESS NOTE REFERRING PHYSICIAN: Patricio Horta MD SUBJECTIVE: She is out of bed to reclining chair. is at bedside. Night was unremarkable. Tolerated BiPAP almost six hours. No headache. No rhinitis. Cough is better. No nausea. No vomiting. No diarrhea. No leg swelling. OBJECTIVE: GENERAL: No acute distress. VITAL SIGNS: Temperature is 98, heart rate is 75, respiratory rate is 18, blood pressure 120/56, pulse ox 93% on 4 L nasal cannula. HEENT: Moist mucous membrane. Crowded airway. Mallampati score is 4. NECK: Supple. No JVD. LUNGS: Have a fair airflow with rhonchi. HEART: S1 and S2. ABDOMEN: Soft, nontender. No organomegaly. EXTREMITIES: No edema. NEUROLOGIC: Awake, alert, and follows simple command. MEDICATIONS: She is on Mucomyst inhaled twice a day, Azactam 1 g IV every 8 hours, Brovana inhaled twice a day, Carafate 1 g three times a day, Cardizem 60 mg three times a day, DuoNeb every 4 hours p.r.n., Eliquis 5 mg twice a day, Flonase one spray to each nostril daily, Klonopin 0.5 mg daily, potassium 10 mEq daily, Lasix 40 mg daily, Levaquin 750 mg daily, Lipitor 10 mg at bedtime, Neurontin 100 mg daily, Protonix 40 mg daily, cyclosporine every 12 hours, Solu-Medrol 40 mg three times a day, Synthroid 88 mcg daily, Wellbutrin SR 150 mg daily. LABORATORY DATA: Shows proBNP 490, procalcitonin less than 0.05. IMPRESSION AND PLAN: Status post respiratory failure, renal failure, has a pulmonary infiltrate, chronic atrial fibrillation, hypothyroid, gastroesophageal reflux disease, sleep apnea syndrome. She is noncompliant with the continuous positive airway pressure. I spoke to the patient with at bedside. All their questions were answered. We will continue to encourage continuous positive airway pressure use. Continue bronchodilator. Gastric prophylaxis. Anticoagulation. We will need a followup x-ray to assure the stability of infiltrates especially because procalcitonin is negative. The patient and expressed understanding. Continue therapy. Thank you and we will follow with you. Natali Masterson MD [facility] # [id number]
[2018-09-21] MEDS: Aztreonam 1 Gm in NS 100mL 100 ML IVPB SCH ×3 (05:30→21:13)
[2018-09-21] MEDS: Pantoprazole 40 mg EC Tab PO SCH (05:30)
[2018-09-21] MEDS: Levothyroxine 88 MCG TAB PO SCH (05:30)
[2018-09-21] MEDS: MethylPREDNISolone 40 mg Vial IVP SCH (05:31)
[2018-09-21] MEDS: Budesonide 0.5 mg/2 ml Inhal Susp UD IH SCH ×2 (07:59→21:30)
[2018-09-21] MEDS: Arformoterol 15 mcg/2 ml Inh Sol IH SCH ×2 (07:59→21:30)
[2018-09-21] MEDS: Acetylcysteine 20% Inhal Soln (4ml) IH SCH ×2 (07:59→21:30)
[2018-09-21] MEDS ORDERED: MethylPREDNISolone 40 mg Vial IV SCH (08:45)
--- NOTE | 2018-09-21 09:28 | CP.PCM.PN ---
Subjective - Date & Time of Evaluation Date of Evaluation: 09/21/18 Time of Evaluation: 08:30 - Subjective Subjective: No fevers, but got agitated early this morning when they were putting on the BiPAP mask, not short of breath currently, feeling a little better, no diarrhea. Objective - Vital Signs/Intake and Output Vital Signs (last 24 hours): Temp Pulse Resp BP Pulse Ox 98.3 F 66 18 139/72 09/19/18 00:02 09/19/18 23:00 09/19/18 00:02 09/20/18 09:12 - Medications Medications: Current Medications Acetylcysteine (Acetylcysteine 20%) 4 ml IH BIDRESP COLT Last Admin: 09/20/18 07:20 Dose: 4 ml Albuterol/Ipratropium (Duoneb 3 Mg/0.5 Mg (3 Ml) Ud) 3 ml IH [id number] PRN; Protocol PRN Reason: sob Apixaban (Eliquis) 5 mg PO BID COLT; Protocol Last Admin: 09/20/18 09:09 Dose: 5 mg Arformoterol Tartrate (Brovana) 15 mcg IH [id number] COLT Last Admin: 09/20/18 07:21 Dose: 15 mcg Atorvastatin Calcium (Lipitor) 10 mg PO HS COLT; Protocol Last Admin: 09/19/18 21:06 Dose: 10 mg Budesonide (Pulmicort Respules) 0.5 mg IH [id number] COLT; Protocol Last Admin: 09/20/18 07:21 Dose: 0.5 mg Bupropion HCl (Wellbutrin Sr 150 Mg) 150 mg PO DAILY COLT; Protocol Last Admin: 09/20/18 09:08 Dose: 150 mg Clonazepam (Klonopin) 0.5 mg PO DAILY COLT; Protocol Last Admin: 09/20/18 09:11 Dose: 0.5 mg Cyclosporine (Restasis) 1 ea OD Q12 COLT; Protocol Last Admin: 09/20/18 09:08 Dose: 1 ea Diltiazem HCl (Cardizem) 60 mg PO TID COLT; Protocol Last Admin: 09/20/18 09:09 Dose: 60 mg Fluticasone Propionate (Flonase) 1 actuation NS DAILY COLT; Protocol Last Admin: 09/20/18 09:09 Dose: 1 spr Furosemide (Lasix) 40 mg IV DAILY COLT; Protocol Last Admin: 09/20/18 09:12 Dose: 40 mg Gabapentin (Neurontin) 100 mg PO DAILY COLT; Protocol Last Admin: 09/20/18 09:08 Dose: 100 mg Aztreonam (Azactam 1 Gm) 100 mls @ 100 mls/hr IVPB Q8 COLT; Protocol Stop: 09/23/18 22:01 Last Admin: 09/20/18 05:05 Dose: 100 mls/hr Levofloxacin (Levaquin) 750 mg PO DAILY COLT; Protocol Last Admin: 09/20/18 09:08 Dose: 750 mg Levothyroxine Sodium (Synthroid) 88 mcg PO 0600 COLT; Protocol Last Admin: 09/20/18 05:05 Dose: 88 mcg Methylprednisolone (Solu-Medrol) 40 mg IVP 0600,1400,2200 COLT; Protocol Last Admin: 09/20/18 05:05 Dose: 40 mg Pantoprazole Sodium (Protonix Ec Tab) 40 mg PO 0630 COLT; Protocol Last Admin: 09/20/18 05:34 Dose: 40 mg Potassium Chloride (Klor-Con 10) 10 meq PO 0800 COLT; Protocol Last Admin: 09/20/18 08:19 Dose: 10 meq Sucralfate (Carafate Tab) 1 gm PO TID COLT; Protocol Last Admin: 09/20/18 09:09 Dose: 1 gm - Labs Labs: 09/19/18 08:50 - Constitutional Appears: No Acute Distress, Chronically Ill - Head Exam Head Exam: NORMAL INSPECTION - Neck Exam Neck Exam: absent: Meningismus - Respiratory Exam Respiratory Exam: Decreased Breath Sounds, Rales (few crackles) - Cardiovascular Exam Cardiovascular Exam: +S1, +S2 - GI/Abdominal Exam GI & Abdominal Exam: Soft. absent: Tenderness Assessment and Plan - Assessment and Plan (Free Text) Plan: Assessment Severe sepsis with hypoxic and hypercapneic respiratory failure and acute renal failure due to multifocal severe community-acquired pneumonia, slowly improving chronic atrial fibrillation bilateral cataracts S/P surgery history of nephrolithiasis hypothyroidism S/P laparoscopic appendectomy GERD S/P left mastectomy Plan gave a loading dose of IV Vancomycin but we need not continue this since blood cx and MRSA screen are negative; continue Azactam and Levaquin day 7; PCT is 0.09; urine Legionella Ag is negative; reviewed CXR and CT chest - target up to 7 days of antibiotics and will d/c antibiotics after today will continue to follow clinically
[2018-09-21] MEDS: Potassium Chloride 10 mEq ER Tab PO SCH (09:41)
[2018-09-21] MEDS: Fluticasone Nasal 50 mcg/Spray NS SCH (09:42)
[2018-09-21] MEDS: levoFLOXacin 750 MG TAB PO SCH (09:43)
[2018-09-21] MEDS: cycloSPORINE 0.05 % Opth Emulsion UD OD SCH ×2 (09:43→21:25)
[2018-09-21] MEDS: buPROPion SR 150 MG TABLET PO SCH (09:43)
--- NOTE | 2018-09-21 19:31 | PN ---
DATE: 09/21/2018 PULMONARY PROGRESS NOTE REFERRING PHYSICIAN: Patricio Horta MD SUBJECTIVE: She is participating in therapy, supplemental oxygen is on, pulse ox dropped down to 80s at room air, overnight events noted, she would sleep about 5-6 hours complaining about dry mouth. No nausea, no vomiting, and no diarrhea. No leg pain. No leg swelling. OBJECTIVE: GENERAL: No acute distress. VITAL SIGNS: Temperature is 98, heart rate 64, respiratory is 20, blood pressure 127/68, and pulse ox 93% on nasal cannula. HEENT: Crowded airway. NECK: Supple. No JVD. LUNGS: Have fair airflow with rhonchi. HEART: S1 and S2. ABDOMEN: Soft and nontender. No organomegaly. EXTREMITIES: Trace edema. NEUROLOGIC: Awake and follows simple commands. MEDICATIONS: She is on Mucomyst inhaled twice a day, Azactam 1 g IV every 8 hours, Brovana inhaled twice a day, Carafate 1 g three times a day, Cardizem regular 60 mg three times a day, albuterol/Atrovent every 4 hours p.r.n., Eliquis 5 mg twice a day, Flonase one spray to each nostril daily, Klonopin 0.5 mg at bedtime, potassium 10 mEq daily, Lasix 40 mg daily, Levaquin 750 mg daily, Lipitor 10 mg daily, Neurontin 100 mg daily, Protonix 40 mg daily, Pulmicort inhaled twice a day, cyclosporine Restasis every 12 hours to the eyes, Solu-Medrol 30 mg every 8 hours, Synthroid 88 mcg daily, Wellbutrin 150 mg daily. LABORATORY DATA: Reviewed. No new lab is available since yesterday. IMPRESSION AND PLAN: Chronic obstructive lung disease, pulmonary infiltrate, atrial fibrillation, renal failure, hypothyroid, and obesity. We will humidifier O2 with CPAP, decrease Solu-Medrol, antibiotics as per Infectious Disease. Gastric prophylaxis, anticoagulation, fall precaution, and continue therapy. We will need followup x-ray to assure the resolution of infiltrate. Thank you and we will follow with you. Natali Masterson MD [facility] # [id number]
[2018-09-21] MEDS: MethylPREDNISolone 40 mg Vial IV SCH (21:14)
--- NOTE | 2018-09-21 21:21 | PN ---
DATE: 09/21/2018 SUBJECTIVE: The patient is seen in TCU today. She seems comfortable, no distress; however, saturation is 88% on 2 L. She is comfortable. She is not complaining of any distress except when she walks. PHYSICAL EXAMINATION: As follows, VITAL SIGNS: Temperature 98.5, heart rate 72, blood pressure 120/58, respirations 18, saturation 97%. HEAD AND NECK: Normal. No JVD. No thyromegaly. LUNGS: There is bilateral rhonchi in the bases, significant rhonchi. CHEST: Clear, bilateral. CARDIAC: First sound and second sound normal. No murmur, rub, or gallop. ABDOMEN: Soft and nontender. EXTREMITIES: Mild edema bilateral. NEUROLOGIC: Normal. LABORATORY DATA: No labs were done today. Same labs as before. Sodium 142, potassium 4.2, chloride 101, bicarb 34, BUN 44, creatinine 1, and sugar 212. 490 and procalcitonin is 0.05. IMPRESSION AND PLAN: 1. Community acquired pneumonia, multifocal pneumonia. Continue Azactam and Levaquin. 2. Congestive heart failure, chronic atrial fibrillation. Pulmonary hypertension. Continue current medications. The patient is on Lasix. She is on Eliquis. She is on Cardizem. Continue current therapy. Follow with Cardiology, Dr. Hanson. The patient also has mild aortic stenosis. 3. Chronic obstructive pulmonary disease, obstructive sleep apnea. Continue inhaled on intravenous bronchodilators, Bilevel positive airway pressure machine at night. 4. Generalized weakness. Continue physical therapy. 5. Hypothyroidism, hypercholesteremia, morbid obesity, possible diabetes. We will continue to cover his insulin. Continue Synthroid. Follow up clinically. Patricio Horta MD
[2018-09-22] MEDS: Aztreonam 1 Gm in NS 100mL 100 ML IVPB SCH (05:33)
[2018-09-22] MEDS: Levothyroxine 88 MCG TAB PO SCH (05:34)
[2018-09-22] MEDS: Pantoprazole 40 mg EC Tab PO SCH (05:34)
[2018-09-22] MEDS: Arformoterol 15 mcg/2 ml Inh Sol IH SCH ×2 (07:20→21:37)
[2018-09-22] MEDS: Acetylcysteine 20% Inhal Soln (4ml) IH SCH ×2 (07:20→21:37)
[2018-09-22] MEDS: Budesonide 0.5 mg/2 ml Inhal Susp UD IH SCH ×2 (07:20→21:37)
[2018-09-22 07:38] LABS: ALB/GLOB RATIO 1.1 (1.1-1.8); ALBUMIN 3.3 g/dL (3.0-4.8); ALT/SGPT 37 U/L (7-56); AST/SGOT 29 U/L (14-36); BLOOD UREA NITROGEN 46 mg/dL (7-21); CALCIUM 8.7 mg/dL (8.4-10.5); GFR NON-AFRICAN AMERICAN > 60
[2018-09-22] MEDS: Potassium Chloride 10 mEq ER Tab PO SCH (08:00)
[2018-09-22] MEDS: levoFLOXacin 750 MG TAB PO SCH (09:51)
[2018-09-22] MEDS: MethylPREDNISolone 40 mg Vial IV SCH ×2 (09:52→21:22)
[2018-09-22] MEDS: cycloSPORINE 0.05 % Opth Emulsion UD OD SCH ×2 (09:52→21:24)
[2018-09-22] MEDS: buPROPion SR 150 MG TABLET PO SCH (09:52)
--- NOTE | 2018-09-22 09:54 | RAD ---
Date of service: 09/21/2018 HISTORY: pnemonia COMPARISON: 09/18/2018 TECHNIQUE: Chest PA and lateral FINDINGS: LUNGS: Bibasilar atelectasis PLEURA: Small pleural effusions CARDIOVASCULAR: Aortic calcification Moderate cardiomegaly no pulmonary vascular congestion. OSSEOUS STRUCTURES: No significant abnormalities. VISUALIZED UPPER ABDOMEN: Normal. OTHER FINDINGS: None. IMPRESSION: Bibasilar atelectasis and small pleural effusions
[2018-09-22] MEDS: Fluticasone Nasal 50 mcg/Spray NS SCH (09:55)
--- NOTE | 2018-09-22 13:24 | PN ---
DATE: 09/22/2018 PULMONARY PROGRESS NOTE REFERRING PHYSICIAN: Patricio Horta MD. SUBJECTIVE: The patient is sitting up at bedside, no acute distress. Reports wearing BiPAP machine last night. States that her mouth was less dry due to humidification being added to BiPAP machine, but still has cough and shortness of breath which are showing some improvement; however, no headache, rhinitis, chest pain, abdominal pain, nausea, vomiting, diarrhea, leg pain, or leg swelling reported. OBJECTIVE: GENERAL: No acute distress. VITAL SIGNS: Blood pressure 137/63, pulse 86, temperature 97.7, oxygen saturation 90%. HEENT: Moist mucous membranes. Crowded airway. NECK: Supple. No JVD. LUNGS: Few rhonchi bilaterally. Crackles at the bases. CARDIOVASCULAR: S1, S2. ABDOMEN: Soft, nontender. No distention, no organomegaly. EXTREMITIES: Trace bilateral lower extremity edema. NEUROLOGIC: Awake, alert, verbal. Follows commands. MEDICATIONS: Reviewed. Mucomyst 4 mL inhalation twice a day, DuoNeb 3 mL inhalation every 4 hour p.r.n., Eliquis 5 mg twice a day, Brovana 15 mcg every 12 hours, Lipitor 10 mg at bedtime, Pulmicort 0.5 mg every 12 hours, Wellbutrin 150 mg daily, Klonopin 0.5 mg daily, Restasis every 12 hours, Cardizem 60 mg 3 times a day, Flonase nasal spray daily, Lasix 40 mg daily, Neurontin 100 mg daily, Synthroid 88 mcg daily, Solu-Medrol 30 mg IV push every 12 hours, Protonix 40 mg daily, potassium chloride 10 mEq daily, Carafate 1 g 3 times a day. LABORATORY DATA: Reviewed. Sodium 141, potassium 4.4, chloride 101, carbon dioxide 38, anion gap 7, BUN 46, creatinine 0.8,GFR greater than 60, random glucose 180, calcium 8.7, total bilirubin 0.8, AST 29, ALT 37, alkaline phosphatase 74, proBNP 490, total protein 6.3, albumin 3.3, globulin 3, albumin-globulin ratio 1.1. Chest x-ray shows bibasilar atelectasis and small pleural effusions. IMPRESSION AND PLAN: Chronic obstructive lung disease, pulmonary infiltrate, atrial fibrillation, hypothyroidism, obesity, renal failure. Continue BiPAP use at bedtime. We will decrease Solu-Medrol to 20 mg every 12 hours. Continue antibiotics as per Infectious Disease. Gastric prophylaxis. The patient is on anticoagulation therapy, fall precaution. Continue physical therapy. We will add nasal saline spray and biotin to be used before BiPAP is placed and as needed. Sleep apnea precaution, head of bed elevated 45 degrees. This patient was seen and examined with Dr. Masterson. Discussed assessment and plan as described above. This patient was seen and examined by Abhijeet Lott, nurse practitioner. Discussed assessment and plan as described above. Thank you for this consult. We will follow with you. Abhijeet Lott APN Natali Masterson MD
--- NOTE | 2018-09-22 14:23 | CP.PCM.PN ---
Subjective - Date & Time of Evaluation Date of Evaluation: 09/22/18 Time of Evaluation: 09:00 - Subjective Subjective: No fevers, not in distress, still with cough. Objective - Vital Signs/Intake and Output Vital Signs (last 24 hours): Temp Pulse Resp BP Pulse Ox 98.1 F 64 18 120/56 L 93 L 09/20/18 16:00 09/20/18 22:30 09/20/18 16:00 09/20/18 18:11 09/20/18 16:00 Intake and Output: 09/21/18 09/21/18 06:59 18:59 Intake Total 420 Balance 420 - Medications Medications: Current Medications Acetylcysteine (Acetylcysteine 20%) 4 ml IH BIDRESP COLT Last Admin: 09/21/18 07:59 Dose: 4 ml Albuterol/Ipratropium (Duoneb 3 Mg/0.5 Mg (3 Ml) Ud) 3 ml IH [id number] PRN; Protocol PRN Reason: sob Apixaban (Eliquis) 5 mg PO BID COLT; Protocol Last Admin: 09/20/18 18:11 Dose: 5 mg Arformoterol Tartrate (Brovana) 15 mcg IH [id number] COLT Last Admin: 09/21/18 07:59 Dose: 15 mcg Atorvastatin Calcium (Lipitor) 10 mg PO HS COLT; Protocol Last Admin: 09/20/18 21:19 Dose: 10 mg Budesonide (Pulmicort Respules) 0.5 mg IH [id number] COLT; Protocol Last Admin: 09/21/18 07:59 Dose: 0.5 mg Bupropion HCl (Wellbutrin Sr 150 Mg) 150 mg PO DAILY COLT; Protocol Last Admin: 09/20/18 09:08 Dose: 150 mg Clonazepam (Klonopin) 0.5 mg PO DAILY COLT; Protocol Last Admin: 09/20/18 09:11 Dose: 0.5 mg Cyclosporine (Restasis) 1 ea OD Q12 COLT; Protocol Last Admin: 09/20/18 21:20 Dose: 1 ea Diltiazem HCl (Cardizem) 60 mg PO TID COLT; Protocol Last Admin: 09/20/18 18:11 Dose: 60 mg Fluticasone Propionate (Flonase) 1 actuation NS DAILY COLT; Protocol Last Admin: 09/20/18 09:09 Dose: 1 spr Furosemide (Lasix) 40 mg PO DAILY COLT Gabapentin (Neurontin) 100 mg PO DAILY COLT; Protocol Last Admin: 09/20/18 09:08 Dose: 100 mg Aztreonam (Azactam 1 Gm) 100 mls @ 100 mls/hr IVPB Q8 COLT; Protocol Stop: 09/23/18 22:01 Last Admin: 09/21/18 05:30 Dose: 100 mls/hr Levofloxacin (Levaquin) 750 mg PO DAILY COLT; Protocol Last Admin: 09/20/18 09:08 Dose: 750 mg Levothyroxine Sodium (Synthroid) 88 mcg PO 0600 COLT; Protocol Last Admin: 09/21/18 05:30 Dose: 88 mcg Methylprednisolone (Solu-Medrol) 30 mg IV Q8H COLT Pantoprazole Sodium (Protonix Ec Tab) 40 mg PO 0630 COLT; Protocol Last Admin: 09/21/18 05:30 Dose: 40 mg Potassium Chloride (Klor-Con 10) 10 meq PO 0800 COLT; Protocol Last Admin: 09/20/18 08:19 Dose: 10 meq Sucralfate (Carafate Tab) 1 gm PO TID COLT; Protocol Last Admin: 09/20/18 18:10 Dose: 1 gm - Labs Labs: 09/19/18 08:50 - Constitutional Appears: Chronically Ill - Head Exam Head Exam: NORMAL INSPECTION - Respiratory Exam Respiratory Exam: Decreased Breath Sounds - Cardiovascular Exam Cardiovascular Exam: +S1, +S2 - GI/Abdominal Exam GI & Abdominal Exam: Soft. absent: Tenderness Assessment and Plan - Assessment and Plan (Free Text) Plan: Assessment S/P Severe sepsis with hypoxic and hypercapneic respiratory failure and acute renal failure due to multifocal severe community-acquired pneumonia, SP treatment with antibiotics chronic atrial fibrillation bilateral cataracts S/P surgery history of nephrolithiasis hypothyroidism S/P laparoscopic appendectomy GERD S/P left mastectomy Plan completed course of Azactam and Levaquin day PCT was 0.09; urine Legionella Ag was negative; reviewed CXR and CT chest will continue to follow clinically off antibiotics since she is at risk for nosocomial infections
[2018-09-22] MEDS: Saliva Substitute 44.3 ML PO SCH (21:24)
[2018-09-23] MEDS: Levothyroxine 88 MCG TAB PO SCH (05:45)
[2018-09-23] MEDS: Pantoprazole 40 mg EC Tab PO SCH (05:45)
[2018-09-23] MEDS: Budesonide 0.5 mg/2 ml Inhal Susp UD IH SCH ×2 (07:15→20:09)
[2018-09-23] MEDS: Albuterol-Ipratrop 3 mg / 0.5 (3 ml) UD IH PRN ×3 (07:43→20:09)
[2018-09-23] MEDS: Acetylcysteine 20% Inhal Soln (4ml) IH SCH ×2 (07:43→20:07)
[2018-09-23] MEDS: Arformoterol 15 mcg/2 ml Inh Sol IH SCH ×2 (07:43→20:07)
[2018-09-23] MEDS: Potassium Chloride 10 mEq ER Tab PO SCH (09:00)
[2018-09-23] MEDS: buPROPion SR 150 MG TABLET PO SCH (09:06)
[2018-09-23] MEDS: cycloSPORINE 0.05 % Opth Emulsion UD OD SCH ×2 (09:07→21:27)
[2018-09-23] MEDS: Fluticasone Nasal 50 mcg/Spray NS SCH (09:07)
[2018-09-23] MEDS: MethylPREDNISolone 40 mg Vial IV SCH ×2 (09:08→21:28)
--- NOTE | 2018-09-23 13:19 | PN ---
DATE: 09/23/2018 PULMONARY PROGRESS NOTE REFERRING PHYSICIAN: Dr. Patricio Horta. SUBJECTIVE: The patient is sitting up in bed. Reports wearing BiPAP for about five hours last night. No acute distress. No overnight events reported. is at bedside. Reports still having shortness of breath with exertion. No cough. No headache, rhinitis, chest pain, abdominal pain, nausea, vomiting, diarrhea, or leg pain reported. OBJECTIVE: GENERAL: No acute distress. VITAL SIGNS: Blood pressure 145/75, pulse 68, and temperature 98.4. HEENT: Moist mucous membranes. Crowded airway. NECK: Supple. No JVD. Short and thick. LUNGS: Rhonchi bilaterally. CARDIOVASCULAR: S1 and S2. ABDOMEN: Soft and nontender. No distention. No organomegaly. EXTREMITIES: Trace bilateral lower extremity edema. NEUROLOGIC: Awake, alert, and verbal. Follows commands. MEDICATIONS: Reviewed. Mucomyst 4 mL inhalation twice a day, DuoNeb 3 mL inhalation every 4 hour p.r.n., Eliquis 5 mg twice a day, Brovana 15 mcg every 12 hours, Lipitor 10 mg at bedtime, Pulmicort 0.5 mg every 12 hours, Wellbutrin 150 mg daily, Klonopin 0.5 mg daily, Restasis every 12 hours, Cardizem 60 mg three times a day, Flonase nasal spray daily, Lasix 40 mg daily, Neurontin 100 mg daily, Synthroid 88 mcg daily, Solu-Medrol 20 mg every 12 hours, Protonix 40 mg daily, potassium chloride 10 mEq daily, at bedtime, [place] nasal spray daily p.r.n., and Carafate 1 g three times a day. LABORATORY DATA: Reviewed. No new labs. IMPRESSION AND PLAN: Chronic obstructive lung disease, community-acquired pneumonia, which has now resolved as evidenced by procalcitonin being negative, atrial fibrillation, hypothyroidism, obesity, renal failure. Gastric prophylaxis. The patient is currently on anticoagulation therapy and fall precaution. Continue bilevel positive airway pressure use at bedtime, sleep apnea precaution, head of bed elevated at 45 degrees. Avoid nocturnal sedation. Per nursing staff, the patient noted desaturating to 85% while exercising on room air. When oxygen placed on 4 liters, the patient is 92%-94%. The patient will need supplemental oxygen at home. This patient was seen and examined with Dr. Masterson. Discussed assessment and plan as described above. This patient was seen and examined with Abhijeet Lott, nurse practitioner. Discussed assessment and plan as described above. Thank you for this consult. We will follow with you. Abhijeet Lott APN Natali Masterson MD PRIYANKA
--- NOTE | 2018-09-23 13:25 | CP.PCM.PN ---
Subjective - Date & Time of Evaluation Date of Evaluation: 09/23/18 Time of Evaluation: 08:10 - Subjective Subjective: No fevers, not in distress Objective - Vital Signs/Intake and Output Vital Signs (last 24 hours): Temp Pulse Resp BP Pulse Ox 97.7 F 86 18 137/63 90 L 09/22/18 10:00 09/22/18 10:00 09/22/18 10:00 09/22/18 10:00 09/22/18 10:00 Intake and Output: 09/22/18 09/22/18 06:59 18:59 Intake Total 420 Balance 420 - Medications Medications: Current Medications Acetylcysteine (Acetylcysteine 20%) 4 ml IH BIDRESP COLT Last Admin: 09/22/18 07:20 Dose: 4 ml Albuterol/Ipratropium (Duoneb 3 Mg/0.5 Mg (3 Ml) Ud) 3 ml IH [id number] PRN; Protocol PRN Reason: sob Apixaban (Eliquis) 5 mg PO BID COLT; Protocol Last Admin: 09/22/18 09:51 Dose: 5 mg Arformoterol Tartrate (Brovana) 15 mcg IH [id number] COLT Last Admin: 09/22/18 07:20 Dose: 15 mcg Atorvastatin Calcium (Lipitor) 10 mg PO HS COLT; Protocol Last Admin: 09/21/18 21:25 Dose: 10 mg Budesonide (Pulmicort Respules) 0.5 mg IH [id number] COLT; Protocol Last Admin: 09/22/18 07:20 Dose: 0.5 mg Bupropion HCl (Wellbutrin Sr 150 Mg) 150 mg PO DAILY COLT; Protocol Last Admin: 09/22/18 09:52 Dose: 150 mg Clonazepam (Klonopin) 0.5 mg PO DAILY COLT; Protocol Last Admin: 09/22/18 09:54 Dose: 0.5 mg Cyclosporine (Restasis) 1 ea OD Q12 COLT; Protocol Last Admin: 09/22/18 09:52 Dose: 1 ea Diltiazem HCl (Cardizem) 60 mg PO TID COLT; Protocol Last Admin: 09/22/18 09:51 Dose: 60 mg Fluticasone Propionate (Flonase) 1 actuation NS DAILY COLT; Protocol Last Admin: 09/22/18 09:55 Dose: 2 spr Furosemide (Lasix) 40 mg PO DAILY [facility] Last Admin: 09/22/18 09:51 Dose: 40 mg Gabapentin (Neurontin) 100 mg PO DAILY [facility]; Protocol Last Admin: 09/22/18 09:52 Dose: 100 mg Levothyroxine Sodium (Synthroid) 88 mcg PO 0600 COLT; Protocol Last Admin: 09/22/18 05:34 Dose: 88 mcg Methylprednisolone (Solu-Medrol) 20 mg IV Q12 COLT Pantoprazole Sodium (Protonix Ec Tab) 40 mg PO 0630 COLT; Protocol Last Admin: 09/22/18 05:34 Dose: 40 mg Potassium Chloride (Klor-Con 10) 10 meq PO 0800 COLT; Protocol Last Admin: 09/22/18 08:00 Dose: 10 meq Saliva Substitute (Saliva Substitute) 0 ml PO HS COLT Sodium Chloride ([place] Nasal [place]) 0 ml NS DAILY PRN PRN Reason: Nasal congestion Sucralfate (Carafate Tab) 1 gm PO TID COLT; Protocol Last Admin: 09/22/18 09:50 Dose: 1 gm - Labs Labs: 09/22/18 06:45 - Constitutional Appears: Chronically Ill - Head Exam Head Exam: NORMAL INSPECTION - Respiratory Exam Respiratory Exam: Decreased Breath Sounds - Cardiovascular Exam Cardiovascular Exam: +S1, +S2 - GI/Abdominal Exam GI & Abdominal Exam: Soft. absent: Tenderness Assessment and Plan - Assessment and Plan (Free Text) Plan: Assessment S/P Severe sepsis with hypoxic and hypercapneic respiratory failure and acute renal failure due to multifocal severe community-acquired pneumonia, SP treatment with antibiotics chronic atrial fibrillation bilateral cataracts S/P surgery history of nephrolithiasis hypothyroidism S/P laparoscopic appendectomy GERD S/P left mastectomy Plan completed course of Azactam and Levaquin day PCT was 0.09; urine Legionella Ag was negative; reviewed CXR and CT chest will continue to follow clinically off antibiotics since she is at risk for hospital-acquired infections
--- NOTE | 2018-09-23 14:39 | PN ---
DATE: 09/22/2018 SUBJECTIVE: The patient is in TCU medical floor. She is comfortable. No distress. The circulation is still running in the 93%-94% on 2 liters and her cough is much better. Her breathing is improving, but slowly. She has no chest pain. No other complaints. PHYSICAL EXAMINATION: VITAL SIGNS: Temperature 98, heart rate 66, blood pressure 114/60, respiration 18, saturation 94% on 2 liters. HEAD AND NECK: Normal. No JVD. No thyromegaly. CHEST: There are bilateral crepitations on the bases with diminished breath sounds bilaterally. CARDIAC: First sound normal. Second sound slightly decreased with systolic murmur in the aortic area. ABDOMEN: Obese and nontender. EXTREMITIES: Bilateral leg edema . LABORATORY DATA: Her laboratory study shows sodium 141, potassium 4.4, chloride 101, bicarb 38, BUN 45, creatinine 0.8, and blood sugar 180. Liver function test is normal. IMPRESSION AND PLAN: 1. Community-acquired pneumonia, multifocal. We will continue IV antibiotics, seems improving slowly, but getting better. 2. Obstructive sleep apnea; chronic obstructive pulmonary disease. Continue steroid, decreasing steroid dose. Continue inhaled bronchodilator with obstructive sleep apnea on bilevel positive airway pressure seems doing better that seems doing better. Continue current therapy. 3. Coronary artery disease, chronic continue Eliquis. Continue current medication to slow down her heart rate. She is on Cardizem 60 mg three times a day. 4. Morbid obesity and gait disorder. Continue physical therapy. 5. History of depression. Continue Wellbutrin SR 150 mg. 6. Hypothyroidism. She is on Synthroid 88 mcg. Plan is to continue current therapy, physical therapy, and taper steroids. Continue inhaled IV bronchodilator, use bilevel positive airway pressure. The patient seems doing better. We will also continue to give Lasix for edema of lower extremity. Patricio Horta MD
[2018-09-23] MEDS: Saliva Substitute 44.3 ML PO SCH (21:29)
[2018-09-24] MEDS: Levothyroxine 88 MCG TAB PO SCH (05:47)
[2018-09-24] MEDS: Pantoprazole 40 mg EC Tab PO SCH (05:47)
[2018-09-24] MEDS ORDERED: MethylPREDNISolone 40 mg Vial IV SCH (06:00)
[2018-09-24] MEDS: Acetylcysteine 20% Inhal Soln (4ml) IH SCH ×2 (07:15→20:01)
[2018-09-24] MEDS: Arformoterol 15 mcg/2 ml Inh Sol IH SCH ×2 (07:15→20:02)
[2018-09-24] MEDS: Budesonide 0.5 mg/2 ml Inhal Susp UD IH SCH ×2 (07:15→20:02)
[2018-09-24] MEDS: Potassium Chloride 10 mEq ER Tab PO SCH (07:53)
[2018-09-24] MEDS: Fluticasone Nasal 50 mcg/Spray NS SCH (09:51)
[2018-09-24] MEDS: buPROPion SR 150 MG TABLET PO SCH (09:52)
[2018-09-24] MEDS: cycloSPORINE 0.05 % Opth Emulsion UD OD SCH ×2 (10:12→21:29)
--- NOTE | 2018-09-24 15:59 | PN ---
DATE: 09/24/2018 PULMONARY PROGRESS NOTE REFERRING PHYSICIAN: Patricio Horta MD SUBJECTIVE: The patient is sitting up in a chair. Night was unremarkable, tolerated CPAP well. No headache, no rhinitis, doing well in therapy. No nausea, vomiting, diarrhea. Still has leg swelling. OBJECTIVE GENERAL: No acute distress. VITAL SIGNS: Temperature is 98, heart rate 81, respiratory rate is 20, blood pressure 136/61, pulse ox 99% on supplemental oxygen. HEENT: Moist mucous membrane. Crowded airway. NECK: Supple. No JVD. LUNGS: Have a fair airflow with rhonchi. HEART: S1 and S2. ABDOMEN: Soft, nontender. No organomegaly. EXTREMITIES: Trace edema. NEUROLOGICAL: Awake, alert, follows simple command. MEDICATIONS: She is on Mucomyst inhaled twice a day, Brovana inhaled twice a day, Carafate 1 g 3 times a day, Cardizem 60 mg 3 times a day, DuoNeb every 4 hours p.r.n., Eliquis 5 mg twice a day, Flonase once to each nostril daily, clonazepam 0.5 mg daily, potassium supplement, Lasix 40 mg daily, Lipitor 10 mg daily, gabapentin 100 mg daily, nasal saline on p.r.n. basis, Protonix 40 mg daily, Pulmicort inhaled twice a day, Saliva Substitute to the mouth, Solu-Medrol 20 mg twice a day, Synthroid 88 mcg daily, Wellbutrin SR 150 mg daily. LABORATORY DATA: Reviewed. No new labs available since yesterday. IMPRESSION AND PLAN: Chronic obstructive lung disease; community-acquired pneumonia, clinically resolving. Procalcitonin is negative. Atrial fibrillation, hypothyroid, obesity, renal failure. Pulmonary point of view, doing well. Encourage BiPAP use. Keep head at 45 degrees. Decrease Solu-Medrol to 20 daily. Gastric prophylaxis. Fall precaution. Outpatient sleep study and PFT. Natali Masterson MD (Delete this signature block when dictator is a preceptor.) cc: MD Florina (Delete if not dictated.)
[2018-09-24 16:41] VITALS: RESP 18
[2018-09-24] MEDS: Albuterol-Ipratrop 3 mg / 0.5 (3 ml) UD IH PRN (20:02)
[2018-09-24] MEDS: Saliva Substitute 44.3 ML PO SCH (21:29)
[2018-09-24] MEDS: Insulin Reg-LOW-Coverage SC SCH (22:00)
--- NOTE | 2018-09-24 23:51 | PN ---
DATE: 09/24/2018 SUBJECTIVE: She is stable. She feels better. She slept well and she feel less dyspneic than before. PHYSICAL EXAMINATION: VITAL SIGNS: Temperature 98.4, heart rate 68, blood pressure 111/58, respirations 18 and saturation 93%. HEAD AND NECK: Normal. No JVD. No thyromegaly. CHEST EXAM: Improving aeration on the left side more than right. CARDIAC: First sound and second sound normal. Systolic ejection murmur on the aortic area with slight decrease in second sound. ABDOMEN: Soft, obese, and nontender. EXTREMITIES: Bilateral leg edema. NEUROLOGIC: Normal. IMPRESSION AND PLAN: 1. Multilobar pneumonia, multifocal bilateral pneumonia, continue current antibiotics. 2. Chronic obstructive pulmonary disease, obstructive sleep apnea, continue inhaled bronchodilators, steroids. Decrease steroids gradually. She seems doing well. 3. Chronic atrial fibrillation, systolic heart failure, aortic stenosis, continue current meds. We will increase Lasix to 40 mg b.i.d and we will monitor electrolytes. 4. Hypothyroidism, hypercholesterolemia, morbid obesity, generalized weakness, continue physical therapy and continue Synthroid, Wellbutrin for underlying depressions. The patient is clinically improving. Patricio Horta MD
--- NOTE | 2018-09-25 00:11 | PN ---
DATE: 09/23/2018 SUBJECTIVE: The patient seems stable. No new complaint. She does get short of breath with exertion. No chest pain. PHYSICAL EXAMINATION: VITAL SIGNS: Temperature 98.6, heart rate 64, blood pressure 116/54, respiration 20, saturation 96%. HEAD AND NECK: Normal. No JVD. No thyromegaly. CHEST: Improved air entry on the left lung, better also on the right lung. CARDIAC: First sound and second sounds are normal. A systolic murmur in the aortic area. ABDOMEN: Obese, nontender. EXTREMITIES: Bilateral leg edema. NEUROLOGIC: Normal. LABORATORY STUDIES: Last laboratory shows BUN 46, creatinine 0.8, blood sugar 180, and hemoglobin A1c is 6.7. IMPRESSION AND PLAN: 1. Acute chronic obstructive pulmonary disease exacerbations and bilateral multifocal pneumonia. Continue doxycycline. Continue Azactam intravenously. Follow up with infectious disease consult. Continue inhaled bronchodilator. 2. Chronic atrial fibrillation, chronic aortic stenosis. Continue current medications including Eliquis 5 mg and Cardizem 60 mg three times a day. 3. Hypothyroidism and hypercholesteremia. Continue Lipitor. Continue Synthroid. 4. History of depression, stable. Continue Wellbutrin. We will follow up clinically. 5. The patient also has generalized weakness. Getting physical therapy. We will continue current medical and physical therapy. Follow up clinically on daily basis. Patricio Horta MD
[2018-09-25] MEDS: Levothyroxine 88 MCG TAB PO SCH (06:04)
[2018-09-25] MEDS: Pantoprazole 40 mg EC Tab PO SCH (06:05)
[2018-09-25] MEDS: MethylPREDNISolone 40 mg Vial IM SCH (06:05)
[2018-09-25] MEDS: Insulin Reg-LOW-Coverage SC SCH ×4 (07:05→22:07)
[2018-09-25] MEDS: Acetylcysteine 20% Inhal Soln (4ml) IH SCH ×2 (07:20→20:35)
[2018-09-25] MEDS: Arformoterol 15 mcg/2 ml Inh Sol IH SCH ×2 (07:21→20:35)
[2018-09-25] MEDS: Budesonide 0.5 mg/2 ml Inhal Susp UD IH SCH ×2 (07:21→20:35)
[2018-09-25] MEDS: Albuterol-Ipratrop 3 mg / 0.5 (3 ml) UD IH PRN (07:21)
[2018-09-25] MEDS: Potassium Chloride 10 mEq ER Tab PO SCH (08:42)
[2018-09-25] MEDS: Fluticasone Nasal 50 mcg/Spray NS SCH (09:33)
[2018-09-25] MEDS: cycloSPORINE 0.05 % Opth Emulsion UD OD SCH ×2 (09:35→22:12)
[2018-09-25] MEDS: buPROPion SR 150 MG TABLET PO SCH (09:35)
[2018-09-25] MEDS ORDERED: MethylPREDNISolone 40 mg Vial IV SCH (10:00)
[2018-09-25 10:55] VITALS: TEMP 98.3; O2SAT 94
[2018-09-25 11:34] LABS: BLOOD UREA NITROGEN 34 mg/dL (7-21); CALCIUM 8.8 mg/dL (8.4-10.5); GFR NON-AFRICAN AMERICAN > 60
[2018-09-25 14:21] LABS: ARTERIAL BLOOD GAS HCO3 37.1 mmol/L (21-28); ARTERIAL BLOOD GAS HEMOGLOBIN 14.7 g/dL (11.7-17.4); ARTERIAL BLOOD GAS O2 CONTENT 18.3 ML/dl (15-23); ARTERIAL BLOOD GAS O2 SAT 91.7 % (95-98); ARTERIAL BLOOD GAS PCO2 51 mm/Hg (35-45); ARTERIAL BLOOD GAS PH 7.47 (7.35-7.45); ARTERIAL BLOOD GAS TCO2 38.7 mmol.L (22-28)
[2018-09-25] MEDS: Saliva Substitute 44.3 ML PO SCH (22:17)
[2018-09-26 01:36] VITALS: PULSE 75
[2018-09-26] MEDS: Pantoprazole 40 mg EC Tab PO SCH (05:43)
[2018-09-26] MEDS: Levothyroxine 88 MCG TAB PO SCH (05:43)
[2018-09-26] MEDS: MethylPREDNISolone 40 mg Vial IM SCH (05:44)
[2018-09-26] MEDS: Insulin Reg-LOW-Coverage SC SCH ×2 (06:57→13:30)
[2018-09-26] MEDS: Arformoterol 15 mcg/2 ml Inh Sol IH SCH (07:18)
[2018-09-26] MEDS: Budesonide 0.5 mg/2 ml Inhal Susp UD IH SCH (07:18)
[2018-09-26] MEDS: Albuterol-Ipratrop 3 mg / 0.5 (3 ml) UD IH PRN (07:18)
[2018-09-26] MEDS: Acetylcysteine 20% Inhal Soln (4ml) IH SCH (07:18)
[2018-09-26] MEDS: Potassium Chloride 10 mEq ER Tab PO SCH (08:35)
[2018-09-26] MEDS: Fluticasone Nasal 50 mcg/Spray NS SCH (09:48)
[2018-09-26] MEDS: cycloSPORINE 0.05 % Opth Emulsion UD OD SCH (09:49)
[2018-09-26] MEDS: buPROPion SR 150 MG TABLET PO SCH (09:49)
--- NOTE | 2018-09-26 12:39 | PN ---
DATE: 09/26/2018 PULMONARY PROGRESS NOTE REFERRING PHYSICIAN: Patricio Horta MD SUBJECTIVE: The patient is sitting up in bed in no acute distress. No overnight events reported. The patient wore BiPAP machine last night. No headache, rhinitis, cough, shortness of breath, chest pain, abdominal pain, nausea, vomiting, diarrhea, or neck pain reported. OBJECTIVE: GENERAL: No acute distress. VITAL SIGNS: Blood pressure 130/66, pulse 77, afebrile, oxygen saturation 94. HEENT: Moist mucus membranes. Crowded airway. NECK: Supple. No JVD. LUNGS: Fair airflow bilaterally. Few scattered rhonchi. CARDIOVASCULAR: S1, S2. ABDOMEN: Soft. Nontender. No distention. No organomegaly. EXTREMITIES: Trace bilateral lower extremity edema. NEUROLOGIC: Awake, alert, verbal, follows commands. MEDICATIONS: Reviewed. Mucomyst 4 mL inhalation twice a day, DuoNeb 3 mL inhalation every 4 hours p.r.n., Eliquis 5 mg twice a day, Brovana 15 mcg every 12 hours, Lipitor 10 mg at bedtime, Pulmicort 0.5 mg every 12 hours, Wellbutrin 150 mg daily, Klonopin 0.5 mg daily, Restasis every 12 hours, Cardizem 60 mg three times a day, Flonase nasal spray daily, Lasix 40 mg IV push daily, Neurontin 100 mg daily, Humulin R sliding scale before meal at bedtime, Synthroid 88 mcg daily, metformin 500 mg twice a day, Solu-Medrol 20 mg daily, Protonix 40 mg daily, potassium chloride 10 mEq daily, saliva substitute at bedtime, [place] nasal spray daily p.r.n., Carafate 1 g three times a day. LABORATORY DATA: Reviewed; pCO2 of 51, pO2 of 54, HCO3 of 37.1. ABG, ph 7.47, POC glucose 158. IMPRESSION AND PLAN: Chronic obstructive lung disease, community-acquired pneumonia, clinically resolved. Procalcitonin is negative. Atrial fibrillation, hypothyroidism, renal failure, obesity. The patient requires Trilogy noninvasive ventilation. The patient has chronic respiratory failure due to severe chronic obstructive pulmonary disease. The patient requires Trilogy noninvasive ventilation in AVAPS mode at home and battery backup as there cannot be any interruption to therapy. This is to ensure daytime and nighttime use to maintain CO2 levels within a normal range. We recommend patient go home on tapering dose of steroids. Upon discharge gastric prophylaxis, fall precautions. We recommend patient to have full pulmonary function test, sleep study as outpatient, sleep apnea precaution, head of bed elevated 45 degrees. The patient to be discharged home on supplemental oxygen. This patient was seen and examined by Dr. Masterson, discussed assessment and plan as described above. This patient was seen and examined by Abhijeet Lott, nurse practitioner, discussed assessment and plan as described above. Thank you for this consult. We will follow with you. Abhijeet Lott APN Natali Masterson MD
[2018-09-26 13:32] VITALS: BP 128/61
--- NOTE | 2018-09-29 10:14 | PN ---
DATE: 09/26/2018 SUBJECTIVE: consideration for angina, weakness. The patient seems to be doing better. She is on BiPAP machine, seems to be doing well. We will continue the current therapy. She seems to be improving. She is here ____ on 09/25/2018. PHYSICAL EXAMINATION: VITAL SIGNS: Temperature 98.3, heart rate 72, blood pressure 128/73, respirations 18, and saturations 94%. HEAD AND NECK: Normal, no JVD, no thyromegaly. CHEST: Clear bilaterally. There is better aeration on the right lung. CARDIAC: First and second sounds normal. Systolic murmur on the aortic area. ABDOMEN: Obese, nontender. EXTREMITIES: Pedal edema, but less. LABORATORY STUDIES: She had an ABG done, PO2 56, bicarb 37, pH 7.7, and CO2 of 54. The patient is hypoxic. She will need oxygen . IMPRESSION AND PLAN: 1. coronary artery. 2. . 3. . 4. Chronic obstructive pulmonary disease, . 5. hypoxemia, obstructive sleep apnea. 6. hypertension. The patient is in need of oxygen, which will help. We will continue BiPAP machine. I discussed with the patient about significance of the treatment. . We will continue the medical therapy. We will follow up with . For the diabetes we probably are going to need to increase to 1000 b.i.d. and as outpatient for diet and dietary consultation is ordered. 7. Hypothyroidism. . Patricio Horta MD
== END 2018-09-26 16:50 | disposition home or self-care (01) | DRG 945 ==
LOC: TRCU 20:31
PROVIDERS: ADMIT Internal Medicine; ATTEND Internal Medicine
PROC: F07Z9FZ Gait Training/Functional Ambulation Treatment using Assistive, Adaptive, Supportive or Protective Equipment (ICD-10-PCS; principal; 2018-09-19)
PROC: F08Z4FZ Home Management Treatment using Assistive, Adaptive, Supportive or Protective Equipment (ICD-10-PCS; 2018-09-19)
PROC: 5A09557 Assistance with Respiratory Ventilation, Greater than 96 Consecutive Hours, Continuous Positive Airway Pressure (ICD-10-PCS; 2018-09-19)
PROC: 3E0F7GC Introduction of Other Therapeutic Substance into Respiratory Tract, Via Natural or Artificial Opening (ICD-10-PCS; 2018-09-19)
DX: R53.1 Weakness (principal); A41.9 Sepsis, unspecified organism; J18.1 Lobar pneumonia, unspecified organism; R65.20 Severe sepsis without septic shock; J44.0 Chronic obstructive pulmonary disease with (acute) lower respiratory infection; J96.11 Chronic respiratory failure with hypoxia; J96.12 Chronic respiratory failure with hypercapnia; I50.20 Unspecified systolic (congestive) heart failure; I11.0 Hypertensive heart disease with heart failure; Z79.2 Long term (current) use of antibiotics; G47.33 Obstructive sleep apnea (adult) (pediatric); I48.2 Chronic atrial fibrillation; E03.9 Hypothyroidism, unspecified; G89.4 Chronic pain syndrome; I27.20 Pulmonary hypertension, unspecified; I25.10 Atherosclerotic heart disease of native coronary artery without angina pectoris; I35.0 Nonrheumatic aortic (valve) stenosis; I48.0 Paroxysmal atrial fibrillation; K21.9 Gastro-esophageal reflux disease without esophagitis; E78.00 Pure hypercholesterolemia, unspecified; E66.01 Morbid (severe) obesity due to excess calories; Z68.38 Body mass index [BMI] 38.0-38.9, adult; F32.9 Major depressive disorder, single episode, unspecified; Z79.01 Long term (current) use of anticoagulants; F41.9 Anxiety disorder, unspecified; Z91.19 Patient's noncompliance with other medical treatment and regimen; Z85.3 Personal history of malignant neoplasm of breast; Z90.12 Acquired absence of left breast and nipple; Z87.891 Personal history of nicotine dependence

== ENCOUNTER 2018-10-10 16:19 | Inpatient (IN) | payer BC, MEDICARE, OTHER | END 2018-10-17 21:57 | disposition skilled nursing facility (03) | LOC: 2RNO 10-15 14:03 → 5RSO 10-17 16:04 → ED 16:19 → ERH 18:30 → 3RNO 20:20 ==

== ENCOUNTER 2018-10-17 21:57 | Inpatient (IN) | payer BC, OTHER ==
[2018-10-15 10:56] VITALS: PULSE 148
[2018-10-17 22:34] VITALS: BMI 34.2
[2018-10-17] MEDS ORDERED: Dextrose 50% SYRINGE Inj (50 ml) IV PRN (22:35)
[2018-10-18] MEDS: Ipratropium 0.02% Inhal Soln (0.5 mg/2.5 ml) UD IH SCH ×4 (01:49→19:50)
[2018-10-18] MEDS: Acetylcysteine 20% Inhal Soln (4ml) IH SCH ×4 (01:49→19:50)
[2018-10-18] MEDS: Levothyroxine 88 MCG TAB PO SCH (05:17)
[2018-10-18] MEDS: Pantoprazole 40 mg EC Tab PO SCH (05:17)
[2018-10-18] MEDS: Saliva Substitute 44.3 ML PO SCH ×8 (05:23→22:09)
[2018-10-18 07:38] LABS: CALCIUM 8.8 mg/dL (8.4-10.5)
[2018-10-18] MEDS ORDERED: Arformoterol 15 mcg/2 ml Inh Sol IH SCH (08:00)
[2018-10-18] MEDS: Insulin Lispro (humaLOG) LOW Coverage SC SCH ×4 (08:12→22:58)
[2018-10-18] MEDS: Budesonide 0.5 mg/2 ml Inhal Susp UD IH SCH ×2 (08:46→19:51)
[2018-10-18] MEDS: Multivitamin Vitamin B Complex (Nephro-Vite) Tab PO SCH (09:00)
[2018-10-18] MEDS: buPROPion SR 150 MG TABLET PO SCH (09:05)
[2018-10-18] MEDS: diltiaZEM 180 mg/24 Hours CD Cap PO SCH (09:05)
[2018-10-18] MEDS: cycloSPORINE 0.05 % Opth Emulsion UD OD SCH ×3 (09:11→22:26)
--- NOTE | 2018-10-18 10:28 | PN ---
DATE: 10/18/2018 SUBJECTIVE: The patient is seen lying in bed in Transitional Care Unit. She is feeling comfortable at the present time. She did have a brief episode of palpitations last evening. CURRENT MEDICATIONS: Include Atrovent, Mucomyst, Carafate, Cardizem CD 180 mg daily, Eliquis 5 mg twice a day, iron supplements, Januvia, Klonopin, Lasix 40 mg daily, Lipitor 10 mg daily, metoprolol 50 mg every 12 hours, Medrol 20 mg daily, Neurontin, Protonix, Pulmicort, Singulair, Synthroid, Wellbutrin, and Xopenex. OBJECTIVE: GENERAL: She is a overweight middle-aged woman. VITAL SIGNS: Her blood pressure is 112/66, pulse 64 and respiratory rate is 14. She is afebrile. HEENT: No JVD. CHEST: Few scattered rhonchi. HEART: Mid peaking systolic murmur noted at the base, radiating to the carotids. ABDOMEN: Soft, obese and nontender with normoactive bowel sounds. EXTREMITIES: No edema. DIAGNOSTIC DATA: Potassium 4.6. BUN and creatinine is 53 and 1.2. IMPRESSION: 1. Paroxysmal atrial fibrillation, currently in sinus rhythm, maintained on diltiazem and metoprolol and Eliquis. 2. Moderate aortic stenosis. 3. Recent decompensated congestive heart failure, acute diastolic, improved. 4. Pulmonary hypertension. 5. Severe chronic obstructive pulmonary disease. RECOMMENDATIONS: Current medications will be continued for now. Increase activity and exercise were advised. Arrangements will be made for an outpatient right and left heart catheterization once her pulmonary status is stabilized. I will be happy to follow along and make further recommendations as needed. Jose Enrique Hanson MD
--- NOTE | 2018-10-18 11:11 | CP.PCM.CON ---
History of Present Illness - History of Present Illness History of Present Illness: Renal note CC: dizziness Reason for consult: CKD and SONAM follow up Hpi : Pt is a 72 years old with htn, darya. atrial fib recently admitted for AMS, hypoxia and chf.s een for sonam. she denies any prior hx of ckd. no urinary complaints. no nsaid use no hx of kidney stones pt improved and d/c to TCU meds reviewed social hx non smoker no alcohol pmh as above complete ros is negative except for above labs reviewed as below cxr shows congestion cr 1.8 it was normal <1 on last admission subjective: pt feels better. leg swelling improved. SOB better. no urine complaints. feels usual health now. had A fib with RVR episode earlier, now better rest all other negative except as in HPI. Physical Examination: General Appearance: Comfortable, in no acute respiratory distress, co-operative . obese Vitals reviewed and noted as below Head; Atraumatic, normocephalic ENT: no ulcers no thrush. Tongue is midline. Oropharynx: no rash or ulcers. EYES: Pupils are equal, round and reactive to light accommodation. Eye muscles and extraocular movement intact. Sclera is anicteric. Neck; supple no lymphadenopathy, no thyromegaly or bruit Lungs: Normal respiratory rate/effort. Breath sounds bilateral improved Heart: Normal rate. s1s2 normal. No rub or gallop. SM at aortic area Extremities: no edema. No varicose veins Neurological: Patient is alert, awake and oriented to person, place and time. No focal deficit. Strength bilateral appropriate and equal Skin: Warm and dry. Normal turgor. No rash. Palpitation: Normal elasticity for age Abdomen: Abdomen is soft. Bowel sounds +. There is no abdominal tenderness, no guarding/rigidity no organomegaly Psych: normal insight and normal affect/mood MSK: no joint tenderness or swelling. Digits and nails normal, no deformity : kidney or bladder not palpable Assessment: stable SONAM: improved A. fib with RVR/chf with exacerbation/hyperkalemia acute on chronic hypercapnic respi failure with renal compensation, AMS moderate with moderate to severe pulmonary HTN obesity ex smoker hypomagnesemia Anemia Rt renal cyst DM with last A1c 6.7% Plan No acute need for renal replacement therapy at this time. Hypertension control with meds as ordered. Maintain hemodynamics stable. Avoid hypotension. Patient not on ACEI/ARB due to recent SONAM and BP on low side. Monitor Input/Output, daily weights and renal function with basic metabolic panel continue with iron and MVI supplement lytes as needed outpt f/up for renal cyst pulmonary and cardiology follow up Dose meds/antibiotics for improved GFR. Glycemic control Further work up/management as per primary team Thanks for allowing me to participate in care of your patient. Will follow patient with you. Please call if any Qs. had d/w team and family Dr Walter Patel Office: [phone] Past Patient History - Infectious Disease Hx of Infectious Diseases: None - Past Social History Smoking Status: Former Smoker - CARDIAC Hx Cardiac Disorders: (chronic A-fib) Hx Congestive Heart Failure: Yes - PULMONARY Hx Chronic Obstructive Pulmonary Disease (COPD): Yes (Acute exacerbation) - NEUROLOGICAL Hx Neurological Disorder: No - HEENT Hx HEENT Problems: Yes Hx Cataracts: Yes (BILATERAL SX) - RENAL Hx Renal Failure: Yes (Acute renal failure) - ENDOCRINE/METABOLIC Hx Diabetes Mellitus Type 2: Yes Hx Hypothyroidism: Yes - HEMATOLOGICAL/ONCOLOGICAL Hx Blood Disorders: Yes Hx Cancer: Yes (breast ca) - INTEGUMENTARY Hx Dermatological Problems: No - MUSCULOSKELETAL/RHEUMATOLOGICAL Hx Falls: Yes - GASTROINTESTINAL Hx Gastrointestinal Disorders: Yes Hx Gastroesophageal Reflux: Yes - GENITOURINARY/GYNECOLOGICAL Hx Reproductive Disorders: No - PSYCHIATRIC Hx Psychophysiologic Disorder: Yes Hx Anxiety: Yes Hx Depression: Yes Hx Emotional Abuse: No Hx Physical Abuse: No Hx Substance Use: No - SURGICAL HISTORY Hx Surgeries: Yes Hx Appendectomy: Yes Hx Mastectomy: Yes (Left) - ANESTHESIA Hx Anesthesia: Yes Hx Anesthesia Reactions: Yes (HOARSE VOICE X 2 WEEKS) Hx Malignant Hyperthermia: No Meds Allergies/Adverse Reactions: Allergies Allergy/AdvReac Type Severity Reaction Status Date / Time Penicillins Allergy Severe RASH Verified 10/10/18 16:55 aspirin Allergy DIARRHEA Verified 10/10/18 16:55 propoxyphene [From Darvon] Allergy RASH Verified 10/10/18 16:55 DARVON Allergy Severe "TOTALLY Uncoded 10/10/18 16:55 OUT OF IT" - Medications Medications: Current Medications Acetylcysteine (Acetylcysteine 20%) 4 ml IH [id number] [facility]; Protocol Last Admin: 10/18/18 08:45 Dose: 4 ml Apixaban (Eliquis) 5 mg PO BID COLT; Protocol Last Admin: 10/18/18 09:04 Dose: 5 mg Atorvastatin Calcium (Lipitor) 10 mg PO HS COLT; Protocol Budesonide (Pulmicort Respules) 0.5 mg IH [id number] COLT; Protocol Last Admin: 10/18/18 08:46 Dose: 0.5 mg Bupropion HCl (Wellbutrin Sr 150 Mg) 150 mg PO DAILY COLT; Protocol Last Admin: 10/18/18 09:05 Dose: 150 mg Clonazepam (Klonopin) 0.5 mg PO HS COLT; Protocol Clonazepam (Klonopin) 0.5 mg PO 1400 COLT; Protocol Cyclosporine (Restasis) 1 ea OD Q12 COLT; Protocol Last Admin: 10/18/18 09:11 Dose: 1 ea Dextrose (Dextrose 50% Inj) 0 ml IV STAT PRN; Protocol PRN Reason: Hypoglycemia Protocol Diltiazem HCl (Cardizem Cd) 180 mg PO DAILY COLT; Protocol Last Admin: 10/18/18 09:05 Dose: 180 mg Ferrous Gluconate (Fergon) 324 mg PO TID COLT; Protocol Last Admin: 10/18/18 09:03 Dose: 324 mg Furosemide (Lasix) 40 mg PO DAILY COLT; Protocol Gabapentin (Neurontin) 100 mg PO DAILY COLT; Protocol Last Admin: 10/18/18 09:05 Dose: 100 mg Insulin Human Lispro (Humalog Low) 0 units SC ACHS COLT; Protocol Last Admin: 10/18/18 08:12 Dose: Not Given Ipratropium [place] (Atrovent) 0.5 mg IH [id number] COLT Last Admin: 10/18/18 08:45 Dose: 0.5 mg Levalbuterol HCl (Xopenex) 0.63 mg IH TIDRESP COLT Levothyroxine Sodium (Synthroid) 88 mcg PO 0600 COLT; Protocol Last Admin: 10/18/18 05:17 Dose: 88 mcg Methylprednisolone (Medrol) 20 mg PO DAILY COLT; Protocol Last Admin: 10/18/18 09:04 Dose: 20 mg Metoprolol Tartrate (Lopressor) 50 mg PO Q12H COLT; Protocol Last Admin: 10/18/18 09:04 Dose: 50 mg Montelukast Sodium (Singulair) 10 mg PO HS COLT; Protocol Pantoprazole Sodium (Protonix Ec Tab) 40 mg PO 0600 COLT; Protocol Last Admin: 10/18/18 05:17 Dose: 40 mg Saliva Substitute (Saliva Substitute) 5 ml PO Q3 COLT; Protocol Last Admin: 10/18/18 09:12 Dose: 5 ml Sitagliptin Phosphate (Januvia) 50 mg PO DAILY COLT; Protocol Last Admin: 10/18/18 09:05 Dose: 50 mg Sodium Chloride ([place] Nasal [place]) 0 ml NS Q4H COLT; Protocol Sucralfate (Carafate Tab) 1 gm PO TID COLT; Protocol Last Admin: 10/18/18 09:05 Dose: 1 gm Vitamin B Complex/Vit C/Folic Acid (Nephro-Ricco) 1 tab PO 0800 COLT; Protocol Last Admin: 10/18/18 09:00 Dose: 1 tab Results - Vital Signs Recent Vital Signs: Last Vital Signs Temp 97.5 F L 10/18/18 10:00 Pulse 70 10/18/18 10:00 Resp 20 10/18/18 10:00 BP 116/54 L 10/18/18 10:00 Pulse Ox 93 L 10/18/18 10:00 - Labs Result Diagrams: 10/18/18 07:00 Labs: Laboratory Results - last 24 hr 10/18/18 10/18/18 05:20 07:00 Sodium 140 Potassium 4.6 Chloride 100 Carbon Dioxide 35 H Anion Gap 10 BUN 53 H Creatinine 1.2 Est GFR ( Amer) 53 Est GFR (Non-Af Amer) 44 POC Glucose (mg/dL) 158 H Random Glucose 140 H Calcium 8.8
--- NOTE | 2018-10-18 21:39 | CON ---
DATE: 10/18/2018 This is [facility] consult on the transitional care floor. For Dr. Beltre. CHIEF COMPLAINT: Abnormal PTT. HISTORY OF PRESENT ILLNESS: The patient is a 72-year-old female now on TCU after being hospitalized by her primary doctor, Mychal for being unresponsive and appearing pale after recent discharge from [facility] for pneumonia. The patient is known to have atrial fibrillation and is on Eliquis with known history of CHF and COPD. At present, she is now improved with reconditioning, continuing on the TCU floor. At the time of her admission, the patient's coagulation panel was noted with the patient having a PTT of 103.7 with the repeat of 72.4 three days posttreatment. Her INR on admission on 10/10/2018 was 2.75 with repeat of 2.01 three days later. ALLERGIES: PENICILLIN, ASPIRIN, AND DARVON. MEDICATIONS: The patient's medications at this time include Atrovent, Carafate, diltiazem, Eliquis, iron tablet, insulin, Januvia, Klonopin, Lasix, Lipitor, Lopressor, Medrol, Neurontin, Protonix, Pulmicort, Restasis, Saliva Substitute, Singulair, Synthroid, Wellbutrin, and Xopenex. PAST MEDICAL HISTORY: As above with atrial fibrillation, COPD, chronic pain syndrome, and diabetes mellitus. FAMILY HISTORY: Noncontributory. SOCIAL HISTORY: Noncontributory. Former smoker, quit in 2001. Denies EtOH abuse. REVIEW OF SYSTEMS: A 12-point review of systems is negative to questions except items mentioned in the history of present illness. PHYSICAL EXAMINATION: VITAL SIGNS: Temperature 97.5, pulse 70, respirations 20, blood pressure 116/54, and pulse ox 93%. HEENT: Unremarkable. Tongue is moist. NECK: Supple. HEART: A 1/6 systolic ejection murmur, irregularly irregular. LUNGS: Scattered rhonchi. ABDOMEN: Soft, nontender, and obese. EXTREMITIES: No edema. SKIN: Warm and dry. NEUROLOGIC: Awake and alert. LABORATORY DATA: The patient's labs were done. White blood cell count 12.7, hemoglobin 11.7, hematocrit 40, and platelet count 514,000 today. Her most recent lab tests from 10/13/2018 reviewed with the INR of 2.01 with the PTT of 72.4 down from a PTT of 103.7 and an INR of 2.75 on 10/10/2018. Metabolic panel earlier today showed a carbon dioxide of 35, BUN of 53, normal creatinine of 1.2, and nonfasting glucose of 140. The patient did have a serum immunofixation testing done on 10/14/2018 showing IgG kappa monoclonal protein present with two IgG lambda monoclonal protein bands present with an M-spike noted. Her hepatitis A, B, and C testing was negative H. pylori. Influenza and Legionella testing was also negative. The patient also had a chest x-ray done on 10/16/2018. It was read as no definite acute cardiopulmonary disease, stable mild cardiomegaly. No consolidation or pleural effusion bilaterally. No pulmonary vascular congestion evident. ASSESSMENT: The assessment for this patient is that of congestive heart failure, chronic atrial fibrillation, gastroesophageal reflux disease, sleep apnea, hypothyroidism, abnormal coagulation panel, obesity, deconditioning, moderate aortic stenosis, and pulmonary hypertension. PLAN: The plan for this patient is to continue present medical regimen; repeat her labs as this elevation of PTT has since corrected with Eliquis continuing. We will monitor clinically and proceed with TCU protocols. This is a complex patient with a comprehensive medically necessary and appropriate visit carried out in excess of 40 minutes with the patient's questions answered to her satisfaction. Jose Angel Patel MD
--- NOTE | 2018-10-18 23:25 | CON ---
DATE: 10/18/2018 PULMONARY CONSULTATION REFERRING PHYSICIAN: Dr. Horta. REASON FOR CONSULTATION: Hypoventilation syndrome, obesity, chronic lung disease, cardiomyopathy, pulmonary hypertension. HISTORY OF PRESENT ILLNESS: This is a 72-year-old female well known to our services, has atrial fibrillation, anxiety disorder, hypothyroid, hypoventilation syndrome, gastritis, chronic pain syndrome, diabetes, apparently recently was discharged from the hospital with at home noninvasive ventilation, which apparently the patient did not use, was only using supplemental oxygen, came in with AFib, heart failure, uncontrolled rate. She required noninvasive ventilation on admission, diuretics, stabilized and presently admitted to the ICU. She is lying in the reclining chair, claims she did not use BiPAP last night. Breathing is better. No chest pain, no nausea, no vomiting or diarrhea. Decreased leg swelling. PAST MEDICAL HISTORY: As per history of present illness. ALLERGIES: TO PENICILLIN, ASPIRIN, PROPOXYPHENE, AND DARVON. SOCIAL HISTORY: Former smoker. Denies any alcohol use. FAMILY HISTORY: No significant cardiopulmonary disease reported. MEDICATIONS: She is on Mucomyst inhaled q. 6 hour, Atrovent inhaled q. 6 hours, Carafate 3 times a day, Cardizem CD 180 mg daily, Eliquis 5 mg twice a day, ferrous gluconate 324 mg twice a day, insulin coverage, Januvia 50 mg daily, clonazepam 0.5 mg at bedtime, Lasix 40 mg daily, Lipitor 10 mg daily, metoprolol tartrate 50 mg twice a day, methylprednisolone 30 mg daily, Nephro vitamins daily, Neurontin 100 mg daily, nasal saline q. 4 hours, Protonix 40 mg daily, Pulmicort inhaled twice a day, saliva substitute q. 3 hours, Singulair 10 mg daily, Synthroid 88 mcg daily, Wellbutrin 150 mg daily, Xopenex inhaled 3 times a day. REVIEW OF SYSTEMS: No headache. No rhinitis. Still gets short of breath. Cough is better. No chest pain. No nausea, no vomiting or diarrhea. Decreased leg swelling. PHYSICAL EXAMINATION: GENERAL: Lying in a reclining chair. VITAL SIGNS: Temperature is 98, heart rate is 70, respiratory rate is 20, blood pressure 116/54, pulse ox 93% on nasal cannula. HEENT: Moist mucous membranes. Crowded airway. NECK: Supple. No JVD. Short, thick neck. LUNGS: Have a prolonged expiratory phase. HEART: S1 and S2, irregular. ABDOMEN: Obese, soft, nontender. EXTREMITIES: No edema. NEUROLOGIC: Awake,alert, follows simple commands. LABORATORY DATA: Shows hemoglobin 11.7, hematocrit 40.0, WBC 12.7, platelet is 514. Sodium 140, potassium 4.6, chloride 100, bicarbonate 35, BUN 53, creatinine 1.2, glucose 216, calcium is 8.8. Last chest x-ray she has is 10/16/2018, shows no infiltrate, mild cardiomegaly. IMPRESSION AND PLAN: Obesity-hypoventilation syndrome with chronic lung disease. There may be a component of sleep apnea syndrome, cardiomyopathy, atrial fibrillation, gastroesophageal reflux disease, hypothyroid. I had a long discussion with the patient about her lung disease, cardiac disease, relation to nocturnal hypoxemia and CO2 retention. I urged her to use BiPAP while sleeping. Continue p.o. and inhaled bronchodilator, anticoagulation, gastric prophylaxis, fall precautions. Thank you, and we will follow with you. Natali Masterson MD
[2018-10-19] MEDS: Ipratropium 0.02% Inhal Soln (0.5 mg/2.5 ml) UD IH SCH ×4 (02:18→19:35)
[2018-10-19] MEDS: Acetylcysteine 20% Inhal Soln (4ml) IH SCH ×4 (02:19→19:35)
[2018-10-19] MEDS: Saliva Substitute 44.3 ML PO SCH ×7 (04:39→21:16)
[2018-10-19] MEDS: Pantoprazole 40 mg EC Tab PO SCH (05:59)
[2018-10-19] MEDS: Levothyroxine 88 MCG TAB PO SCH (06:01)
[2018-10-19] MEDS: Insulin Lispro (humaLOG) LOW Coverage SC SCH ×4 (06:40→21:52)
[2018-10-19 07:03] LABS: INR 1.37; PARTIAL THROMBOPLASTIN TIME 61.8 Seconds (26.9-38.3); PROTHROMBIN TIME 15.5 SECONDS (9.4-12.5)
[2018-10-19 07:10] LABS: BASO # 0.07 K/mm3 (0.0-2.0); BASO % 0.5 % (0.0-3.0); EOS # 0.1 (0.0-0.7); EOS % 0.6 % (1.5-5.0); HEMOGLOBIN 11.3 g/dL (12.0-16.0); LYMPH # 1.1 (1.2-3.4); LYMPH % 7.8 % (22.0-35.0); MEAN CELL VOLUME 83.1 fl (80.0-105.0); MEAN CORPUSCULAR HEMOGLOBIN 25.1 pg (25.0-35.0); MEAN CORPUSCULAR HGB CONC 30.2 g/dl (31.0-37.0); MEAN PLATELET VOLUME 9.2 fl (7.0-11.0); RBC 4.5 10^6/uL (3.5-6.1); RED CELL DISTRIBUTION WIDTH 17.7 % (11.5-14.5); WHITE BLOOD COUNT 14.2 10^3/uL (4.5-11.0)
[2018-10-19] MEDS: Levalbuterol 0.63 MG/3 ML Inhal Soln UD IH SCH ×3 (07:40→19:35)
[2018-10-19] MEDS: Budesonide 0.5 mg/2 ml Inhal Susp UD IH SCH ×2 (07:40→19:35)
[2018-10-19] MEDS: Multivitamin Vitamin B Complex (Nephro-Vite) Tab PO SCH (09:00)
--- NOTE | 2018-10-19 09:09 | PN ---
DATE: 10/19/2018 PULMONARY PROGRESS NOTE REFERRING PHYSICIAN: Patricio Horta MD SUBJECTIVE: The patient is seen lying in bed. No acute distress. No overnight events reported. The patient wore BiPAP machine last night. Reports feeling no pain this morning. No headache, rhinitis, cough, shortness of breath, chest pain, abdominal pain, nausea, vomiting, diarrhea and leg pain reported. OBJECTIVE: GENERAL: No acute distress. VITAL SIGNS: Blood pressure 118/64, pulse 61, temperature 97.4 and oxygen saturation 94% on nasal cannula. HEENT: Moist mucus membranes. Crowded airway. NECK: Supple. No JVD. Short and thick. LUNGS: Few scattered rhonchi. CARDIOVASCULAR: S1 and S2. ABDOMEN: Obese, soft and nontender. EXTREMITIES: No bilateral lower extremity edema. NEUROLOGIC: Awake, alert and verbal. Follows commands. MEDICATIONS: Reviewed. Mucomyst 4 mL inhalation every 6 hours, Eliquis 5 mg twice a day, Lipitor 10 mg at bedtime, Pulmicort 0.5 mg every 12 hours, Wellbutrin 150 mg p.o. daily, Klonopin 0.5 mg daily, Klonopin 0.5 mg p.o. at bedtime, Restasis every 12 hours, Cardizem 180 mg daily, ferrous gluconate 324 mg twice a day, Lasix 40 mg daily, Neurontin 100 mg daily, Humalog sliding scale a.c. and at bedtime, Atrovent 0.5 mg inhalation every 6 hours, Xopenex 0.63 mg inhalation 3 times a day, Synthroid 88 mcg daily, metformin 500 mg twice a day, Medrol 20 mg daily, Lopressor 50 mg every 12 hours, Singulair 10 mg at bedtime, Protonix 40 mg daily, saliva substitute 5 mL every 3 hours, Januvia 50 mg daily, [place] nasal spray every 4 hours, Carafate 1 g 3 times a day and Nephro-Ricco 1 tab daily. LABORATORY DATA: Reviewed. WBC 14.2, RBC 4.5, hemoglobin 11.3, hematocrit 37.4 and platelets 417. PT 15.5, INR 1.37 and APTT 61.8. POC glucose 137. IMPRESSION AND PLAN: Obesity hypoventilation syndrome, chronic lung disease, sleep apnea syndrome, cardiomyopathy, atrial fibrillation, gastroesophageal reflux disease and hypothyroidism. Continue to encourage bilevel positive airway pressure use at bedtime. Sleep apnea precaution and head of bed elevated at 45 degrees. Continue inhaled bronchodilator, anticoagulation therapy, gastric prophylaxis and fall precautions. We will decrease the patient's Medrol to 15 mg daily, may supplement with daytime oxygen titrating to pulse ox 92% or greater. This patient was seen and examined with Dr. Masterson. Discussed assessment and plan as described above. This patient was seen and examined by Abhijeet Lott, nurse practitioner. Discussed assessment and plan as described above. Thank you for this consult and we will follow with you. Abhijeet Lott APN Natali Masterson MD
[2018-10-19] MEDS: diltiaZEM 180 mg/24 Hours CD Cap PO SCH (09:22)
[2018-10-19] MEDS: buPROPion SR 150 MG TABLET PO SCH (09:23)
[2018-10-19] MEDS: cycloSPORINE 0.05 % Opth Emulsion UD OD SCH ×2 (09:26→21:16)
--- NOTE | 2018-10-19 13:45 | CP.PCM.PN ---
Subjective - Date & Time of Evaluation Date of Evaluation: 10/19/18 Time of Evaluation: 13:44 - Subjective Subjective: Renal note CC: dizziness Reason for consult: CKD and SONAM follow up Hpi : Pt is a 72 years old with htn, darya. atrial fib recently admitted for AMS, hypoxia and chf.s een for sonam. she denies any prior hx of ckd. no urinary complaints. no nsaid use no hx of kidney stones pt improved and d/c to TCU meds reviewed social hx non smoker no alcohol pmh as above complete ros is negative except for above labs reviewed as below cxr shows congestion cr 1.8 it was normal <1 on last admission subjective: pt feels better. leg swelling improved. SOB better. no urine complaints. feels usual health now. had A fib with RVR episode earlier, now better rest all other negative except as in HPI. Physical Examination: General Appearance: Comfortable, in no acute respiratory distress, co-operative . obese Vitals reviewed and noted as below Head; Atraumatic, normocephalic ENT: no ulcers no thrush. Tongue is midline. Oropharynx: no rash or ulcers. EYES: Pupils are equal, round and reactive to light accommodation. Eye muscles and extraocular movement intact. Sclera is anicteric. Neck; supple no lymphadenopathy, no thyromegaly or bruit Lungs: Normal respiratory rate/effort. Breath sounds bilateral improved Heart: Normal rate. s1s2 normal. No rub or gallop. SM at aortic area Extremities: no edema. No varicose veins Neurological: Patient is alert, awake and oriented to person, place and time. No focal deficit. Strength bilateral appropriate and equal Skin: Warm and dry. Normal turgor. No rash. Palpitation: Normal elasticity for age Abdomen: Abdomen is soft. Bowel sounds +. There is no abdominal tenderness, no guarding/rigidity no organomegaly Psych: normal insight and normal affect/mood MSK: no joint tenderness or swelling. Digits and nails normal, no deformity : kidney or bladder not palpable Assessment: stable SONAM: improved A. fib with RVR/chf with exacerbation/hyperkalemia acute on chronic hypercapnic respi failure with renal compensation, AMS moderate with moderate to severe pulmonary HTN obesity ex smoker hypomagnesemia Anemia Rt renal cyst DM with last A1c 6.7% Plan No acute need for renal replacement therapy at this time. Hypertension control with meds as ordered. Maintain hemodynamics stable. Avoid hypotension. Patient not on ACEI/ARB due to recent SONAM and BP on low side. Monitor Input/Output, daily weights and renal function with basic metabolic panel continue with iron and MVI supplement lytes as needed outpt f/up for renal cyst lasix changed to 40 mg alternating with 20 mg pulmonary and cardiology follow up Dose meds/antibiotics for improved GFR. Glycemic control Further work up/management as per primary team Thanks for allowing me to participate in care of your patient. Will follow patient with you. Please call if any Qs. had d/w team and family Dr Walter Patel Office: [phone] Objective - Vital Signs/Intake and Output Vital Signs (last 24 hours): Temp Pulse Resp BP Pulse Ox 97.9 F 57 L 20 104/55 L 94 L 10/18/18 16:00 10/19/18 10:13 10/18/18 16:00 10/19/18 10:13 10/18/18 16:00 - Medications Medications: Current Medications Acetylcysteine (Acetylcysteine 20%) 4 ml IH [id number] COLT; Protocol Last Admin: 10/19/18 13:35 Dose: 4 ml Apixaban (Eliquis) 5 mg PO BID COLT; Protocol Last Admin: 10/19/18 09:22 Dose: 5 mg Atorvastatin Calcium (Lipitor) 10 mg PO HS COLT; Protocol Last Admin: 10/18/18 22:11 Dose: 10 mg Budesonide (Pulmicort Respules) 0.5 mg IH [id number] COLT; Protocol Last Admin: 10/19/18 07:40 Dose: 0.5 mg Bupropion HCl (Wellbutrin Sr 150 Mg) 150 mg PO DAILY COLT; Protocol Last Admin: 10/19/18 09:23 Dose: 150 mg Clonazepam (Klonopin) 0.5 mg PO HS COLT; Protocol Last Admin: 10/18/18 22:10 Dose: 0.5 mg Cyclosporine (Restasis) 1 ea OD Q12 COLT; Protocol Last Admin: 10/19/18 09:26 Dose: 1 ea Dextrose (Dextrose 50% Inj) 0 ml IV STAT PRN; Protocol PRN Reason: Hypoglycemia Protocol Diltiazem HCl (Cardizem Cd) 180 mg PO DAILY COLT; Protocol Last Admin: 10/19/18 09:22 Dose: Not Given Ferrous Gluconate (Fergon) 324 mg PO BID COLT; Protocol Last Admin: 10/19/18 09:23 Dose: 324 mg Furosemide (Lasix) 20 mg PO MWF COLT Furosemide (Lasix) 40 mg PO TTS COLT; Protocol Gabapentin (Neurontin) 100 mg PO DAILY COLT; Protocol Last Admin: 10/19/18 09:25 Dose: 100 mg Insulin Human Lispro (Humalog Low) 0 units SC ACHS COLT; Protocol Last Admin: 10/19/18 11:46 Dose: 1 units Ipratropium [place] (Atrovent) 0.5 mg IH [id number] COLT Last Admin: 10/19/18 13:35 Dose: 0.5 mg Levalbuterol HCl (Xopenex) 0.63 mg IH TIDRESP COLT Last Admin: 10/19/18 13:36 Dose: 0.63 mg Levothyroxine Sodium (Synthroid) 88 mcg PO 0600 COLT; Protocol Last Admin: 10/19/18 06:01 Dose: 88 mcg Metformin HCl (Glucophage) 500 mg PO BID COLT Last Admin: 10/19/18 10:14 Dose: 500 mg Methylprednisolone (Medrol) 12 mg PO DAILY COLT; Protocol Last Admin: 10/19/18 09:24 Dose: 12 mg Metoprolol Tartrate (Lopressor) 50 mg PO Q12H COLT; Protocol Last Admin: 10/19/18 10:13 Dose: 50 mg Montelukast Sodium (Singulair) 10 mg PO HS COLT; Protocol Last Admin: 10/18/18 22:11 Dose: 10 mg Pantoprazole Sodium (Protonix Ec Tab) 40 mg PO 0600 COLT; Protocol Last Admin: 10/19/18 05:59 Dose: 40 mg Saliva Substitute (Saliva Substitute) 5 ml PO Q3 COLT; Protocol Last Admin: 10/19/18 11:47 Dose: Not Given Sitagliptin Phosphate (Januvia) 50 mg PO DAILY COLT; Protocol Last Admin: 10/19/18 10:13 Dose: 50 mg Sodium Chloride ([place] Nasal [place]) 0 ml NS Q4H COLT; Protocol Last Admin: 10/19/18 11:47 Dose: 1 applic Sucralfate (Carafate Tab) 1 gm PO TID COLT; Protocol Last Admin: 10/19/18 09:22 Dose: 1 gm Vitamin B Complex/Vit C/Folic Acid (Nephro-Ricco) 1 tab PO 0800 COLT; Protocol Last Admin: 10/19/18 09:00 Dose: 1 tab - Labs Labs: 10/19/18 06:00 10/18/18 07:00 PT 15.5 SECONDS (9.4-12.5) H 10/19/18 06:00 INR 1.37 10/19/18 06:00 APTT 61.8 Seconds (26.9-38.3) H 10/19/18 06:00
--- NOTE | 2018-10-19 17:58 | HP ---
DATE OF EXAM: 10/18/2018 The patient came from medical floor to TCU for rehabilitation. HISTORY OF PRESENT ILLNESS: A 72-year-old female with history of congestive heart failure, COPD exacerbation, came into the hospital to telemetry, who was treated with IV Lasix, nebulizer treatment, seen by Cardiology, Pulmonary, and the patient was having difficulty ambulating walking problem. She was advised to go to rehabilitation TCU for physical therapy. She has no chest pain now and breathing is much better. She is stable. PAST MEDICAL HISTORY: As I mentioned; congestive heart failure, chronic atrial fibrillation, aortic stenosis, [id number] and moderate aortic stenosis, congestive heart failure, COPD, obstructive sleep apnea, hypertension, chronic atrial fibrillation, hypercholesterolemia, chronic anxiety, depression with morbid obesity, and diabetes type 2. ALLERGIES: SHE IS ALLERGIC TO PENICILLIN, ASPIRIN, PROPOXYPHENE, AND DARVON. REVIEW OF SYSTEMS: She does complaint of short of breath with exertions, palpitations and anxiety, occasionally arthritis, feel tired; otherwise the rest of the review of systems is negative. PHYSICAL EXAMINATION: VITAL SIGNS: Temperature is 97.5, heart rate is 70, blood pressure is 116/54, respirations 20, saturating 94% on 2 liters nasal cannula. HEAD AND NECK: Normal. No JVD. No thyromegaly. CHEST: Clear bilateral. CARDIAC: First sound and second sound normal. There is systolic ejection murmur at aortic area. ABDOMEN: Obese, nontender. EXTREMITIES: No edema. NEUROLOGIC: Normal. LABORATORY DATA: White count 14.2, hemoglobin 11.3, hematocrit 37.4, and platelets 417. Chemistry; sodium 140, potassium 4.6, chloride 100, bicarb 35, BUN 53, creatinine 1.2, blood sugar 140, calcium 8.8. PT 15.5, INR 1.37, and PTT 61.8. IMPRESSION AND PLAN: 1. Deconditioning, general weakness, continue physical therapy. 2. Atrial fibrillation, aortic stenosis, congestive heart failure is stabilized, doing better. Continue current medications. The patient is currently on Cardizem CD. Also she is getting metoprolol 50 mg twice a day and she is stable on that her medications, continue Lasix starting tomorrow we will hold , because of the blood pressure was started in her morning. 3. Hypercholesterolemia. 4. Hypothyroidism. Continue medications. Also depression and anxiety, continue Wellbutrin and Klonopin. 5. Chronic obstructive pulmonary disease exacerbation. Continue by bilevel positive airway pressure machine, continue oxygen inhaled and IV bronchodilators, Solu-Medrol which change it to prednisone. There will be trazodone, she is on 20 mg p.o. daily. We will continue current therapy. 6. Diabetes. She is on Januvia and we will followup fingerstick. Patricio Horta MD
--- NOTE | 2018-10-19 19:16 | PN ---
DATE: 10/19/2018 This is [facility] on the TCU floor. For Dr. Beltre. SUBJECTIVE: The patient is a 72-year-old female sitting up in a chair, on Eliquis, with a significantly elevated PTT on admission. Upon further history from her who reports that the patient had not been hydrated, which may have resulted for and values being elevated. However, these tests were repeated today as her INR is also significantly elevated on admission. The patient is in no acute distress, participating in TCU protocols. PHYSICAL EXAMINATION: VITAL SIGNS: Temperature 97.9, pulse 57, respirations 20, blood pressure 104/55, and pulse ox of 94%. HEENT: Unremarkable. Tongue is moist. NECK: Supple. HEART: 1/6 systolic ejection murmur; irregularly irregular. LUNGS: Occasional rhonchi. ABDOMEN: Obese, soft, and nontender. EXTREMITIES: No edema. SKIN: Warm and dry. NEUROLOGIC: Awake and alert. LABORATORY DATA: The patient's labs were done including white blood cell count of 14.2, hemoglobin 11.3, hematocrit 37.4, and platelet count 417,000. With a non-fasting glucose today of 177. PT was 15.5 and PTT of 61.8 with a value of 103.7 for repeat PTT on 10/10/2018, repeat of 72.4, still elevated, but acceptable as per Dr. Beltre. Her INR is 1.37 today with an INR of 2.75 on admission. ASSESSMENT: The assessment for this patient is that of deconditioning, atrial fibrillation; on Eliquis, congestive heart failure, gastroesophageal reflux disease, sleep apnea, hypothyroidism, moderate aortic stenosis, pulmonary hypertension, and obesity. PLAN: The plan for this patient is to continue protocol on TCU as per Dr. Horta with Eliquis to continue with her significantly elevated PTT corrected. This is a complex patient with a comprehensive medically necessary and appropriate visit carried out in excess of 20 minutes with the patient's and her 's questions answered to their satisfaction. Jose Angel Patel MD [facility] # [id number]
--- NOTE | 2018-10-20 01:29 | PN ---
DATE: 10/19/2018 SUBJECTIVE: The patient is stable, comfortable, in no distress. She feels weak. She states she is better than before, getting physical therapy. She walked to the bathroom without any walker. She is better, breathing better. PHYSICAL EXAMINATION VITAL SIGNS: Temperature is 98, heart rate 57, blood pressure 104/55, respirations 18. HEAD AND NECK: Normal. No JVD. No thyromegaly. CHEST: Clear bilateral. CARDIAC: First sound and second sound normal. Systolic ejection murmur on the aortic area. ABDOMEN: Obese, nontender. EXTREMITIES: Mild edema. NEUROLOGICAL: Normal. LABORATORY DATA: White count 14.2, hemoglobin 11.3, hematocrit 37.4, platelets 417. Chemistry; noted blood sugar in the 200 range, sodium 140, potassium 4.6, chloride 100, bicarb 35, BUN 56, creatinine 1.2. IMPRESSION AND PLAN: 1. Acute chronic obstructive pulmonary disease exacerbation. Continue prednisone, continue inhaled bronchodilators. She is improving. 2. Chronic atrial fibrillation, aortic stenosis, congestive heart failure. The patient seems stable. Continue current therapy. 3. History of hypertension and atrial fibrillation. Currently on Cardizem CD 180 mg, metoprolol 50 mg b.i.d., Lasix 40 mg every day. He will decrease one of his drugs, maybe we will change the Lasix to 40 mg every other day. Heart rhythm was 20, which we have discussed further with Cardiology. 4. Hypercholesterolemia, hypertension, morbid obesity, depression, hypothyroidism. Plan, continue current therapy. Patricio Horta MD
[2018-10-20] MEDS: Ipratropium 0.02% Inhal Soln (0.5 mg/2.5 ml) UD IH SCH ×4 (02:55→19:31)
[2018-10-20] MEDS: Acetylcysteine 20% Inhal Soln (4ml) IH SCH ×4 (02:55→19:31)
[2018-10-20] MEDS: Levothyroxine 88 MCG TAB PO SCH (05:25)
[2018-10-20] MEDS: Pantoprazole 40 mg EC Tab PO SCH (05:25)
[2018-10-20] MEDS: Insulin Lispro (humaLOG) LOW Coverage SC SCH ×4 (07:37→22:26)
[2018-10-20] MEDS: Multivitamin Vitamin B Complex (Nephro-Vite) Tab PO SCH (07:56)
[2018-10-20] MEDS: Budesonide 0.5 mg/2 ml Inhal Susp UD IH SCH ×2 (08:17→19:31)
[2018-10-20] MEDS: Levalbuterol 0.63 MG/3 ML Inhal Soln UD IH SCH ×3 (08:18→19:32)
--- NOTE | 2018-10-20 08:18 | PN ---
DATE: 10/20/2018 SUBJECTIVE: The patient is seen lying in bed in the transitional care unit. She feels fairly well. She states she has had occasional lightheadedness and blood pressure has been low at times. MEDICATIONS: Her current medications include Atrovent, Mucomyst, Carafate, diltiazem 180 mg daily, Eliquis 5 mg b.i.d., Glucophage, Januvia, Klonopin, metoprolol 50 mg every 12 hours., Medrol 12 mg daily, Neurontin, Protonix, Pulmicort, Singulair, Synthroid and Wellbutrin. Lasix has been reduced to an alternating 40 and 20 mg dosing. PHYSICAL EXAMINATION: GENERAL: She is an overweight middle-aged woman. VITAL SIGNS: Blood pressure 102/50 with a pulse of 70, respirations are 16. She is afebrile. HEENT: No JVD. CHEST: Few scattered rhonchi heard. HEART: Systolic murmur at the base radiating to the carotids. ABDOMEN: Soft, obese, nontender with normoactive bowel sounds. EXTREMITIES: No edema. LABORATORY DATA: Recent blood work revealed white count 14.2, hemoglobin 11.3 and 37.4 with platelet count 417,000. IMPRESSION: 1. Paroxysmal atrial fibrillation, remains in sinus rhythm; however, tends to have intermittent low blood pressure with occasional withholding of diltiazem, metoprolol. 2. Moderate aortic stenosis. 3. Recent decompensated congestive heart failure, acute diastolic, improved. 4. Pulmonary hypertension. 5. Severe chronic obstructive pulmonary disease. RECOMMENDATIONS: Her metoprolol dose will be reduced by 50% and diltiazem will be continued, unchanged. Lasix will be reduced to 20 mg daily as well. Activity is advised. Eventual outpatient cardiac catheterization will be planned. Increased activity as tolerated is recommended. I will follow along as needed. Jose Enrique Hanson MD MTDD
[2018-10-20] MEDS: diltiaZEM 180 mg/24 Hours CD Cap PO SCH (10:09)
[2018-10-20] MEDS: Saliva Substitute 44.3 ML PO SCH ×4 (10:09→20:59)
[2018-10-20] MEDS: buPROPion SR 150 MG TABLET PO SCH (10:11)
[2018-10-20] MEDS: cycloSPORINE 0.05 % Opth Emulsion UD OD SCH ×2 (10:14→21:02)
--- NOTE | 2018-10-20 13:01 | CP.PCM.PN ---
Subjective - Date & Time of Evaluation Date of Evaluation: 10/20/18 Time of Evaluation: 08:40 - Subjective Subjective: Yo Urbano PGY2 - Heme/Onc Progress Note Patient seen and examined at bedside. No acute events reported overnight. Patient denies chest pain, shortness of breath, abdominal pain. Objective - Vital Signs/Intake and Output Vital Signs (last 24 hours): Temp Pulse Resp BP Pulse Ox 98 F 74 20 124/74 93 L 10/20/18 10:00 10/20/18 10:09 10/20/18 10:00 10/20/18 10:10 10/20/18 10:00 - Medications Medications: Current Medications Acetylcysteine (Acetylcysteine 20%) 4 ml IH [id number] COLT; Protocol Last Admin: 10/20/18 08:17 Dose: 4 ml Apixaban (Eliquis) 5 mg PO BID COLT; Protocol Last Admin: 10/20/18 10:10 Dose: 5 mg Atorvastatin Calcium (Lipitor) 10 mg PO HS COLT; Protocol Last Admin: 10/19/18 21:17 Dose: 10 mg Budesonide (Pulmicort Respules) 0.5 mg IH [id number] COLT; Protocol Last Admin: 10/20/18 08:17 Dose: 0.5 mg Bupropion HCl (Wellbutrin Sr 150 Mg) 150 mg PO DAILY COLT; Protocol Last Admin: 10/20/18 10:11 Dose: 150 mg Clonazepam (Klonopin) 0.5 mg PO HS COLT; Protocol Last Admin: 10/19/18 22:01 Dose: 0.5 mg Cyclosporine (Restasis) 1 ea OD Q12 COLT; Protocol Last Admin: 10/20/18 10:14 Dose: 1 ea Dextrose (Dextrose 50% Inj) 0 ml IV STAT PRN; Protocol PRN Reason: Hypoglycemia Protocol Diltiazem HCl (Cardizem Cd) 180 mg PO DAILY COLT; Protocol Last Admin: 10/20/18 10:09 Dose: 180 mg Ferrous Gluconate (Fergon) 324 mg PO BID COLT; Protocol Last Admin: 10/20/18 10:10 Dose: 324 mg Furosemide (Lasix) 20 mg PO DAILY COLT Last Admin: 10/20/18 10:10 Dose: 20 mg Gabapentin (Neurontin) 100 mg PO DAILY COLT; Protocol Last Admin: 10/20/18 10:11 Dose: 100 mg Insulin Human Lispro (Humalog Low) 0 units SC ACHS COLT; Protocol Last Admin: 10/20/18 12:26 Dose: 1 units Ipratropium [place] (Atrovent) 0.5 mg IH [id number] COLT Last Admin: 10/20/18 08:17 Dose: 0.5 mg Levalbuterol HCl (Xopenex) 0.63 mg IH TIDRESP COLT Last Admin: 10/20/18 08:18 Dose: 0.63 mg Levothyroxine Sodium (Synthroid) 88 mcg PO 0600 COLT; Protocol Last Admin: 10/20/18 05:25 Dose: 88 mcg Metformin HCl (Glucophage) 500 mg PO BID COLT Last Admin: 10/20/18 10:10 Dose: 500 mg Methylprednisolone (Medrol) 12 mg PO DAILY COLT; Protocol Last Admin: 10/20/18 10:11 Dose: 12 mg Metoprolol Tartrate (Lopressor) 25 mg PO Q12H COLT; Protocol Last Admin: 10/20/18 08:21 Dose: 25 mg Montelukast Sodium (Singulair) 10 mg PO HS COLT; Protocol Last Admin: 10/19/18 21:17 Dose: 10 mg Pantoprazole Sodium (Protonix Ec Tab) 40 mg PO 0600 COLT; Protocol Last Admin: 10/20/18 05:25 Dose: 40 mg Saliva Substitute (Saliva Substitute) 5 ml PO Q3 COLT; Protocol Last Admin: 10/20/18 10:09 Dose: 5 ml Sitagliptin Phosphate (Januvia) 50 mg PO DAILY COLT; Protocol Last Admin: 10/20/18 10:10 Dose: 50 mg Sodium Chloride ([place] Nasal [place]) 0 ml NS Q4H COLT; Protocol Last Admin: 10/20/18 07:57 Dose: 1 applic Sucralfate (Carafate Tab) 1 gm PO TID COLT; Protocol Last Admin: 10/20/18 10:09 Dose: 1 gm Vitamin B Complex/Vit C/Folic Acid (Nephro-Ricco) 1 tab PO 0800 COLT; Protocol Last Admin: 10/20/18 07:56 Dose: 1 tab - Labs Labs: 10/19/18 06:00 10/18/18 07:00 PT 15.5 SECONDS (9.4-12.5) H 10/19/18 06:00 INR 1.37 10/19/18 06:00 APTT 61.8 Seconds (26.9-38.3) H 10/19/18 06:00 - Constitutional Appears: No Acute Distress - Head Exam Head Exam: ATRAUMATIC, NORMOCEPHALIC - Eye Exam Eye Exam: EOMI - ENT Exam ENT Exam: Mucous Membranes Moist - Neck Exam Neck Exam: Full ROM - Respiratory Exam Respiratory Exam: Clear to Ausculation Bilateral, NORMAL BREATHING PATTERN - Cardiovascular Exam Cardiovascular Exam: Tachycardia, +S1, +S2 - GI/Abdominal Exam GI & Abdominal Exam: Soft, Normal Bowel Sounds. absent: Rigid, Tenderness - Neurological Exam Neurological Exam: Alert, Awake, Oriented x3 Additional comments: motor and sensory grossly intact - Psychiatric Exam Psychiatric exam: Normal Affect, Normal Mood - Skin Skin Exam: Dry, Warm Assessment and Plan - Assessment and Plan (Free Text) Assessment: 72 year old female with CHF, chronic atrial fibrillation, GERD, hypothyroidism, obesity, decondtioning, moderate aortic stenosis, pulmonary hypertension and elevated PTT. Plan: - continue eliquis for atrial fibrillation as per cardio - Continue to monitor PTT, PT - Further recs per Dr. Beltre
--- NOTE | 2018-10-20 15:14 | CP.PCM.PN ---
Subjective - Date & Time of Evaluation Date of Evaluation: 10/20/18 Time of Evaluation: 15:14 - Subjective Subjective: Renal note CC: dizziness Reason for consult: CKD and SONAM follow up Hpi : Pt is a 72 years old with htn, darya. atrial fib recently admitted for AMS, hypoxia and chf.s een for sonam. she denies any prior hx of ckd. no urinary complaints. no nsaid use no hx of kidney stones pt improved and d/c to TCU meds reviewed social hx non smoker no alcohol pmh as above complete ros is negative except for above labs reviewed as below cxr shows congestion cr 1.8 it was normal <1 on last admission subjective: pt feels better. leg swelling improved. SOB better. no urine complaints. feels usual health now. rest all other negative except as in HPI. Physical Examination: General Appearance: Comfortable, in no acute respiratory distress, co-operative . obese Vitals reviewed and noted as below Head; Atraumatic, normocephalic ENT: no ulcers no thrush. Tongue is midline. Oropharynx: no rash or ulcers. EYES: Pupils are equal, round and reactive to light accommodation. Eye muscles and extraocular movement intact. Sclera is anicteric. Neck; supple no lymphadenopathy, no thyromegaly or bruit Lungs: Normal respiratory rate/effort. Breath sounds bilateral improved Heart: Normal rate. s1s2 normal. No rub or gallop. SM at aortic area Extremities: no edema. No varicose veins Neurological: Patient is alert, awake and oriented to person, place and time. No focal deficit. Strength bilateral appropriate and equal Skin: Warm and dry. Normal turgor. No rash. Palpitation: Normal elasticity for age Abdomen: Abdomen is soft. Bowel sounds +. There is no abdominal tenderness, no guarding/rigidity no organomegaly Psych: normal insight and normal affect/mood MSK: no joint tenderness or swelling. Digits and nails normal, no deformity : kidney or bladder not palpable Assessment: stable SONAM: improved A. fib with RVR/chf with exacerbation/hyperkalemia acute on chronic hypercapnic respi failure with renal compensation, AMS moderate with moderate to severe pulmonary HTN obesity ex smoker hypomagnesemia Anemia Rt renal cyst DM with last A1c 6.7% Plan No acute need for renal replacement therapy at this time. Hypertension control with meds as ordered. Maintain hemodynamics stable. Avoid hypotension. Patient not on ACEI/ARB due to recent SONAM and BP on low side. Monitor Input/Output, daily weights and renal function with basic metabolic panel continue with iron and MVI supplement lytes as needed outpt f/up for renal cyst lasix changed to 20 mg/d per cardiology pulmonary and cardiology follow up Dose meds/antibiotics for improved GFR. Glycemic control Further work up/management as per primary team Thanks for allowing me to participate in care of your patient. Will follow patient with you. Please call if any Qs. had d/w team and family Dr Walter Patel Office: [phone] Objective - Vital Signs/Intake and Output Vital Signs (last 24 hours): Temp Pulse Resp BP Pulse Ox 98 F 74 20 124/74 93 L 10/20/18 10:00 10/20/18 10:09 10/20/18 10:00 10/20/18 10:10 10/20/18 10:00 - Medications Medications: Current Medications Acetylcysteine (Acetylcysteine 20%) 4 ml IH [id number] COLT; Protocol Last Admin: 10/20/18 13:33 Dose: 4 ml Apixaban (Eliquis) 5 mg PO BID COLT; Protocol Last Admin: 10/20/18 10:10 Dose: 5 mg Atorvastatin Calcium (Lipitor) 10 mg PO HS COLT; Protocol Last Admin: 10/19/18 21:17 Dose: 10 mg Budesonide (Pulmicort Respules) 0.5 mg IH [id number] COLT; Protocol Last Admin: 10/20/18 08:17 Dose: 0.5 mg Bupropion HCl (Wellbutrin Sr 150 Mg) 150 mg PO DAILY COLT; Protocol Last Admin: 10/20/18 10:11 Dose: 150 mg Clonazepam (Klonopin) 0.5 mg PO HS COLT; Protocol Last Admin: 10/19/18 22:01 Dose: 0.5 mg Cyclosporine (Restasis) 1 ea OD Q12 COLT; Protocol Last Admin: 10/20/18 10:14 Dose: 1 ea Dextrose (Dextrose 50% Inj) 0 ml IV STAT PRN; Protocol PRN Reason: Hypoglycemia Protocol Diltiazem HCl (Cardizem Cd) 180 mg PO DAILY COLT; Protocol Last Admin: 10/20/18 10:09 Dose: 180 mg Ferrous Gluconate (Fergon) 324 mg PO BID COLT; Protocol Last Admin: 10/20/18 10:10 Dose: 324 mg Furosemide (Lasix) 20 mg PO DAILY COLT Last Admin: 10/20/18 10:10 Dose: 20 mg Gabapentin (Neurontin) 100 mg PO DAILY COLT; Protocol Last Admin: 10/20/18 10:11 Dose: 100 mg Insulin Human Lispro (Humalog Low) 0 units SC ACHS COLT; Protocol Last Admin: 10/20/18 12:26 Dose: 1 units Ipratropium [place] (Atrovent) 0.5 mg IH [id number] COLT Last Admin: 10/20/18 13:33 Dose: 0.5 mg Levalbuterol HCl (Xopenex) 0.63 mg IH TIDRESP COLT Last Admin: 10/20/18 13:33 Dose: 0.63 mg Levothyroxine Sodium (Synthroid) 88 mcg PO 0600 COLT; Protocol Last Admin: 10/20/18 05:25 Dose: 88 mcg Metformin HCl (Glucophage) 500 mg PO BID COLT Last Admin: 10/20/18 10:10 Dose: 500 mg Methylprednisolone (Medrol) 12 mg PO DAILY COLT; Protocol Last Admin: 10/20/18 10:11 Dose: 12 mg Metoprolol Tartrate (Lopressor) 25 mg PO Q12H COLT; Protocol Last Admin: 10/20/18 08:21 Dose: 25 mg Montelukast Sodium (Singulair) 10 mg PO HS COLT; Protocol Last Admin: 10/19/18 21:17 Dose: 10 mg Pantoprazole Sodium (Protonix Ec Tab) 40 mg PO 0600 COLT; Protocol Last Admin: 10/20/18 05:25 Dose: 40 mg Saliva Substitute (Saliva Substitute) 5 ml PO Q3 COLT; Protocol Last Admin: 10/20/18 13:33 Dose: 5 ml Sitagliptin Phosphate (Januvia) 50 mg PO DAILY COLT; Protocol Last Admin: 10/20/18 10:10 Dose: 50 mg Sodium Chloride ([place] Nasal [place]) 0 ml NS Q4H COLT; Protocol Last Admin: 10/20/18 13:33 Dose: 1 applic Sucralfate (Carafate Tab) 1 gm PO TID COLT; Protocol Last Admin: 10/20/18 13:27 Dose: 1 gm Vitamin B Complex/Vit C/Folic Acid (Nephro-Ricco) 1 tab PO 0800 [facility]; Protocol Last Admin: 10/20/18 07:56 Dose: 1 tab - Labs Labs: 10/19/18 06:00 10/18/18 07:00 PT 15.5 SECONDS (9.4-12.5) H 10/19/18 06:00 INR 1.37 10/19/18 06:00 APTT 61.8 Seconds (26.9-38.3) H 10/19/18 06:00
[2018-10-21] MEDS: Acetylcysteine 20% Inhal Soln (4ml) IH SCH ×4 (01:24→20:20)
[2018-10-21] MEDS: Ipratropium 0.02% Inhal Soln (0.5 mg/2.5 ml) UD IH SCH ×4 (01:24→20:20)
[2018-10-21] MEDS: Saliva Substitute 44.3 ML PO SCH ×5 (05:23→21:00)
[2018-10-21] MEDS: Pantoprazole 40 mg EC Tab PO SCH (06:11)
[2018-10-21] MEDS: Levothyroxine 88 MCG TAB PO SCH (06:12)
[2018-10-21] MEDS: Insulin Lispro (humaLOG) LOW Coverage SC SCH ×4 (07:16→21:24)
[2018-10-21] MEDS: Multivitamin Vitamin B Complex (Nephro-Vite) Tab PO SCH (08:02)
[2018-10-21] MEDS: Budesonide 0.5 mg/2 ml Inhal Susp UD IH SCH ×2 (08:12→20:20)
[2018-10-21] MEDS: Levalbuterol 0.63 MG/3 ML Inhal Soln UD IH SCH ×2 (08:13→13:07)
--- NOTE | 2018-10-21 08:20 | PN ---
DATE: 10/20/2018 PULMONARY PROGRESS NOTE REFERRING PHYSICIAN: Patricio Horta MD SUBJECTIVE: The patient is seen sitting in armchair. is at the bedside. No acute distress. No overnight events reported. The patient reports feeling well today. Wore BiPAP for about four hours last night. No headache, rhinitis, cough, shortness of breath, chest pain, abdominal pain, nausea, vomiting, diarrhea, leg pain, leg swelling reported. The patient just reports feeling a little bit tired after physical therapy this morning. PHYSICAL EXAMINATION: VITAL SIGNS: Blood pressure 129/74, pulse 74, temperature 98, oxygen saturation 93% on nasal cannula. GENERAL: No acute distress. HEENT: Moist mucous membranes. Crowded airway. NECK: Supple. No JVD. Short and thick. LUNGS: Few scattered rhonchi. Fair airflow. CARDIOVASCULAR: S1 and S2. ABDOMEN: Obese, soft and nontender. EXTREMITIES: No bilateral lower extremity edema. NEUROLOGIC: Awake, alert and verbal. Follows commands. MEDICATIONS: Reviewed. Mucomyst 4 mL inhalation every 6 hours, Eliquis 5 mg twice a day, Lipitor 10 mg at bedtime, Pulmicort 0.5 mg inhalation every 12 hours, Wellbutrin 150 mg daily, Klonopin 0.5 mg at bedtime, Restasis every 12 hours, Cardizem 180 mg daily, ferrous gluconate 324 mg twice a day, Lasix 20 mg daily, gabapentin 100 mg daily, Humalog sliding scale a.c. and h.s., Atrovent 0.5 mg inhalation every 6 hours, Xopenex 0.63 mg inhalation three times a day, Synthroid 88 mcg daily, Glucophage 500 mg twice a day, Medrol Dosepak 12 mg p.o. daily, metoprolol tartarate 25 mg every 12 hours, Singulair 10 mg at bedtime, Protonix 40 mg daily, saliva substitute 5 mL every 3 hours, Januvia 50 mg daily, [place] nasal spray every 4 hours, Carafate 1 g three times a day, and Nephro-Ricco 1 tab daily. LABORATORY DATA: Reviewed. POC glucose 137. IMPRESSION AND PLAN: Paroxysmal atrial fibrillation, currently in sinus rhythm; moderate aortic stenosis; congestive heart failure; pulmonary hypertension; chronic obstructive pulmonary disease; obesity hypoventilation syndrome; sleep apnea syndrome; cardiomyopathy; gastroesophageal reflux disease; hypothyroidism. Continue to encourage bilevel positive airway pressure use at bedtime, head of bed elevated at 45 degrees, sleep apnea precaution. Continue inhaled bronchodilators, gastric prophylaxis. Currently, on anticoagulation therapy. Fall precautions. Continue supplemental oxygen titrating to pulse ox 92% or greater. This patient was seen and examined with Dr. Masterson. Discussed assessment and plan as described above. This patient was seen and examined with Abhijeet Lott, nurse practitioner. Discussed assessment and plan as described above. Thank you for this consult. We will follow with you. Abhijeet Lott APN Natali Masterson MD
[2018-10-21] MEDS: diltiaZEM 180 mg/24 Hours CD Cap PO SCH (09:45)
[2018-10-21] MEDS: cycloSPORINE 0.05 % Opth Emulsion UD OD SCH ×2 (09:48→21:44)
[2018-10-21] MEDS: buPROPion SR 150 MG TABLET PO SCH (09:48)
--- NOTE | 2018-10-21 11:34 | CP.PCM.CON ---
<Alex Hernandez - Last Filed: 10/21/18 11:21> History of Present Illness - History of Present Illness History of Present Illness: Podiatry consult note - Drs. Martinez/Tc 72F seen and evaluated at bedside for elongated, dystrophic nails. States that she sees Dr. Fraser as her outpatient improvement nurse but was not able to see him before she was admitted to the hospital. States that her nails are catching on her socks and have become painful. She is a diabetic and has had her blood sugar checked regularly. Denies n/v/f/c/sob/cp today and has no other acute complaints. PMHx: chronic atrial fibrillation, history of nephrolithiasis, hypothyroidism, GERD PSHx: laparoscopic appendectomy, mastectomy All: PCN, aspirin, propoxyphene Past Patient History - Infectious Disease Hx of Infectious Diseases: None - Past Social History Smoking Status: Former Smoker - CARDIAC Hx Congestive Heart Failure: Yes - PULMONARY Hx Chronic Obstructive Pulmonary Disease (COPD): Yes - NEUROLOGICAL Hx Neurological Disorder: No - HEENT Hx HEENT Problems: Yes Hx Cataracts: Yes (BILATERAL SX) - RENAL Hx Renal Failure: Yes (Acute renal failure) - ENDOCRINE/METABOLIC Hx Diabetes Mellitus Type 2: Yes - HEMATOLOGICAL/ONCOLOGICAL Hx Blood Disorders: Yes Hx Cancer: Yes (breast ca) - INTEGUMENTARY Hx Dermatological Problems: No - MUSCULOSKELETAL/RHEUMATOLOGICAL Hx Falls: Yes - GASTROINTESTINAL Hx Gastrointestinal Disorders: Yes Hx Gastroesophageal Reflux: Yes - GENITOURINARY/GYNECOLOGICAL Hx Reproductive Disorders: No - PSYCHIATRIC Hx Psychophysiologic Disorder: Yes Hx Anxiety: Yes Hx Depression: Yes Hx Emotional Abuse: No Hx Physical Abuse: No Hx Substance Use: No - SURGICAL HISTORY Hx Surgeries: Yes Hx Appendectomy: Yes Hx Mastectomy: Yes (Left) - ANESTHESIA Hx Anesthesia: Yes Hx Anesthesia Reactions: Yes (HOARSE VOICE X 2 WEEKS) Hx Malignant Hyperthermia: No Meds Allergies/Adverse Reactions: Allergies Allergy/AdvReac Type Severity Reaction Status Date / Time Penicillins Allergy Severe RASH Verified 10/10/18 16:55 aspirin Allergy DIARRHEA Verified 10/10/18 16:55 propoxyphene [From Darvon] Allergy RASH Verified 10/10/18 16:55 DARVON Allergy Severe "TOTALLY Uncoded 10/10/18 16:55 OUT OF IT" - Medications Medications: Current Medications Acetylcysteine (Acetylcysteine 20%) 4 ml IH [id number] COLT; Protocol Last Admin: 10/21/18 08:12 Dose: 4 ml Apixaban (Eliquis) 5 mg PO BID COLT; Protocol Last Admin: 10/21/18 09:46 Dose: 5 mg Atorvastatin Calcium (Lipitor) 10 mg PO HS COLT; Protocol Last Admin: 10/20/18 21:00 Dose: 10 mg Budesonide (Pulmicort Respules) 0.5 mg IH [id number] COLT; Protocol Last Admin: 10/21/18 08:12 Dose: 0.5 mg Bupropion HCl (Wellbutrin Sr 150 Mg) 150 mg PO DAILY COLT; Protocol Last Admin: 10/21/18 09:48 Dose: 150 mg Clonazepam (Klonopin) 0.5 mg PO HS COLT; Protocol Last Admin: 10/20/18 21:00 Dose: 0.5 mg Cyclosporine (Restasis) 1 ea OD Q12 COLT; Protocol Last Admin: 10/21/18 09:48 Dose: 1 ea Dextrose (Dextrose 50% Inj) 0 ml IV STAT PRN; Protocol PRN Reason: Hypoglycemia Protocol Diltiazem HCl (Cardizem Cd) 180 mg PO DAILY COLT; Protocol Last Admin: 10/21/18 09:45 Dose: 180 mg Ferrous Gluconate (Fergon) 324 mg PO BID COLT; Protocol Last Admin: 10/21/18 09:46 Dose: 324 mg Furosemide (Lasix) 20 mg PO DAILY COLT Last Admin: 10/21/18 09:47 Dose: 20 mg Gabapentin (Neurontin) 100 mg PO DAILY COLT; Protocol Last Admin: 10/21/18 09:47 Dose: 100 mg Insulin Human Lispro (Humalog Low) 0 units SC ACHS [facility]; Protocol Last Admin: 10/21/18 07:16 Dose: Not Given Ipratropium [place] (Atrovent) 0.5 mg IH [id number] COLT Last Admin: 10/21/18 08:12 Dose: 0.5 mg Levalbuterol HCl (Xopenex) 0.63 mg IH TIDRESP COLT Last Admin: 10/21/18 08:13 Dose: 0.63 mg Levothyroxine Sodium (Synthroid) 88 mcg PO 0600 COLT; Protocol Last Admin: 10/21/18 06:12 Dose: 88 mcg Metformin HCl (Glucophage) 500 mg PO BID [facility] Last Admin: 10/21/18 09:46 Dose: Not Given Methylprednisolone (Medrol) 12 mg PO DAILY [facility]; Protocol Last Admin: 10/21/18 09:47 Dose: Not Given Metoprolol Tartrate (Lopressor) 25 mg PO 0730,1830 COLT; Protocol Last Admin: 10/21/18 08:01 Dose: Not Given Montelukast Sodium (Singulair) 10 mg PO HS COLT; Protocol Last Admin: 10/20/18 21:00 Dose: 10 mg Pantoprazole Sodium (Protonix Ec Tab) 40 mg PO 0600 COLT; Protocol Last Admin: 10/21/18 06:11 Dose: 40 mg Saliva Substitute (Saliva Substitute) 5 ml PO Q3 COLT; Protocol Last Admin: 10/21/18 09:49 Dose: 5 ml Sitagliptin Phosphate (Januvia) 50 mg PO DAILY [facility]; Protocol Last Admin: 10/21/18 09:46 Dose: 50 mg Sodium Chloride ([place] Nasal [place]) 0 ml NS Q4H COLT; Protocol Last Admin: 10/21/18 08:02 Dose: 1 applic Sucralfate (Carafate Tab) 1 gm PO TID COLT; Protocol Last Admin: 10/21/18 09:44 Dose: 1 gm Vitamin B Complex/Vit C/Folic Acid (Nephro-Ricco) 1 tab PO 0800 COLT; Protocol Last Admin: 10/21/18 08:02 Dose: 1 tab Physical Exam - Constitutional Appears: Non-toxic - Head Exam Head Exam: ATRAUMATIC - Extremities Exam Additional comments: VASC: DP and PT pulses palpable; temp gradient warm to warm; pedal hair growth absent; cap refill <3 seconds to all digits; mild edema noted to b/l LE DERM: no open lesions or wounds appreciated; nails are dystrophic and elongated; xerosis to feet b/l ORTHO: mild tenderness on palpation to nails; no other gross pathology noted NEURO: gross and protective sensation intact b/l - Neurological Exam Neurological exam: Alert, Oriented x3 - Psychiatric Exam Psychiatric exam: Normal Affect, Normal Mood Results - Vital Signs Recent Vital Signs: Last Vital Signs Temp 98 F 10/20/18 16:00 Pulse 63 10/21/18 09:45 Resp 20 10/20/18 16:00 BP 104/66 10/21/18 09:47 Pulse Ox 96 10/20/18 16:00 - Labs Result Diagrams: 10/19/18 06:00 10/18/18 07:00 Labs: Laboratory Results - last 24 hr 10/20/18 10/20/18 10/20/18 11:13 16:54 22:13 POC Glucose (mg/dL) 189 H 210 H 238 H 10/21/18 06:29 POC Glucose (mg/dL) 121 H Assessment & Plan - Assessment and Plan (Free Text) Assessment: 72F with dystrophic and painful nails Plan: Patient seen and evaluated Discussed with Dr. Juan VERGARA Nails cut and debrided with nail nipperd without incident - patient tolerated well Lotion applied to feet b/l Can continue to apply regularly but avoid between toes Diabetic foot education provided Podiatry to sign off, thank you for the consult Please reconsult if any acute problems present - Date & Time Date: 10/21/18 Time: 11:44 <Marvin Martinez - Last Filed: 10/22/18 10:57> Meds - Medications Medications: Current Medications Acetylcysteine (Acetylcysteine 20%) 4 ml IH [id number] COLT; Protocol Last Admin: 10/22/18 07:16 Dose: 4 ml Apixaban (Eliquis) 5 mg PO BID COLT; Protocol Last Admin: 10/22/18 09:42 Dose: 5 mg Atorvastatin Calcium (Lipitor) 10 mg PO HS COLT; Protocol Last Admin: 10/21/18 21:43 Dose: 10 mg Budesonide (Pulmicort Respules) 0.5 mg IH [id number] COLT; Protocol Last Admin: 10/22/18 07:16 Dose: 0.5 mg Bupropion HCl (Wellbutrin Sr 150 Mg) 150 mg PO DAILY COLT; Protocol Last Admin: 10/22/18 09:43 Dose: 150 mg Clonazepam (Klonopin) 0.5 mg PO HS COLT; Protocol Last Admin: 10/21/18 21:43 Dose: 0.5 mg Cyclosporine (Restasis) 1 ea OD Q12 COLT; Protocol Last Admin: 10/22/18 09:43 Dose: 1 ea Dextrose (Dextrose 50% Inj) 0 ml IV STAT PRN; Protocol PRN Reason: Hypoglycemia Protocol Diltiazem HCl (Cardizem Cd) 180 mg PO DAILY COLT; Protocol Last Admin: 10/22/18 09:42 Dose: 180 mg Ferrous Gluconate (Fergon) 324 mg PO BID COLT; Protocol Last Admin: 10/22/18 09:42 Dose: 324 mg Furosemide (Lasix) 20 mg PO DAILY COLT Last Admin: 10/22/18 09:42 Dose: 20 mg Gabapentin (Neurontin) 100 mg PO DAILY COLT; Protocol Last Admin: 10/22/18 09:43 Dose: 100 mg Insulin Human Lispro (Humalog Low) 0 units SC ACHS COLT; Protocol Last Admin: 10/22/18 06:47 Dose: Not Given Ipratropium [place] (Atrovent) 0.5 mg IH [id number] COLT Last Admin: 10/22/18 07:16 Dose: 0.5 mg Levalbuterol HCl (Xopenex) 0.63 mg IH TIDRESP COLT Last Admin: 10/22/18 07:16 Dose: 0.63 mg Levothyroxine Sodium (Synthroid) 88 mcg PO 0600 COLT; Protocol Last Admin: 10/22/18 05:37 Dose: 88 mcg Metformin HCl (Glucophage) 500 mg PO 0730,1700 COLT Last Admin: 10/22/18 07:42 Dose: 500 mg Methylprednisolone (Medrol) 12 mg PO 0800 COLT; Protocol Last Admin: 10/22/18 07:42 Dose: 12 mg Metoprolol Tartrate (Lopressor) 25 mg PO 0730,1830 COLT; Protocol Last Admin: 10/22/18 07:41 Dose: 25 mg Montelukast Sodium (Singulair) 10 mg PO HS COLT; Protocol Last Admin: 10/21/18 21:43 Dose: 10 mg Pantoprazole Sodium (Protonix Ec Tab) 40 mg PO 0600 COLT; Protocol Last Admin: 10/22/18 05:35 Dose: 40 mg Saliva Substitute (Saliva Substitute) 5 ml PO Q3 COLT; Protocol Last Admin: 10/22/18 09:41 Dose: 5 ml Sitagliptin Phosphate (Januvia) 50 mg PO DAILY COLT; Protocol Last Admin: 10/22/18 09:42 Dose: 50 mg Sodium Chloride ([place] Nasal [place]) 0 ml NS Q4H COLT; Protocol Last Admin: 10/22/18 07:41 Dose: Not Given Sucralfate (Carafate Tab) 1 gm PO TID COLT; Protocol Last Admin: 10/22/18 09:42 Dose: 1 gm Vitamin B Complex/Vit C/Folic Acid (Nephro-Ricco) 1 tab PO 0800 [facility]; Protocol Last Admin: 10/22/18 07:41 Dose: 1 tab Results - Vital Signs Recent Vital Signs: Last Vital Signs Temp 98.1 F 10/21/18 16:00 Pulse 86 10/22/18 09:42 Resp 20 10/21/18 16:00 BP 121/75 10/22/18 09:42 Pulse Ox 92 L 10/21/18 17:08 - Labs Result Diagrams: 10/19/18 06:00 10/18/18 07:00 Labs: Laboratory Results - last 24 hr 10/21/18 10/21/18 10/21/18 11:34 16:41 21:19 POC Glucose (mg/dL) 197 H 177 H 209 H 10/22/18 05:41 POC Glucose (mg/dL) 99 Attending/Attestation - Attestation I have personally seen and examined this patient.: Yes I have fully participated in the care of the patient.: Yes I have reviewed all pertinent clinical information: Yes
--- NOTE | 2018-10-21 12:11 | PN ---
DATE: 10/21/2018 REFERRING PHYSICIAN: Patricio Horta MD SUBJECTIVE: The patient is seen sitting up in bed. No acute distress. No overnight events reported. Reports wearing a BiPAP machine last night. No headache, rhinitis, cough, shortness of breath, chest pain, abdominal pain, nausea, vomiting, diarrhea, leg pain or leg swelling reported. PHYSICAL EXAMINATION: GENERAL: No acute distress. VITAL SIGNS: Blood pressure 104/66, pulse 66, temperature 98, oxygen saturation 96. HEENT: Moist mucous membranes. Crowded airways. NECK: Supple. No JVD. Short and thick. LUNGS: Fair air flow bilaterally. Few scattered rhonchi. CARDIOVASCULAR: S1 and S2. ABDOMEN: Obese, soft, nontender. No distention. EXTREMITIES: Trace bilateral lower extremity edema. NEUROLOGIC: Awake, alert and verbal. Follows commands. MEDICATIONS: Reviewed. Mucomyst 4 mL inhalation every 6 hours, Eliquis 5 mg twice a day, Lipitor 10 mg at bedtime, Pulmicort 0.5 mg every 12 hours, Wellbutrin 150 mg daily, Klonopin 0.5 mg at bedtime, Restasis every 12 hours, Cardizem 180 mg daily, ferrous gluconate 324 mg twice a day, Lasix 20 mg daily, Neurontin 100 mg daily, Humalog sliding scale before meals and at bedtime, Atrovent 0.5 mg every 6 hours, Xopenex 0.63 mg inhalation three times a day, Synthroid 88 mcg daily, metformin 500 mg twice a day, Medrol 12 mg p.o. daily, Lopressor 25 mg twice a day, Singulair 10 mg at bedtime, Protonix 40 mg daily, saliva substitute every 3 hours, Januvia 50 mg daily, [place] nasal spray every 4 hours, Carafate 1 g three times a day, and Nephro-Ricco 1 tablet daily. LABORATORY DATA: Reviewed. POC glucose 121. ASSESSMENT AND PLAN: Paroxysmal atrial fibrillation; moderate aortic stenosis; congestive heart failure; pulmonary hypertension; chronic obstructive pulmonary disease; obesity; hypoventilation syndrome; sleep apnea syndrome; cardiomyopathy; gastroesophageal reflux disease; hypothyroidism. Sleep apnea precaution, head of bed elevated at 45 degrees. Continue to encourage BiPAP use at bedtime. Continue inhaled bronchodilators, gastric prophylaxis. The patient is currently on anticoagulation therapy. Fall precautions. This patient was seen and examined with Dr. Masterson. Discussed assessment and plan as described above. This patient was seen and examined with Abihjeet Lott, nurse practitioner. Discussed assessment and plan as described above. Thank you for this consult. We will follow with you. Abhijeet Lott APN aNtali Masterson MD
--- NOTE | 2018-10-21 12:38 | PN ---
DATE: 10/20/2018 SUBJECTIVE: The patient is stable, doing physical therapy. She does walk 20 feet, then she rests because she gets tired, a little bit short of breath. There is no chest pain. PHYSICAL EXAMINATION: VITAL SIGNS: Temperature is 98, heart rate is 61, blood pressure 124/74, respirations 20, saturation 96% on 3 liters. HEAD AND NECK: Normal. No JVD. No thyromegaly. CHEST: Clear bilateral. CARDIAC: First sound and second sound normal. No murmur, rub or gallop. ABDOMEN: Soft and nontender. EXTREMITIES: No edema. NEUROLOGIC: Normal. LABORATORY DATA: The patient had blood sugar, which is in the 200 to 150. IMPRESSION AND PLAN: 1. Acute chronic obstructive pulmonary disease exacerbations. The patient seems improving. Continue inhaled bronchodilators. Continue p.o. prednisone. She is doing good now. The patient getting Medrol 12 mg p.o. daily. 2. Chronic anxiety. Continue Klonopin. She is stable. 3. Chronic atrial fibrillation, congestive heart failure, aortic stenosis. Continue diltiazem, Toprol XL 25 mg p.o. b.i.d. and also Lasix has been decreased to 20 mg p.o. daily. 4. Diabetes. Continue metformin, Januvia, and insulin coverage. 5. Obstructive sleep apnea. Continue BiPAP machine at night and is doing it. Continue current therapy, physical therapy, occupational therapy and continue rest of medications. 6. For her hypothyroidism, she seems doing okay with Synthroid 88 mcg daily. 7. For depression and anxiety, she is stable on Wellbutrin SR 150 mg plus Klonopin 1 mg p.o. daily. Continue current therapy. We will follow up. Patricio Horta MD
--- NOTE | 2018-10-21 12:52 | CP.PCM.PN ---
Subjective - Date & Time of Evaluation Date of Evaluation: 10/21/18 Time of Evaluation: 12:51 - Subjective Subjective: Renal note CC: dizziness Reason for consult: CKD and SONAM follow up Hpi : Pt is a 72 years old with htn, darya. atrial fib recently admitted for AMS, hypoxia and chf.s een for sonam. she denies any prior hx of ckd. no urinary complaints. no nsaid use no hx of kidney stones pt improved and d/c to TCU meds reviewed social hx non smoker no alcohol pmh as above complete ros is negative except for above labs reviewed as below cxr shows congestion cr 1.8 it was normal <1 on last admission subjective: pt feels better. leg swelling improved. SOB better. no urine complaints. feels usual health now. rest all other negative except as in HPI. Physical Examination: General Appearance: Comfortable, in no acute respiratory distress, co-operative . obese Vitals reviewed and noted as below Head; Atraumatic, normocephalic ENT: no ulcers no thrush. Tongue is midline. Oropharynx: no rash or ulcers. EYES: Pupils are equal, round and reactive to light accommodation. Eye muscles and extraocular movement intact. Sclera is anicteric. Neck; supple no lymphadenopathy, no thyromegaly or bruit Lungs: Normal respiratory rate/effort. Breath sounds bilateral improved. still has Rt basal crackle Heart: Normal rate. s1s2 normal. No rub or gallop. SM at aortic area Extremities: no edema. No varicose veins Neurological: Patient is alert, awake and oriented to person, place and time. No focal deficit. Strength bilateral appropriate and equal Skin: Warm and dry. Normal turgor. No rash. Palpitation: Normal elasticity for age Abdomen: Abdomen is soft. Bowel sounds +. There is no abdominal tenderness, no guarding/rigidity no organomegaly Psych: normal insight and normal affect/mood MSK: no joint tenderness or swelling. Digits and nails normal, no deformity : kidney or bladder not palpable Assessment: stable SONAM: improved A. fib with RVR/chf with exacerbation/hyperkalemia acute on chronic hypercapnic respi failure with renal compensation, AMS moderate with moderate to severe pulmonary HTN obesity ex smoker hypomagnesemia Anemia Rt renal cyst DM with last A1c 6.7% Plan No acute need for renal replacement therapy at this time. Hypertension control with meds as ordered. Maintain hemodynamics stable. Avoid hypotension. Patient not on ACEI/ARB due to recent SONAM and BP on low side. Monitor Input/Output, daily weights and renal function with basic metabolic panel continue with iron and MVI supplement lytes as needed outpt f/up for renal cyst lasix changed to 20 mg/d per cardiology pulmonary and cardiology following Dose meds/antibiotics for improved GFR. Glycemic control Further work up/management as per primary team Thanks for allowing me to participate in care of your patient. Will follow patient with you. Please call if any Qs. had d/w team and family Dr Walter Patel Office: [phone] Objective - Vital Signs/Intake and Output Vital Signs (last 24 hours): Temp Pulse Resp BP Pulse Ox 98 F 63 20 104/66 96 10/20/18 16:00 10/21/18 09:45 10/20/18 16:00 10/21/18 09:47 10/20/18 16:00 - Medications Medications: Current Medications Acetylcysteine (Acetylcysteine 20%) 4 ml IH [id number] COLT; Protocol Last Admin: 10/21/18 08:12 Dose: 4 ml Apixaban (Eliquis) 5 mg PO BID COLT; Protocol Last Admin: 10/21/18 09:46 Dose: 5 mg Atorvastatin Calcium (Lipitor) 10 mg PO HS COLT; Protocol Last Admin: 10/20/18 21:00 Dose: 10 mg Budesonide (Pulmicort Respules) 0.5 mg IH [id number] COLT; Protocol Last Admin: 10/21/18 08:12 Dose: 0.5 mg Bupropion HCl (Wellbutrin Sr 150 Mg) 150 mg PO DAILY COLT; Protocol Last Admin: 10/21/18 09:48 Dose: 150 mg Clonazepam (Klonopin) 0.5 mg PO HS COLT; Protocol Last Admin: 10/20/18 21:00 Dose: 0.5 mg Cyclosporine (Restasis) 1 ea OD Q12 COLT; Protocol Last Admin: 10/21/18 09:48 Dose: 1 ea Dextrose (Dextrose 50% Inj) 0 ml IV STAT PRN; Protocol PRN Reason: Hypoglycemia Protocol Diltiazem HCl (Cardizem Cd) 180 mg PO DAILY COLT; Protocol Last Admin: 10/21/18 09:45 Dose: 180 mg Ferrous Gluconate (Fergon) 324 mg PO BID COLT; Protocol Last Admin: 10/21/18 09:46 Dose: 324 mg Furosemide (Lasix) 20 mg PO DAILY COLT Last Admin: 10/21/18 09:47 Dose: 20 mg Gabapentin (Neurontin) 100 mg PO DAILY COLT; Protocol Last Admin: 10/21/18 09:47 Dose: 100 mg Insulin Human Lispro (Humalog Low) 0 units SC ACHS COLT; Protocol Last Admin: 10/21/18 11:54 Dose: 1 units Ipratropium [place] (Atrovent) 0.5 mg IH [id number] COLT Last Admin: 10/21/18 08:12 Dose: 0.5 mg Levalbuterol HCl (Xopenex) 0.63 mg IH TIDRESP COLT Last Admin: 10/21/18 08:13 Dose: 0.63 mg Levothyroxine Sodium (Synthroid) 88 mcg PO 0600 COLT; Protocol Last Admin: 10/21/18 06:12 Dose: 88 mcg Metformin HCl (Glucophage) 500 mg PO BID COLT Last Admin: 10/21/18 09:46 Dose: Not Given Methylprednisolone (Medrol) 12 mg PO DAILY COLT; Protocol Last Admin: 10/21/18 09:47 Dose: Not Given Metoprolol Tartrate (Lopressor) 25 mg PO 0730,1830 COLT; Protocol Last Admin: 10/21/18 08:01 Dose: Not Given Montelukast Sodium (Singulair) 10 mg PO HS COLT; Protocol Last Admin: 10/20/18 21:00 Dose: 10 mg Pantoprazole Sodium (Protonix Ec Tab) 40 mg PO 0600 COLT; Protocol Last Admin: 10/21/18 06:11 Dose: 40 mg Saliva Substitute (Saliva Substitute) 5 ml PO Q3 COLT; Protocol Last Admin: 10/21/18 11:58 Dose: 5 ml Sitagliptin Phosphate (Januvia) 50 mg PO DAILY COLT; Protocol Last Admin: 10/21/18 09:46 Dose: 50 mg Sodium Chloride ([place] Nasal [place]) 0 ml NS Q4H COLT; Protocol Last Admin: 10/21/18 11:58 Dose: 1 applic Sucralfate (Carafate Tab) 1 gm PO TID COLT; Protocol Last Admin: 10/21/18 09:44 Dose: 1 gm Vitamin B Complex/Vit C/Folic Acid (Nephro-Ricco) 1 tab PO 0800 [facility]; Protocol Last Admin: 10/21/18 08:02 Dose: 1 tab - Labs Labs: 10/19/18 06:00 10/18/18 07:00 PT 15.5 SECONDS (9.4-12.5) H 10/19/18 06:00 INR 1.37 10/19/18 06:00 APTT 61.8 Seconds (26.9-38.3) H 10/19/18 06:00
[2018-10-22] MEDS: Ipratropium 0.02% Inhal Soln (0.5 mg/2.5 ml) UD IH SCH ×4 (01:30→19:28)
[2018-10-22] MEDS: Acetylcysteine 20% Inhal Soln (4ml) IH SCH ×4 (01:30→19:28)
[2018-10-22] MEDS: Saliva Substitute 44.3 ML PO SCH ×8 (03:17→21:57)
[2018-10-22] MEDS: Pantoprazole 40 mg EC Tab PO SCH (05:35)
[2018-10-22] MEDS: Levothyroxine 88 MCG TAB PO SCH (05:37)
--- NOTE | 2018-10-22 06:33 | CP.PCM.PN ---
Subjective - Date & Time of Evaluation Date of Evaluation: 10/22/18 Time of Evaluation: 06:33 - Subjective Subjective: Yo Urbano PGY2 - Heme/Onc Progress for Dr. Beltre Patient seen and examined at bedside. No acute events reported overnight. Patie nt indicates no changes clinically, continue to work with physical therapy. Patient denies chest pain, shortness of breath, abdominal pain, nausea, vomiting, fever, chills. Objective - Vital Signs/Intake and Output Vital Signs (last 24 hours): Temp Pulse Resp BP Pulse Ox 98.1 F 51 L 20 103/59 L 92 L 10/21/18 16:00 10/21/18 23:00 10/21/18 16:00 10/21/18 18:30 10/21/18 17:08 - Medications Medications: Current Medications Acetylcysteine (Acetylcysteine 20%) 4 ml IH [id number] COLT; Protocol Last Admin: 10/22/18 01:30 Dose: 4 ml Apixaban (Eliquis) 5 mg PO BID COLT; Protocol Last Admin: 10/21/18 17:21 Dose: 5 mg Atorvastatin Calcium (Lipitor) 10 mg PO HS COLT; Protocol Last Admin: 10/21/18 21:43 Dose: 10 mg Budesonide (Pulmicort Respules) 0.5 mg IH [id number] COLT; Protocol Last Admin: 10/21/18 20:20 Dose: 0.5 mg Bupropion HCl (Wellbutrin Sr 150 Mg) 150 mg PO DAILY COLT; Protocol Last Admin: 10/21/18 09:48 Dose: 150 mg Clonazepam (Klonopin) 0.5 mg PO HS COLT; Protocol Last Admin: 10/21/18 21:43 Dose: 0.5 mg Cyclosporine (Restasis) 1 ea OD Q12 COLT; Protocol Last Admin: 10/21/18 21:44 Dose: 1 ea Dextrose (Dextrose 50% Inj) 0 ml IV STAT PRN; Protocol PRN Reason: Hypoglycemia Protocol Diltiazem HCl (Cardizem Cd) 180 mg PO DAILY COLT; Protocol Last Admin: 10/21/18 09:45 Dose: 180 mg Ferrous Gluconate (Fergon) 324 mg PO BID COLT; Protocol Last Admin: 10/21/18 17:21 Dose: 324 mg Furosemide (Lasix) 20 mg PO DAILY COLT Last Admin: 10/21/18 09:47 Dose: 20 mg Gabapentin (Neurontin) 100 mg PO DAILY COLT; Protocol Last Admin: 10/21/18 09:47 Dose: 100 mg Insulin Human Lispro (Humalog Low) 0 units SC ACHS COLT; Protocol Last Admin: 10/21/18 21:24 Dose: Not Given Ipratropium [place] (Atrovent) 0.5 mg IH [id number] COLT Last Admin: 10/22/18 01:30 Dose: 0.5 mg Levalbuterol HCl (Xopenex) 0.63 mg IH TIDRESP COLT Last Admin: 10/21/18 13:07 Dose: 0.63 mg Levothyroxine Sodium (Synthroid) 88 mcg PO 0600 COLT; Protocol Last Admin: 10/22/18 05:37 Dose: 88 mcg Metformin HCl (Glucophage) 500 mg PO 0730,1700 COLT Last Admin: 10/21/18 17:22 Dose: 500 mg Methylprednisolone (Medrol) 12 mg PO 0800 COLT; Protocol Metoprolol Tartrate (Lopressor) 25 mg PO 0730,1830 COLT; Protocol Last Admin: 10/21/18 18:30 Dose: Not Given Montelukast Sodium (Singulair) 10 mg PO HS COLT; Protocol Last Admin: 10/21/18 21:43 Dose: 10 mg Pantoprazole Sodium (Protonix Ec Tab) 40 mg PO 0600 COLT; Protocol Last Admin: 10/22/18 05:35 Dose: 40 mg Saliva Substitute (Saliva Substitute) 5 ml PO Q3 COLT; Protocol Last Admin: 10/22/18 05:37 Dose: Not Given Sitagliptin Phosphate (Januvia) 50 mg PO DAILY COLT; Protocol Last Admin: 10/21/18 09:46 Dose: 50 mg Sodium Chloride ([place] Nasal [place]) 0 ml NS Q4H COLT; Protocol Last Admin: 10/22/18 03:16 Dose: Not Given Sucralfate (Carafate Tab) 1 gm PO TID COLT; Protocol Last Admin: 10/21/18 17:20 Dose: 1 gm Vitamin B Complex/Vit C/Folic Acid (Nephro-Ricco) 1 tab PO 0800 COLT; Protocol Last Admin: 10/21/18 08:02 Dose: 1 tab - Labs Labs: 10/19/18 06:00 10/18/18 07:00 PT 15.5 SECONDS (9.4-12.5) H 10/19/18 06:00 INR 1.37 10/19/18 06:00 APTT 61.8 Seconds (26.9-38.3) H 10/19/18 06:00 - Constitutional Appears: No Acute Distress - Head Exam Head Exam: ATRAUMATIC, NORMOCEPHALIC - Eye Exam Eye Exam: EOMI, PERRL - ENT Exam ENT Exam: Mucous Membranes Moist - Neck Exam Neck Exam: Full ROM - Respiratory Exam Respiratory Exam: Clear to Ausculation Bilateral, NORMAL BREATHING PATTERN - Cardiovascular Exam Cardiovascular Exam: REGULAR RHYTHM, +S1, +S2 - GI/Abdominal Exam GI & Abdominal Exam: Soft, Normal Bowel Sounds - Neurological Exam Neurological Exam: Alert, Awake, Oriented x3 - Psychiatric Exam Psychiatric exam: Normal Affect, Normal Mood - Skin Skin Exam: Dry, Warm Assessment and Plan - Assessment and Plan (Free Text) Assessment: 72 year old female with CHF, chronic atrial fibrillation, GERD, hypothyroidism, obesity, decondtioning, moderate aortic stenosis, pulmonary hypertension and elevated PTT. Plan: - continue Eliquis for atrial fibrillation as per cardio - Continue to monitor PTT, PT - Further recs per Dr. Beltre
[2018-10-22] MEDS: Insulin Lispro (humaLOG) LOW Coverage SC SCH ×4 (06:47→21:56)
[2018-10-22] MEDS: Levalbuterol 0.63 MG/3 ML Inhal Soln UD IH SCH ×3 (07:16→19:29)
[2018-10-22] MEDS: Budesonide 0.5 mg/2 ml Inhal Susp UD IH SCH ×2 (07:16→19:28)
[2018-10-22] MEDS: Multivitamin Vitamin B Complex (Nephro-Vite) Tab PO SCH (07:41)
[2018-10-22] MEDS: diltiaZEM 180 mg/24 Hours CD Cap PO SCH (09:42)
[2018-10-22] MEDS: buPROPion SR 150 MG TABLET PO SCH (09:43)
[2018-10-22] MEDS: cycloSPORINE 0.05 % Opth Emulsion UD OD SCH ×2 (09:43→21:57)
--- NOTE | 2018-10-22 12:26 | PN ---
DATE: 10/22/2018 SUBJECTIVE: The patient was seen lying in bed on the transitional care unit. She feels fairly comfortable. She denies any dyspnea. Her heart rate is controlled. Plans have been made for her discharge home today. Her current medications include Mucomyst, Atrovent, Carafate, Cardizem CD 180 mg daily, Eliquis 5 mg b.i.d., iron supplement, Glucophage, Januvia, Klonopin, Lasix 20 mg daily, Lipitor 10 mg daily, metoprolol 25 mg b.i.d., Medrol 12 mg daily, Neurontin, Protonix, Pulmicort, Singulair, Synthroid, Wellbutrin as well as Xopenex. PHYSICAL EXAMINATION: GENERAL: She is an overweight, middle-aged woman. VITAL SIGNS: Her blood pressure is 124/72, pulse 66 and regular, respiratory rate 16. She is afebrile. HEENT: No JVD. Diminished and delayed carotid upstrokes. CHEST: Diffuse scattered rhonchi heard. HEART: Mid peaking systolic murmur is present at the base radiating to the carotids. ABDOMEN: Soft, nontender with normoactive bowel sounds. EXTREMITIES: No edema. DIAGNOSTIC DATA: No blood work pending. IMPRESSION: 1. Paroxysmal atrial fibrillation, currently remains in normal rhythm. 2. Moderate aortic stenosis. 3. Pulmonary hypertension. 4. Severe chronic obstructive pulmonary disease. RECOMMENDATIONS: Current medications will be continued for now. From a cardiac standpoint, she appears stable for discharge home. Outpatient followup will be arranged and the plan is made for cardiac catheterization in the near future to assess for coronary artery disease, evaluate her aortic stenosis, and further assess her pulmonary hypertension. Outpatient followup has been arranged. Jose Enrique Hanson MD MTDD
--- NOTE | 2018-10-22 14:38 | CP.PCM.PN ---
Subjective - Date & Time of Evaluation Date of Evaluation: 10/22/18 Time of Evaluation: 14:38 - Subjective Subjective: Renal note CC: dizziness Reason for consult: CKD and SONAM follow up Hpi : Pt is a 72 years old with htn, darya. atrial fib recently admitted for AMS, hypoxia and chf.s een for sonam. she denies any prior hx of ckd. no urinary complaints. no nsaid use no hx of kidney stones pt improved and d/c to TCU meds reviewed social hx non smoker no alcohol pmh as above complete ros is negative except for above labs reviewed as below cxr shows congestion cr 1.8 it was normal <1 on last admission subjective: pt feels better. leg swelling improved. SOB better. no urine complaints. feels usual health now. rest all other negative except as in HPI. Physical Examination: General Appearance: Comfortable, in no acute respiratory distress, co-operative . obese Vitals reviewed and noted as below Head; Atraumatic, normocephalic ENT: no ulcers no thrush. Tongue is midline. Oropharynx: no rash or ulcers. EYES: Pupils are equal, round and reactive to light accommodation. Eye muscles and extraocular movement intact. Sclera is anicteric. Neck; supple no lymphadenopathy, no thyromegaly or bruit Lungs: Normal respiratory rate/effort. Breath sounds bilateral improved. still has Rt basal crackle Heart: Normal rate. s1s2 normal. No rub or gallop. SM at aortic area Extremities: no edema. No varicose veins Neurological: Patient is alert, awake and oriented to person, place and time. No focal deficit. Strength bilateral appropriate and equal Skin: Warm and dry. Normal turgor. No rash. Palpitation: Normal elasticity for age Abdomen: Abdomen is soft. Bowel sounds +. There is no abdominal tenderness, no guarding/rigidity no organomegaly Psych: normal insight and normal affect/mood MSK: no joint tenderness or swelling. Digits and nails normal, no deformity : kidney or bladder not palpable Assessment: stable SONAM: improved A. fib with RVR/chf with exacerbation/hyperkalemia acute on chronic hypercapnic respi failure with renal compensation, AMS moderate with moderate to severe pulmonary HTN obesity ex smoker hypomagnesemia Anemia Rt renal cyst DM with last A1c 6.7% Plan No acute need for renal replacement therapy at this time. Hypertension control with meds as ordered. Maintain hemodynamics stable. Avoid hypotension. Patient not on ACEI/ARB due to recent SONAM and BP on low side. Monitor Input/Output, daily weights and renal function with basic metabolic panel continue with iron and MVI supplement lytes as needed outpt f/up for renal cyst lasix changed to 20 mg/d per cardiology pulmonary and cardiology following Dose meds/antibiotics for improved GFR. Glycemic control Further work up/management as per primary team Thanks for allowing me to participate in care of your patient. Will follow patient with you. Please call if any Qs. had d/w team and family Dr Walter Patel Office: [phone] Objective - Vital Signs/Intake and Output Vital Signs (last 24 hours): Temp Pulse Resp BP Pulse Ox 98.1 F 86 20 121/75 92 L 10/21/18 16:00 10/22/18 09:42 10/21/18 16:00 10/22/18 09:42 10/21/18 17:08 - Medications Medications: Current Medications Acetylcysteine (Acetylcysteine 20%) 4 ml IH [id number] COLT; Protocol Last Admin: 10/22/18 13:06 Dose: 4 ml Apixaban (Eliquis) 5 mg PO BID COLT; Protocol Last Admin: 10/22/18 09:42 Dose: 5 mg Atorvastatin Calcium (Lipitor) 10 mg PO HS COLT; Protocol Last Admin: 10/21/18 21:43 Dose: 10 mg Budesonide (Pulmicort Respules) 0.5 mg IH [id number] OCLT; Protocol Last Admin: 10/22/18 07:16 Dose: 0.5 mg Bupropion HCl (Wellbutrin Sr 150 Mg) 150 mg PO DAILY COLT; Protocol Last Admin: 10/22/18 09:43 Dose: 150 mg Clonazepam (Klonopin) 0.5 mg PO HS COLT; Protocol Last Admin: 10/21/18 21:43 Dose: 0.5 mg Cyclosporine (Restasis) 1 ea OD Q12 COLT; Protocol Last Admin: 10/22/18 09:43 Dose: 1 ea Dextrose (Dextrose 50% Inj) 0 ml IV STAT PRN; Protocol PRN Reason: Hypoglycemia Protocol Diltiazem HCl (Cardizem Cd) 180 mg PO DAILY COLT; Protocol Last Admin: 10/22/18 09:42 Dose: 180 mg Ferrous Gluconate (Fergon) 324 mg PO BID COLT; Protocol Last Admin: 10/22/18 09:42 Dose: 324 mg Furosemide (Lasix) 20 mg PO DAILY COLT Last Admin: 10/22/18 09:42 Dose: 20 mg Gabapentin (Neurontin) 100 mg PO DAILY COLT; Protocol Last Admin: 10/22/18 09:43 Dose: 100 mg Insulin Human Lispro (Humalog Low) 0 units SC ACHS COLT; Protocol Last Admin: 10/22/18 11:35 Dose: Not Given Ipratropium [place] (Atrovent) 0.5 mg IH [id number] COLT Last Admin: 10/22/18 13:06 Dose: 0.5 mg Levalbuterol HCl (Xopenex) 0.63 mg IH TIDRESP COLT Last Admin: 10/22/18 13:06 Dose: 0.63 mg Levothyroxine Sodium (Synthroid) 88 mcg PO 0600 COLT; Protocol Last Admin: 10/22/18 05:37 Dose: 88 mcg Metformin HCl (Glucophage) 500 mg PO 0730,1700 COLT Last Admin: 10/22/18 07:42 Dose: 500 mg Methylprednisolone (Medrol) 6 mg PO 0800 COLT; Protocol Metoprolol Tartrate (Lopressor) 25 mg PO 0730,1830 COLT; Protocol Last Admin: 10/22/18 07:41 Dose: 25 mg Montelukast Sodium (Singulair) 10 mg PO HS COLT; Protocol Last Admin: 10/21/18 21:43 Dose: 10 mg Pantoprazole Sodium (Protonix Ec Tab) 40 mg PO 0600 COLT; Protocol Last Admin: 10/22/18 05:35 Dose: 40 mg Saliva Substitute (Saliva Substitute) 5 ml PO Q3 COLT; Protocol Last Admin: 10/22/18 11:35 Dose: Not Given Sitagliptin Phosphate (Januvia) 50 mg PO DAILY COLT; Protocol Last Admin: 10/22/18 09:42 Dose: 50 mg Sodium Chloride ([place] Nasal [place]) 0 ml NS Q4H COLT; Protocol Last Admin: 10/22/18 11:35 Dose: Not Given Sucralfate (Carafate Tab) 1 gm PO TID COLT; Protocol Last Admin: 10/22/18 09:42 Dose: 1 gm Vitamin B Complex/Vit C/Folic Acid (Nephro-Ricco) 1 tab PO 0800 [facility]; Protocol Last Admin: 10/22/18 07:41 Dose: 1 tab - Labs Labs: 10/19/18 06:00 10/18/18 07:00 PT 15.5 SECONDS (9.4-12.5) H 10/19/18 06:00 INR 1.37 10/19/18 06:00 APTT 61.8 Seconds (26.9-38.3) H 10/19/18 06:00
--- NOTE | 2018-10-22 18:42 | PN ---
DATE: 10/22/2018 PULMONARY PROGRESS NOTE REFERRING PHYSICIAN: Patricio Horta MD SUBJECTIVE: The patient is seen, sitting in chair in room, in no acute distress. No overnight events reported. Wore a BiPAP machine last night. No headache, rhinitis, cough, shortness of breath, chest pain, abdominal pain, nausea, vomiting, diarrhea, leg pain or leg swelling reported. During the visit, the patient noted with oxygen saturation 96% on room air. PHYSICAL EXAMINATION GENERAL: No acute distress. VITAL SIGNS: Blood pressure 121/75, pulse 86, temperature 98.1,oxygen saturation 93% on room air. HEENT: Moist mucous membranes. Crowded airway. NECK: Supple. No JVD. Short and thick. LUNGS: Few scattered rhonchi. CARDIOVASCULAR: S1 and S2. ABDOMEN: Obese, soft and nontender. No distention. EXTREMITIES: No bilateral lower extremity edema. NEUROLOGIC: Awake, alert and verbal. Follows commands. MEDICATIONS: Reviewed. Mucomyst 4 mL inhalation every 6 hours, Eliquis 5 mg twice a day, Lipitor 10 mg at bedtime, Pulmicort 0.5 mg inhalation every 12 hours, Wellbutrin 150 mg daily, Klonopin 0.5 mg at bedtime, Restasis every 12 hours, Cardizem 180 mg daily, ferrous gluconate 324 mg twice a day, Lasix 20 mg daily, Neurontin 100 mg daily, Humalog sliding scale a.c. and at bedtime, Atrovent 0.5 mg inhalation every 6 hours, Xopenex 0.63 mg inhalation three times a day, Synthroid 88 mcg daily, Metformin 500 mg twice a day, Medrol 12 mg p.o. daily, Lopressor 25 mg twice a day, Singulair 10 mg at bedtime, Protonix 40 mg daily, saliva substitute every 3 hours, Januvia 50 mg daily, [place] nasal spray every 4 hours, Carafate 1 g three times a day, and Nephro-Ricco 1 tablet daily. LABORATORY DATA: Reviewed. POC glucose 169. IMPRESSION AND PLAN: Paroxysmal atrial fibrillation; moderate aortic stenosis; congestive heart failure; pulmonary hypertension; chronic obstructive pulmonary disease; obesity; hypoventilation syndrome; sleep apnea syndrome; gastroesophageal reflux disease; hypothyroidism; cardiomyopathy. Pulmonary point review, the patient appears stable at this time. Continue to encourage BiPAP use at bedtime. Sleep apnea precautions, head of bed elevated at 45 degrees. Continue supplemental oxygen as needed. Continue inhaled bronchodilators, gastric prophylaxis. The patient currently on anticoagulation therapy. We will decrease Medrol to 6 mg daily. Fall precautions. Continue physical therapy. This patient was seen and examined with Dr. Masterson. Discussed assessment and plan as described above. This patient was seen and examined with Abhijeet Lott, nurse practitioner. Discussed assessment and plan as described above. Thank you for this consult. We will follow with you. Abhijeet Lott APN Natali Masterson MD
[2018-10-23] MEDS: Acetylcysteine 20% Inhal Soln (4ml) IH SCH ×4 (02:00→19:45)
[2018-10-23] MEDS: Ipratropium 0.02% Inhal Soln (0.5 mg/2.5 ml) UD IH SCH ×4 (02:00→19:45)
[2018-10-23] MEDS: Saliva Substitute 44.3 ML PO SCH ×8 (03:00→21:23)
[2018-10-23] MEDS: Levothyroxine 88 MCG TAB PO SCH (06:23)
[2018-10-23] MEDS: Pantoprazole 40 mg EC Tab PO SCH (06:23)
[2018-10-23] MEDS: Insulin Lispro (humaLOG) LOW Coverage SC SCH ×4 (06:56→21:28)
[2018-10-23] MEDS: Budesonide 0.5 mg/2 ml Inhal Susp UD IH SCH ×2 (07:11→19:45)
[2018-10-23] MEDS: Levalbuterol 0.63 MG/3 ML Inhal Soln UD IH SCH ×3 (07:11→19:45)
[2018-10-23 07:13] LABS: HEMOGLOBIN 10.8 g/dL (12.0-16.0); MEAN CELL VOLUME 80.9 fl (80.0-105.0); MEAN CORPUSCULAR HEMOGLOBIN 24.2 pg (25.0-35.0); MEAN CORPUSCULAR HGB CONC 29.9 g/dl (31.0-37.0); MEAN PLATELET VOLUME 9.8 fl (7.0-11.0); RBC 4.46 10^6/uL (3.5-6.1); RED CELL DISTRIBUTION WIDTH 17.7 % (11.5-14.5); WHITE BLOOD COUNT 18.2 10^3/uL (4.5-11.0)
[2018-10-23 07:25] LABS: BLOOD UREA NITROGEN 36 mg/dL (7-21); CALCIUM 9.5 mg/dL (8.4-10.5); GFR NON-AFRICAN AMERICAN 54
--- NOTE | 2018-10-23 07:50 | PN ---
DATE: 10/21/2018 SUBJECTIVE: The patient seems doing well, stable. She looks comfortable. No distress. PHYSICAL EXAMINATION: VITAL SIGNS: Temperature 97.5, heart rate 63, blood pressure 104/66, respirations 18 and saturation 97% nasal cannula 2 liters. HEAD AND NECK: Normal. No JVD. No thyromegaly. CHEST: Clear bilaterally. CARDIAC: First sound and second sound normal. No murmur, rub or gallop. ABDOMEN: Soft and nontender. EXTREMITIES: With mild edema bilateral. NEUROLOGIC: Normal. LABORATORY DATA: Noted for sugar 120 to 200 range, otherwise stable. IMPRESSION AND PLAN: 1. Acute chronic obstructive pulmonary disease exacerbation. The patient is improving. Continue steroids and continue inhaled bronchodilators. 2. Obstructive sleep apnea, obesity. Continue bilevel positive airway pressure machine. 3. Aortic stenosis, congestive heart failure. Continue current medication. Lasix has been decreased to 20 mg daily, Cardizem 180 and metoprolol 25 mg twice daily, and also for chronic atrial fibrillations, she is also on Eliquis 5 mg twice daily. Continue current therapy and follow up clinically. She seems stable. 4. Hypertension, stable on current medication Cardizem, metoprolol and doing well with that. 5. Hypothyroidism and depression. The patient is stable on Wellbutrin 150 mg, Synthroid 80 mcg and Klonopin 0.5 mg. 6. Hypercholesterolemia, obesity, general weakness. Continue physical therapy and continue current treatment. She seems doing okay. She will walk about 20 to 30 feet, get weak, and rest and will continue to do physical therapy. Patricio Horta MD
[2018-10-23] MEDS: Multivitamin Vitamin B Complex (Nephro-Vite) Tab PO SCH (08:01)
[2018-10-23] MEDS: diltiaZEM 180 mg/24 Hours CD Cap PO SCH (09:31)
[2018-10-23] MEDS: cycloSPORINE 0.05 % Opth Emulsion UD OD SCH ×2 (09:33→21:22)
[2018-10-23] MEDS: buPROPion SR 150 MG TABLET PO SCH (09:34)
--- NOTE | 2018-10-23 11:27 | RAD ---
Date of service: 10/23/2018 HISTORY: dyspnea COMPARISON: 10/16/2018 TECHNIQUE: Chest PA and lateral FINDINGS: LUNGS: No active pulmonary disease. PLEURA: No significant pleural effusion identified. No pneumothorax apparent. CARDIOVASCULAR: No aortic atherosclerotic calcification present. Normal cardiac size. No pulmonary vascular congestion. OSSEOUS STRUCTURES: No significant abnormalities. VISUALIZED UPPER ABDOMEN: Normal. OTHER FINDINGS: None. IMPRESSION: No active disease.
--- NOTE | 2018-10-23 11:36 | PN ---
DATE: 10/23/2018 PULMONARY PROGRESS NOTE REFERRING PHYSICIAN: Patricio Horta MD SUBJECTIVE: The patient is seen, sitting in armchair in room. No acute distress. No overnight events reported. Wore a BiPAP for a few hours last night. No headache, rhinitis, cough, shortness of breath, chest pain, abdominal pain, nausea, vomiting, diarrhea or leg pain reported. OBJECTIVE: GENERAL: No acute distress. VITAL SIGNS: Blood pressure 110/56, pulse 67, temperature 98.3 and oxygen saturation 96%. HEENT: Moist mucous membranes. Crowded airway. NECK: Supple. No JVD. Short and thick. LUNGS: Few scattered rhonchi. CARDIOVASCULAR: S1 and S2. ABDOMEN: Obese, soft and nontender. No distention. EXTREMITIES: Trace bilateral lower extremity edema. NEUROLOGIC: Awake, alert and verbal. Following commands. MEDICATIONS: Reviewed. Mucomyst 4 mL inhalation every 6 hours, Eliquis 5 mg twice a day, Lipitor 10 mg at bedtime, Pulmicort 0.5 mg inhalation every 12 hours, Wellbutrin 150 mg daily, Klonopin 0.5 mg at bedtime, Restasis every 12 hours, Cardizem 180 mg daily, ferrous gluconate 324 mg twice a day, Lasix 20 mg daily, Neurontin 100 mg daily, Humalog sliding scale a.c. and at bedtime, Atrovent 0.5 mg inhalation every 6 hours, Xopenex 0.63 mg inhalation three times a day, Synthroid 88 mcg daily, Glucophage 500 mg twice a day, Medrol 6 mg daily, Lopressor 25 mg twice a day, Singulair 10 mg at bedtime, Protonix 40 mg daily, saliva substitute every 3 hours, Januvia 50 mg daily, [place] nasal spray every 4 hours, Carafate 1 g three times a day and Nephro-Ricco 1 tablet daily. LABORATORY DATA: Reviewed. WBC 18.8, RBC 4.46, hemoglobin 10.8, hematocrit 36.1 and platelets 335. Sodium 140, potassium 3.7, chloride 98, carbon dioxide 37, anion gap 8, BUN 36, creatinine 1, GFR 54, POC glucose 161, random glucose 120 and calcium 9.5. IMPRESSION AND PLAN: Paroxysmal atrial fibrillation; moderate aortic stenosis; congestive heart failure; pulmonary hypertension; chronic obstructive pulmonary disease; obesity; hypoventilation syndrome; gastroesophageal reflux disease; hypothyroidism; cardiomyopathy; sleep apnea syndrome and obesity. Pulmonary point review; continue to encourage bilevel positive airway pressure use at bedtime. Sleep apnea precautions and head of bed elevated at 45 degrees. Continue supplemental oxygen as needed. Continue inhaled bronchodilators and gastric prophylaxis. The patient currently on anticoagulation therapy. Continue current steroid dosing, fall precautions, physical therapy and out of bed to chair. This patient was seen and examined with Dr. Masterson. Discussed assessment and plan as described above. This patient was seen and examined with Abhijeet Lott, nurse practitioner. Discussed assessment and plan as described above. Thank you for this consult. We will follow with you. Abhijeet Lott APN Natali Masterson MD
--- NOTE | 2018-10-23 13:38 | PN ---
DATE: 10/22/2018 SUBJECTIVE: The patient is stable. No chest pain, not short of breath except with exertion when she walks, but she is better than before. She has no chest pain. No dizziness. Feels better. PHYSICAL EXAMINATION: VITAL SIGNS: Temperature 98.1, heart rate 86, blood pressure 121/75, respiration 18, saturation 97% on 2 L. HEAD AND NECK: Normal. No JVD. No thyromegaly. CHEST: Few basilar rales. CARDIAC: First sound, second sound normal. Systolic murmur in the aortic area. ABDOMEN: Obese, nontender. EXTREMITIES: Mild edema. NEUROLOGIC: Normal. LABORATORY DATA: We will order CBC and chemistry tomorrow. IMPRESSION AND PLAN: 1. Generalized deconditioning, weakness. Continue physical therapy. 2. Chronic atrial fibrillation, aortic stenosis, congestive heart failure. Continue Lasix. Continue Cardizem 180 and metoprolol has been decreased to 25 mg b.i.d. We will follow up with the curator [employer]. 3. Chronic obstructive pulmonary edema, obstructive sleep apnea. Continue inhaled bronchodilator, bilevel positive airway pressure machine. She seems doing well. The patient also on Medrol Dosepak tapering dose, seems doing okay. 4. Chronic hypothyroidism. Depression and anxiety. Continue Synthroid, Wellbutrin, and Klonopin. Continue physical therapy. Continue current regimen. Patricio Horta MD
--- NOTE | 2018-10-23 15:04 | CP.PCM.PN ---
Subjective - Date & Time of Evaluation Date of Evaluation: 10/23/18 Time of Evaluation: 15:04 - Subjective Subjective: Renal note CC: dizziness Reason for consult: CKD and SONAM follow up Hpi : Pt is a 72 years old with htn, darya. atrial fib recently admitted for AMS, hypoxia and chf.s een for sonam. she denies any prior hx of ckd. no urinary complaints. no nsaid use no hx of kidney stones pt improved and d/c to TCU meds reviewed social hx non smoker no alcohol pmh as above complete ros is negative except for above labs reviewed as below cxr shows congestion cr 1.8 it was normal <1 on last admission subjective: pt feels better. leg swelling improved. SOB better. no urine complaints. feels usual health now. rest all other negative except as in HPI. Physical Examination: General Appearance: Comfortable, in no acute respiratory distress, co-operative . obese Vitals reviewed and noted as below Head; Atraumatic, normocephalic ENT: no ulcers no thrush. Tongue is midline. Oropharynx: no rash or ulcers. EYES: Pupils are equal, round and reactive to light accommodation. Eye muscles and extraocular movement intact. Sclera is anicteric. Neck; supple no lymphadenopathy, no thyromegaly or bruit Lungs: Normal respiratory rate/effort. Breath sounds bilateral improved. still has Rt basal crackle Heart: Normal rate. s1s2 normal. No rub or gallop. SM at aortic area Extremities: no edema. No varicose veins Neurological: Patient is alert, awake and oriented to person, place and time. No focal deficit. Strength bilateral appropriate and equal Skin: Warm and dry. Normal turgor. No rash. Palpitation: Normal elasticity for age Abdomen: Abdomen is soft. Bowel sounds +. There is no abdominal tenderness, no guarding/rigidity no organomegaly Psych: normal insight and normal affect/mood MSK: no joint tenderness or swelling. Digits and nails normal, no deformity : kidney or bladder not palpable Assessment: stable SONAM: improved A. fib with RVR/chf with exacerbation/hyperkalemia acute on chronic hypercapnic respi failure with renal compensation, AMS moderate with moderate to severe pulmonary HTN obesity ex smoker hypomagnesemia Anemia Rt renal cyst DM with last A1c 6.7% Plan No acute need for renal replacement therapy at this time. Hypertension control with meds as ordered. Maintain hemodynamics stable. Avoid hypotension. Patient not on ACEI/ARB due to recent SONAM and BP on low side. Monitor Input/Output, daily weights and renal function with basic metabolic panel continue with iron and MVI supplement lytes as needed outpt f/up for renal cyst lasix changed to 20 mg/d per cardiology pulmonary and cardiology following Dose meds/antibiotics for improved GFR. Glycemic control Further work up/management as per primary team Thanks for allowing me to participate in care of your patient. Will follow patient with you. Please call if any Qs. had d/w team and family Dr Walter Patel Office: [phone] Objective - Vital Signs/Intake and Output Vital Signs (last 24 hours): Temp Pulse Resp BP Pulse Ox 98.3 F 67 18 110/56 L 96 10/23/18 10:00 10/23/18 10:00 10/23/18 10:00 10/23/18 10:00 10/23/18 10:00 - Medications Medications: Current Medications Acetylcysteine (Acetylcysteine 20%) 4 ml IH [id number] COLT; Protocol Last Admin: 10/23/18 13:05 Dose: 4 ml Apixaban (Eliquis) 5 mg PO BID CLOT; Protocol Last Admin: 10/23/18 09:32 Dose: 5 mg Atorvastatin Calcium (Lipitor) 10 mg PO HS COLT; Protocol Last Admin: 10/22/18 21:57 Dose: 10 mg Budesonide (Pulmicort Respules) 0.5 mg IH [id number] COLT; Protocol Last Admin: 10/23/18 07:11 Dose: 0.5 mg Bupropion HCl (Wellbutrin Sr 150 Mg) 150 mg PO DAILY COLT; Protocol Last Admin: 10/23/18 09:34 Dose: 150 mg Clonazepam (Klonopin) 0.5 mg PO HS COLT; Protocol Last Admin: 10/22/18 21:56 Dose: 0.5 mg Cyclosporine (Restasis) 1 ea OD Q12 COLT; Protocol Last Admin: 10/23/18 09:33 Dose: 1 ea Dextrose (Dextrose 50% Inj) 0 ml IV STAT PRN; Protocol PRN Reason: Hypoglycemia Protocol Diltiazem HCl (Cardizem Cd) 180 mg PO DAILY COLT; Protocol Last Admin: 10/23/18 09:31 Dose: 180 mg Ferrous Gluconate (Fergon) 324 mg PO BID COLT; Protocol Last Admin: 10/23/18 09:32 Dose: 324 mg Furosemide (Lasix) 20 mg PO DAILY COLT Last Admin: 10/23/18 09:32 Dose: 20 mg Gabapentin (Neurontin) 100 mg PO DAILY COLT; Protocol Last Admin: 10/23/18 09:32 Dose: 100 mg Insulin Human Lispro (Humalog Low) 0 units SC ACHS COLT; Protocol Last Admin: 10/23/18 14:10 Dose: 1 units Ipratropium [place] (Atrovent) 0.5 mg IH [id number] COLT Last Admin: 10/23/18 13:04 Dose: 0.5 mg Levalbuterol HCl (Xopenex) 0.63 mg IH TIDRESP COLT Last Admin: 10/23/18 13:04 Dose: 0.63 mg Levothyroxine Sodium (Synthroid) 88 mcg PO 0600 COLT; Protocol Last Admin: 10/23/18 06:23 Dose: 88 mcg Metformin HCl (Glucophage) 500 mg PO 0730,1700 COLT Last Admin: 10/23/18 07:58 Dose: 500 mg Methylprednisolone (Medrol) 6 mg PO 0800 COLT; Protocol Last Admin: 10/23/18 08:00 Dose: 6 mg Metoprolol Tartrate (Lopressor) 25 mg PO 0730,1830 COLT; Protocol Last Admin: 10/23/18 07:59 Dose: 25 mg Montelukast Sodium (Singulair) 10 mg PO HS COLT; Protocol Last Admin: 10/22/18 21:57 Dose: 10 mg Pantoprazole Sodium (Protonix Ec Tab) 40 mg PO 0600 COLT; Protocol Last Admin: 10/23/18 06:23 Dose: 40 mg Saliva Substitute (Saliva Substitute) 5 ml PO Q3 COLT; Protocol Last Admin: 10/23/18 14:11 Dose: Not Given Sitagliptin Phosphate (Januvia) 50 mg PO DAILY COLT; Protocol Last Admin: 10/23/18 09:32 Dose: 50 mg Sodium Chloride ([place] Nasal [place]) 0 ml NS Q4H COLT; Protocol Last Admin: 10/23/18 11:23 Dose: Not Given Sucralfate (Carafate Tab) 1 gm PO TID COLT; Protocol Last Admin: 10/23/18 14:10 Dose: 1 gm Vitamin B Complex/Vit C/Folic Acid (Nephro-Ricco) 1 tab PO 0800 COLT; Protocol Last Admin: 10/23/18 08:01 Dose: 1 tab - Labs Labs: 10/23/18 06:50 10/23/18 06:50 PT 15.5 SECONDS (9.4-12.5) H 10/19/18 06:00 INR 1.37 10/19/18 06:00 APTT 61.8 Seconds (26.9-38.3) H 10/19/18 06:00
[2018-10-23 16:12] VITALS: RESP 20; TEMP 98; O2SAT 94
[2018-10-23 16:13] LABS: ALB/GLOB RATIO 1.2 (1.1-1.8); ALBUMIN 3.2 g/dL (3.0-4.8); CALCIUM 9.5 mg/dL (8.4-10.5)
--- NOTE | 2018-10-23 18:17 | CON ---
DATE OF CONSULTATION: 10/23/2018 The patient is seen in room 314. CHIEF COMPLAINT: Elevated WBC count x1 day duration. HISTORY OF PRESENT ILLNESS: This is a 72-year-old female with a history of obesity, BMI of 34, history of paroxysmal atrial fibrillation, moderate aortic stenosis, congestive heart failure, pulmonary hypertension, nephrolithiasis, hypothyroidism, GERD, anxiety and depression, who is admitted to the acute care with diagnosis of congestive heart failure and positive troponins. Now, the patient is transferred to transitional care and found to have increasing white count of 18,000. REVIEW OF SYSTEMS: Reveals the patient has no diarrhea, no abdominal pain, no dysuria or frequency, no chest pain, mild shortness of breath. No headaches or blurred vision. Review of system reveals a 12-point review of systems is performed. PAST MEDICAL HISTORY: Significant for atrial fibrillation, bilateral cataracts, nephrolithiasis, hypothyroidism, GERD, anxiety, depression, moderate aortic stenosis, congestive heart failure, pulmonary hypertension, and obesity with a BMI of 34. PAST SURGICAL HISTORY: Significant for laparoscopic appendectomy, left mastectomy, cataract. ALLERGIES: THE PATIENT IS ALLERGIC TO PENICILLIN, ASPIRIN, PROPOXYPHENE, AND DARVON. MEDICATIONS: As listed. The patient is on steroids. PHYSICAL EXAMINATION: VITAL SIGNS: The patient's temperature is 98, respiratory rate 20, heart rate of 63, blood pressure is 110/50. HEENT: Unremarkable. NECK: Supple. LUNGS: Decreased breath sounds. HEART: Normal S1 and S2. ABDOMEN: Soft, nontender. No organomegaly. No rebound or guarding. No masses. ASSESSMENT AND PLAN: This is a 72-year-old female with paroxysmal atrial fibrillation, moderate aortic stenosis, congestive heart failure, pulmonary hypertension, obesity with a BMI of 34, nephrolithiasis, hypothyroidism, gastroesophageal reflux disease and anxiety, now with: 1. Leukocytosis. The patient has been receiving methylprednisolone and is on it at this time, most likely leukocytosis is from steroid effect; however, we will order pancultures, blood, urine and sputum, urinalysis, procalcitonin. The chest x-ray is reported negative. We will repeat chemistries including liver function tests, and we will make further recommendations. The patient at this time has no evidence of any source of infection. We will hold off any antibiotics. Tc Sunshine MD [facility] # [id number]
--- NOTE | 2018-10-23 22:58 | PN ---
DATE: 10/23/2018 This is [facility] [place] [facility] visit on the TCU. For Dr. Beltre. SUBJECTIVE: The patient is a 72-year-old female sitting up in a chair with her at the bedside reporting that she feels modestly improved with her Eliquis we started and her PT and PTT values, INR values were modestly elevated; however when initially consulted. She is participating in TCU protocols without complaints. PHYSICAL EXAMINATION: VITAL SIGNS: Temperature 98, pulse 49, respirations 20, blood pressure 99/59, and pulse ox 94%. HEENT: Unremarkable. NECK: Supple. HEART: William rate, regular rhythm, occasional ectopic beat, 1/6 systolic ejection murmur. LUNGS: Faint crackles at the bases. ABDOMEN: Obese, soft, and nontender. EXTREMITIES: +1 edema. NEUROLOGIC: Awake and alert. SKIN: Warm and dry. LABORATORY DATA: The patient's labs were done. White blood cell count of 18.4, hemoglobin 10.8, hematocrit 36, and platelet count 335,000. Metabolic panel showing a BUN of 36 and creatinine of 1.1. Nonfasting glucose 193. However, her PT and PTT were not repeated with a specimen draw. The patient did have a chest x-ray done earlier today, it was read as no active disease. ASSESSMENT: For this patient is that of deconditioning; paroxysmal atrial fibrillation, on Eliquis with abnormal coagulation values now improved; pulmonary hypertension; gastroesophageal reflux disease; leukocytosis, on steroids; bradycardia; sleep apnea; hypothyroidism; and aortic stenosis. PLAN: For this patient is to continue current medical regimen as per TCU protocols with follow up as indicated. This is a complex patient with a comprehensive medically necessary and appropriate visit carried out in excess of 15 minutes with the patient's and her 's questions answered to their satisfaction. Jose Angel Patel MD
[2018-10-24] MEDS: Saliva Substitute 44.3 ML PO SCH ×8 (00:26→21:24)
[2018-10-24] MEDS: Ipratropium 0.02% Inhal Soln (0.5 mg/2.5 ml) UD IH SCH ×4 (01:16→20:38)
[2018-10-24] MEDS: Acetylcysteine 20% Inhal Soln (4ml) IH SCH ×4 (01:16→20:38)
[2018-10-24] MEDS: Pantoprazole 40 mg EC Tab PO SCH (06:16)
[2018-10-24] MEDS: Levothyroxine 88 MCG TAB PO SCH (06:16)
[2018-10-24] MEDS: Insulin Lispro (humaLOG) LOW Coverage SC SCH ×4 (07:00→22:05)
[2018-10-24] MEDS: Budesonide 0.5 mg/2 ml Inhal Susp UD IH SCH ×2 (07:13→20:38)
[2018-10-24] MEDS: Levalbuterol 0.63 MG/3 ML Inhal Soln UD IH SCH ×3 (07:13→20:39)
[2018-10-24] MEDS: Multivitamin Vitamin B Complex (Nephro-Vite) Tab PO SCH (08:03)
[2018-10-24] MEDS: diltiaZEM 180 mg/24 Hours CD Cap PO SCH (09:31)
[2018-10-24] MEDS: buPROPion SR 150 MG TABLET PO SCH (09:33)
[2018-10-24] MEDS: cycloSPORINE 0.05 % Opth Emulsion UD OD SCH ×2 (09:33→22:00)
--- NOTE | 2018-10-24 09:47 | PN ---
DATE: 10/23/2018 SUBJECTIVE: The patient is stable. She is feeling better. Her breathing is improving. Her ability to walk is much better. No chest pain, no short of breath, and no other complaints. PHYSICAL EXAMINATION VITAL SIGNS: Temperature 98, heart rate 49, blood pressure is 99/55, respiration 20, saturation 94% on 2 L nasal cannula. HEAD AND NECK: Normal. No JVD. No thyromegaly. CHEST: Clear bilateral. CARDIAC: First sound and second sound is normal. There is systolic ejection murmur on the aortic area. ABDOMEN: Obese. Nontender. EXTREMITIES: Mild edema. NEUROLOGIC: Normal. LABORATORY DATA: White count 18.2, hemoglobin 10.8, hematocrit 36.1, platelets 335. Chemistry; sodium 137, potassium 4.4, chloride 97, bicarb 33, BUN 36, creatinine 1.1, blood glucose 192. Liver function test is normal. IMPRESSION AND PLAN 1. Leukocytosis. We are going to get chest x-ray and urinalysis. I think it is from steroids, but we will see how the patient do. Infectious Disease consult. The patient is afebrile and she feels better, so most likely secondary to steroids. 2. Congestive heart failure, aortic stenosis, chronic atrial fibrillation. The patient has been on Lasix, which she decreased to 20 mg daily and metoprolol, which has been decreased to 25 mg b.i.d. Continue Cardizem. Continue current treatment. 3. Obstructive sleep apnea, obesity, chronic obstructive pulmonary disease. Continue inhaled bronchodilator. Continue the steroid that has been tapering down and continue BiPAP at night. 4. Chronic anxiety, depression. Continue Wellbutrin, Klonopin. She seems stable with that. 5. Morbid obesity, hypothyroidism, diabetes type 2. Continue current treatment. She is on metformin, Januvia plus insulin coverage. Seems stable. Continue Synthroid 88 mcg and follow up clinically. The patient knows how to check her sugar and she has diabetic education about her diet. 6. Generalized weakness, deconditioning. Continue physical therapy. The patient using wheelchair intermittently because of associated dyspnea with physical therapy. Patricio Horta MD [facility] # [id number]
--- NOTE | 2018-10-24 11:43 | CP.PCM.PN ---
Subjective - Date & Time of Evaluation Date of Evaluation: 10/24/18 Time of Evaluation: 11:43 - Subjective Subjective: Renal note CC: dizziness Reason for consult: CKD and SONAM follow up Hpi : Pt is a 72 years old with htn, darya. atrial fib recently admitted for AMS, hypoxia and chf.s een for sonam. she denies any prior hx of ckd. no urinary complaints. no nsaid use no hx of kidney stones pt improved and d/c to TCU meds reviewed social hx non smoker no alcohol pmh as above complete ros is negative except for above labs reviewed as below cxr shows congestion cr 1.8 it was normal <1 on last admission subjective: pt feels better. leg swelling improved. SOB better. no urine complaints. feels usual health now. rest all other negative except as in HPI. Physical Examination: General Appearance: Comfortable, in no acute respiratory distress, co-operative . obese Vitals reviewed and noted as below Head; Atraumatic, normocephalic ENT: no ulcers no thrush. Tongue is midline. Oropharynx: no rash or ulcers. EYES: Pupils are equal, round and reactive to light accommodation. Eye muscles and extraocular movement intact. Sclera is anicteric. Neck; supple no lymphadenopathy, no thyromegaly or bruit Lungs: Normal respiratory rate/effort. Breath sounds bilateral improved. still has Rt basal crackle Heart: Normal rate. s1s2 normal. No rub or gallop. SM at aortic area Extremities: no edema. No varicose veins Neurological: Patient is alert, awake and oriented to person, place and time. No focal deficit. Strength bilateral appropriate and equal Skin: Warm and dry. Normal turgor. No rash. Palpitation: Normal elasticity for age Abdomen: Abdomen is soft. Bowel sounds +. There is no abdominal tenderness, no guarding/rigidity no organomegaly Psych: normal insight and normal affect/mood MSK: no joint tenderness or swelling. Digits and nails normal, no deformity : kidney or bladder not palpable Assessment: stable SONAM: improved A. fib with RVR/chf with exacerbation/hyperkalemia acute on chronic hypercapnic respi failure with renal compensation, AMS moderate with moderate to severe pulmonary HTN obesity ex smoker hypomagnesemia Anemia Rt renal cyst DM with last A1c 6.7% Plan No acute need for renal replacement therapy at this time. Hypertension control with meds as ordered. Maintain hemodynamics stable. Avoid hypotension. Patient not on ACEI/ARB due to recent SONAM and BP on low side. Monitor Input/Output, daily weights and renal function with basic metabolic panel continue with iron and MVI supplement lytes as needed outpt f/up for renal cyst lasix changed to 20 mg/d per cardiology pulmonary and cardiology following Dose meds/antibiotics for improved GFR. Glycemic control Further work up/management as per primary team Thanks for allowing me to participate in care of your patient. Will follow patient with you. Please call if any Qs. had d/w team and family Dr Walter Patel Office: [phone] Objective - Vital Signs/Intake and Output Vital Signs (last 24 hours): Temp Pulse Resp BP Pulse Ox 98 F 67 20 110/61 94 L 10/23/18 16:00 10/24/18 08:02 10/23/18 16:00 10/24/18 09:32 10/23/18 16:00 - Medications Medications: Current Medications Acetylcysteine (Acetylcysteine 20%) 4 ml IH [id number] COLT; Protocol Last Admin: 10/24/18 07:13 Dose: 4 ml Apixaban (Eliquis) 5 mg PO BID COLT; Protocol Last Admin: 10/24/18 09:32 Dose: 5 mg Atorvastatin Calcium (Lipitor) 10 mg PO HS COLT; Protocol Last Admin: 10/23/18 21:21 Dose: 10 mg Budesonide (Pulmicort Respules) 0.5 mg IH [id number] COLT; Protocol Last Admin: 10/24/18 07:13 Dose: 0.5 mg Bupropion HCl (Wellbutrin Sr 150 Mg) 150 mg PO DAILY COLT; Protocol Last Admin: 10/24/18 09:33 Dose: 150 mg Clonazepam (Klonopin) 0.5 mg PO HS COLT; Protocol Last Admin: 10/23/18 21:21 Dose: 0.5 mg Cyclosporine (Restasis) 1 ea OD Q12 COLT; Protocol Last Admin: 10/24/18 09:33 Dose: 1 ea Dextrose (Dextrose 50% Inj) 0 ml IV STAT PRN; Protocol PRN Reason: Hypoglycemia Protocol Diltiazem HCl (Cardizem Cd) 180 mg PO DAILY COLT; Protocol Last Admin: 10/24/18 09:31 Dose: 180 mg Ferrous Gluconate (Fergon) 324 mg PO BID COLT; Protocol Last Admin: 10/24/18 09:32 Dose: 324 mg Furosemide (Lasix) 20 mg PO DAILY COLT Last Admin: 10/24/18 09:32 Dose: 20 mg Gabapentin (Neurontin) 100 mg PO DAILY COLT; Protocol Last Admin: 10/24/18 09:32 Dose: 100 mg Insulin Human Lispro (Humalog Low) 0 units SC ACHS COLT; Protocol Last Admin: 10/24/18 07:00 Dose: Not Given Ipratropium [place] (Atrovent) 0.5 mg IH [id number] COLT Last Admin: 10/24/18 07:13 Dose: 0.5 mg Levalbuterol HCl (Xopenex) 0.63 mg IH TIDRESP COLT Last Admin: 10/24/18 07:13 Dose: 0.63 mg Levothyroxine Sodium (Synthroid) 88 mcg PO 0600 COLT; Protocol Last Admin: 10/24/18 06:16 Dose: 88 mcg Metformin HCl (Glucophage) 500 mg PO 0730,1700 COLT Last Admin: 10/24/18 08:01 Dose: 500 mg Methylprednisolone (Medrol) 2 mg PO 0800 COLT; Protocol Metoprolol Tartrate (Lopressor) 25 mg PO 0730,1830 COLT; Protocol Last Admin: 10/24/18 08:02 Dose: 25 mg Montelukast Sodium (Singulair) 10 mg PO HS COLT; Protocol Last Admin: 10/23/18 21:21 Dose: 10 mg Pantoprazole Sodium (Protonix Ec Tab) 40 mg PO 0600 COLT; Protocol Last Admin: 10/24/18 06:16 Dose: 40 mg Saliva Substitute (Saliva Substitute) 5 ml PO Q3 COLT; Protocol Last Admin: 10/24/18 09:33 Dose: Not Given Sitagliptin Phosphate (Januvia) 50 mg PO DAILY COLT; Protocol Last Admin: 10/24/18 09:32 Dose: 50 mg Sodium Chloride ([place] Nasal [place]) 0 ml NS Q4H COLT; Protocol Last Admin: 10/24/18 08:03 Dose: 1 applic Sucralfate (Carafate Tab) 1 gm PO TID COLT; Protocol Last Admin: 10/24/18 09:31 Dose: 1 gm Vitamin B Complex/Vit C/Folic Acid (Nephro-Ricco) 1 tab PO 0800 COLT; Protocol Last Admin: 10/24/18 08:03 Dose: 1 tab - Labs Labs: 10/23/18 06:50 10/23/18 15:30 PT 15.5 SECONDS (9.4-12.5) H 10/19/18 06:00 INR 1.37 10/19/18 06:00 APTT 61.8 Seconds (26.9-38.3) H 10/19/18 06:00
[2018-10-24 12:15] LABS: HEMOGLOBIN 11.1 g/dL (12.0-16.0); MEAN CELL VOLUME 83.1 fl (80.0-105.0); MEAN CORPUSCULAR HEMOGLOBIN 24.7 pg (25.0-35.0); MEAN CORPUSCULAR HGB CONC 29.8 g/dl (31.0-37.0); RBC 4.49 10^6/uL (3.5-6.1); RED CELL DISTRIBUTION WIDTH 17.9 % (11.5-14.5); WHITE BLOOD COUNT 23.4 10^3/uL (4.5-11.0)
--- NOTE | 2018-10-24 12:15 | PN ---
DATE: 10/24/2018 PULMONARY PROGRESS NOTE REFERRING PHYSICIAN: Patricio Horta MD SUBJECTIVE: The patient is seen, sitting up at bedside. No acute distress. No overnight events reported. Wore BiPAP machine last night. No headache, rhinitis, cough, shortness of breath, chest pain, abdominal pain, nausea, vomiting, diarrhea or leg pain reported. The patient reports feeling well this morning. OBJECTIVE: GENERAL: No acute distress. VITAL SIGNS: Blood pressure 110/61, pulse 67 and afebrile. HEENT: Moist mucous membranes. Crowded airway. NECK: Supple. No JVD. Short and thick. LUNGS: Fair airflow bilaterally. CARDIOVASCULAR: S1 and S2. ABDOMEN: Obese, soft and nontender. No distention. EXTREMITIES: No bilateral lower extremity edema. NEUROLOGIC: Awake, alert and verbal. Following commands. MEDICATIONS: Reviewed. Mucomyst 4 mL inhalation every 6 hours, Eliquis 5 mg twice a day, Lipitor 10 mg at bedtime, Pulmicort 0.5 mg inhalation every 12 hours, Wellbutrin 150 mg daily, Klonopin 0.5 mg at bedtime, Restasis every 12 hours, Cardizem 180 mg daily, ferrous gluconate 324 mg twice a day, Lasix 20 mg daily, Neurontin 100 mg daily, Humalog sliding scale a.c. and at bedtime, Atrovent 0.5 mg inhalation every 6 hours, Xopenex 0.63 mg inhalation 3 times a day, Synthroid 88 mcg daily, Glucophage 500 mg twice a day, Medrol 6 mg daily, metoprolol tartarate 25 mg twice a day, Singulair 10 mg at bedtime, Protonix 40 mg daily, saliva substitute 5 mL every 3 hours, Januvia 50 mg daily, [place] nasal spray every 4 hours, Carafate 1 g 3 times a day and Nephro-Ricco 1 tablet daily. LABORATORY DATA: Reviewed. POC glucose 145. Procalcitonin 0.09. Chest x-ray shows no active disease. IMPRESSION AND PLAN: Paroxysmal atrial fibrillation, moderate aortic stenosis, congestive heart failure, pulmonary hypertension, chronic obstructive pulmonary disease, obesity, hypoventilation syndrome, hypothyroidism, cardiomyopathy; sleep apnea syndrome and gastroesophageal reflux disease, obesity. The patient with leukocytosis most likely related to his steroids. His chest x-ray, procalcitonin is negative. The patient denies any dysuria or urinary discomfort, sleep apnea precaution, head of bed elevated at 45 degrees. Continue supplemental oxygen as needed. Continue inhaled bronchodilators and gastric prophylaxis. The patient currently on anticoagulation therapy. We will decrease Medrol to 2 mg to taper off over a next couple of days, fall precautions, out of bed to chair, physical therapy. Need to monitor the patient's blood pressure closely. This patient was seen and examined with Dr. Masterson. Discussed assessment and plan as described above. This patient was seen and examined with Abhijeet Lott, nurse practitioner. Discussed assessment and plan as described above. Thank you for this consult and we will follow with you. Abhijeet Lott APN Natali Masterson MD
--- NOTE | 2018-10-24 15:00 | PN ---
DATE: 10/24/2018 SUBJECTIVE: The patient is in bed in no acute distress, was seen earlier this morning in room 314. No fever, no chills. Had an uneventful night. PHYSICAL EXAMINATION: VITAL SIGNS: Temperature 98, blood pressure is 129/65, respiratory rate of 20. HEENT: Unremarkable. NECK: Supple. LUNGS: Decreased breath sounds. HEART: Normal S1, S2. ABDOMEN: Soft, nontender. LABORATORY DATA: Reveals the patient's white count 18,000 yesterday. No CBC is available. The patient is still on Medrol. ASSESSMENT AND PLAN: This is a 72-year-old female seen earlier this morning. 1. Leukocytosis, has been on methylprednisolone and at this time, we will leukocytosis. We will check on the rehman cultures, blood, urine, sputum culture, urinalysis, procalcitonin, chest x-ray. If negative, we will check on the repeat cultures, keep the patient off of antibiotics. Dr. Horta's note from this morning is reviewed. The patient has congestive heart failure, aortic stenosis, chronic atrial fibrillation, obstructive sleep apnea, chronic obstructive lung disease, anxiety, depression. Review of orders confirm this patient to be off of antibiotics. Tc Sunshine MD
[2018-10-25] MEDS: Saliva Substitute 44.3 ML PO SCH ×4 (00:23→09:34)
[2018-10-25] MEDS: Acetylcysteine 20% Inhal Soln (4ml) IH SCH ×2 (02:05→07:11)
[2018-10-25] MEDS: Ipratropium 0.02% Inhal Soln (0.5 mg/2.5 ml) UD IH SCH ×2 (02:06→07:11)
[2018-10-25] MEDS: Levothyroxine 88 MCG TAB PO SCH (05:00)
[2018-10-25] MEDS: Pantoprazole 40 mg EC Tab PO SCH (05:01)
[2018-10-25] MEDS: Insulin Lispro (humaLOG) LOW Coverage SC SCH ×2 (06:50→12:00)
[2018-10-25] MEDS: Levalbuterol 0.63 MG/3 ML Inhal Soln UD IH SCH (07:11)
[2018-10-25] MEDS: Budesonide 0.5 mg/2 ml Inhal Susp UD IH SCH (07:11)
[2018-10-25] MEDS: Multivitamin Vitamin B Complex (Nephro-Vite) Tab PO SCH (08:12)
[2018-10-25] MEDS: diltiaZEM 180 mg/24 Hours CD Cap PO SCH (09:33)
[2018-10-25] MEDS: cycloSPORINE 0.05 % Opth Emulsion UD OD SCH (09:34)
[2018-10-25] MEDS: buPROPion SR 150 MG TABLET PO SCH (09:34)
[2018-10-25 09:36] VITALS: BP 129/68
--- NOTE | 2018-10-25 10:11 | PN ---
DATE: 10/25/2018 PULMONARY PROGRESS NOTE REFERRING PHYSICIAN: Patricio Horta MD SUBJECTIVE: The patient is seen, sitting up in bed. No acute distress. No overnight events reported. Wore BiPAP machine last night. No headache, rhinitis, cough, shortness of breath, chest pain, abdominal pain, nausea, vomiting, diarrhea, leg pain or leg swelling reported. OBJECTIVE: GENERAL: No acute distress. VITAL SIGNS: Blood pressure 135/62, pulse 83 and afebrile. HEENT: Moist mucous membranes. Crowded airway. NECK: Supple. No JVD. Short and thick. LUNGS: Fair airflow bilaterally. CARDIOVASCULAR: S1 and S2. Positive murmur. ABDOMEN: Obese, soft and nontender. No distention. EXTREMITIES: No bilateral lower extremity edema. NEUROLOGIC: Awake, alert and verbal. Follows commands. MEDICATIONS: Reviewed. Mucomyst 4 mL inhalation every 6 hours, Eliquis 5 mg twice a day, Lipitor 10 mg at bedtime, Pulmicort 0.5 mg inhalation every 12 hours, Wellbutrin 150 mg daily, Klonopin 0.5 mg at bedtime, Restasis every 12 hours, Cardizem 180 mg daily, ferrous gluconate 324 mg twice a day, Lasix 20 mg daily, gabapentin 100 mg daily, Humalog sliding scale a.c. and at bedtime, Atrovent 0.5 mg inhalation every 6 hours, Xopenex 0.63 mg inhalation 3 times a day, Synthroid 88 mcg daily, metformin 500 mg twice a day, Medrol 2 mg daily, Lopressor 25 mg twice a day, Singulair 10 mg at bedtime, Protonix 40 mg daily, saliva substitute 5 mL every 3 hours, Januvia 50 mg daily, [place] nasal spray every 4 hours, Carafate 1 g 3 times a day and Nephro-Ricco 1 tablet daily. LABORATORY DATA: Reviewed. WBC 23.4, RBC 4.49, hemoglobin 11.1, hematocrit 37.4 and platelets 365. POC glucose 90. Urine culture final no growth. Blood cultures preliminary no growth after 24 hours. IMPRESSION AND PLAN: Paroxysmal atrial fibrillation, moderate aortic stenosis, congestive heart failure, pulmonary hypertension, chronic obstructive pulmonary disease, obesity, hypoventilation syndrome, hypothyroidism, cardiomyopathy, gastroesophageal reflux disease, obesity and sleep apnea syndrome. Continue inhaled bronchodilators, gastric prophylaxis. The patient is currently on anticoagulation therapy and fall precautions. The patient is scheduled for discharge home today. Taper off Medrol over next 3-4 days if blood pressure remains okay. We recommend the patient followup for full pulmonary function test as outpatient to evaluate chronic lung disease. We will also recommend have sleep study done as outpatient. This patient was seen and examined with Dr. Masterson. Discussed assessment and plan as described above. This patient was seen and examined with Abhijeet Lott, nurse practitioner. Discussed assessment and plan as described above. Thank you for this consult and we will follow with you. Abhijeet Lott APN Natali Masterson MD PRIYANKA
[2018-10-25 12:13] VITALS: PULSE 73
--- NOTE | 2018-10-25 13:08 | CP.PCM.PN ---
Subjective - Date & Time of Evaluation Date of Evaluation: 10/25/18 Time of Evaluation: 13:07 - Subjective Subjective: RENAL pt feels good states she is leaving today Physical Examination: General Appearance: Comfortable, in no acute respiratory distress, co-operative . obese Vitals reviewed and noted as below Head; Atraumatic, normocephalic ENT: no ulcers no thrush. Tongue is midline. Oropharynx: no rash or ulcers. EYES: Pupils are equal, round and reactive to light accommodation. Eye muscles and extraocular movement intact. Sclera is anicteric. Neck; supple no lymphadenopathy, no thyromegaly or bruit Lungs: reduced bs at bases Heart: Normal rate. s1s2 normal. Extremities: trace/1+ edema b/l Neurological: Patient is alert, awake and oriented to person, place and time. No focal deficit. Strength bilateral appropriate and equal Skin: Warm and dry. Normal turgor. No rash. Palpitation: Normal elasticity for age Abdomen: Abdomen is soft. Bowel sounds +. There is no abdominal tenderness, no guarding/rigidity no organomegaly Psych: normal insight and normal affect/mood MSK: no joint tenderness or swelling. Digits and nails normal, no deformity : kidney or bladder not palpable Assessment: stable SONAM: improved A. fib with RVR/chf with exacerbation/hyperkalemia acute on chronic hypercapnic respi failure with renal compensation, AMS moderate with moderate to severe pulmonary HTN obesity ex smoker hypomagnesemia Anemia Rt renal cyst DM with last A1c 6.7% Plan renal function remains stable on last check bp stable Monitor Input/Output, daily weights and renal function with basic metabolic panel continue with iron and MVI supplement lytes as needed outpt f/up for renal cyst Objective - Vital Signs/Intake and Output Vital Signs (last 24 hours): Temp Pulse Resp BP Pulse Ox 98 F 73 20 129/68 94 L 10/23/18 16:00 10/25/18 11:58 10/23/18 16:00 10/25/18 09:33 10/25/18 11:58 - Medications Medications: Current Medications Acetylcysteine (Acetylcysteine 20%) 4 ml IH [id number] COLT; Protocol Last Admin: 10/25/18 07:11 Dose: 4 ml Apixaban (Eliquis) 5 mg PO BID COLT; Protocol Last Admin: 10/25/18 09:33 Dose: 5 mg Atorvastatin Calcium (Lipitor) 10 mg PO HS COLT; Protocol Last Admin: 10/24/18 21:23 Dose: 10 mg Budesonide (Pulmicort Respules) 0.5 mg IH [id number] COLT; Protocol Last Admin: 10/25/18 07:11 Dose: 0.5 mg Bupropion HCl (Wellbutrin Sr 150 Mg) 150 mg PO DAILY COLT; Protocol Last Admin: 10/25/18 09:34 Dose: 150 mg Clonazepam (Klonopin) 0.5 mg PO HS COLT; Protocol Last Admin: 10/24/18 21:21 Dose: 0.5 mg Cyclosporine (Restasis) 1 ea OD Q12 COLT; Protocol Last Admin: 10/25/18 09:34 Dose: 1 ea Dextrose (Dextrose 50% Inj) 0 ml IV STAT PRN; Protocol PRN Reason: Hypoglycemia Protocol Diltiazem HCl (Cardizem Cd) 180 mg PO DAILY COLT; Protocol Last Admin: 10/25/18 09:33 Dose: 180 mg Ferrous Gluconate (Fergon) 324 mg PO BID COLT; Protocol Last Admin: 10/25/18 09:33 Dose: 324 mg Furosemide (Lasix) 20 mg PO DAILY COLT Last Admin: 10/25/18 09:33 Dose: 20 mg Gabapentin (Neurontin) 100 mg PO DAILY COLT; Protocol Last Admin: 10/25/18 09:34 Dose: 100 mg Insulin Human Lispro (Humalog Low) 0 units SC ACHS COLT; Protocol Last Admin: 10/25/18 12:00 Dose: Not Given Ipratropium [place] (Atrovent) 0.5 mg IH [id number] COLT Last Admin: 10/25/18 07:11 Dose: 0.5 mg Levalbuterol HCl (Xopenex) 0.63 mg IH TIDRESP COLT Last Admin: 10/25/18 07:11 Dose: 0.63 mg Levothyroxine Sodium (Synthroid) 88 mcg PO 0600 COLT; Protocol Last Admin: 10/25/18 05:00 Dose: 88 mcg Metformin HCl (Glucophage) 500 mg PO 0730,1700 COLT Last Admin: 10/25/18 08:10 Dose: 500 mg Methylprednisolone (Medrol) 2 mg PO 0800 COLT; Protocol Last Admin: 10/25/18 08:11 Dose: 2 mg Metoprolol Tartrate (Lopressor) 25 mg PO 0730,1830 COLT; Protocol Last Admin: 10/25/18 08:11 Dose: 25 mg Montelukast Sodium (Singulair) 10 mg PO HS COLT; Protocol Last Admin: 10/24/18 21:23 Dose: 10 mg Pantoprazole Sodium (Protonix Ec Tab) 40 mg PO 0600 COLT; Protocol Last Admin: 10/25/18 05:01 Dose: 40 mg Saliva Substitute (Saliva Substitute) 5 ml PO Q3 COLT; Protocol Last Admin: 10/25/18 09:34 Dose: Not Given Sitagliptin Phosphate (Januvia) 50 mg PO DAILY COLT; Protocol Last Admin: 10/25/18 09:33 Dose: 50 mg Sodium Chloride ([place] Nasal [place]) 0 ml NS Q4H COLT; Protocol Last Admin: 10/25/18 08:12 Dose: 1 applic Sucralfate (Carafate Tab) 1 gm PO TID COLT; Protocol Last Admin: 10/25/18 09:32 Dose: 1 gm Vitamin B Complex/Vit C/Folic Acid (Nephro-Ricco) 1 tab PO 0800 COLT; Protocol Last Admin: 10/25/18 08:12 Dose: 1 tab - Labs Labs: 10/24/18 11:50 10/23/18 15:30 PT 15.5 SECONDS (9.4-12.5) H 10/19/18 06:00 INR 1.37 10/19/18 06:00 APTT 61.8 Seconds (26.9-38.3) H 10/19/18 06:00
--- NOTE | 2018-10-25 22:28 | PN ---
DATE: 10/25/2018 SUBJECTIVE: The patient was seen early this morning in room 314. She is awake and alert. She wants to be discharged and wants to go home. PHYSICAL EXAMINATION: VITAL SIGNS: Temperature is 98, blood pressure is 117/60, respiratory rate of 18. HEENT: Unremarkable. NECK: Supple. LUNGS: Have decreased breath sounds. HEART: Normal S1, S2. ABDOMEN: Soft, nontender. LABORATORY EXAMINATION: Reveals the patient's white count is at 23,000. Hemoglobin of 11. Chemistries are noted. Procalcitonin is noted. On examination of her legs, there is no evidence of DVT. She is on Eliquis b.i.d. Blood cultures are negative. Urine cultures are negative, and the patient's chest x-ray on the is also negative. The patient has been on steroids which may explain the leukocytosis. I have explained to the patient eager to go home, it is important to follow the patient with primary doctor and follow the WBCs and taper off her steroids for resolution of leukocytosis. ASSESSMENT AND PLAN: A 72-year-old with leukocytosis secondary to methylprednisolone, probably cultures negative and chest x-ray, procalcitonin is negative. No obvious source other than that with this patient with a history of congestive heart failure, aortic stenosis, atrial fibrillation, obstructive sleep apnea, anxiety, and depression. She states she will follow her PMD and with the CBC, and she wanted to be discharged today. Tc Sunshine MD
--- NOTE | 2018-10-27 15:01 | PN ---
DATE: 10/27/2018 SUBJECTIVE: A 72-year-old female. She was admitted for rehabilitation for continuation of physical therapy, continued treatment for underlying COPD, chronic conditions and the patient seen on multiple consults, Cardiology consult, Dr. Hanson and Pulmonary, Dr. Masterson. The patient seems improving, stabilized with the medications including Lasix was decreased to 20 mg once a day and metoprolol was decreased to 25 mg twice a day, otherwise, most of her medication and her blood pressure was stable and she is feeling better. She lost weight and she is working better than before. She still need oxygen, saturation goes down without oxygen and she was instructed to continue her oxygen use BiPAP machine at night. PHYSICAL EXAMINATION VITAL SIGNS: . On discharged vitals are as follows; temperature 98, heart rate 76, blood pressure 117/66, respirations 18, saturations 94% on 2 liters nasal cannula. HEAD AND NECK: Normal. No JVD. No thyromegaly. CHEST: Clear bilaterally with diminished breath sounds. CARDIAC: First sound and second sound normal with systolic ejection murmur in the aortic area. ABDOMEN: Obese, nontender. EXTREMITIES: Mild edema. NEUROLOGICAL: Normal. LABORATORY DATA: White count , hemoglobin 11.1, hematocrit 37.3, platelets 365. Chemistry; blood sugar 140 to 200 range. In general, at last the blood work shows sodium 137, potassium 4.4, chloride 97, bicarb 23, BUN 36, creatinine 1.1, calcium 9.5, total bilirubin 0.3 normal. AST, ALT and alk phos are normal. IMPRESSION AND PLAN: 1. Generalized weakness deconditioning, improved. Continue physical therapy at home. 2. Chronic obstructive pulmonary disease exacerbation. The patient is on nasal steroids, she seems doing very well and we will discharge the patient home. 3. Congestive heart failure, edema of lower extremities, Lasix 20 mg p.o. daily. 4. She has obstructive sleep apnea. Continue bilevel positive airway pressure. 5. Hypothyroidism, depression and anxiety. Continue rest of the medications. MEDICATIONS: Atrovent nasal spray, Cardizem CD was decreased to 180, Eliquis 5 mg b.i.d., chronic atrial fibrillations, metformin 500 mg b.i.d., insulin, she had Januvia 50 mg daily, Klonopin 0.5 mg b.i.d., Lipitor 10, Lopressor 25 mg. The patient is off , Neurontin 100 mg p.o. daily, ocean nasal spray, Protonix 40 mg, Restasis cyclosporine eye drops, saliva substitute she has, Singulair 10 mg, Synthroid 88, and Wellbutrin SR. The patient will follow up in our office next week, Saturday or Saturday. Patricio Horta MD
--- NOTE | 2018-10-27 15:21 | PN ---
DATE: 10/24/2018 SUBJECTIVE: The patient is working on the floor. She did rest every 15 to 20 feet. She gets short of breath some times, but no other complaints. Blood pressure still has been in 110 to 120 range, but improving. PHYSICAL EXAMINATION: VITAL SIGNS: On Tele service, temperature is 98, heart rate 83, blood pressure is 129/68, respirations 18, saturating in low 90s. HEAD AND NECK: Normal. No JVD. No thyromegaly. CHEST: Clear bilateral. CARDIAC: First sound, second sound normal. Systolic ejection murmur at aortic area. GASTROINTESTINAL: Obese, nontender. EXTREMITIES: Mild edema. NEUROLOGICAL: Normal. LABORATORY DATA: White count 23.4, hemoglobin 11.1, hematocrit 37.3, platelets 365. Chemistry, sodium 137, potassium 4.4, chloride 97, bicarb 36, BUN 36, creatinine 1.1, blood sugar 190. Liver function test is normal. The patient also has procalcitonin of 0.09, which is negative low. IMPRESSION: 1. Acute chronic obstructive pulmonary disease exacerbations, seems doing well with tapering steroids. She is improving. 2. Obstructive sleep apnea. Continue bilevel positive airway pressure. 3. Congestive heart failure. The lower extremity edema, the patient seems doing well on Lasix 20 mg p.o. daily, metoprolol decreased to 25 mg p.o. b.i.d. The patient seems better on this regimen, we will continue current regimen. 4. Chronic atrial fibrillation. Continue Cardizem 180, metoprolol 25. 5. Diabetes type 2. The patient on diabetic education. She will have to use a machine, continue current diabetic medications. She is on metformin and Januvia. 6. Hypertension, stable. 7. Hypercholesterolemia. 8. Hypothyroidism. 9. Chronic anxiety. 10. Depression. PLAN: Continue current medications and followup clinically. Patricio Horta MD
== END 2018-10-25 13:20 | disposition home health service (06) | DRG 292 ==
LOC: TRCU 21:57
PROVIDERS: ADMIT Internal Medicine; ATTEND Internal Medicine
PROC: F07Z9FZ Gait Training/Functional Ambulation Treatment using Assistive, Adaptive, Supportive or Protective Equipment (ICD-10-PCS; principal; 2018-10-17)
PROC: F07M6ZZ Therapeutic Exercise Treatment of Musculoskeletal System - Whole Body (ICD-10-PCS; 2018-10-18)
PROC: F08Z1ZZ Dressing Techniques Treatment (ICD-10-PCS; 2018-10-18)
PROC: F08Z2ZZ Grooming/Personal Hygiene Treatment (ICD-10-PCS; 2018-10-18)
PROC: F08Z0ZZ Bathing/Showering Techniques Treatment (ICD-10-PCS; 2018-10-18)
DX: I13.0 Hypertensive heart and chronic kidney disease with heart failure and stage 1 through stage 4 chronic kidney disease, or unspecified chronic kidney disease (principal); I50.32 Chronic diastolic (congestive) heart failure; J44.1 Chronic obstructive pulmonary disease with (acute) exacerbation; N17.9 Acute kidney failure, unspecified; E66.2 Morbid (severe) obesity with alveolar hypoventilation; E87.2 Acidosis; I48.0 Paroxysmal atrial fibrillation; I48.2 Chronic atrial fibrillation; K21.9 Gastro-esophageal reflux disease without esophagitis; N18.9 Chronic kidney disease, unspecified; I27.20 Pulmonary hypertension, unspecified; I35.0 Nonrheumatic aortic (valve) stenosis; I42.9 Cardiomyopathy, unspecified; D64.9 Anemia, unspecified; D72.829 Elevated white blood cell count, unspecified; E03.9 Hypothyroidism, unspecified; E11.22 Type 2 diabetes mellitus with diabetic chronic kidney disease; E78.00 Pure hypercholesterolemia, unspecified; E83.42 Hypomagnesemia; E87.5 Hyperkalemia; F32.89 Other specified depressive episodes; F41.9 Anxiety disorder, unspecified; G89.4 Chronic pain syndrome; N20.0 Calculus of kidney; N28.1 Cyst of kidney, acquired; R09.02 Hypoxemia; R79.1 Abnormal coagulation profile; T38.0X5A Adverse effect of glucocorticoids and synthetic analogues, initial encounter; Z68.34 Body mass index [BMI] 34.0-34.9, adult; Z79.01 Long term (current) use of anticoagulants; Z79.890 Hormone replacement therapy; Z79.899 Other long term (current) drug therapy; Z85.3 Personal history of malignant neoplasm of breast; Z87.442 Personal history of urinary calculi; Z87.891 Personal history of nicotine dependence; Z90.12 Acquired absence of left breast and nipple; Z90.49 Acquired absence of other specified parts of digestive tract